=== PATIENT | female | born 1935 | race Caucasian/White ===

== ENCOUNTER → 2016-06-16 | Outpatient (CLI) | payer BC ==
[~2016-06-16] MED LIST: ACET-1256 PO; ANAS1TAB19 PO; ASPI81TA28 PO; DLTCD/240 PO; FURO-85 PO; METH-589 PO; POTA-335 PO; TELM80TA PO; Vitamin D3 PO
[2016-06-16 12:04] LABS: BASO % 0.5 %; BASO ABS # 0.03 K/uL (0-0.2); COMPLETE YES; EOS % 2.5 %; HEMATOCRIT 43.5 % (37-47); IG% 0.2 %; LYMPH % 21.7 %; LYMPH ABS # 1.33 K/uL (1.2-3.4); MEAN CELL VOLUME 88.8 fL (80-100); MEAN CORPUSCULAR HEMOGLOBIN 30.2 pg (25-34); MEAN PLATELET VOLUME 10.2 fL (7.4-10.4); MONO % 6.4 %; NEUT % 68.7 %; PLATELET COUNT 226 K/uL (130-400); WHITE BLOOD COUNT 6.12 K/uL (4.8-10.8)
[2016-06-16 12:32] LABS: BLOOD UREA NITROGEN 12 mg/dl (7-18); BUN/CREATININE RATIO 12.8 (10-20); CALCIUM 9.3 mg/dl (8.5-10.1); CARBON DIOXIDE 30 mmol/L (21-32); CHLORIDE 107 mmol/L (98-107); GLUCOSE 86 mg/dl (70-99); SODIUM 143 mmol/L (136-145)
== END | disposition home or self-care (01) ==
LOC: C.LAB 11:27
PROVIDERS: ATTEND Internal Medicine Geriatric Medicine
DX: I10 Essential (primary) hypertension (principal); E05.90 Thyrotoxicosis, unspecified without thyrotoxic crisis or storm

== ENCOUNTER → 2016-07-13 | Outpatient (CLI) | payer BC ==
[2016-07-13 15:50] LABS: BASO % 0.6 %; BASO ABS # 0.04 K/uL (0-0.2); COMPLETE YES; EOS % 2.6 %; HEMATOCRIT 42.6 % (37-47); IG% 0.3 %; LYMPH % 17.2 %; LYMPH ABS # 1.19 K/uL (1.2-3.4); MEAN CELL VOLUME 89.7 fL (80-100); MEAN CORPUSCULAR HEMOGLOBIN 29.7 pg (25-34); MEAN CORPUSCULAR HGB CONC 33.1 g/dl (32-36); MEAN PLATELET VOLUME 10.2 fL (7.4-10.4); MONO % 7.2 %; NEUT % 72.1 %; PLATELET COUNT 282 K/uL (130-400); RED BLOOD COUNT 4.75 M/uL (4.2-5.4); WHITE BLOOD COUNT 6.93 K/uL (4.8-10.8)
[2016-07-13 16:15] LABS: FERRITIN 85.9 ng/ml (8.0-388.0)
== END | disposition home or self-care (01) ==
LOC: C.LAB 14:59
PROVIDERS: ATTEND Nurse Practitioner
DX: C50.111 Malignant neoplasm of central portion of right female breast (principal); D50.9 Iron deficiency anemia, unspecified

== ENCOUNTER → 2016-07-27 | Outpatient (CLI) | payer BC ==
--- NOTE | 2016-07-28 15:18 | MAMMOGRAPHY REPORT ---
BILATERAL DIGITAL SCREENING MAMMOGRAM TOMOSYNTHESIS WITH CAD: 07/27/2016 CLINICAL HISTORY: Asymptomatic. Personal history of right breast cancer status post treatment. TECHNIQUE: Breast tomosynthesis in addition to standard 2D mammography was performed. Current study was also evaluated with a Computer Aided Detection (CAD) system. COMPARISON: Comparison is made to exams dated: 07/23/2015 mammogram, 02/01/2015 mammogram, 08/01/2014 ultrasound, 08/01/2014 mammogram, 06/13/2013 mammogram, and 11/21/2012 mammogram - [facility]. BREAST COMPOSITION: There are scattered areas of fibroglandular density in both breasts. FINDINGS: There is expected architectural distortion in the upper outer posterior right breast, at the site of prior lumpectomy. A linear scar marker overlies the skin of the upper outer posterior r ight breast. There are several surgical clips remaining in place. A few loosely grouped punctate m onomorphic microcalcifications near the lateral aspect of the surgical site. Benign-appearing rodli ke calcifications and calcifications elsewhere in the right breast. No new suspicious mass, architec tural distortion or cluster of microcalcifications is seen bilaterally. IMPRESSION: ACR BI-RADS CATEGORY 1: NEGATIVE There is no mammographic evidence of malignancy. A 1 year screening mammogram is recommended. The p atient will receive written notification of the results. Approximately 10% of breast cancers are not detected with mammography. A negative mammographic repor t should not delay biopsy if a clinically suggestive mass is present. Karina Villafana M.D. ay/:07/27/2016 17:13:15 Bench Assembler Operator: Faiza LAUGHLIN)(Gomez), [facility] letter sent: Normal 1/2 BI-RADS Code: ACR BI-RADS Category 1: Negative
== END | disposition home or self-care (01) ==
LOC: C.MAMM 10:41
PROVIDERS: ATTEND Nurse Practitioner
DX: Z12.31 Encounter for screening mammogram for malignant neoplasm of breast (principal)

== ENCOUNTER → 2016-08-03 | Outpatient (CLI) | payer BC ==
--- NOTE | 2016-08-07 08:58 | CODING QUERY NO DIAGNOSIS ---
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 Please assist us with providing a diagnosis/symptom for the test(s) below: A diagnosis/symptom was not documented on your Order. A valid diagnosis/symptom is required to bill all insurances. Please remember that we are unable to code a diagnosis of rule out, probable, possible, questionable, or suspected. Tests that require a diagnosis: * DXA BONE DENSITY, AXIAL DIAGNOSIS: DATE OF SERVICE: 08/03/16 Provider Signature: Date: Thank you Telly Samaniego [facility] Information Management Once completed, please kindly fax back to [phone] For questions please call [phone]
--- NOTE | 2016-09-07 13:34 | CODING QUERY MEDICAL NECESSITY ---
SUPPORTING DIAGNOSIS NEEDED Terence VICENTE, A supporting diagnosis is required for the test/procedure performed on this patient in order for us to be reimbursed by the patient's insurance. Please provide a supporting diagnosis for the following test/procedure listed below next to the test name along with your signature. *If there is no additional diagnosis for this patient that would support the following test/procedure please document that below next to the test/procedure. Test(s)/Procedure(s) that require a supporting diagnosis: * ([id number]) DXA BONE DENSITY, AXIAL DIAGNOSIS: DATE OF SERVICE: 08/03/16 Provider Signature: Date: Thank you Telly Samaniego [facility] Information Management Once completed, please kindly fax back to [phone] For questions please call [phone]
== END | disposition home or self-care (01) ==
LOC: C.MAMM 11:22
PROVIDERS: ATTEND Nurse Practitioner Family
DX: C50.111 Malignant neoplasm of central portion of right female breast (principal); Z51.81 Encounter for therapeutic drug level monitoring; Z79.811 Long term (current) use of aromatase inhibitors

== ENCOUNTER → 2016-12-02 | Outpatient (CLI) | payer BC ==
[2016-12-02 12:25] LABS: BASO % 0.8 %; BASO ABS # 0.05 K/uL (0-0.2); COMPLETE YES; EOS % 2.5 %; HEMATOCRIT 43.1 % (37-47); IG% 0.3 %; LYMPH % 18.1 %; LYMPH ABS # 1.15 K/uL (1.2-3.4); MEAN CELL VOLUME 87.2 fL (80-100); MEAN CORPUSCULAR HEMOGLOBIN 29.8 pg (25-34); MEAN CORPUSCULAR HGB CONC 34.1 g/dl (32-36); MEAN PLATELET VOLUME 10.3 fL (7.4-10.4); MONO % 6.4 %; NEUT % 71.9 %; PLATELET COUNT 245 K/uL (130-400); RED BLOOD COUNT 4.94 M/uL (4.2-5.4); WHITE BLOOD COUNT 6.37 K/uL (4.8-10.8)
[2016-12-02 12:36] LABS: ALT/SGPT 21 U/L (12-78); AST/SGOT 11 U/L (15-37); BLOOD UREA NITROGEN 14 mg/dl (7-18); CALCIUM 9.1 mg/dl (8.5-10.1); CARBON DIOXIDE 25 mmol/L (21-32); CHLORIDE 109 mmol/L (98-107); CREATININE 0.88 mg/dl (0.60-1.20); GLUCOSE 154 mg/dl (70-99); SODIUM 140 mmol/L (136-145)
[2016-12-02 12:42] LABS: ALB/GLOB RATIO 1.2 (0.9-2); ALKALINE PHOSPHATASE 112 U/L (45-117); FERRITIN 60.6 ng/ml (8.0-388.0); TOTAL IRON BINDING CAPACITY 286 mcg/dl (250-450)
== END | disposition home or self-care (01) ==
LOC: C.LAB 10:43
PROVIDERS: ATTEND Nurse Practitioner Family
DX: C50.111 Malignant neoplasm of central portion of right female breast (principal)

== ENCOUNTER → 2017-01-12 | Outpatient (CLI) | payer BC ==
[2017-01-12 11:59] LABS: BASO % 0.5 %; BASO ABS # 0.03 K/uL (0-0.2); COMPLETE YES; EOS % 2.1 %; HEMATOCRIT 40.7 % (37-47); IG% 0.2 %; LYMPH ABS # 1.11 K/uL (1.2-3.4); MEAN CELL VOLUME 89.6 fL (80-100); MEAN CORPUSCULAR HGB CONC 33.4 g/dl (32-36); MEAN PLATELET VOLUME 10.3 fL (7.4-10.4); MONO % 9.1 %; NEUT % 70.1 %; PLATELET COUNT 257 K/uL (130-400); RED BLOOD COUNT 4.54 M/uL (4.2-5.4); WHITE BLOOD COUNT 6.17 K/uL (4.8-10.8)
[2017-01-12 18:25] LABS: BLOOD UREA NITROGEN 12 mg/dl (7-18); BUN/CREATININE RATIO 15.3 (10-20); CALCIUM 9.3 mg/dl (8.5-10.1); CARBON DIOXIDE 26 mmol/L (21-32); CHLORIDE 109 mmol/L (98-107); GLUCOSE 98 mg/dl (70-99); SODIUM 143 mmol/L (136-145)
== END | disposition home or self-care (01) ==
LOC: C.LABPBG 10:37
PROVIDERS: ATTEND Internal Medicine Geriatric Medicine
DX: I10 Essential (primary) hypertension (principal); E05.90 Thyrotoxicosis, unspecified without thyrotoxic crisis or storm; D64.9 Anemia, unspecified; I48.2 Chronic atrial fibrillation

== ENCOUNTER → 2017-07-20 | Outpatient (CLI) | payer BC ==
[2017-07-20 17:02] LABS: BASO % 0.7 %; BASO ABS # 0.05 K/uL (0-0.2); EOS % 2.6 %; EOS ABS # 0.19 K/uL (0-0.5); HEMATOCRIT 41.8 % (37-47); HEMOGLOBIN 13.6 g/dL (12.0-16.0); IG# 0.01 K/uL (0.00-0.02); LYMPH % 20.7 %; LYMPH ABS # 1.52 K/uL (1.2-3.4); MEAN CELL VOLUME 90.1 fL (80-100); MEAN CORPUSCULAR HEMOGLOBIN 29.3 pg (25-34); MEAN CORPUSCULAR HGB CONC 32.5 g/dl (32-36); MEAN PLATELET VOLUME 10.3 fL (7.4-10.4); MONO % 7.2 %; MONO ABS # 0.53 K/uL (0.11-0.59); NEUT % 68.7 %; NEUT ABS # 5.03 K/uL (1.4-6.5); PLATELET COUNT 299 K/uL (130-400); RED CELL DISTRIBUTION WIDTH CV 14.3 % (11.5-14.5); RED CELL DISTRIBUTION WIDTH SD 46.6 fL (36.4-46.3); WHITE BLOOD COUNT 7.33 K/uL (4.8-10.8)
[2017-07-20 17:13] LABS: ALBUMIN 3.6 gm/dl (3.4-5.0); ALT/SGPT 21 U/L (12-78); AST/SGOT 13 U/L (15-37); BLOOD UREA NITROGEN 16 mg/dl (7-18); CALCIUM 8.8 mg/dl (8.5-10.1); CARBON DIOXIDE 26 mmol/L (21-32); CREATININE 0.97 mg/dl (0.60-1.20); GLUCOSE 128 mg/dl (70-99); POTASSIUM 4.1 mmol/L (3.5-5.1); SODIUM 140 mmol/L (136-145)
[2017-07-20 17:23] LABS: ALKALINE PHOSPHATASE 104 U/L (45-117); TOTAL PROTEIN 6.8 gm/dl (6.4-8.2)
[2017-07-21 06:48] LABS: HEMOGLOBIN A1C 6.2 % (4.5-5.6)
== END | disposition home or self-care (01) ==
LOC: C.LABPBG 13:16
PROVIDERS: ATTEND Internal Medicine Geriatric Medicine
DX: I10 Essential (primary) hypertension (principal); E05.90 Thyrotoxicosis, unspecified without thyrotoxic crisis or storm; M19.90 Unspecified osteoarthritis, unspecified site; E55.9 Vitamin D deficiency, unspecified; D64.9 Anemia, unspecified; I48.2 Chronic atrial fibrillation

== ENCOUNTER → 2017-11-30 | Outpatient (CLI) | payer BC ==
[~2017-11-30] MED LIST changes: -ANAS1TAB19 PO; +ANAS1TAB59 PO
[2017-11-30 16:53] LABS: BASO % 0.5 %; BASO ABS # 0.03 K/uL (0-0.2); EOS % 2.6 %; EOS ABS # 0.17 K/uL (0-0.5); HEMATOCRIT 41.3 % (37-47); HEMOGLOBIN 13.1 g/dL (12.0-16.0); LYMPH % 20.4 %; LYMPH ABS # 1.35 K/uL (1.2-3.4); MEAN CELL VOLUME 89.4 fL (80-100); MEAN CORPUSCULAR HEMOGLOBIN 28.4 pg (25-34); MEAN CORPUSCULAR HGB CONC 31.7 g/dl (32-36); MEAN PLATELET VOLUME 11.2 fL (7.4-10.4); MONO % 5.6 %; MONO ABS # 0.37 K/uL (0.11-0.59); NEUT % 70.9 %; NEUT ABS # 4.71 K/uL (1.4-6.5); PLATELET COUNT 285 K/uL (130-400); RED CELL DISTRIBUTION WIDTH CV 14.3 % (11.5-14.5); RED CELL DISTRIBUTION WIDTH SD 46.5 fL (36.4-46.3); WHITE BLOOD COUNT 6.63 K/uL (4.8-10.8)
[2017-11-30 17:07] LABS: ALBUMIN 3.5 gm/dl (3.4-5.0); ALKALINE PHOSPHATASE 99 U/L (45-117); ALT/SGPT 19 U/L (12-78); AST/SGOT 11 U/L (15-37); BLOOD UREA NITROGEN 19 mg/dl (7-18); CALCIUM 8.9 mg/dl (8.5-10.1); CARBON DIOXIDE 26 mmol/L (21-32); CREATININE 1.04 mg/dl (0.60-1.20); GLUCOSE 148 mg/dl (70-99); POTASSIUM 4.1 mmol/L (3.5-5.1); SODIUM 137 mmol/L (136-145); TOTAL PROTEIN 6.8 gm/dl (6.4-8.2)
== END | disposition home or self-care (01) ==
LOC: C.LABPBG 13:16
PROVIDERS: ATTEND Nurse Practitioner Family
DX: C50.111 Malignant neoplasm of central portion of right female breast (principal)

== ENCOUNTER 2021-04-09 10:53 | Observation (INO) ==
[2021-04-09 12:11] LABS: Basophils # (auto) 0.03 K/uL (0-0.2); Basophils % (auto) 0.4 %; Eosinophils # (auto) 0.13 K/uL (0-0.5); Eosinophils % (auto) 1.7 %; Hematocrit (blood only) 45.3 % (37-47); Hemoglobin 14.8 g/dL (12.0-16.0); Immature Granulocytes # (auto) 0.01 K/uL (0.00-0.02); Immature Granulocytes % (auto) 0.1 %; Lymphocytes # (auto) 0.99 K/uL (1.2-3.4); Lymphocytes % (auto) 12.8 %; Mean Corpuscular Hemoglobin 29.7 pg (25-34); Mean Corpuscular Hgb Conc 32.7 g/dL (32-36); Mean Corpuscular Volume 90.8 fL (80-100); Mean Platelet Volume 10.3 fL (7.4-10.4); Monocytes # (auto) 0.51 K/uL (0.11-0.59); Monocytes % (auto) 6.6 %; Neutrophils # (auto) 6.06 K/uL (1.4-6.5); Neutrophils % (auto) 78.4 %; Platelet Count 267 K/uL (130-400); RDW Coefficient of Variation 14.6 % (11.5-14.5); RDW Standard Deviation 48.5 fL (36.4-46.3); Red Blood Count 4.99 M/uL (4.2-5.4); White Blood Count 7.73 K/uL (4.8-10.8)
[2021-04-09 12:31] LABS: Alanine Aminotransferase 16 (12-78); Albumin Level 3.8 gm/dl (3.4-5.0); Aspartate Aminotransferase 8 U/L (15-37); BUN Creatinine Ratio 23.8 (10-20); Blood Urea Nitrogen 20 mg/dl (7-18); Calcium 9.6 mg/dl (8.5-10.1); Carbon Dioxide 26 mmol/L (21-32); Chloride 107 mmol/L (98-107); Est GFR (African American) 74.5 ml/min; Est GFR (Non-African American) 64.3 ml/min; Glucose 110 mg/dl (70-99); Potassium 3.8 mmol/L (3.5-5.1); Sodium 139 mmol/L (136-145)
[2021-04-09 12:33] LABS: Albumin Globulin Ratio 1.1 (0.9-2); Alkaline Phosphatase 96 U/L (45-117); Bilirubin,Total 0.6 mg/dl (0.2-1); Globulin 3.4 gm/dl (2.5-4.0); Total Protein 7.2 gm/dl (6.4-8.2)
[2021-04-09] MEDS ORDERED: SODIUM CHLORIDE 0.9% 1000ML 500 ML IV ONE (15:45)
--- NOTE | 2021-04-09 16:11 | Emergency Department Note ---
History of Present Illness General Chief complaint: Fall Stated complaint: FALL Time Seen by Provider: 04/09/21 15:32 History of Present Illness This 85-year-old female patient with significant past medical history of atrial fibrillation, interstitial cystitis, hypertension presents to the emergency department today for evaluation of fall. The patient states yesterday at about 3 AM, she awoke from sleep needing to go to the bathroom. She sat on the side of the bed when she felt lightheaded and dizzy. She stood up to go to the bathroom and reports she passed out, striking the right side of her head on a dresser and somehow getting a contusion on the left forearm. The patient notes she continues to feel lightheaded and dizzy, the symptoms have not resolved. She did get herself up and out of bed today and made herself breakfast, but when she continued to feel unsteady on her feet, lightheaded, and dizzy, she decided to come to the emergency department for evaluation. The patient states she has not felt normal for the past 2 days. Patient denies any recent fever or illness. She denies any numbness or tingling. She denies any headache or visual disturbances. No ringing in the ears. No chest pain or trouble breathing before or after the fall. No abdominal pain, nausea, vomiting. She does have diarrhea which she states is chronic. She rates her current pain in the back of her head a 3/10 and describes it as throbbing. She has not taken any medications for her symptoms. Patient takes only a baby aspirin daily. She does not take any other blood thinners. Home Medications Medication Instructions Recorded Confirmed Type anastrozole 1 mg tablet 1 mg PO QAM 01/18/19 04/09/21 History diltiazem HCl 240 mg 240 mg PO BID cap 01/18/19 04/09/21 History capsule,extended release 24 hr metoprolol succinate 25 mg 25 mg PO HS tab 01/18/19 04/09/21 History tablet,extended release 24 hr potassium chloride 20 mEq 20 meq PO QAM #180 tab 01/18/19 04/09/21 History tablet,extended release cholecalciferol (vitamin D3) 50 50 mcg PO BID 09/03/20 04/09/21 History mcg (2,000 unit) tablet furosemide 20 mg tablet 20 mg PO QAM 09/03/20 04/09/21 History pantoprazole 40 mg tablet,delayed 40 mg PO QAM #90 tab 11/12/20 04/09/21 Rx release telmisartan 40 mg tablet (Micardis) 80 mg PO DAILY #60 tab 02/17/21 04/09/21 Rx methimazole 5 mg tablet 5 mg PO QAM #90 tab 03/03/21 04/09/21 Rx acetaminophen 500 mg tablet 1,000 mg PO HS 04/09/21 04/09/21 History aspirin 81 mg tablet,delayed 81 mg PO QPM 04/09/21 04/09/21 History release Allergies Allergy/AdvReac Type Severity Reaction Status Date / Time lisinopril AdvReac Intermediate cough Unverified 04/09/21 18:15 morphine AdvReac Unknown N/V Verified 04/09/21 18:15 Past Med/Surg History Medical History Anemia Bilateral renal cysts Breast cancer S/p right lumpectomy and SN biopsy - 2007 No chemo/radiation just oral treatment No current issues Chronic diastolic (congestive) heart failure Cystitis Dyslipidemia Gastroesophageal reflux disease Well controlled and stable History of malignant neoplasm of breast Hypertension Hyperthyroidism On Methimazole No symptoms currently Interstitial cystitis Kidney stones Asymptomatic Osteoarthritis Permanent atrial fibrillation On ASA only Pulmonary hypertension Mild - per 2013 cath per cardio records Retinal detachment Left- Apr or May 2020- treated with drops and injection - no current issues T2DM (type 2 diabetes mellitus) Well controlled with diet Surgical History History of cardiac cath History of cataract surgery History of colonoscopy History of esophagogastroduodenoscopy (EGD) S/P cholecystectomy S/P hysterectomy S/P lumpectomy, right breast S/P tonsillectomy Status post hip surgery Family History Mother , age 92 Hypertension Heart failure Father , age 37 accident in coal mine No problems noted. Denies family history of Ovarian cancer Prostate cancer Myocardial infarction Breast cancer Colorectal cancer Social History Smoking Status: Never smoker Second Hand Exposure: No; Do You Dip or Chew Tobacco: No; Hx Alcohol Use: No Hx Substance Use: No Preferred Language: Serbian Communication Ability: Effective Visual Impairment: No Limitations Hearing Ability: Use of Hearing Aid Mail Carrier Required: No Beliefs That Will Affect Care: None marital status: Current Living Situation: Spouse current occupational status: retired current occupation: former cook at [employer] Other Information That Helps Us Care for You: No Feels Safe at Home: Yes Safety Concerns: Feels Safe At This Time Childhood Exposure to Second-Hand Smoke: No Diet Comment: regular caffeine: Yes during the past year weight has: remained stable Dental Care, Regularly: Yes Physical Activity Frequency: Does not Exercise Seatbelt Use: always Sunscreen Use: No Assistive Devices: Cane, Glasses and Hearing Aid - Bilateral Review of Systems A total of 10 systems reviewed and were otherwise negative Physical Exam Vital Signs Vital Signs - 24 hr 04/09/21 11:22 04/09/21 15:00 04/09/21 17:24 Temperature 36.1 C L Temperature Source Temporal Artery Scan Pulse Rate - Lying 90 Pulse Rate - Sitting 85 Pulse Rate - Standing 90 Pulse Rate 106 H Pulse Rate [Apical] 76 Respiratory Rate 20 16 Respiratory Effort / Characteristics Non-Labored Respiratory Depth Normal Respiratory Pattern Blood Pressure - Lying 200/107 H Blood Pressure - Sitting 155/95 H Blood Pressure- Standing 170/116 H Blood Pressure 143/64 H Blood Pressure [Right Arm] 145/85 H Blood Pressure Mean 90 Blood Pressure Mean [Right Arm] 105 Blood Pressure Position [Right Arm] Pulse Oximetry 95 95 Oxygen Delivery Method Room Air Room Air Sepsis Recent Fever Within 48 Hours No Sepsis New/Unexplained Change in Mental Status N/A Sepsis Action Taken by Nursing No Action Required 04/09/21 17:37 04/09/21 20:27 Temperature 36.7 C Temperature Source Oral Pulse Rate - Lying Pulse Rate - Sitting Pulse Rate - Standing Pulse Rate Pulse Rate [Apical] 78 91 H Respiratory Rate 20 24 Respiratory Effort / Characteristics Non-Labored Non-Labored Spontaneous Respiratory Depth Normal Respiratory Pattern Regular Blood Pressure - Lying Blood Pressure - Sitting Blood Pressure- Standing Blood Pressure Blood Pressure [Right Arm] 206/116 H 184/117 H Blood Pressure Mean Blood Pressure Mean [Right Arm] 146 139 Blood Pressure Position [Right Arm] Lying Pulse Oximetry 98 96 Oxygen Delivery Method Room Air Sepsis Recent Fever Within 48 Hours Sepsis New/Unexplained Change in Mental Status Sepsis Action Taken by Nursing VITALS: Vitals are noted on the nurse's note and reviewed by myself. Vital signs stable. GENERAL: This is a an 85-year-old white female, in no acute distress, nondiaph oretic, well-developed well-nourished. SKIN: Contusion noted on the proximal left lateral forearm. There is mild tenderness palpation in this area. The skin was otherwise without rashes, erythema, edema, or bruising. There is no tenting of the skin. Capillary refill less than 2 seconds. HEAD: Normocephalic atraumatic. EARS: External auditory canals clear, tympanic membranes pearly benavides without erythema or effusion bilaterally. No hemotympanum. Negative munoz sign. EYES: Pupils equal round and reactive to light and accommodation. Conjunctivae without injection, sclerae without icterus. Extraocular movements intact. No swelling or discoloration of the tissue surrounding the eyes. NOSE: Patent, turbinates without inflammation or discharge. No sinus tenderness. MOUTH: Mucous membranes moist. Tonsils are not enlarged. Pharynx without erythema or exudate. Uvula midline. Airway patent. Tongue does not deviate. NECK: Supple without nuchal rigidity. No lymphadenopathy. Cervical spine is nontender. No JVD. HEART: Regular rate and rhythm without murmurs gallops or rubs. LUNGS: Clear to auscultation bilaterally without wheezes, rales or rhonchi. No retractions or accessory muscle use. ABDOMEN: Positive bowel sounds x 4. Soft, nontender, without masses or organomegaly. Langston sign negative. No guarding or rebound tenderness. MUSCULOSKELETAL: No muscle atrophy, erythema, or edema noted. Full range of motion without joint tenderness in all extremities. No tenderness to palpation. Normal gait. Strength 5/5 throughout. NEURO: Patient was alert and oriented to person place and time. Normal sensation to light and sharp touch. No focal neurological deficits. Cranial nerves II through XII grossly intact. Course Course The patient was seen and evaluated as above. An order was placed for continuous cardiac monitoring. The monitor shows a normal sinus rhythm at a rate of 76 bpm. IV access obtained, labs drawn. Patient gently hydrated with IV fluids. Imaging performed and reviewed by myself and radiologist as noted. Labs reviewed by myself. I discussed the findings with the patient at bedside. Discussed benefits versus risks associated with admission versus discharge to home with outpatient follow- up. The patient would feel more comfortable with admission. I discussed the case with my attending physician. He did see and evaluate the patient I discussed the case with Dr. Worthington, [facility] hospitalist physician. Please see hospitalist dictation regarding ongoing management and care of this patient. Administered Medications Acetaminophen (Acetaminophen 500 Mg Tab) 500 mg PO HS CAMMY Stop: 05/09/21 21:59 Last Admin: 04/09/21 22:23 Dose: 500 mg Documented by: [id number] Aspirin (Aspirin 81 Mg Ectab) 81 mg PO QPM CAMMY Stop: 05/09/21 21:59 Last Admin: 04/09/21 22:23 Dose: 81 mg Documented by: [id number] Metoprolol Succinate (Metoprolol Succ 25mg Ext Rel Tab) 25 mg PO HS CAMMY Stop: 05/09/21 21:59 Last Admin: 04/09/21 22:23 Dose: 25 mg Documented by: [id number] Vitamin D (Cholecalciferol 1,000 Units 25 Mcg Tab) 2,000 units PO BID CAMMY Stop: 05/09/21 21:59 Last Admin: 04/09/21 22:22 Dose: 2,000 units Documented by: [id number] Discontinued Medications Diltiazem HCl (Diltiazem Er 120 Mg Capcr) 240 mg PO NOW STA Stop: 04/09/21 17:58 Last Admin: 04/09/21 18:23 Dose: 240 mg Documented by: [id number] Sodium Chloride (Nss 1000ml) 500 mls @ 999 mls/hr IV .Q31M ONE Stop: 04/09/21 16:15 Last Infusion: 04/09/21 16:24 Dose: 0 mls/hr Documented by: [id number] Admin: 04/09/21 15:53 Dose: 999 mls/hr Documented by: [id number] Metoprolol Succinate (Metoprolol Succ 25mg Ext Rel Tab) 25 mg PO NOW STA Stop: 04/09/21 17:58 Last Admin: 04/09/21 18:23 Dose: 25 mg Documented by: [id number] Ondansetron HCl (Ondansetron Inj 2 Mg/Ml 2 Ml Vial) 4 mg IV NOW STA Stop: 04/09/21 21:32 Last Admin: 04/09/21 21:39 Dose: 4 mg Documented by: [id number] Telmisartan (Telmisartan 40 Mg Tab) 40 mg PO NOW STA Stop: 04/09/21 17:58 Last Admin: 04/09/21 18:23 Dose: 40 mg Documented by: [id number] Medical Decision Making Differential Diagnosis Vasovagal event, dehydration, infection, hypoglycemia, electrolyte abnormalities, cardiac sources, intracerebral event, pulmonary embolism, seizure, toxicologic, neurologic, musculoskeletal, as well as other pathologies. Medical Records Attestation: I reviewed the patient's medical records. Home Medications Current Medication List: was personally reviewed by me Laboratory Data Attestation: I reviewed the patient's lab results. No leukocytosis, anemia, thrombocytopenia. Renal, hepatic function, and electrolytes without significant abnormality. Troponin negative. Result diagrams: 04/09/21 11:57 04/09/21 11:57 Lab Results 04/09/21 04/09/21 04/09/21 Range/Units 11:57 11:57 11:57 WBC 7.73 (4.8-10.8) K/uL RBC 4.99 (4.2-5.4) M/uL Hgb 14.8 (12.0-16.0) g/dL Hct 45.3 (37-47) % MCV 90.8 (80-100) fL MCH 29.7 (25-34) pg MCHC 32.7 (32-36) g/dL RDW Std Deviation 48.5 H (36.4-46.3) fL RDW Coeff of Jeanna 14.6 H (11.5-14.5) % Plt Count 267 (130-400) K/uL MPV 10.3 (7.4-10.4) fL Immature Gran % (Auto) 0.1 % Neut % (Auto) 78.4 % Lymph % (Auto) 12.8 % Dukes % (Auto) 6.6 % Eos % (Auto) 1.7 % Baso % (Auto) 0.4 % Neut # (Auto) 6.06 (1.4-6.5) K/uL Lymph # (Auto) 0.99 L (1.2-3.4) K/uL Dukes # (Auto) 0.51 (0.11-0.59) K/uL Eos # (Auto) 0.13 (0-0.5) K/uL Baso # (Auto) 0.03 (0-0.2) K/uL Immature Gran # (Auto) 0.01 (0.00-0.02) K/uL Sodium 139 (136-145) mmol/L Potassium 3.8 (3.5-5.1) mmol/L Chloride 107 (98-107) mmol/L Carbon Dioxide 26 (21-32) mmol/L Anion Gap 6.0 (3-11) BUN 20 H (7-18) mg/dl Creatinine 0.83 (0.6-1.2) mg/dl Est Cr Clr Drug Dosing Not Reportable Est GFR ( Amer) 74.5 ml/min Est GFR (Non-Af Amer) 64.3 ml/min BUN/Creatinine Ratio 23.8 H (10-20) Glucose 110 H (70-99) mg/dl Calcium 9.6 (8.5-10.1) mg/dl Total Bilirubin 0.6 (0.2-1) mg/dl AST 8 L (15-37) U/L ALT 16 (12-78) Alkaline Phosphatase 96 (45-117) U/L Total Creatine Kinase 57 (26-192) U/L Troponin I < 0.015 (0-0.045) ng/ml Total Protein 7.2 (6.4-8.2) gm/dl Albumin 3.8 (3.4-5.0) gm/dl Globulin 3.4 (2.5-4.0) gm/dl Albumin/Globulin Ratio 1.1 (0.9-2) TSH 3.010 (0.300-4.500) uIu/ml Urine Color Urine Appearance (Clear) Urine pH (4.5-7.5) Ur Specific [place] (1.000-1.030) Urine Protein (Negative) Urine Glucose (UA) (Negative) Urine Ketones (Negative) Urine Blood (Negative) Urine Nitrite (Negative) Urine Bilirubin (Negative) Urine Urobilinogen (Negative) Ur Leukocyte Esterase (Negative) Urine RBC (0-4) /hpf Urine WBC (0-5) /hpf Ur Epithelial Cells (0-5) /lpf Amorphous Sediment (None Prsent) Urine Bacteria (Negative) Urine Mucus (None Prsent) SARS-CoV-2, RNA, NAAT (NEGATIVE) 04/09/21 04/09/21 Range/Units 17:25 18:04 WBC (4.8-10.8) K/uL RBC (4.2-5.4) M/uL Hgb (12.0-16.0) g/dL Hct (37-47) % MCV (80-100) fL MCH (25-34) pg MCHC (32-36) g/dL RDW Std Deviation (36.4-46.3) fL RDW Coeff of Jeanna (11.5-14.5) % Plt Count (130-400) K/uL MPV (7.4-10.4) fL Immature Gran % (Auto) % Neut % (Auto) % Lymph % (Auto) % Dukes % (Auto) % Eos % (Auto) % Baso % (Auto) % Neut # (Auto) (1.4-6.5) K/uL Lymph # (Auto) (1.2-3.4) K/uL Dukes # (Auto) (0.11-0.59) K/uL Eos # (Auto) (0-0.5) K/uL Baso # (Auto) (0-0.2) K/uL Immature Gran # (Auto) (0.00-0.02) K/uL Sodium (136-145) mmol/L Potassium (3.5-5.1) mmol/L Chloride (98-107) mmol/L Carbon Dioxide (21-32) mmol/L Anion Gap (3-11) BUN (7-18) mg/dl Creatinine (0.6-1.2) mg/dl Est Cr Clr Drug Dosing Est GFR ( Amer) ml/min Est GFR (Non-Af Amer) ml/min BUN/Creatinine Ratio (10-20) Glucose (70-99) mg/dl Calcium (8.5-10.1) mg/dl Total Bilirubin (0.2-1) mg/dl AST (15-37) U/L ALT (12-78) Alkaline Phosphatase (45-117) U/L Total Creatine Kinase (26-192) U/L Troponin I (0-0.045) ng/ml Total Protein (6.4-8.2) gm/dl Albumin (3.4-5.0) gm/dl Globulin (2.5-4.0) gm/dl Albumin/Globulin Ratio (0.9-2) TSH (0.300-4.500) uIu/ml Urine Color Yellow Urine Appearance Slightly Cloudy (Clear) Urine pH 7.0 (4.5-7.5) Ur Specific [place] 1.020 (1.000-1.030) Urine Protein 2+ H (Negative) Urine Glucose (UA) Negative (Negative) Urine Ketones Negative (Negative) Urine Blood 2+ H (Negative) Urine Nitrite Negative (Negative) Urine Bilirubin Negative (Negative) Urine Urobilinogen Negative (Negative) Ur Leukocyte Esterase 2+ H (Negative) Urine RBC 5-10 H (0-4) /hpf Urine WBC >30 H (0-5) /hpf Ur Epithelial Cells 20-30 H (0-5) /lpf Amorphous Sediment Present A (None Prsent) Urine Bacteria 1+ H (Negative) Urine Mucus Present A (None Prsent) SARS-CoV-2, RNA, NAAT NEGATIVE (NEGATIVE) Imaging Data Radiologist's Impression: Cervical Spine CT 04/09/21 15:45 CT cervical spine wo con CT DOSE: 459.96 mGycm CLINICAL HISTORY: 85 years-old Female with fall, head injury, neck pain. Acute head and neck injury status post fall COMPARISON: Head CT of same day TECHNIQUE: Multiple axial CT images of the cervical spine were obtained without contrast. A dose lowering technique was utilized adhering to the principles of ALARA. FINDINGS: Mild grade 1 anterolisthesis C3 on C4 and C7 on T1 is likely on a degenerative basis. There is severe multilevel facet arthrosis. Multilevel intervertebral disc space narrowing, moderate to severe with vacuum disc phenomenon C4-C5, C5-C6 and C6 or C7 with associated posterior disc osteophyte complex formations. Severe C1-C2 degeneration. No acute fracture or subluxation identified. Coronary arterial calcifications. Trace right mastoid effusion. Left mastoid air cells are clear. Multilevel neural foraminal narrowing. No pneumothorax. Multinodular thyroid goiter extends into the mediastinum. IMPRESSION: 1. No acute cervical spine fracture or subluxation. 2. Thyroid goiter. ACT 112: Negative or not required by law. The above report was generated using voice recognition software. It may contain grammatical, syntax or spelling errors. Electronically signed by: Hector Ken M.D. 04/09/2021 4:39 PM Chest X-Ray 04/09/21 15:45 XR chest 1V portable CLINICAL HISTORY: syncope COMPARISON STUDY: Chest radiograph September 05, 2020. FINDINGS: Cardiomegaly is unchanged. There is no evidence for pulmonary edema. There is no consolidation to suggest pneumonia. There is no pneumothorax or pleural effusion. IMPRESSION: No acute cardiopulmonary findings. Cardiomegaly. ACT 112: Negative or not required by law. Electronically signed by: Edy Almazan M.D. 04/09/2021 4:15 PM Forearm X-Ray 04/09/21 15:45 XR forearm LT 2V CLINICAL HISTORY: pain, bruise, fall COMPARISON: None FINDINGS: IV is incidentally noted. No evidence for a left elbow joint effusion. No acute fracture of the left radius or ulna is identified. Soft tissue swelling of the dorsal aspect of the left forearm is present. IMPRESSION: No acute fracture of the left radius or ulna. ACT 112: Negative or not required by law. Electronically signed by: Edy Almazan M.D. 04/09/2021 4:[address] 04/09/21 15:45 CT head/brain wo con CLINICAL HISTORY: 85 years-old Female with fall, head injury, dizziness. Acute head injury status post fall with acute dizziness TECHNIQUE: Multiple axial CT images of the head were obtained without contrast. A dose lowering technique was utilized adhering to the principles of ALARA. CT DOSE: 1165.29 mGycm COMPARISON: CT cervical spine of same day FINDINGS: No acute intracranial hemorrhage, midline shift, intracranial mass, hydrocephalus, territorial ischemia or abnormal extra-axial collection. Age- related involutional changes. Mild white matter hypodensities suggest chronic microvascular ischemic disease. Subcentimeter chronic appearing infarcts of the basal ganglia. Cerebral vascular calcifications. The calvarium is intact. Trace right mastoid effusion. Left mastoid air cells and paranasal sinuses are clear. Prior bilateral lens repair. IMPRESSION: No acute intracranial abnormality or calvarial fracture. ACT 112: Negative or not required by law. The above report was generated using voice recognition software. It may contain grammatical, syntax or spelling errors. Electronically signed by: Hector Ken M.D. 04/09/2021 4:26 PM Hip/Pelvis X-Ray 04/09/21 19:51 XR hip RT 2V w pelvis HISTORY: 85 years-old Female right groin pain r/o periprosthetic fracture acute pain of the right groin COMPARISON: CT abdomen and pelvis 10/23/2013 TECHNIQUE: AP view of the pelvis with 2 views of the right hip FINDINGS: Right hip total joint arthroplasty. No acute fracture, dislocation or evidence of hardware complication. Moderate left hip osteoarthritis. Demineralized appearance the bones. Severe degeneration of the imaged lumbar spine. IMPRESSION: 1. No acute fracture or dislocation. 2. Right hip total joint arthroplasty without evidence of hardware complication. ACT 112: Negative or not required by law. The above report was generated using voice recognition software. It may contain grammatical, syntax or spelling errors. Electronically signed by: Hector Ken M.D. 04/09/2021 8:34 PM ECG Data Attestation: I personally reviewed and interpreted this ECG as follows: Indication: + syncope Rate (beats per minute): 78 Rhythm: + atrial fibrillation ECG [place]: + Normal ECG ST segments: no ST depression, no ST elevation or no T-wave inversions Comparison ECG Date: from (09/05/2020) Change: no significant change Blood Pressure Blood Pressure Findings: Normal blood pressure Head Trauma GCS Score: 15 MDM Narrative This 85-year-old female patient presents to the emergency department today for evaluation of ongoing dizziness and unsteadiness in the setting of syncopal episode and fall. CT imaging of the head and cervical spine negative for acute hemorrhage or fracture. Forearm x-ray without evidence of fracture of the radius or ulna. Chest x-ray negative for acute abnormality. Labs generally unrevealing. The patient did have a concerning drop in her blood pressure with orthostatic vitals, despite the ongoing hypertension which I believe to be associated with the patient being due for her blood pressure medicines. She continued to have significant dizziness and presyncopal symptoms. I recommended admission for further evaluation management of her symptoms. The patient and family member were agreeable. Please see hospitalist dictation regarding ongoing management care of this patient. The chart was completed utilizing [employer] voice recognition software. Grammatical errors, random word insertions, pronoun errors, and incomplete sentences are an occasional consequence of this system due to software limitations, ambient noise, and hardware issues. Any formal questions or concerns about the content, text, or information contained within the body of this dictation should be directly addressed to the provider for clarification. Impression & Plan Fall, Hypertension, Syncope, Dizziness, Contusion of forearm, left, Head injury Discharge Plan Visit Data Chief Complaint: Fall Stated Complaint: FALL ED Provider: Yasmany Lawrence ED Midlevel Provider: Prema Seth Discharge Problem: Fall, Hypertension, Syncope, Dizziness, Contusion of forearm, left, Head injury Patient Disposition: Admitted As Inpatient
[2021-04-09 16:15] LABS: Troponin I < 0.015 ng/ml (0-0.045)
--- NOTE | 2021-04-09 16:16 | XRay Report ---
XR chest 1V portable CLINICAL HISTORY: syncope COMPARISON STUDY: Chest radiograph September 05, 2020. FINDINGS: Cardiomegaly is unchanged. There is no evidence for pulmonary edema. There is no consolidat ion to suggest pneumonia. There is no pneumothorax or pleural effusion. IMPRESSION: No acute cardiopulmonary findings. Cardiomegaly. ACT 112: Negative or not required by law. Electronically signed by: Edy Almazan M.D. 04/09/2021 4:15 PM
--- NOTE | 2021-04-09 16:17 | XRay Report ---
XR forearm LT 2V CLINICAL HISTORY: pain, bruise, fall COMPARISON: None FINDINGS: IV is incidentally noted. No evidence for a left elbow joint effusion. No acute fracture o f the left radius or ulna is identified. Soft tissue swelling of the dorsal aspect of the left forear m is present. IMPRESSION: No acute fracture of the left radius or ulna. ACT 112: Negative or not required by law. Electronically signed by: Edy Almazan M.D. 04/09/2021 4:16 PM
--- NOTE | 2021-04-09 16:27 | CT Scan Report ---
CT head/brain wo con CLINICAL HISTORY: 85 years-old Female with fall, head injury, dizziness. Acute head injury status po st fall with acute dizziness TECHNIQUE: Multiple axial CT images of the head were obtained without contrast. A dose lowering tech nique was utilized adhering to the principles of ALARA. CT DOSE: 1165.29 mGycm COMPARISON: CT cervical spine of same day FINDINGS: No acute intracranial hemorrhage, midline shift, intracranial mass, hydrocephalus, territorial ischem ia or abnormal extra-axial collection. Age-related involutional changes. Mild white matter hypodensit ies suggest chronic microvascular ischemic disease. Subcentimeter chronic appearing infarcts of the b denis ganglia. Cerebral vascular calcifications. The calvarium is intact. Trace right mastoid effusion. Left mastoid air cells and paranasal sinuses are clear. Prior bilateral lens repair. IMPRESSION: No acute intracranial abnormality or calvarial fracture. ACT 112: Negative or not required by law. The above report was generated using voice recognition software. It may contain grammatical, syntax o r spelling errors. Electronically signed by: Hector Ken M.D. 04/09/2021 4:26 PM
--- NOTE | 2021-04-09 16:41 | CT Scan Report ---
CT cervical spine wo con CT DOSE: 459.96 mGycm CLINICAL HISTORY: 85 years-old Female with fall, head injury, neck pain. Acute head and neck injury status post fall COMPARISON: Head CT of same day TECHNIQUE: Multiple axial CT images of the cervical spine were obtained without contrast. A dose low ering technique was utilized adhering to the principles of ALARA. FINDINGS: Mild grade 1 anterolisthesis C3 on C4 and C7 on T1 is likely on a degenerative basis. There is severe multilevel facet arthrosis. Multilevel intervertebral disc space narrowing, moderate to se dioni with vacuum disc phenomenon C4-C5, C5-C6 and C6 or C7 with associated posterior disc osteophyte complex formations. Severe C1-C2 degeneration. No acute fracture or subluxation identified. Coronary arterial calcifications. Trace right mastoid effusion. Left mastoid air cells are clear. Multilevel n eural foraminal narrowing. No pneumothorax. Multinodular thyroid goiter extends into the mediastinum. IMPRESSION: 1. No acute cervical spine fracture or subluxation. 2. Thyroid goiter. ACT 112: Negative or not required by law. The above report was generated using voice recognition software. It may contain grammatical, syntax o r spelling errors. Electronically signed by: Hector Ken M.D. 04/09/2021 4:39 PM
[2021-04-09 17:29] LABS: Appearance Urine Slightly Cloudy (Clear); Bilirubin Urine Negative (Negative); Blood Urine 2+ (Negative); Color Urine Yellow; Glucose Urine UA Negative (Negative); Ketones Urine Negative (Negative); Leukocyte Esterase Urine 2+ (Negative); Nitrite Urine Negative (Negative); Protein Urine 2+ (Negative); Urobilinogen Urine Negative (Negative)
[2021-04-09 17:57] LABS: Epithelial Cell Urine 20-30 /lpf (0-5); Mucus Urine Present (None Prsent)
[2021-04-09] MEDS ORDERED: TELMISARTAN 40 MG TAB PO STA (17:57)
[2021-04-09] MEDS ORDERED: METOPROLOL SUCC 25MG EXT REL TAB PO STA (17:57)
[2021-04-09] MEDS ORDERED: dilTIAZem ER 120 MG CAPCR PO STA (17:57)
[2021-04-09 17:58] LABS: Amorphous Sediment Urine Present (None Prsent); Bacteria Urine 1+ (Negative); WBC Urine >30 /hpf (0-5)
--- NOTE | 2021-04-09 19:03 | History & Physical Report ---
Date of Service April 09, 2021 Assessment & Plan (1) Fall: Plan: Unclear cause. Sudden onset without prodromal symptoms concerning for arrhythmia. Will monitor on telemetry overnight. She is permanently in atrial fibrillation without anticoagulation due to GI bleed, therefore given her tendency to fall to the right will get MRI to assess for subacute stroke. Suspect most likely orthostasis and will get orthostatic VS qshift TTE given lack of information regarding the fall is warranted (2) Right groin pain: Plan: Hip XR to assess for fracture, if negative will get CT hip (3) Ambulatory dysfunction: Plan: MRI brain w/o contrast to rule out subacute stroke PT/OT evals Suspect secondary to right groin pain above (4) Chronic diastolic (congestive) heart failure: Plan: Continue usual lasix dosing, appears euvolemic at the current time. (5) Hyperthyroidism: Plan: Repeat TSH Continue methimazole 5mg QAM daily (6) Hypertension: Plan: Continue her regular medications with diltiazem, metoprolol and telmisartan. Given current high BP will add hydralazine 5mg q4h PRN for sBP > 180, cautious use of this given suspected orthostasis as above. (7) Permanent atrial fibrillation: Plan: Continue rate control with diltiazem and metoprolol Not on anticoagulation due to recurrent need for iron transfusions and GI bleed. Continues on aspirin 81mg PO daily. Plan: VTE Prophylaxis - deferred pending further workup for fall and groin pain above Diet - Regular Disposition - observation status to med/tele Admission and Anticipated Discharge Date Admission Date: April 09, 2021 History of Present Illness Chief Complaint: Fall, dizziness Primary Care Provider: DO Aliyah Huber Rox is an 85 year old female who presents to the ER for fall and dizzness. She reportedly fell 2 nights ago around 3am in the morning while walking to the bathroom. She thinks she had a full syncopal episode and woke up realizing she hit her head. She has been dizzy since. She describes the dizzyness when she first stands up then takes a bit of time to go away, no worse on exertion, lightheadedness like she is going to pass out. She came in today on advice of her PCP due to ongoing dizziness. Her daughter has also noted some ambulatory dysfunction with her leaning off to the right side although the patient feels this was also present prior to the fall. She denies any fever, chills, urinary symptoms, nasal congestion, cough, chest pain, sinus pain, abdominal pain, diarrhea. She reports compliance with her medications. She has known permanent atrial fibrillation but has not been on anticoagulation for years due to recurrent need for iron transfusions - she follows with Dr Proctor. Fully vaccinated for COVID Allergies Allergy/AdvReac Type Severity Reaction Status Date / Time lisinopril AdvReac Intermediate cough Unverified 04/09/21 18:15 morphine AdvReac Unknown N/V Verified 04/09/21 18:15 Home Medications Medication Instructions Recorded Confirmed Type anastrozole 1 mg tablet 1 mg PO QAM 01/18/19 04/09/21 History diltiazem HCl 240 mg 240 mg PO BID cap 01/18/19 04/09/21 History capsule,extended release 24 hr metoprolol succinate 25 mg 25 mg PO HS tab 01/18/19 04/09/21 History tablet,extended release 24 hr potassium chloride 20 mEq 20 meq PO QAM #180 tab 01/18/19 04/09/21 History tablet,extended release cholecalciferol (vitamin D3) 50 50 mcg PO BID 09/03/20 04/09/21 History mcg (2,000 unit) tablet furosemide 20 mg tablet 20 mg PO QAM 09/03/20 04/09/21 History pantoprazole 40 mg tablet,delayed 40 mg PO QAM #90 tab 11/12/20 04/09/21 Rx release telmisartan 40 mg tablet (Micardis) 80 mg PO DAILY #60 tab 02/17/21 04/09/21 Rx methimazole 5 mg tablet 5 mg PO QAM #90 tab 03/03/21 04/09/21 Rx acetaminophen 500 mg tablet 1,000 mg PO HS 04/09/21 04/09/21 History aspirin 81 mg tablet,delayed 81 mg PO QPM 04/09/21 04/09/21 History release Past Med/Surg History Medical History (Updated 04/10/21 @ 06:49 by Stoney Worthington MD) Anemia Bilateral renal cysts Breast cancer S/p right lumpectomy and SN biopsy - 2007 No chemo/radiation just oral treatment No current issues Chronic diastolic (congestive) heart failure Cystitis Dyslipidemia Gastroesophageal reflux disease Well controlled and stable History of malignant neoplasm of breast Hypertension Hyperthyroidism On Methimazole No symptoms currently Interstitial cystitis Kidney stones Asymptomatic Osteoarthritis Permanent atrial fibrillation On ASA only Pulmonary hypertension Mild - per 2013 cath per cardio records Retinal detachment Left- Apr or May 2020- treated with drops and injection - no current issues T2DM (type 2 diabetes mellitus) Well controlled with diet Surgical History History of cardiac cath Negative for CAD in 2013 History of cataract surgery bilateral History of colonoscopy History of esophagogastroduodenoscopy (EGD) S/P cholecystectomy S/P hysterectomy with oopherectomy S/P lumpectomy, right breast S/P tonsillectomy Status post hip surgery RTHA Family History Mother , age 92 Hypertension Heart failure Father , age 37 accident in coal mine No problems noted. Denies family history of Ovarian cancer Prostate cancer Myocardial infarction Breast cancer Colorectal cancer Social History Smoking Status: Never smoker Second Hand Exposure: No; Do You Dip or Chew Tobacco: No; Hx Alcohol Use: No Hx Substance Use: No Preferred Language: Nicaraguan Communication Ability: Effective Visual Impairment: No Limitations Hearing Ability: Use of Hearing Aid Dough Mixer Operator Required: No Beliefs That Will Affect Care: None marital status: Current Living Situation: Spouse current occupational status: retired current occupation: former cook at [employer] Other Information That Helps Us Care for You: No Feels Safe at Home: Yes Safety Concerns: Feels Safe At This Time Childhood Exposure to Second-Hand Smoke: No Diet Comment: regular caffeine: Yes during the past year weight has: remained stable Dental Care, Regularly: Yes Physical Activity Frequency: Does not Exercise Seatbelt Use: always Sunscreen Use: No Assistive Devices: Cane, Glasses and Hearing Aid - Bilateral Review of Systems Review of Systems: All systems reviewed & are unremarkable except as noted in HPI & below Physical Exam Constitutional: WD/WN, vitals as above ENMT: external ear and nose normal, oropharynx normal Neck: trachea midline, no thyromegaly Respiratory: normal respiratory effort, lungs clear to auscultation Cardiovascular: Rate/Rhythm: regular rate and + irregularly irregular Heart Sounds: no murmur Vessels: no JVD Extremities: normal capillary refill; no calf tenderness and no pedal edema Gastrointestinal (Abdomen): normal bowel sounds, soft, nontender, no hepatosplenomegaly Musculoskeletal: no cyanosis or clubbing, extremities motor strength 5/5 Right groin pain on internal/external rotation of her hip Skin: no rashes, warm and dry Neurologic: moves all extremities and awake; no focal motor deficits (no lateralizing weakness) and not confused Motor/Sensory: no tremor and no pronator drift Psychiatric: A+Ox3, euthymic affect Results & Data Results & Data ([facility]) Vital Signs (Past 12 Hours) Vital Signs Temp Pulse Pulse Resp BP BP Pulse Ox 04/09/21 17:37 78 20 206/116 H 98 04/09/21 15:00 76 16 145/85 H 95 04/09/21 11:22 36.1 C L 106 H 20 143/64 H 95 Laboratory Results Abnormal lab results 04/09/21 04/09/21 04/09/21 Range/Units 11:57 11:57 17:25 RDW Std Deviation 48.5 H (36.4-46.3) fL RDW Coeff of Jeanna 14.6 H (11.5-14.5) % Lymph # (Auto) 0.99 L (1.2-3.4) K/uL BUN 20 H (7-18) mg/dl BUN/Creatinine Ratio 23.8 H (10-20) Glucose 110 H (70-99) mg/dl AST 8 L (15-37) U/L Urine Protein 2+ H (Negative) Urine Blood 2+ H (Negative) Ur Leukocyte Esterase 2+ H (Negative) Urine RBC 5-10 H (0-4) /hpf Urine WBC >30 H (0-5) /hpf Ur Epithelial Cells 20-30 H (0-5) /lpf Amorphous Sediment Present A (None Prsent) Urine Bacteria 1+ H (Negative) Urine Mucus Present A (None Prsent) Diagnostic Findings CT head/brain wo con CLINICAL HISTORY: 85 years-old Female with fall, head injury, dizziness. Acute head injury status post fall with acute dizziness TECHNIQUE: Multiple axial CT images of the head were obtained without contrast. A dose lowering technique was utilized adhering to the principles of ALARA. CT DOSE: 1165.29 mGycm COMPARISON: CT cervical spine of same day FINDINGS: No acute intracranial hemorrhage, midline shift, intracranial mass, hydrocephalus, territorial ischemia or abnormal extra-axial collection. Age- related involutional changes. Mild white matter hypodensities suggest chronic microvascular ischemic disease. Subcentimeter chronic appearing infarcts of the basal ganglia. Cerebral vascular calcifications. The calvarium is intact. Trace right mastoid effusion. Left mastoid air cells and paranasal sinuses are clear. Prior bilateral lens repair. IMPRESSION: No acute intracranial abnormality or calvarial fracture. CT cervical spine wo con CT DOSE: 459.96 mGycm CLINICAL HISTORY: 85 years-old Female with fall, head injury, neck pain. Acute head and neck injury status post fall COMPARISON: Head CT of same day TECHNIQUE: Multiple axial CT images of the cervical spine were obtained without contrast. A dose lowering technique was utilized adhering to the principles of ALARA. FINDINGS: Mild grade 1 anterolisthesis C3 on C4 and C7 on T1 is likely on a degenerative basis. There is severe multilevel facet arthrosis. Multilevel intervertebral disc space narrowing, moderate to severe with vacuum disc phenomenon C4-C5, C5-C6 and C6 or C7 with associated posterior disc osteophyte complex formations. Severe C1-C2 degeneration. No acute fracture or subluxation identified. Coronary arterial calcifications. Trace right mastoid effusion. Left mastoid air cells are clear. Multilevel neural foraminal narrowing. No pneumothorax. Multinodular thyroid goiter extends into the mediastinum. IMPRESSION: 1. No acute cervical spine fracture or subluxation. 2. Thyroid goiter. XR forearm LT 2V CLINICAL HISTORY: pain, bruise, fall COMPARISON: None FINDINGS: IV is incidentally noted. No evidence for a left elbow joint effusion. No acute fracture of the left radius or ulna is identified. Soft tissue swelling of the dorsal aspect of the left forearm is present. IMPRESSION: No acute fracture of the left radius or ulna. XR chest 1V portable CLINICAL HISTORY: syncope COMPARISON STUDY: Chest radiograph September 05, 2020. FINDINGS: Cardiomegaly is unchanged. There is no evidence for pulmonary edema. There is no consolidation to suggest pneumonia. There is no pneumothorax or pleural effusion. IMPRESSION: No acute cardiopulmonary findings. Cardiomegaly. Medications Administered ER Mediations Given: NSS 500ml bolus Diltiazem 240mg PO Metoprolol Succinate 25mg PO Telmisartan 40mg PO ECG Rate (beats per minute): 78 Rhythm: atrial fibrillation Findings: + nonspecific-ST abn Comparison ECG Date: from (September 05, 2020) Change: the following changes noted (T wave flattening in lateral leads is new) Code Status & VTE Plan Code Status Full VTE Prophylaxis Plan VTE Prophylaxis will be ordered: No PG Care Time/CCT Total # of Minutes Spent Total Time Spent with Patient: Total time spent is greater than 50% in coordination of care (as documented) at patient's floor/unit and/or counseling patient: Coding Level of Care Code INT OBSERVATION CARE 70M LVL 3 Diagnoses Fall W19.XXXA Right groin pain R10.31 Ambulatory dysfunction R26.2 Chronic diastolic (congestive) heart failure I50.32 Hyperthyroidism E05.90 Hypertension I10 Permanent atrial fibrillation I48.21
--- NOTE | 2021-04-09 19:12 | Emergency Department Note ---
ED Visit Note Physician Evaluation Note: Patient was seen in conjunction with the physician transition assistant. Please see the physician transition assistant note for full details of the visit. I have personally evaluated and examined this patient. I performed a substantive portion of the patient visit including medical decision making and interpretation of diagnostic studies/lab work results. On my examination the patient is resting in bed, she tells me that she continues to have a sensation of generalized illness, her blood pressure has been high here in the ED greater than 200 systolic, she has not taken her medications today. She denies any chest pain or shortness of breath, states that she she does not feel well for discharge home given these presyncopal episodes that she has been having. The patient and her daughter at the bedside state that they prefer admission for further work-up of these presyncopal episodes and hypertension. Given this, patient will be admitted to a telemetry bed for further management of her symptoms. I agree with assessment and plan of Prema Seth PA-C. Yasmany Lawrence DO .
[2021-04-09 20:14] LABS: Creatine Kinase 57 U/L (26-192)
--- NOTE | 2021-04-09 20:36 | XRay Report ---
XR hip RT 2V w pelvis HISTORY: 85 years-old Female right groin pain r/o periprosthetic fracture acute pain of the right gr oin COMPARISON: CT abdomen and pelvis 10/23/2013 TECHNIQUE: AP view of the pelvis with 2 views of the right hip FINDINGS: Right hip total joint arthroplasty. No acute fracture, dislocation or evidence of hardware complicati on. Moderate left hip osteoarthritis. Demineralized appearance the bones. Severe degeneration of the imaged lumbar spine. IMPRESSION: 1. No acute fracture or dislocation. 2. Right hip total joint arthroplasty without evidence of hardware complication. ACT 112: Negative or not required by law. The above report was generated using voice recognition software. It may contain grammatical, syntax o r spelling errors. Electronically signed by: Hector Ken M.D. 04/09/2021 8:34 PM
[2021-04-09] MEDS ORDERED: ONDANSETRON INJ 2 MG/ML 2 ML VIAL IV STA (21:31)
[2021-04-09] MEDS ORDERED: POLYETHYLENE (MIRALAX) 17 GM PACK PO PRN (21:39)
[2021-04-09] MEDS ORDERED: ACETAMINOPHEN 325 MG TAB PO PRN (21:39)
[2021-04-09] MEDS ORDERED: PATIENT'S HEIGHT AND/OR WEIGHT NEEDED SCH (21:45)
[2021-04-09] MEDS ORDERED: METOPROLOL SUCC 25MG EXT REL TAB PO SCH (22:00)
[2021-04-09] MEDS ORDERED: ASPIRIN 81 MG ECTAB PO SCH (22:00)
[2021-04-09] MEDS ORDERED: ACETAMINOPHEN 500 MG TAB PO SCH (22:00)
[2021-04-09] MEDS: CHOLECALCIFEROL 1,000 UNITS 25 MCG TAB PO SCH (22:22)
[2021-04-09] MEDS ORDERED: hydrALAZINE HCL 20 MG/ML VIAL IV PRN (22:51)
--- NOTE | 2021-04-10 07:19 | CT Scan Report ---
CT hip RT wo con CLINICAL HISTORY: right groin pain s/p fall. Evaluate for occult fracture COMPARISON STUDY: Standard hip radiographs from 04/09/2021 CT DOSE: 1057.55 mGy.cm TECHNIQUE: Standard CT of the right hip is performed without IV contrast. Multiplanar reconstruction is performed. A dose lowering technique was utilized adhering to the principles of ALARA. FINDINGS: Bones: There is no evidence for an acute fracture or dislocation. There are no lytic or blastic lesio ns. Joints: The patient is status post total hip replacement with noncemented components. The prosthetic components are in anatomic alignment. The bones are in anatomic alignment. Soft tissues: There is no focal soft tissue swelling. There are no focal fluid collections. IMPRESSION: No acute osseous pathology. Intact total hip replacement. ACT 112: Negative or not required by law. Electronically signed by: Da Cooper M.D. 04/10/2021 7:17 AM
[2021-04-10] MEDS: CHOLECALCIFEROL 1,000 UNITS 25 MCG TAB PO SCH (07:34)
--- NOTE | 2021-04-10 07:52 | Magnetic Resonance Report ---
MRI OF THE BRAIN WITHOUT CONTRAST CLINICAL HISTORY: falling to right side, off balance COMPARISON STUDY: Head CT April 09, 2021. TECHNIQUE: Utilizing a 1.5 Monica magnet and dedicated coil, multiplanar, multiecho imaging of the bra in was performed without IV contrast. FINDINGS: There are no foci of restricted diffusion to suggest acute infarct. No acute intracranial h emorrhage, midline shift or mass effect is present. Ventricular system is unremarkable. Basal cistern s are patent. There are no extra axial collections. Flow-voids for the major intracranial vessels are present. No intracranial masses identified on this unenhanced examination. There is mild atrophy. Mi ld white matter T2 hyperintense foci suggest mild small vessel disease. Calvarial signal is within no rmal limits. There is no evidence for sinusitis. There is no mastoid fluid. Orbits are unremarkable o n this unenhanced exam. IMPRESSION: No acute intracranial findings. ACT 112: Negative or not required by law. Electronically signed by: Edy Almazan M.D. 04/10/2021 7:50 AM
[2021-04-10 08:15] LABS: Basophils # (auto) 0.03 K/uL (0-0.2); Basophils % (auto) 0.4 %; Eosinophils % (auto) 1.3 %; Hematocrit (blood only) 43.6 % (37-47); Hemoglobin 14.2 g/dL (12.0-16.0); Immature Granulocytes # (auto) 0.01 K/uL (0.00-0.02); Immature Granulocytes % (auto) 0.1 %; Lymphocytes # (auto) 1.28 K/uL (1.2-3.4); Lymphocytes % (auto) 16.7 %; Mean Corpuscular Hgb Conc 32.6 g/dL (32-36); Mean Corpuscular Volume 92.2 fL (80-100); Monocytes # (auto) 0.38 K/uL (0.11-0.59); Neutrophils # (auto) 5.86 K/uL (1.4-6.5); Neutrophils % (auto) 76.5 %; Platelet Count 283 K/uL (130-400); RDW Coefficient of Variation 14.4 % (11.5-14.5); RDW Standard Deviation 48.9 fL (36.4-46.3); Red Blood Count 4.73 M/uL (4.2-5.4); White Blood Count 7.66 K/uL (4.8-10.8)
[2021-04-10 08:43] LABS: BUN Creatinine Ratio 21.9 (10-20); Calcium 9.7 mg/dl (8.5-10.1); Creatinine Clr Calc Pharmacy 62.5 ml/min; Est GFR (African American) 81.6 ml/min; Est GFR (Non-African American) 70.4 ml/min
[2021-04-10] MEDS ORDERED: TELMISARTAN 40 MG TAB PO SCH (09:00)
[2021-04-10] MEDS ORDERED: POTASSIUM CHLORIDE CRTAB 20 MEQ TABCR PO SCH (09:00)
[2021-04-10] MEDS ORDERED: methIMAzole 5 MG TABLET PO SCH (09:00)
[2021-04-10] MEDS ORDERED: dilTIAZem HCL 240 MG CAPCR PO SCH (09:00)
[2021-04-10] MEDS ORDERED: ANASTROZOLE 1 MG TAB PO SCH (09:00)
[2021-04-10] MEDS ORDERED: PANTOprazole 40 MG TAB PO SCH (09:00)
[2021-04-10] MEDS ORDERED: FUROSEMIDE 20 MG TAB PO SCH (09:00)
--- NOTE | 2021-04-10 09:56 | XCELERA ---
[id number]
[2021-04-10] MEDS ORDERED: cefTRIAXone SODIUM 1,000 MG in DEXTROSE 5% 50 ML IV STA (10:37)
[2021-04-10] MEDS ORDERED: cefTRIAXone SODIUM 2,000 MG in DEXTROSE 5% 50 ML IV ONE (10:45)
--- NOTE | 2021-04-10 17:27 | Discharge Summary ---
Date of Service April 10, 2021 Admission HPI Per Admitting Provider Aliyah Gramajo is an 85 year old female who presents to the ER for fall and dizzness. She reportedly fell 2 nights ago around 3am in the morning while walking to the bathroom. She thinks she had a full syncopal episode and woke up realizing she hit her head. She has been dizzy since. She describes the dizzyness when she first stands up then takes a bit of time to go away, no worse on exertion, lightheadedness like she is going to pass out. She came in today on advice of her PCP due to ongoing dizziness. Her daughter has also noted some ambulatory dysfunction with her leaning off to the right side although the patient feels this was also present prior to the fall. She denies any fever, chills, urinary symptoms, nasal congestion, cough, chest pain, sinus pain, abdominal pain, diarrhea. She reports compliance with her medications. She has known permanent atrial fibrillation but has not been on anticoagulation for years due to recurrent need for iron transfusions - she follows with Dr Proctor. Fully vaccinated for COVID Principal Diagnosis Dizziness; Orthostatic Hypotension Discharge Exam PHYSICAL EXAM General Appearance: WDWN in NAD who is A&O x 3 HEENT: Head is normocephalic/atraumatic; Hearing grossly intact; Mucous membranes moist Neck: Supple; Trachea midline; Neg JVD Heart: RRR with no M/G/R Lungs: CTA in all lung ellington bilaterally; Respirations unlabored; Neg accessory muscle use Abdomen: Soft, non-tender, non-distended; Positive BS x 4 quadrants Extremities: Neg cyanosis or edema Neurological: Speech clear; Gross motor/sensory function intact; Neg focal neurologic deficits Psychiatric: Appropriate mood/affect Skin: Normal Color; Warm/Dry Discharge Data Allergies Allergy/AdvReac Type Severity Reaction Status Date / Time lisinopril AdvReac Intermediate cough Unverified 04/09/21 18:15 morphine AdvReac Unknown N/V Verified 04/09/21 18:15 Consultations 04/09/21 18:00 ED Decision to Admit Stat Ordered Studies Cervical Spine CT 04/09/21 15:45 CT cervical spine wo con CT DOSE: 459.96 mGycm CLINICAL HISTORY: 85 years-old Female with fall, head injury, neck pain. Acute head and neck injury status post fall COMPARISON: Head CT of same day TECHNIQUE: Multiple axial CT images of the cervical spine were obtained without contrast. A dose lowering technique was utilized adhering to the principles of ALARA. FINDINGS: Mild grade 1 anterolisthesis C3 on C4 and C7 on T1 is likely on a degenerative basis. There is severe multilevel facet arthrosis. Multilevel intervertebral disc space narrowing, moderate to severe with vacuum disc phenomenon C4-C5, C5-C6 and C6 or C7 with associated posterior disc osteophyte complex formations. Severe C1-C2 degeneration. No acute fracture or subluxation identified. Coronary arterial calcifications. Trace right mastoid effusion. Left mastoid air cells are clear. Multilevel neural foraminal narrowing. No pneumothorax. Multinodular thyroid goiter extends into the mediastinum. IMPRESSION: 1. No acute cervical spine fracture or subluxation. 2. Thyroid goiter. ACT 112: Negative or not required by law. The above report was generated using voice recognition software. It may contain grammatical, syntax or spelling errors. Electronically signed by: Hector Ken M.D. 04/09/2021 4:39 PM Chest X-Ray 04/09/21 15:45 XR chest 1V portable CLINICAL HISTORY: syncope COMPARISON STUDY: Chest radiograph September 05, 2020. FINDINGS: Cardiomegaly is unchanged. There is no evidence for pulmonary edema. There is no consolidation to suggest pneumonia. There is no pneumothorax or pleural effusion. IMPRESSION: No acute cardiopulmonary findings. Cardiomegaly. ACT 112: Negative or not required by law. Electronically signed by: Edy Almazan M.D. 04/09/2021 4:15 PM Forearm X-Ray 04/09/21 15:45 XR forearm LT 2V CLINICAL HISTORY: pain, bruise, fall COMPARISON: None FINDINGS: IV is incidentally noted. No evidence for a left elbow joint effusion. No acute fracture of the left radius or ulna is identified. Soft tissue swelling of the dorsal aspect of the left forearm is present. IMPRESSION: No acute fracture of the left radius or ulna. ACT 112: Negative or not required by law. Electronically signed by: Edy Almazan M.D. 04/09/2021 4:[address] 04/09/21 15:45 CT head/brain wo con CLINICAL HISTORY: 85 years-old Female with fall, head injury, dizziness. Acute head injury status post fall with acute dizziness TECHNIQUE: Multiple axial CT images of the head were obtained without contrast. A dose lowering technique was utilized adhering to the principles of ALARA. CT DOSE: 1165.29 mGycm COMPARISON: CT cervical spine of same day FINDINGS: No acute intracranial hemorrhage, midline shift, intracranial mass, hydrocep halus, territorial ischemia or abnormal extra-axial collection. Age-related involutional changes. Mild white matter hypodensities suggest chronic microvascular ischemic disease. Subcentimeter chronic appearing infarcts of the basal ganglia. Cerebral vascular calcifications. The calvarium is intact. Trace right mastoid effusion. Left mastoid air cells and paranasal sinuses are clear. Prior bilateral lens repair. IMPRESSION: No acute intracranial abnormality or calvarial fracture. ACT 112: Negative or not required by law. The above report was generated using voice recognition software. It may contain grammatical, syntax or spelling errors. Electronically signed by: Hector Ken M.D. 04/09/2021 4:26 PM Hip/Pelvis X-Ray 04/09/21 19:51 XR hip RT 2V w pelvis HISTORY: 85 years-old Female right groin pain r/o periprosthetic fracture acute pain of the right groin COMPARISON: CT abdomen and pelvis 10/23/2013 TECHNIQUE: AP view of the pelvis with 2 views of the right hip FINDINGS: Right hip total joint arthroplasty. No acute fracture, dislocation or evidence of hardware complication. Moderate left hip osteoarthritis. Demineralized appearance the bones. Severe degeneration of the imaged lumbar spine. IMPRESSION: 1. No acute fracture or dislocation. 2. Right hip total joint arthroplasty without evidence of hardware complication. ACT 112: Negative or not required by law. The above report was generated using voice recognition software. It may contain grammatical, syntax or spelling errors. Electronically signed by: Hector Ken M.D. 04/09/2021 8:34 PM Brain MRI 04/09/21 20:11 MRI OF THE BRAIN WITHOUT CONTRAST CLINICAL HISTORY: falling to right side, off balance COMPARISON STUDY: Head CT April 09, 2021. TECHNIQUE: Utilizing a 1.5 Monica magnet and dedicated coil, multiplanar, multiecho imaging of the brain was performed without IV contrast. FINDINGS: There are no foci of restricted diffusion to suggest acute infarct. No acute intracranial hemorrhage, midline shift or mass effect is present. Ventricular system is unremarkable. Basal cisterns are patent. There are no extra axial collections. Flow-voids for the major intracranial vessels are present. No intracranial masses identified on this unenhanced examination. There is mild atrophy. Mild white matter T2 hyperintense foci suggest mild small vessel disease. Calvarial signal is within normal limits. There is no evidence for sinusitis. There is no mastoid fluid. Orbits are unremarkable on this u nenhanced exam. IMPRESSION: No acute intracranial findings. ACT 112: Negative or not required by law. Electronically signed by: Edy Almazan M.D. 04/10/2021 7:[address] 04/09/21 20:44 CT hip RT wo con CLINICAL HISTORY: right groin pain s/p fall. Evaluate for occult fracture COMPARISON STUDY: Standard hip radiographs from 04/09/2021 CT DOSE: 1057.55 mGy.cm TECHNIQUE: Standard CT of the right hip is performed without IV contrast. Multiplanar reconstruction is performed. A dose lowering technique was utilized adhering to the principles of ALARA. FINDINGS: Bones: There is no evidence for an acute fracture or dislocation. There are no lytic or blastic lesions. Joints: The patient is status post total hip replacement with noncemented components. The prosthetic components are in anatomic alignment. The bones are in anatomic alignment. Soft tissues: There is no focal soft tissue swelling. There are no focal fluid collections. IMPRESSION: No acute osseous pathology. Intact total hip replacement. ACT 112: Negative or not required by law. Electronically signed by: Da Cooper M.D. 04/10/2021 7:17 AM Hospital Course (1) Fall: - Suspect in the setting of orthostatic hypotension - orthostatics positive here however was not symptomatic here -- She noticed the dizziness when getting up from laying in bed - Remained in A Fib on monitor without any pauses or findings -- could consider holter monitor to further evaluate - Echo - EF 60-65%; no regional wall motion abnormalities; mild LVH; severe L atrial dilation/moderate R atrial dilation; moderate mitral regurg; mild pulm HTN; small pericardial effusion without evidence of tamponade - compared to previous echo no signficant change minus RVSP mildly more elevated Unclear cause. Sudden onset without prodromal symptoms concerning for arrhythmia. Will monitor on telemetry overnight. She is permanently in atrial fibrillation without anticoagulation due to GI bleed, therefore given her tendency to fall to the right will get MRI to assess for subacute stroke. Suspect most likely orthostasis and will get orthostatic VS qshift TTE given lack of information regarding the fall is warranted (2) Right groin pain: - Imaging without acute findings (3) Ambulatory dysfunction: MRI brain - no acute CVA/findngs Suspect secondary to right groin pain above (4) Chronic diastolic (congestive) heart failure: Continue usual lasix dosing, appears euvolemic at the current time. (5) Hyperthyroidism: TSH WNL Continue methimazole 5mg QAM daily (6) Hypertension: Continue her regular medications with diltiazem, metoprolol and telmisartan. Did have some elevated pressures here but does drop with standing - maybe situational here and should be monitored in outpatient setting with consideration for dosage reduction if ongoing orthostasis (7) Permanent atrial fibrillation: Continue rate control with diltiazem and metoprolol Not on anticoagulation due to recurrent need for iron transfusions and GI bleed. Continues on aspirin 81mg PO daily. UTI - UA suggested some bacteria but continues with alpha strep not enterococcus which is normal for her - No urinary symptoms and may be colonization;skin cell contaminate - but given her weakness will treat for a couple days Goiter: - Noted on imaging. Has known hyperthyroidism on medications - May be worth monitoring or biopsy Total Time Total Time Spent Total Time Spent (In Minutes): Spent greater than 30 minutes preparing patient for discharge. This includes discussion with patient/family, assessment, intervention, medication reconciliation, and coordination of care. Discharge Plan Discharge Items Patient Disposition: Home - Self-Care Reason For Visit: DIZZYNESS, SYNCOPE, FALL Discharge Diagnosis: Dizziness; Fall Activity: Resume your previous activity Non-emergency contact: Primary Care Provider Call non-emergency contact if: you have any medication questions, your symptoms worsen and you have a fever Follow-up/Referrals: Jackelyn Enriquez DO [Primary Care Provider] - 04/30/21 8:20 am Diet: Regular Addtl Attending Provider Instructions: Dizziness: - You were admitted for dizziness and a fall. - You had multiple tests to look to see what could have caused this. - You had a MRI of the brain to look for a stroke and thankfully no stroke was found. - You also had a CAT scan of the hip with no signs of fracture or dislocation - You had a echocardiogram - This shows your heart pumping action is normal at 60-65%. There are no motion abnormalities of the heart tran to show weakened heart muscle. The top chambers of the heart (atria) are dilated but that is common with having atrial fibrillation. There is a small amount of fluid around the heart however this was present on an echocardiogram in October and is unchanged - On the heart monitor. You have had atrial fibrillation but no other irregular findings. It may be worth sending a heart rate monitor to your house to wear for a couple days and have this sent back to see if anything irregular is on this. Sometimes having a monitor on a little longer can help get a better picture if other irregular rhythms are occurring. - We also checked your thyroid function as this can cause dizziness. However this was normal as well. - Your urinalysis did suggest possible bacteria in your urine. However, the urine culture did not grow anything. However given the weakness it is possible this may have been contributing and we will treat with a couple more days of antibiotics. You can start this tomorrow as you had a once a day IV dose today. We will treat for 2 more days. - We did see that you have orthostatic hypotension. This is when you change positions the blood pressure drops which can cause lightheadedness/dizziness. -- Some ways to prevent this is to change positions slowly. When getting out of bed, sit on the edge of the bed for 2-3 minutes and if no dizziness then stand. Stand for a couple minutes before walking. -- Sometime compression stockings on the legs can help push blood out of the legs and help prevent dizziness -- Sometimes if this keeps going you may need to talk with Dr. Proctor and having some of the blood pressure medications reduced as that could be contributing Pending Studies at Discharge: No Stand-Alone Forms: My [facility] [employer]ender, Smoking Cessation Medications and DC Order Prescriptions: Continued pantoprazole 40 mg tablet,delayed release (DR/EC) 40 mg PO QAM Qty: 90 RF: 1 telmisartan [Micardis] 40 mg tablet 80 mg PO DAILY Qty: 60 RF: 5 methimazole 5 mg tablet 5 mg PO QAM Qty: 90 RF: 1 anastrozole 1 mg tablet 1 mg PO QAM RF: 0 potassium chloride 20 mEq tablet extended release 20 meq PO QAM Qty: 180 RF: 0 metoprolol succinate 25 mg tablet extended release 24 hr 25 mg PO HS RF: 0 diltiazem HCl 240 mg capsule,extended release 24hr 240 mg PO BID RF: 0 cholecalciferol (vitamin D3) 50 mcg (2,000 unit) Tablet 50 mcg PO BID RF: 0 furosemide 20 mg tablet 20 mg PO QAM RF: 0 aspirin 81 mg Tablet,Delayed Release (Dr/Ec) 81 mg PO QPM RF: 0 acetaminophen 500 mg Tablet 1,000 mg PO HS RF: 0 Discharge Orders: Discharge Order (Routine); Ordered 04/10/21 Ordered By: Elin Bates/Other Patient Handouts: Fall Prevention Assessing Risk, Preventing Falls How to ... Admission Data Admit Date/Time: 04/09/21 20:44 Attending Provider: Eduar Arnett Admit Provider: Stoney Worthington Primary Care Provider: Jackelyn Enriquez Other Interventions: Discharge Summary Assessment (RN) Last Done: 04/10/21 15:53 Coding Level of Care Code D/C DAY MANAGEMENT >30 MINS Diagnoses Fall W19.XXXA Right groin pain R10.31 Ambulatory dysfunction R26.2 Chronic diastolic (congestive) heart failure I50.32 Hyperthyroidism E05.90 Hypertension I10 Permanent atrial fibrillation I48.21
--- NOTE | 2021-04-10 23:11 | Electrocardiogram Report ---
Test Reason : Blood Pressure : / mmHG Vent. Rate : 078 BPM Atrial Rate : 214 BPM P-R Int : 000 ms QRS Dur : 090 ms QT Int : 366 ms P-R-T Axes : 000 -12 -16 degrees QTc Int : 417 ms Atrial fibrillation Nonspecific ST and T wave abnormality Abnormal ECG When compared with ECG of 05-SEP-2020 14:31, Nonspecific T wave abnormality now evident in Anterolateral leads Confirmed by Tha Caldwell ([id number]) on 04/10/2021 11:11:03 PM Referred By: Confirmed By:Tha Caldwell
== END 2021-04-10 16:16 | disposition home or self-care (01) ==
LOC: ED 10:53 → EDINP 10:53 → SUATTDRO 20:44 → 2N 04-10 04:08
DX: I48.21 Permanent atrial fibrillation; I11.0 Hypertensive heart disease with heart failure; S50.12XA Contusion of left forearm, initial encounter; S09.90XA Unspecified injury of head, initial encounter; Z20.822 Contact with and (suspected) exposure to COVID-19; I50.32 Chronic diastolic (congestive) heart failure; E03.9 Hypothyroidism, unspecified; Z79.899 Other long term (current) drug therapy; I27.20 Pulmonary hypertension, unspecified; Z79.82 Long term (current) use of aspirin; W01.190A Fall on same level from slipping, tripping and stumbling with subsequent striking against furniture, initial encounter; Z88.8 Allergy status to other drugs, medicaments and biological substances; R10.31 Right lower quadrant pain; R26.2 Difficulty in walking, not elsewhere classified; Z96.641 Presence of right artificial hip joint; R42 Dizziness and giddiness; Z88.5 Allergy status to narcotic agent; E78.5 Hyperlipidemia, unspecified; M19.90 Unspecified osteoarthritis, unspecified site; E11.9 Type 2 diabetes mellitus without complications

== ENCOUNTER 2022-07-31 06:41 | Inpatient (IN) ==
[2022-07-31] MEDS ORDERED: SODIUM CHLORIDE 0.9% 500 ML IV STA (07:01)
[2022-07-31] MEDS ORDERED: ONDANSETRON INJ 2 MG/ML 2 ML VIAL IV STA (07:01)
[2022-07-31] MEDS ORDERED: MoRPHine SULFATE 4 MG/ML 1 ML CARP\\VIAL IV STA (07:01)
--- NOTE | 2022-07-31 07:06 | Emergency Department Note ---
Impression & Plan Kidney stone ADMIT ED Provider Note HPI: The patient is an 87-year-old female who presents emergency department with a chief complaint of right flank pain, lower back pain, and intermittent episodes of chest pain that been occurring since 3:00 in the morning. Patient states that she was not getting any relief despite taking Tylenol and multiple positional changes at home and therefore she contacted EMS for transport to the ED. On arrival here to the ED the patient is alert, she is in moderate distress secondary to her discomfort, patient is mildly tachycardic on arrival, saturating well on room air. Patient states she does feel nauseous, she has not yet had any vomiting. ROS: - Per HPI *Outpatient medications and allergy history reviewed. *Pertinent external medical records reviewed. PE: General: Alert, uncomfortable appearing HEENT: Normocephalic, trachea midline Eyes: Extraocular eye movement is intact, no scleral erythema Pulmonary: Clear to auscultation bilaterally, no wheezing Cardio: tachycardic rate with irregular rhythm GI: Abdomen is soft to palpation : No suprapubic tenderness, there is right flank and right lower back tende rness to palpation MSK: No evidence of trauma or malformation of the extremities, no edema Skin: No evidence of rash Neuro: Alert, no focal deficits Psychiatric: Cooperative radiation monitor: (As interpreted by myself): - An order was placed for continuous cardiac monitoring - Patient was noted to be in atrial fibrillation with a rate of 114 EKG: (As interpreted by myself): Rate: 103 Rhythm: Atrial fibrillation Intervals: Within normal limits ST changes: No ST elevation Time: 0705 Interventions provided in ED: -IV fluid bolus, IV morphine, IV Zofran Differential Diagnosis: Kidney stone, acute coronary syndrome, pulmonary embolism, aortic dissection, pyelonephritis, sepsis, small bowel obstruction, amongst other potential pathologies. Medical Decision Making: Shortly after the patient arrived IV was established, lab work obtained, patient was placed on media monitor. Lab work shows evidence of slight leukopenia, hemoglobin is stable, platelet count is within normal limits, slight elevation in creatinine level to 1.23, troponin also slightly elevated at 22, EKG does not show any acute ischemic changes. CT angiography of the chest shows mild to moderate-sized pericardial effusion, patient denies any shortness of breath and is saturating well on room air, no tamponade clinically. CT imaging of the chest is also suggestive of some stranding of the right kidney which is in the area of where the patient is having some pain. CT imaging of the abdomen pelvis without contrast was obtained that shows evidence of bilateral hydronephrosis with a 5 mm stone on the left side near the UPJ and multiple punctate stones near the right UPJ that are possibly the source of hydronephrosis. Urinalysis is contaminated but nitrite and leukocyte esterase positive. Given this, blood cultures were drawn in the ED, patient was treated with IV Rocephin. Patient was not given a full 30 cc/kg of IV fluids secondary to hemodynamic stability, she was given a 500 cc bolus and then further secondary to hemodynamic stability, as well as finding of pulmonary hypertension on CT imaging. Patient does not appear to be in septic shock. On my reassessment patient states she is feeling much improved, I discussed all the above findings with the urology [employer], Karina Reece, and urology service will be consulted. Case was then discussed with the on-call hospitalist, Dr. Meyer. Patient was placed for admission in stable condition for further care. Consultants: -Urology service, Dr. Villafana/ termination clerk [employer] -Hospitalist service, Dr. Meyer Disposition discussion held by myself with: Patient Diagnosis: 1. Right flank pain, acute 2. Left-sided obstructing kidney stone with hydronephrosis 3. Urinary tract infection, acute 4. Leukopenia, acute 5. Elevated troponin, mild 6. Right-sided hydronephrosis 7. Elevated creatinine, mild 8. Pericardial effusion on CT imaging, nonspecific Disposition: Admission Yasmany Lawrence DO Emergency Medicine Past Med/Surg History Medical History Anemia Bilateral renal cysts Breast cancer Chronic diastolic (congestive) heart failure Cystitis Dyslipidemia Gastroesophageal reflux disease History of malignant neoplasm of breast Hypertension Hyperthyroidism Interstitial cystitis Kidney stones Osteoarthritis Peripheral neuropathy Permanent atrial fibrillation Pulmonary hypertension Retinal detachment T2DM (type 2 diabetes mellitus) Surgical History History of cardiac cath History of cataract surgery History of colonoscopy History of esophagogastroduodenoscopy (EGD) S/P cholecystectomy S/P hysterectomy S/P lumpectomy, right breast S/P tonsillectomy Status post hip surgery Family History Mother , age 92 Hypertension Heart failure Father , age 37 accident in coal mine No problems noted. Denies family history of Ovarian cancer Prostate cancer Myocardial infarction Breast cancer Colorectal cancer Social History Smoking Status: Never smoker Second Hand Exposure: No; Hx Alcohol Use: No Hx Substance Use: No Preferred Language: Malian Communication Ability: Effective Visual Impairment: No Limitations Hearing Ability: Use of Hearing Aid Fish Net Stringer Required: No Beliefs That Will Affect Care: None marital status: Current Living Situation: Spouse current occupational status: retired current occupation: former cook at [employer] Feels Safe at Home: Yes Childhood Exposure to Second-Hand Smoke: No Diet Comment: regular caffeine: Yes (soda and tea) during the past year weight has: remained stable Dental Care, Regularly: Yes Physical Activity Frequency: Does not Exercise Seatbelt Use: always Sunscreen Use: No Assistive Devices: Cane and Walker Allergies Allergies Allergy/AdvReac Type Severity Reaction Status Date / Time lisinopril AdvReac Intermediate cough Unverified 02/05/22 15:08 morphine AdvReac Unknown N/V Verified 02/05/22 15:08 Home Meds Home Medications Medication Instructions Recorded Confirmed diltiazem HCl 240 mg 240 mg PO BID 01/18/19 02/05/22 capsule,extended release 24 hr metoprolol succinate 25 mg 25 mg PO HS 01/18/19 02/05/22 tablet,extended release 24 hr potassium chloride 20 mEq 20 meq PO QAM #180 tabs 01/18/19 02/05/22 tablet,extended release acetaminophen 500 mg tablet 1,000 mg PO HS 04/09/21 02/05/22 aspirin 81 mg tablet,delayed 81 mg PO QPM 04/09/21 02/05/22 release cholecalciferol (vitamin D3) 50 50 mcg PO DAILY 05/02/21 02/05/22 mcg (2,000 unit) tablet Previous Rx's Medication Instructions Recorded furosemide 20 mg tablet 20 mg PO QAM #90 tabs 01/27/22 nitrofurantoin macrocrystal 50 mg 50 mg PO HS #90 caps 02/09/22 capsule (Macrodantin) pantoprazole 40 mg tablet,delayed 40 mg PO QAM #90 tabs 02/10/22 release telmisartan 40 mg tablet (Micardis) 80 mg PO DAILY #60 tabs 02/23/22 methimazole 5 mg tablet 5 mg PO QAM #90 tabs 03/02/22 Results & Data (ED) Vital Signs Vital Signs - 24 hr 07/31/22 06:58 07/31/22 06:58 07/31/22 07:23 Temperature 36.4 C L 36.4 C L Temperature Source Oral Oral Pulse Rate 108 H 107 H Pulse Rate [Left Finger] 108 H Pulse Rhythm Respiratory Rate 24 24 Blood Pressure 104/84 Blood Pressure [Left Arm] 104/84 Blood Pressure Mean 90 Blood Pressure Mean [Left Arm] 90 Blood Pressure Position [Left Arm] Sitting Pulse Oximetry 94 94 Oxygen Delivery Method Room Air Room Air Sepsis Recent Fever Within 48 Hours No Sepsis New/Unexplained Change in Mental Status No Sepsis Action Taken by Nursing Physician Notified 07/31/22 07:23 07/31/22 10:00 Temperature Temperature Source Pulse Rate 106 H Pulse Rate [Left Finger] 90 Pulse Rhythm Irregular Respiratory Rate 20 16 Blood Pressure Blood Pressure [Left Arm] 145/79 H Blood Pressure Mean Blood Pressure Mean [Left Arm] 101 Blood Pressure Position [Left Arm] Pulse Oximetry 92 91 Oxygen Delivery Method Room Air Sepsis Recent Fever Within 48 Hours Sepsis New/Unexplained Change in Mental Status Sepsis Action Taken by Nursing Laboratory Data 07/31/22 06:55 07/31/22 06:55 Lab Results 07/31/22 07/31/22 07/31/22 Range/Units 06:55 06:55 07:09 WBC 3.73 L (4.8-10.8) K/ul RBC 4.90 (4.20-5.40) M/uL Hgb 14.0 (12.0-16.0) g/dl Hct 43.2 (37.0-47.0) % MCV 88.2 (80.0-100.0) fL MCH 28.6 (25.0-34.0) pg MCHC 32.4 (32.0-36.0) g/dL RDW Std Deviation 46.2 (36.4-46.3) fL RDW Coeff of Jeanna 14.4 (11.5-14.5) % Plt Count 231 (130-400) K/uL MPV 9.8 (9.4-12.4) fL Immature Gran % (Auto) 0.5 % Neut % (Auto) 93.6 % Lymph % (Auto) 4.8 % Ferry % (Auto) 0.3 % Eos % (Auto) 0.5 % Baso % (Auto) 0.3 % Neut # (Auto) 3.49 (1.40-6.50) K/uL Lymph # (Auto) 0.18 L (1.2-3.4) K/uL Ferry # (Auto) 0.01 L (0.11-0.59) K/uL Eos # (Auto) 0.02 (0-0.50) K/uL Baso # (Auto) 0.01 (0-0.2) K/uL Immature Gran # (Auto) 0.02 (0.01-0.20) K/uL Sodium 138 (136-145) mmol/L Potassium 4.0 (3.5-5.1) mmol/L Chloride 105 (98-107) mmol/L Carbon Dioxide 26 (21-32) mmol/L Anion Gap 7 (3-11) BUN 29 H (6-23) mg/dl Creatinine 1.23 H (0.6-1.2) mg/dl Est Cr Clr Drug Dosing 38.8 ml/min Est GFR ( Amer) 45.7 ml/min Est GFR (Non-Af Amer) 39.4 ml/min BUN/Creatinine Ratio 23.6 H (10-20) Glucose 161 H (70-99(Fasting)) mg/dl Calcium 9.6 (8.6-10.3) mg/dl Total Bilirubin 0.8 (0.2-1.0) mg/dl AST 12 L (13-39) U/L ALT 9 (7-52) U/L Alkaline Phosphatase 109 H (34-104) U/L Troponin I High Sens 22.2 H (0-14) pg/ml Total Protein 6.7 (6.0-8.3) gm/dl Albumin 4.2 (3.4-5.0) gm/dl Globulin 2.5 (2.5-4.0) gm/dl Albumin/Globulin Ratio 1.7 (0.9-2) Lipase 28 (11-82) U/L Urine Color Urine Appearance (Clear) Urine pH (4.5-7.5) Ur Specific [place] (1.000-1.030) Urine Protein (Negative) Urine Glucose (UA) (Negative) Urine Ketones (Negative) Urine Blood (Negative) Urine Nitrite (Negative) Urine Bilirubin (Negative) Urine Urobilinogen (Negative) Ur Leukocyte Esterase (Negative) Urine WBC (Auto) (0-5) /hpf Urine RBC (Auto) (0-4) /hpf U Hyaline Cast (Auto) (0-5) /lpf U Epithel Cells (Auto) (0-5) /lpf Urine Bacteria (Auto) (Negative) Urine Yeast SARS-CoV-2, RNA, NAAT NEGATIVE (NEGATIVE) 07/31/22 Range/Units 09:32 WBC (4.8-10.8) K/ul RBC (4.20-5.40) M/uL Hgb (12.0-16.0) g/dl Hct (37.0-47.0) % MCV (80.0-100.0) fL MCH (25.0-34.0) pg MCHC (32.0-36.0) g/dL RDW Std Deviation (36.4-46.3) fL RDW Coeff of Jeanna (11.5-14.5) % Plt Count (130-400) K/uL MPV (9.4-12.4) fL Immature Gran % (Auto) % Neut % (Auto) % Lymph % (Auto) % Ferry % (Auto) % Eos % (Auto) % Baso % (Auto) % Neut # (Auto) (1.40-6.50) K/uL Lymph # (Auto) (1.2-3.4) K/uL [place] # (Auto) (0.11-0.59) K/uL Eos # (Auto) (0-0.50) K/uL Baso # (Auto) (0-0.2) K/uL Immature Gran # (Auto) (0.01-0.20) K/uL Sodium (136-145) mmol/L Potassium (3.5-5.1) mmol/L Chloride (98-107) mmol/L Carbon Dioxide (21-32) mmol/L Anion Gap (3-11) BUN (6-23) mg/dl Creatinine (0.6-1.2) mg/dl Est Cr Clr Drug Dosing ml/min Est GFR ( Amer) ml/min Est GFR (Non-Af Amer) ml/min BUN/Creatinine Ratio (10-20) Glucose (70-99(Fasting)) mg/dl Calcium (8.6-10.3) mg/dl Total Bilirubin (0.2-1.0) mg/dl AST (13-39) U/L ALT (7-52) U/L Alkaline Phosphatase (34-104) U/L Troponin I High Sens (0-14) pg/ml Total Protein (6.0-8.3) gm/dl Albumin (3.4-5.0) gm/dl Globulin (2.5-4.0) gm/dl Albumin/Globulin Ratio (0.9-2) Lipase (11-82) U/L Urine Color [place] Urine Appearance Turbid A (Clear) Urine pH 5.5 (4.5-7.5) Ur Specific [place] > 1.045 H (1.000-1.030) Urine Protein 2+ H (Negative) Urine Glucose (UA) Negative (Negative) Urine Ketones Negative (Negative) Urine Blood 3+ H (Negative) Urine Nitrite Positive A (Negative) Urine Bilirubin Negative (Negative) Urine Urobilinogen Negative (Negative) Ur Leukocyte Esterase 3+ H (Negative) Urine WBC (Auto) >30 H (0-5) /hpf Urine RBC (Auto) >30 H (0-4) /hpf U Hyaline Cast (Auto) 1-5 (0-5) /lpf U Epithel Cells (Auto) >30 H (0-5) /lpf Urine Bacteria (Auto) 4+ H (Negative) Urine Yeast Not Reportable SARS-CoV-2, RNA, NAAT (NEGATIVE) Administered Medications Discontinued Medications Sodium Chloride (Nss) 500 mls @ 999 mls/hr IV .Q31M STA Stop: 07/31/22 07:31 Last Infusion: 07/31/22 08:05 Dose: 0 mls/hr Documented By: Admin: 07/31/22 07:09 Dose: 999 mls/hr Documented By: KT Ceftriaxone Sodium (Rocephin) 2,000 mg in 70 mls @ 140 mls/hr IV NOW STA Stop: 07/31/22 09:02 Last Infusion: 07/31/22 10:15 Dose: 0 mls/hr Documented By: Admin: 07/31/22 09:07 Dose: 140 mls/hr Documented By: SARAH Ioversol (Optiray 320 500ml) 120 ml IV ONCE ONE Stop: 07/31/22 08:01 Last Admin: 07/31/22 08:01 Dose: 120 ml Documented By: ASHANTI Morphine Sulfate (Morphine Sulfate 4 Mg/Ml 1 Ml Carp\Vial) 4 mg IV NOW STA Stop: 07/31/22 07:02 Last Admin: 07/31/22 07:09 Dose: 4 mg Documented By: SHADY Ondansetron HCl (Ondansetron Inj 2 Mg/Ml 2 Ml Vial) 4 mg IV NOW STA Stop: 07/31/22 07:02 Last Admin: 07/31/22 07:08 Dose: 4 mg Documented By: SHADY Imaging Data Radiologist's Impression: Chest CTA 07/31/22 07:01 CT ANGIOGRAM OF THE CHEST CLINICAL HISTORY: Atypical chest pain. Nausea and vomiting. COMPARISON STUDY: Chest x-ray dated 07/31/2022. CT of the cervical spine dated 04/09/2021. TECHNIQUE: Following the IV administration of 120 cc of Optiray 320, CT angiogram of the chest was performed from the upper abdomen to the thoracic inlet utilizing the pulmonary embolus protocol. Images are reviewed in the axial, sagittal, and coronal planes. 3-D MIPS images are created and assessed. IV contrast was administered without complication. A dose lowering technique was utilized adhering to the principles of ALARA. CT DOSE: 1072.70 mGy.cm FINDINGS: Thyroid: Enlarged/heterogeneous thyroid goiter is similar to previous. Thoracic aorta: There is atherosclerotic calcification of the thoracic aorta, which is normal in caliber and demonstrates standard 3-vessel arch anatomy. No dissection is seen. Pulmonary vasculature: The pulmonary trunk is dilated, measuring 3.7 cm in diameter. This indicates pulmonary hypertension. There are no filling defects identified in main, lobar, or segmental pulmonary branches to suggest pulmonary embolus. Evaluation of the peripheral branches is compromised by motion artifact. Heart: The heart is markedly enlarged noting a small to moderate pericardial effusion. Lungs and pleural spaces: Evaluation of the lung parenchyma is compromised by motion artifact. There are trace pleural effusions. Intralobular septal thickening could represent acute versus chronic congestive change. There is mild dependent consolidation, left greater than right. Mediastinum: There is mediastinal lymphadenopathy. Pretracheal nodes measure up to 1.7 cm in short axis a nodule in the anterior mediastinum measures 2.0 cm in short axis. Anupama: Clear. Axillae: There is no axillary lymphadenopathy. Upper abdomen: There is a large hiatal hernia. Right-sided perinephric stranding is partially imaged. Skeletal structures: The skeletal structures are osteopenic. No lytic or blastic bony lesions are seen. Arthritic change is noted in the shoulders and thoracic spine. Soft tissues: The postsurgical changes seen in the right breast. IMPRESSION: 1. There is no evidence of pulmonary embolus in the main, lobar, or segmental pulmonary arteries. 2. Marked cardiomegaly with a small to moderate pericardial effusion and evidence of pulmonary artery hypertension. 3. Intralobular septal thickening could represent acute versus chronic congestive change. Clinical correlation will be required. 4. Trace pleural effusions. 5. Mild dependent consolidation is seen at both lung bases, left greater than right. This could represent scarring/atelectasis versus a mild pneumonitis. Clinical correlation will be required. 6. There is nonspecific mediastinal lymphadenopathy. 7. Large hiatal hernia. 8. Thyroid goiter. 9. Right perinephric stranding is partially visualized. See report of abdominal CT performed concurrently for detailed intra-abdominal findings. 10. Additional findings as above. ACT 112: Negative or not required by law. Electronically signed by: Viktor Gipson M.D. 07/31/2022 8:27 AM Chest X-Ray 07/31/22 07:01 SINGLE VIEW CHEST CLINICAL HISTORY: Atypical chest pain FINDINGS: An AP, portable, upright chest radiograph is compared to study dated 04/09/2021. A hiatal hernia is suspected. The heart is enlarged noting atherosclerotic calcification of the thoracic aorta. The pulmonary vasculature is noncongested. Chronic interstitial thickening is similar to previous. The lungs and pleural spaces are clear noting bibasilar scarring/atelectasis. No pneumothorax is seen. The skeletal structures are osteopenic. The bony thorax is grossly intact. Arthritic change is noted in the shoulders. IMPRESSION: Cardiomegaly with no acute cardiopulmonary abnormality identified. ACT 112: Negative or not required by law. Electronically signed by: Viktor Gipson M.D. 07/31/2022 7:52 AM Abdomen/Pelvis CT 07/31/22 07:02 CT OF THE ABDOMEN AND PELVIS WITHOUT CONTRAST CLINICAL HISTORY: Right flank pain. Nausea and vomiting. COMPARISON STUDY: KUB September 05, [address] of the abdomen and pelvis October 23, 2013. TECHNIQUE: Axial images of the abdomen and pelvis were obtained without IV contrast. Images were reviewed in the axial, sagittal, and coronal planes. Automated exposure control was utilized for the study. A dose lowering technique was utilized adhering to the principles of ALARA. FINDINGS: Please note that the chest CT will be reported separately. No pneumatosis, free air or portal venous gas is present. Multiple bilateral renal calculi are noted. These include a 1 cm left renal calculus and a 1.3 cm calcu barb within the right renal pelvis. A 5 mm left ureteropelvic junction calculus results in moderate left hydronephrosis. There is also moderate right hydronephrosis with punctate faint calcifications within the right ureteropelvic junction that measure up to 3 mm. Its unclear if these result in the h ydronephrosis. Bladder wall thickening with adjacent stranding is noted. Small amount gas within the bladder is noted. There is also nonspecific thickening of the distal ureters. Evaluation of the remainder of the abdomen and pelvis is suboptimal on this unenhanced exam. Dilatation of the common bile duct is slightly increased since prior exam. This is likely related to cholecystectomy. Hypodense hepatic lesions favor cysts. Spleen, adrenal glands and pancreas are unremarkable. There is no evidence for a bowel obstruction. Right hip arthroplasty is noted. There is no lymphadenopathy. No acute fractures are identified within the visualized skeletal structures. Water attenuation bilateral renal lesions are suboptimally assessed on this unenhanced exam but favor cysts. IMPRESSION: 1. Moderate left hydronephrosis likely due to a 5 mm left ureteropelvic junction calculus. 2. Moderate right hydronephrosis. This may be related to a few punctate right ureteropelvic junction calculi. 3. Bilateral nephrolithiasis, as described above. 4. Bladder wall thickening with adjacent stranding suggestive of cystitis. Nonspecific urothelial thickening of the bilateral distal ureters. ACT 112: Negative or not required by law. Electronically signed by: Edy Almazan M.D. 07/31/2022 8:25 AM Discharge Plan Visit Data Chief Complaint: Abdominal Pain Stated Complaint: back pain with radiation into RUQ abdomen ED Provider: Yasmany Lawrence Discharge Problem: Kidney stone Forms Stand Alone Forms: My [facility] Prescriptions Prescriptions: No Action furosemide 20 mg tablet 20 mg PO QAM Qty: 90 1RF nitrofurantoin macrocrystal [Macrodantin] 50 mg capsule 50 mg PO HS Qty: 90 1RF Rx Instructions: must administer with a meal/food. Take one capsule at bedtime. pantoprazole 40 mg tablet,delayed release (DR/EC) 40 mg PO QAM Qty: 90 1RF telmisartan [Micardis] 40 mg tablet 80 mg PO DAILY Qty: 60 5RF methimazole 5 mg tablet 5 mg PO QAM Qty: 90 1RF potassium chloride 20 mEq tablet extended release 20 meq PO QAM Qty: 180 metoprolol succinate 25 mg tablet extended release 24 hr 25 mg PO HS diltiazem HCl 240 mg capsule,extended release 24hr 240 mg PO BID cholecalciferol (vitamin D3) 50 mcg (2,000 unit) tablet 50 mcg PO DAILY aspirin 81 mg Tablet,Delayed Release (Dr/Ec) 81 mg PO QPM acetaminophen 500 mg Tablet 1,000 mg PO HS Referrals Referrals: Jackelyn Enriquez DO [Primary Care Provider] -
[2022-07-31 07:28] LABS: Albumin Globulin Ratio 1.7 (0.9-2); Albumin Level 4.2 gm/dl (3.4-5.0); BUN Creatinine Ratio 23.6 (10-20); Bilirubin,Total 0.8 mg/dl (0.2-1.0); Calcium 9.6 mg/dl (8.6-10.3); Creatinine Clr Calc Pharmacy 38.8 ml/min; Est GFR (African American) 45.7 ml/min; Est GFR (Non-African American) 39.4 ml/min; Globulin 2.5 gm/dl (2.5-4.0); Hematocrit (blood only) 43.2 % (37.0-47.0); Mean Corpuscular Hemoglobin 28.6 pg (25.0-34.0); Mean Corpuscular Hgb Conc 32.4 g/dL (32.0-36.0); Mean Corpuscular Volume 88.2 fL (80.0-100.0); Mean Platelet Volume 9.8 fL (9.4-12.4); Platelet Count 231 K/uL (130-400); RDW Coefficient of Variation 14.4 % (11.5-14.5); RDW Standard Deviation 46.2 fL (36.4-46.3); Total Protein 6.7 gm/dl (6.0-8.3); White Blood Count 3.73 K/ul (4.8-10.8)
[2022-07-31 07:34] LABS: Troponin I High Sensitivity 22.2 pg/ml (0-14)
[2022-07-31 07:54] LABS: Basophils # (auto) 0.01 K/uL (0-0.2); Basophils % (auto) 0.3 %; Eosinophils # (auto) 0.02 K/uL (0-0.50); Eosinophils % (auto) 0.5 %; Immature Granulocytes # (auto) 0.02 K/uL (0.01-0.20); Immature Granulocytes % (auto) 0.5 %; Lymphocytes # (auto) 0.18 K/uL (1.2-3.4); Lymphocytes % (auto) 4.8 %; Monocytes # (auto) 0.01 K/uL (0.11-0.59); Monocytes % (auto) 0.3 %; Neutrophils # (auto) 3.49 K/uL (1.40-6.50); Neutrophils % (auto) 93.6 %
--- NOTE | 2022-07-31 07:54 | XRay Report ---
SINGLE VIEW CHEST CLINICAL HISTORY: Atypical chest pain FINDINGS: An AP, portable, upright chest radiograph is compared to study dated 04/09/2021. A hiatal h ernia is suspected. The heart is enlarged noting atherosclerotic calcification of the thoracic aorta. The pulmonary vasculature is noncongested. Chronic interstitial thickening is similar to previous. T he lungs and pleural spaces are clear noting bibasilar scarring/atelectasis. No pneumothorax is seen. The skeletal structures are osteopenic. The bony thorax is grossly intact. Arthritic change is noted in the shoulders. IMPRESSION: Cardiomegaly with no acute cardiopulmonary abnormality identified. ACT 112: Negative or not required by law. Electronically signed by: Viktor Gipson M.D. 07/31/2022 7:52 AM
[2022-07-31] MEDS ORDERED: OPTIRAY 320 500ml IV ONE (08:00)
--- NOTE | 2022-07-31 08:27 | CT Scan Report ---
CT OF THE ABDOMEN AND PELVIS WITHOUT CONTRAST CLINICAL HISTORY: Right flank pain. Nausea and vomiting. COMPARISON STUDY: KUB September 05, [address] of the abdomen and pelvis October 23, 2013. TECHNIQUE: Axial images of the abdomen and pelvis were obtained without IV contrast. Images were revi ewed in the axial, sagittal, and coronal planes. Automated exposure control was utilized for the jamar dy. A dose lowering technique was utilized adhering to the principles of ALARA. FINDINGS: Please note that the chest CT will be reported separately. No pneumatosis, free air or port al venous gas is present. Multiple bilateral renal calculi are noted. These include a 1 cm left renal calculus and a 1.3 cm calculus within the right renal pelvis. A 5 mm left ureteropelvic junction geraldine culus results in moderate left hydronephrosis. There is also moderate right hydronephrosis with punct ate faint calcifications within the right ureteropelvic junction that measure up to 3 mm. Its unclear if these result in the hydronephrosis. Bladder wall thickening with adjacent stranding is noted. Sma ll amount gas within the bladder is noted. There is also nonspecific thickening of the distal ureters . Evaluation of the remainder of the abdomen and pelvis is suboptimal on this unenhanced exam. Dilata tion of the common bile duct is slightly increased since prior exam. This is likely related to cholec ystectomy. Hypodense hepatic lesions favor cysts. Spleen, adrenal glands and pancreas are unremarkabl e. There is no evidence for a bowel obstruction. Right hip arthroplasty is noted. There is no lymphad enopathy. No acute fractures are identified within the visualized skeletal structures. Water attenuat ion bilateral renal lesions are suboptimally assessed on this unenhanced exam but favor cysts. IMPRESSION: 1. Moderate left hydronephrosis likely due to a 5 mm left ureteropelvic junction calculus. 2. Moderate right hydronephrosis. This may be related to a few punctate right ureteropelvic junction calculi. 3. Bilateral nephrolithiasis, as described above. 4. Bladder wall thickening with adjacent stranding suggestive of cystitis. Nonspecific urothelial thi ckening of the bilateral distal ureters. ACT 112: Negative or not required by law. Electronically signed by: Edy Almazan M.D. 07/31/2022 8:25 AM
--- NOTE | 2022-07-31 08:28 | CT Scan Report ---
CT ANGIOGRAM OF THE CHEST CLINICAL HISTORY: Atypical chest pain. Nausea and vomiting. COMPARISON STUDY: Chest x-ray dated 07/31/2022. CT of the cervical spine dated 04/09/2021. TECHNIQUE: Following the IV administration of 120 cc of Optiray 320, CT angiogram of the chest was pe rformed from the upper abdomen to the thoracic inlet utilizing the pulmonary embolus protocol. Images are reviewed in the axial, sagittal, and coronal planes. 3-D MIPS images are created and assessed. I V contrast was administered without complication. A dose lowering technique was utilized adhering to the principles of ALARA. CT DOSE: 1072.70 mGy.cm FINDINGS: Thyroid: Enlarged/heterogeneous thyroid goiter is similar to previous. Thoracic aorta: There is atherosclerotic calcification of the thoracic aorta, which is normal in richard pat and demonstrates standard 3-vessel arch anatomy. No dissection is seen. Pulmonary vasculature: The pulmonary trunk is dilated, measuring 3.7 cm in diameter. This indicates p ulmonary hypertension. There are no filling defects identified in main, lobar, or segmental pulmonary branches to suggest pulmonary embolus. Evaluation of the peripheral branches is compromised by motio n artifact. Heart: The heart is markedly enlarged noting a small to moderate pericardial effusion. Lungs and pleural spaces: Evaluation of the lung parenchyma is compromised by motion artifact. There are trace pleural effusions. Intralobular septal thickening could represent acute versus chronic tino estive change. There is mild dependent consolidation, left greater than right. Mediastinum: There is mediastinal lymphadenopathy. Pretracheal nodes measure up to 1.7 cm in short ax is a nodule in the anterior mediastinum measures 2.0 cm in short axis. Anupama: Clear. Axillae: There is no axillary lymphadenopathy. Upper abdomen: There is a large hiatal hernia. Right-sided perinephric stranding is partially imaged. Skeletal structures: The skeletal structures are osteopenic. No lytic or blastic bony lesions are see n. Arthritic change is noted in the shoulders and thoracic spine. Soft tissues: The postsurgical changes seen in the right breast. IMPRESSION: 1. There is no evidence of pulmonary embolus in the main, lobar, or segmental pulmonary arteries. 2. Marked cardiomegaly with a small to moderate pericardial effusion and evidence of pulmonary artery hypertension. 3. Intralobular septal thickening could represent acute versus chronic congestive change. Clinical co rrelation will be required. 4. Trace pleural effusions. 5. Mild dependent consolidation is seen at both lung bases, left greater than right. This could repre sent scarring/atelectasis versus a mild pneumonitis. Clinical correlation will be required. 6. There is nonspecific mediastinal lymphadenopathy. 7. Large hiatal hernia. 8. Thyroid goiter. 9. Right perinephric stranding is partially visualized. See report of abdominal CT performed concurre ntly for detailed intra-abdominal findings. 10. Additional findings as above. ACT 112: Negative or not required by law. Electronically signed by: Viktor Gipson M.D. 07/31/2022 8:27 AM
[2022-07-31] MEDS ORDERED: cefTRIAXone SODIUM 2,000 MG/70 ML BAG IV STA (08:33)
[2022-07-31 09:53] LABS: Appearance Urine Turbid (Clear); Bacteria Urine Automated 4+ (Negative); Bilirubin Urine Negative (Negative); Blood Urine 3+ (Negative); Color Urine Orange; Epithelial Cell Urine Auto >30 /lpf (0-5); Glucose Urine UA Negative (Negative); Ketones Urine Negative (Negative); Leukocyte Esterase Urine 3+ (Negative); Nitrite Urine Positive (Negative); Protein Urine 2+ (Negative); Specific Gravity Urine > 1.045 (1.000-1.030); Urobilinogen Urine Negative (Negative); WBC Urine Automated >30 /hpf (0-5); pH Urine 5.5 (4.5-7.5)
[2022-07-31 10:20] LABS: RBC Urine Automated >30 /hpf (0-4)
--- NOTE | 2022-07-31 10:51 | History & Physical Report ---
Date of Service July 31, 2022 Assessment & Plan (1) Obstructed, uropathy: Plan: Obstuctive Uropathy, Bilateral UPJ Nephrolithiasis -Creatinine baseline less than 1, acutely elevated to 1.23 on admission -UA infected appearing, UC pending - Continue roecphin - COVID-negative - CTA/P: Moderate left hydronephrosis with 5 mm left UPJ calculus, moderate right hydro with punctate right UPJ calculi, bilateral nephrolithiasis. Bladder wall thickening with stranding suggestive of cystitis. - CXR: No acute findings - CTA: No evidence of PE. Cardiomegaly with small to moderate pericardial effusion, no evidence of pulmonary hypertension. Interlobar septal thickening. Trace pleural effusions. Dependent consolidation bilaterally, scarring/atelectasis versus mild pneumonitis. Nonspecific mediastinal lymphadenopathy. Hiatal hernia. Right perinephric stranding. -Urology consulted, anticipate stent placement as long as cardiac enzymes are without significant rise and no recurrent episodes of chest pain. See below Chest Pain - 1x episode without SoB or diaphoresis in the setting of rigors - No chest pain at time of exam, denies chest pain prior to this morning and any exercise limitation of pain. - Trop 22.2 on admit. Repeat troponin ordered at time of hospitalist assessment - ECHO pending for trop and moderate pericardial effusion noted on CT. per review of [facility] records at last echo 06/2022 a small pericardial effusion without tamponade was noted at that time. Admitting EKG: A-fib, rate 103, QTc 427. No territorial ST segment changes. - Suspect demand, no signs of ACS Chronic diastolic heart failure Follows with Dr. Proctor as outpatient, stable Echo pending, last echo with normal LV SF EF 55%, grade 3 diastolic dysfunction, severe mitral regurg, moderate to severe tricuspid regurg. Appears clinically euvolemic, ?chronic to mild acute effusions on CT and is not on oxygen at bedside, cautious use of fluids while inpatient. Will place on low IV FM while n.p.o. x1 500cc for MIRI, poor intake, and UTI and defer additional to bolus as needed Atrial fibrillation - Continue MTP, Diltiazem, - Not on anticoagulation 2/2 hx of severe GIB No RVR on admission Hypertension Spironolactone, telmisartan, Lasix held in the setting of MIRI Goiter, hyperthyroidism Methimazole continued TSH/T4 repeat pending Anemia, history of iron deficiency and GI bleed while on A-fib anticoagulation Hemoglobin normal on admission, no indication for transfusion Patient denies any recent bleeding other than some hematuria in her urine this morning for the first time DM2, not on antiglycemic's Last A1c 6.3% BMP daily, diet controlled as outpatient without any history of antiglycemic - NPO pending Stend placement Moderate pericardial effusion No evidence of hemodynamic compromise at admission, noted on prior echo mild in size TSH pending Echo pending as noted History of right-sided lobular breast carcinoma Diagnosed 2011, no recurrence noted at 2019 follow-up S/p lumpectomy with adjuvant endocrine therapy with arm attacks 2011, continued on anastrozole DVT prophylaxis: SCDs, pharmacal prophylaxis contraindicated due to history of severe GI bleed Diet: N.p.o. CODE STATUS: Full code Disposition: Medical telemetry (2) T2DM (type 2 diabetes mellitus): (3) Pulmonary hypertension: (4) Permanent atrial fibrillation: (5) Vitamin D deficiency: (6) Chronic diastolic (congestive) heart failure: (7) Dyslipidemia: (8) Gastroesophageal reflux disease: (9) Hyperthyroidism: (10) Hypertension: History of Present Illness Primary Care Provider: DO Aliyah Huberman is a 87-year-old female with a past medical history of A-fib, diastolic dysfunction, hypertension, pulmonary hypertension, GI bleed while on Coumadin, multifactorial dyspnea who was seen in the emergency department for right flank pain/low back pain/intermittent chest pain which did not improve with Tylenol. Arrival to ER she is tachypneic but not hypoxic, nauseous without vomiting. 87yo F present with R flank/back pain. No shortness of breath. +Fevers and chills this morning. NO sweats. No shortness of breath. +hematuria for the first time this morning. Denies prior history of kidney stones or kidney stone problems. Endorses hx of gallbladder stone but no kidney stones. Has some back pain on the R side Chest pain just today, came on as a sharp pain without shortness of breath and lasted 15 minutes while sitting and happened at the same time as an episode of shaking chills No ches tpain before today or since then Hda a heart ultrasound just a few weeks ago, but pt doesn't know the results. No orthopnea Seen w/ Urology at bedside. Anticipate stent placement. Medical History: Reviewed Medications: Reviewed Surgical History: Reviewed Family history: Reviewed Allergies: Reviewed. Cough from lisinopril. Social History: No tobacco or etoh use Code Status: Full Code. Primary contacts are son Leon and clark. Patient a poor historian, medications reconciled from last [facility] note to which patient affirms most medications at bedside and son & daughter called for collateral. They do not know her medications, but note her Cardiology note last month was accurate. Pt only took methimazole this AM otherwise did nto take medicines. Anastrazole 1 mg daily Aspirin 81 mg daily Diltiazem CD 240 mg bid Lasix 20 mg p.o. daily Methimazole 5 mg daily Metoprolol succinate 25 mg daily Macrobid nightly 50 mg Protonix 40 mg daily Potassium chloride 10 mg daily Spironolactone 12.5 mg daily Vitamin D 2000 units daily Tylenol 3 25 mg every 4 hours as needed (telmisartan) 80 mg daily Allergies Allergy/AdvReac Type Severity Reaction Status Date / Time lisinopril AdvReac Intermediate cough Unverified 02/05/22 15:08 morphine AdvReac Unknown N/V Verified 02/05/22 15:08 Home Medications Medication Instructions Recorded Confirmed Type diltiazem HCl 240 mg 240 mg PO BID 01/18/19 02/05/22 History capsule,extended release 24 hr metoprolol succinate 25 mg 25 mg PO HS 01/18/19 02/05/22 History tablet,extended release 24 hr potassium chloride 20 mEq 20 meq PO QAM #180 tabs 01/18/19 02/05/22 History tablet,extended release acetaminophen 500 mg tablet 1,000 mg PO HS 04/09/21 02/05/22 History aspirin 81 mg tablet,delayed 81 mg PO QPM 04/09/21 02/05/22 History release cholecalciferol (vitamin D3) 50 50 mcg PO DAILY 05/02/21 02/05/22 History mcg (2,000 unit) tablet furosemide 20 mg tablet 20 mg PO QAM #90 tabs 01/27/22 02/05/22 Rx nitrofurantoin macrocrystal 50 mg 50 mg PO HS #90 caps 02/09/22 Rx capsule (Macrodantin) pantoprazole 40 mg tablet,delayed 40 mg PO QAM #90 tabs 02/10/22 Rx release telmisartan 40 mg tablet (Micardis) 80 mg PO DAILY #60 tabs 02/23/22 Rx methimazole 5 mg tablet 5 mg PO QAM #90 tabs 03/02/22 Rx Past Med/Surg History Medical History Anemia Bilateral renal cysts Breast cancer Chronic diastolic (congestive) heart failure Cystitis Dyslipidemia Gastroesophageal reflux disease History of malignant neoplasm of breast Hypertension Hyperthyroidism Interstitial cystitis Kidney stones Osteoarthritis Peripheral neuropathy Permanent atrial fibrillation Pulmonary hypertension Retinal detachment T2DM (type 2 diabetes mellitus) Surgical History History of cardiac cath History of cataract surgery History of colonoscopy History of esophagogastroduodenoscopy (EGD) S/P cholecystectomy S/P hysterectomy S/P lumpectomy, right breast S/P tonsillectomy Status post hip surgery Family History Mother , age 92 Hypertension Heart failure Father , age 37 accident in coal mine No problems noted. Denies family history of Ovarian cancer Prostate cancer Myocardial infarction Breast cancer Colorectal cancer Social History Smoking Status: Never smoker Second Hand Exposure: No; Hx Alcohol Use: No Hx Substance Use: No Preferred Language: Bahamian Communication Ability: Effective Visual Impairment: No Limitations Hearing Ability: Use of Hearing Aid Ram Car Operator Required: No Beliefs That Will Affect Care: None marital status: Current Living Situation: Spouse current occupational status: retired current occupation: former cook at [employer] Feels Safe at Home: Yes Childhood Exposure to Second-Hand Smoke: No Diet Comment: regular caffeine: Yes (soda and tea) during the past year weight has: remained stable Dental Care, Regularly: Yes Physical Activity Frequency: Does not Exercise Seatbelt Use: always Sunscreen Use: No Assistive Devices: Cane and Walker Review of Systems Review of Systems: All systems reviewed & are unremarkable except as noted in HPI & below Physical Exam Physical Exam: General: Oriented to name, year but not month, and place. Somewhat forgetful, but answers questions appropriately HEENT: Atraumatic, normocephalic. Vision/hearing intact Pulm: CTAB A&P. -wheezes, -rales, -rhonchi. Symmetrical chest rise. No increased work of breathing. No respiratory distress. Cardiac: irir, -mrg. Radial pulses intact and symmetrical. Abdominal: Nontender, nondistended, soft. BS present. No CVA tenderness on percussion, but endorses a mild right flank ache Extremities: Warm, dry no edema Results & Data Results & Data Vital Signs (Past 12 Hours) Vital Signs Temp Pulse Pulse Resp BP BP Pulse Ox 07/31/22 10:00 90 16 145/79 H 91 07/31/22 07: 106 H 20 92 07/31/22 07: 107 H 07/31/22 06:58 36.4 C L 108 H 24 104/84 94 07/31/22 06:58 36.4 C L 108 H 24 104/84 94 O2 Del Method 07/31/22 10:00 07/31/22 07:23 Room Air 07/31/22 07:23 07/31/22 06:58 Room Air 07/31/22 06:58 Room Air PG Care Time/CCT Total # of Minutes Spent Total Time Spent with Patient: Total time spent is greater than 50% in coordination of care (as documented) at patient's floor/unit and/or counseling patient: Coding Level of Care Code 98185 INT INP/OBS CARE 375MIN Diagnoses Obstructed, uropathy N13.9 T2DM (type 2 diabetes mellitus) E11.9 Pulmonary hypertension I27.20 Permanent atrial fibrillation I48.21 Vitamin D deficiency E55.9 Chronic diastolic (congestive) heart failure I50.32 Dyslipidemia E78.5 Gastroesophageal reflux disease K21.9 Hyperthyroidism E05.90 Hypertension I10
[2022-07-31] MEDS ORDERED: dilTIAZem HCL 240 MG CAPCR PO ONE (11:36)
--- NOTE | 2022-07-31 11:39 | Urology Consultation ---
Date of Consultation July 31, 2022 Assessment & Plan (1) Obstructed, uropathy: (2) Kidney stone: 87 yo F who presented to the emergency department on 07/31/2022 with right flank pain and intermittent chest pain beginning early this am. CT a/p notable for bilateral proximal ureteral calculi with resulting hydronephrosis. Patient is afebrile and hemodynamically stable. Labs reviewedcreatinine 1.23, no leukocytosis. Urinalysis suspicious for infection with positive nitrates and 4+ bacteria. Urine and blood cultures are pending. She was treated with 2 g of ceftriaxone in ER. Recommend continue broad-spectrum antibiotics and narrow per sensitivity data when available. Given her obstructing bilateral proximal ureteral calculi and suspected urinary tract infection, recommend cystoscopy and bilateral ureteral stent placement today. Expected clinical course reviewed. Discussed need for stone treatment in the future after acute infection has been treated. Ureteral stents were discussed in detail. Patient is agreeable to proceed with surgery today. Proceed with OR for cystoscopy, bilateral retrograde pyelogram and bilateral stent placement. Risks and benefits to be reviewed with patient by Dr. Villafana. OR notified. Patient was covered with IV Ceftriaxone in the emergency department. Case discussed with hospital medicine service. Supervising Physician Co-Signing Physician Notes Fragile patient with bilateral obstructing UPJ calculi and question of sepsis. Troponin levels somewhat concerning, but, unfortunately,the presence of bilateral ureteral calculi and infection necessitates intervention now. Plan for cysto, bilateral stent placement. History of Present Illness Requesting Physician: Dr. Meyer Attending Physician: Dr. Meyer History of Present Illness This is an 87-year-old female with past medical history of breast cancer, hypertension, hyperthyroidism atrial fibrillation, and type 2 diabetes who presented to the emergency department on 07/31/2022 with right flank pain and intermittent chest pain beginning early this am. She was afebrile, tachycardic, but otherwise hemodynamically stable on arrival. Lab work independently reviewed and showed WBC 3.73, hemoglobin 14.0, creatinine 1.23. Troponin 22.2, repeat 14.7. COVID-negative. Urinalysis notable for 2+ protein, 3+ blood, 3+ LE, >30 WBC, >30 RBC, 4+ bacteria and positive for nitrates. CT abdomen pelvis notable for a 5 mm left UPJ stone resulting in moderate left hydronephrosis, moderate right hydronephrosis secondary to punctate stones at the right UPJ. Additional bilateral nephrolithiasis noted. She was treated with IV fluids, ceftriaxone, morphine and ondansetron in the ED. She has been admitted to hospital medicine service. Urology consulted for bilateral ureteral calculi. Patient is known to our service for history of stones and cystitis. Patient seen in the emergency department. She is awake and in no apparent distress. She reports right flank pain starting earlier this morning. Flank discomfort has improved since arrival. She reports episode of hematuria since arriving. No dysuria. No nausea or vomiting. No fever or chills. No chest pain or shortness of breath at present. She had a sip of water earlier, has not eaten today. Allergies Allergy/AdvReac Type Severity Reaction Status Date / Time lisinopril AdvReac Intermediate cough Unverified 07/31/22 12:34 morphine AdvReac Unknown N/V Verified 07/31/22 12:34 Home Medications Medication Instructions Recorded Confirmed Type diltiazem HCl 240 mg 240 mg PO BID 01/18/19 07/31/22 History capsule,extended release 24 hr metoprolol succinate 25 mg 25 mg PO HS 01/18/19 02/05/22 History tablet,extended release 24 hr potassium chloride 20 mEq 20 meq PO QAM #180 tabs 01/18/19 02/05/22 History tablet,extended release acetaminophen 500 mg tablet 1,000 mg PO HS 04/09/21 07/31/22 History aspirin 81 mg tablet,delayed 81 mg PO QPM 04/09/21 07/31/22 History release cholecalciferol (vitamin D3) 50 50 mcg PO DAILY 05/02/21 07/31/22 History mcg (2,000 unit) tablet furosemide 20 mg tablet 20 mg PO QAM #90 tabs 01/27/22 07/31/22 Rx nitrofurantoin macrocrystal 50 mg 50 mg PO HS #90 caps 02/09/22 Rx capsule (Macrodantin) pantoprazole 40 mg tablet,delayed 40 mg PO QAM #90 tabs 02/10/22 Rx release telmisartan 40 mg tablet (Micardis) 80 mg PO DAILY #60 tabs 02/23/22 Rx methimazole 5 mg tablet 5 mg PO QAM #90 tabs 03/02/22 07/31/22 Rx Patient History Medical History Ambulatory dysfunction Anemia Bilateral renal cysts Breast cancer S/p right lumpectomy and SN biopsy - 2007 No chemo/radiation just oral treatment No current issues Chronic diastolic (congestive) heart failure Cystitis Dyslipidemia Fall Gastroesophageal reflux disease Well controlled and stable History of malignant neoplasm of breast Hypertension Hyperthyroidism On Methimazole No symptoms currently Interstitial cystitis Kidney stones Asymptomatic Osteoarthritis Peripheral neuropathy Permanent atrial fibrillation On ASA only Pulmonary hypertension Mild - per 2013 cath per cardio records Retinal detachment Left- Apr or May 2020- treated with drops and injection - no current issues T2DM (type 2 diabetes mellitus) Well controlled with diet Surgical History History of cardiac cath Negative for CAD in 2013 History of cataract surgery bilateral History of colonoscopy History of esophagogastroduodenoscopy (EGD) S/P cholecystectomy S/P hysterectomy with oopherectomy S/P lumpectomy, right breast S/P tonsillectomy Status post hip surgery RTHA Family History Mother , age 92 Hypertension Heart failure Father , age 37 accident in coal mine No problems noted. Denies family history of Ovarian cancer Prostate cancer Myocardial infarction Breast cancer Colorectal cancer Social History Smoking Status: Never smoker Second Hand Exposure: No; Hx Alcohol Use: No Hx Substance Use: No Preferred Language: Comoran Communication Ability: Effective Visual Impairment: No Limitations Hearing Ability: Use of Hearing Aid Chief Psychologist Required: No Beliefs That Will Affect Care: None marital status: Current Living Situation: Spouse current occupational status: retired current occupation: former cook at [employer] Feels Safe at Home: Yes Childhood Exposure to Second-Hand Smoke: No Diet Comment: regular caffeine: Yes (soda and tea) during the past year weight has: remained stable Dental Care, Regularly: Yes Physical Activity Frequency: Does not Exercise Seatbelt Use: always Sunscreen Use: No Assistive Devices: Cane and Walker Review of Systems Review of Systems: All systems reviewed & are unremarkable except as noted in HPI & below Physical Exam Constitutional: well developed and well nourished; no acute distress and not ill appearing Eyes: no scleral abnormality Neck: normal visual inspection Respiratory: normal respiratory effort and able to speak in complete sentences; no respiratory distress and no labored breathing Cardiovascular: Extremities: no pedal edema Gastrointestinal (Abdomen): Inspection/Auscultation: abdomen normal to inspection; abdomen not distended Percussion/Palpation: abdomen soft; abdomen nontender and no guarding Musculoskeletal: Head/Neck/Chest: normocephalic and head atraumatic Neurologic: moves all extremities and awake Psychiatric: Orientation: alert, oriented x 3 and cooperative Genitourinary: no CVA tenderness Results & Data Vital Signs (Past 12 Hours) Vital Signs Temp Pulse Pulse Resp BP BP Pulse Ox 07/31/22 10:00 90 16 145/79 H 91 07/31/22 07:23 106 H 20 92 07/31/22 07:23 107 H 07/31/22 06:58 36.4 C L 108 H 24 104/84 94 07/31/22 06:58 36.4 C L 108 H 24 104/84 94 O2 Del Method 07/31/22 10:00 07/31/22 07:23 Room Air 07/31/22 07:23 07/31/22 06:58 Room Air 07/31/22 06:58 Room Air PG Care Time/CCT Total # of Minutes Spent Total Time Spent with Patient: Total time spent is greater than 50% in coordination of care (as documented) at patient's floor/unit and/or counseling patient: Coding Level of Care Code 21878 INT INP/OBS CARE 2/55MIN Diagnoses Obstructed, uropathy N13.9 Kidney stone N20.0 Time Spent (min) 60
[2022-07-31] MEDS ORDERED: PROPOFOL IV EMULSION 10 MG/ML 20 ML VIAL IV ONE ×2 (12:17)
[2022-07-31] MEDS ORDERED: fentaNYL citrate PF 100 MCG/2 ML VIAL ONE (12:18)
--- NOTE | 2022-07-31 13:21 | Anesthesiology Consultation ---
Date of Service July 31, 2022 History Surgery Operation Date: 07/31/22 12:10 Proposed Procedures p Cystoscopy, Bilateral Retrograde Pyelogram, Ureteral Stent Placement - Bilateral - Santy Villafana MD Height/Weight Height: 5 ft 8 in Weight: 94.6 kg Allergies Allergy/AdvReac Type Severity Reaction Status Date / Time lisinopril AdvReac Intermediate cough Unverified 07/31/22 12:34 morphine AdvReac Unknown N/V Verified 07/31/22 12:34 Medications Home Medications Medication Instructions Recorded Confirmed Last Taken diltiazem HCl 240 mg 240 mg PO BID 01/18/19 07/31/22 07/30/22 18:00 capsule,extended release 24 hr metoprolol succinate 25 mg 25 mg PO HS 01/18/19 07/31/22 07/30/22 08:00 tablet,extended release 24 hr potassium chloride 20 mEq 20 meq PO QAM #180 tabs 01/18/19 07/31/22 07/30/22 08:00 tablet,extended release acetaminophen 500 mg tablet 1,000 mg PO HS 04/09/21 07/31/22 07/30/22 18:00 aspirin 81 mg tablet,delayed 81 mg PO QPM 04/09/21 07/31/22 07/31/22 08:00 release cholecalciferol (vitamin D3) 50 50 mcg PO DAILY 05/02/21 07/31/22 07/30/22 18:00 mcg (2,000 unit) tablet furosemide 20 mg tablet 20 mg PO QAM #90 tabs 01/27/22 07/31/22 07/30/22 08:00 nitrofurantoin macrocrystal 50 mg 50 mg PO HS #90 caps 02/09/22 07/31/22 07/30/22 08:00 capsule (Macrodantin) pantoprazole 40 mg tablet,delayed 40 mg PO QAM #90 tabs 02/10/22 07/31/22 07/30/22 08:00 release telmisartan 40 mg tablet (Micardis) 80 mg PO DAILY #60 tabs 02/23/22 07/31/22 07/30/22 08:00 methimazole 5 mg tablet 5 mg PO QAM #90 tabs 03/02/22 07/31/22 07/30/22 08:00 NPO Date Last Intake of Fluids: 07/30/22 Time Last Intake of Fluids: 17:00 Date Last Intake of Solids: 07/30/22 Time Last Intake of Solids: 17:00 Past Medical History Medical History Ambulatory dysfunction Anemia Bilateral renal cysts Breast cancer S/p right lumpectomy and SN biopsy - 2007 No chemo/radiation just oral treatment No current issues Chronic diastolic (congestive) heart failure Cystitis Dyslipidemia Fall Gastroesophageal reflux disease Well controlled and stable History of malignant neoplasm of breast Hypertension Hyperthyroidism On Methimazole No symptoms currently Interstitial cystitis Kidney stones Asymptomatic Osteoarthritis Peripheral neuropathy Permanent atrial fibrillation On ASA only Pulmonary hypertension Mild - per 2013 cath per cardio records Retinal detachment Left- Apr or May 2020- treated with drops and injection - no current issues T2DM (type 2 diabetes mellitus) Well controlled with diet Past Family History Family History Mother , age 92 Hypertension Heart failure Father , age 37 accident in coal [place] No problems noted. Denies family history of Ovarian cancer Prostate cancer Myocardial infarction Breast cancer Colorectal cancer Past Surgical History Surgical History History of cardiac cath Negative for CAD in 2013 History of cataract surgery bilateral History of colonoscopy History of esophagogastroduodenoscopy (EGD) S/P cholecystectomy S/P hysterectomy with oopherectomy S/P lumpectomy, right breast S/P tonsillectomy Status post hip surgery RTHA Social History Smoking Status: Never smoker Hx Alcohol Use: No Hx Substance Use: No substance use type: does not use Physical Exam Vital Signs Last Vital Signs Temp 36.6 C 07/31/22 12:38 Pulse 98 H 07/31/22 12:38 Resp 20 07/31/22 12:38 BP 145/89 H 07/31/22 12:38 Pulse Ox 95 07/31/22 12:38 O2 Del Method Room Air 07/31/22 12:38 Testing Laboratory Results 07/31/22 06:55 07/31/22 06:55 Urine Color [place] 07/31/22 09:32 Urine Appearance Turbid (Clear) A 07/31/22 09:32 Urine pH 5.5 (4.5-7.5) 07/31/22 09:32 Ur Specific [place] > 1.045 (1.000-1.030) H 07/31/22 09:32 Urine Protein 2+ (Negative) H 07/31/22 09:32 Urine Glucose (UA) Negative (Negative) 07/31/22 09:32 Urine Ketones Negative (Negative) 07/31/22 09:32 Urine Nitrite Positive (Negative) A 07/31/22 09:32 Ur Leukocyte Esterase 3+ (Negative) H 07/31/22 09:32 Urine WBC (Auto) >30 /hpf (0-5) H 07/31/22 09:32 Urine RBC (Auto) >30 /hpf (0-4) H 07/31/22 09:32 U Hyaline Cast (Auto) 1-5 /lpf (0-5) 07/31/22 09:32 U Epithel Cells (Auto) >30 /lpf (0-5) H 07/31/22 09:32 Urine Bacteria (Auto) 4+ (Negative) H 07/31/22 09:32
--- NOTE | 2022-07-31 13:58 | Operative Report ---
PG Post Operative Report Pre & Post Diagnosis Operation Date: 07/31/22 12:10 Pre-Op Diagnosis: Bilateral kidney stones Post-Op Diagnosis: Bilateral kidney stones I identified the patient and participated in the time-out.: Yes Procedure Operation Date: 07/31/22 12:10 Actual Procedures p Cystoscopy, Ureteral Stent Placement - Bilateral(Bilateral) - Santy Villafana MD Surgeon Santy Villafana MD Motel Operator none Estimated Blood Loss 0 Findings Consistent with Post-Op Diagnosis Specimens none Description of Procedure The patient was identified in the preoperative holding area, appropriate informed consents were reviewed and completed and the patient was transferred to the operative suite. Upon arrival, appropriate antibiotics and anesthesia were administered and the patient was placed in dorsal lithotomy position and prepped and draped in sterile fashion. To begin the case I passed a 22 Hungarian cystoscope per urethra. Inspection revealed healthy urethra. Her bladder has some squamous metaplasia but no tumors or other gross abnormalities that I could appreciate. Ureteral orifices were relatively pinpoint and initially somewhat challenging to identify but then ultimately visualized in orthotopic position. I was able to cannulate first the left UO and advanced a wire to the kidney. Of note she has retained contrast from her prior imaging so no retrograde pyelogram was performed. I placed a 6 Hungarian by 24 cm double-J stent with a good curl in the kidney as well as the bladder. I then turned my attention to the right UO and performed the same procedure. Once again there was contrast retained within the kidney so no retrograde pyelogram was performed. After confirming appropriate position of the right stent, the bladder was decompressed and the case was concluded. There were no complications. I attest to the content of the Intraoperative Record and any orders documented therein. Any exceptions are noted below.
--- NOTE | 2022-07-31 14:26 | Anesthesiology Progress Note ---
Date of Service July 31, 2022 Anesthesia Post Procedure Vital Signs Vital Signs: Temp Pulse Pulse Pulse Resp BP BP 07/31/22 14:15 36.1 C L 95 H 14 122/85 07/31/22 14:10 36.1 C L 81 11 L 110/84 07/31/22 14:05 36.1 C L 90 12 109/51 L 07/31/22 14:03 36.1 C L 87 16 91/48 L 07/31/22 12:38 36.6 C 98 H 20 145/89 H 07/31/22 11:41 07/31/22 10:00 90 16 145/79 H 07/31/22 07:23 106 H 20 07/31/22 07:23 107 H 07/31/22 06:58 36.4 C L 108 H 24 104/84 07/31/22 06:58 36.4 C L 108 H 24 104/84 Pulse Ox O2 Del Method O2 Flow Rate 07/31/22 14:15 100 Oxymask 8 07/31/22 14:10 99 Oxymask 8 07/31/22 14:05 99 Oxymask 8 07/31/22 14:03 96 Oxymask 8 07/31/22 12:38 95 Room Air 07/31/22 11:41 Room Air 07/31/22 10:00 91 07/31/22 07:23 92 Room Air 07/31/22 07:23 07/31/22 06:58 94 Room Air 07/31/22 06:58 94 Room Air Pain Intensity Right Lower Flank: Pain Intensity: 10 Transfer of Care Handoff Completed per policy Notes Mental Status: alert / awake / arousable and participated in evaluation Nausea / Vomiting: adequately controlled Pain: adequately controlled Airway Patency, RR, SpO2: stable & adequate BP & HR: stable & adequate Hydration State: stable & adequate Anesthetic Complications: no major complications apparent and Pt Satisfied with anesthetic care
[2022-07-31] MEDS ORDERED: HYDROmorphone INJ 1 MG/ML SYRINGE IV PRN (14:50)
[2022-07-31] MEDS ORDERED: ATROPINE SULFATE 0.1 MG/ML 10ML SYR IV PRN (14:50)
[2022-07-31] MEDS ORDERED: ONDANSETRON INJ 2 MG/ML 2 ML VIAL IV PRN (14:50)
[2022-07-31] MEDS ORDERED: ePHEDrine sulfate 50 MG/ML AMP IV PRN (14:50)
--- NOTE | 2022-07-31 14:55 | Fluoroscopy Report ---
[facility] CLINICAL HISTORY: Bilateral ureteral stent placement. COMPARISON STUDY: Abdomen and pelvis CT 07/31/2022. FLUOROSCOPY TIME: 11 seconds FLUOROSCOPY IMAGES: 4 Ka,r: 3.6 mGy FINDINGS: Residual contrast within the urinary system from the recent CT examination. Bilateral urete ral stents were placed. Only the proximal portion of the stents are identified but appear in good pos ition. IMPRESSION: Fluoroscopic assistance as above. ACT 112: Negative or not required by law. Electronically signed by: Jefry Bee M.D. 07/31/2022 2:53 PM
[2022-07-31] MEDS ORDERED: MoRPHine SULFATE 2 MG/ML CARP IV PRN (16:12)
[2022-07-31] MEDS: ONDANSETRON INJ 2 MG/ML 2 ML VIAL IV PRN (17:22)
[2022-07-31 20:57] LABS: A calco-baum cmplx NotReported Not Detected (NotDetected); Bact fragilis Not Reported Not Detected (NotDetected); C auris Not Reported Not Detected (NotDetected); CTX-M Resistant Gene Not Detected (NotDetected); Calbicans Not Reported Not Detected (NotDetected); Candida glabrata Not Reported Not Detected (NotDetected); Candida krusei Not Reported Not Detected (NotDetected); Cneoformans/gatti Not Reported Not Detected (NotDetected); Cparapsilosis Not Reported Not Detected (NotDetected); Ctropicalis Not Reported Not Detected (NotDetected); E cloacae compx Not Reported Not Detected (NotDetected); Efaecalis Not Reported Not Detected (NotDetected); Efaecium Not Reported Not Detected (NotDetected); Enterobacterales DETECTED (NotDetected); Enterobacterales Not Reported DETECTED (NotDetected); Escherichia coli Not Reported DETECTED (NotDetected); H influenzae Not Reported Not Detected (NotDetected); IMP Resistant Gene Not Detected (NotDetected); K aerogenes Not Reported Not Detected (NotDetected); KPC Resistant Gene Not Detected (NotDetected); Koxytoca Not Reported Not Detected (NotDetected); Kpneumoniae grp Not Reported Not Detected (NotDetected); Lmonocyt Not Reported Not Detected (NotDetected); N meningitidis Not Reported Not Detected (NotDetected); NDM Resistant Gene Not Detected (NotDetected); OXA 48 Like Resistant Gene Not Detected (NotDetected); P aeruginosa Not Reported Not Detected (NotDetected); Proteus spp Not Reported Not Detected (NotDetected); Salmonella spp Not Reported Not Detected (NotDetected); Smarcescens Not Reported Not Detected (NotDetected); Staph lugdunensis Not Reported Not Detected (NotDetected); Staph spp. Not Reported Not Detected (NotDetected); Staphaureus Not Reported Not Detected (NotDetected); Staphepi Not Reported Not Detected (NotDetected); Stenmaltophilia Not Reported Not Detected (NotDetected); Strep agal(GrpB) Not Reported Not Detected (NotDetected); Strep pneum Not Reported Not Detected (NotDetected); Strep pyog (GrpA) Not Reported Not Detected (NotDetected); Strep spp Not Reported Not Detected (NotDetected); VIM Resistant Gene Not Detected (NotDetected); mcr-1 Colistin Resistant Gene Not Detected (NotDetected)
[2022-07-31] MEDS: METOPROLOL SUCC 25MG EXT REL TAB PO SCH (23:54)
[2022-07-31] MEDS: dilTIAZem HCL 240 MG CAPCR PO SCH (23:55)
[2022-07-31] MEDS: NSS + 20MEQ KCL 20 MEQ/1,000 ML BAG IV SCH (23:55)
[2022-07-31] MEDS: ASPIRIN 81 MG ECTAB PO SCH (23:55)
[2022-08-01] MEDS: ONDANSETRON INJ 2 MG/ML 2 ML VIAL IV PRN (03:21)
--- NOTE | 2022-08-01 05:50 | Electrocardiogram Report ---
Test Reason : Blood Pressure : / mmHG Vent. Rate : 103 BPM Atrial Rate : 110 BPM P-R Int : 000 ms QRS Dur : 102 ms QT Int : 326 ms P-R-T Axes : 000 -23 014 degrees QTc Int : 427 ms Atrial fibrillation with rapid ventricular response with premature ventricular or aberrantly conducte d complexes Possible Anterior infarct , age undetermined Nonspecific ST abnormality Possible Inferior infarct Abnormal ECG When compared with ECG of 09-APR-2021 11:50, Nonspecific T wave abnormality, improved in Lateral leads Confirmed by Tha Caldwell ([id number]) on 08/01/2022 5:50:39 AM Referred By: REFERRED SELF Confirmed By:Tha Caldwell
--- NOTE | 2022-08-01 07:44 | Hospitalist Progress Note ---
Date of Service August 01, 2022 Assessment & Plan (1) Obstructed, uropathy: Plan: Obstuctive Uropathy, Bilateral UPJ Nephrolithiasis - CTA/P: Moderate left hydronephrosis with 5 mm left UPJ calculus, moderate right hydro with punctate right UPJ calculi, bilateral nephrolithiasis. Bladder wall thickening with stranding suggestive of cystitis. - CXR: No acute findings - CTA: No evidence of PE. Cardiomegaly with small to moderate pericardial effusion, no evidence of pulmonary hypertension. Interlobar septal thickening. Trace pleural effusions. Dependent consolidation bilaterally, scarring/atelectasis versus mild pneumonitis. Nonspecific mediastinal lymphad enopathy. Hiatal hernia. Right perinephric stranding. Urology consulted S/P Cystoscopy, bilateral ureteral stent placement 07/31/22 - Urine Culture gram negative bacilli - Blood Culture gram negative bacilli - Continue IV Rocephin (2) Chest pain: Plan: - 1x episode without SOB, dyspnea or diaphoresis in the setting of rigors - No chest pain currently or since admission - Trop 22.2 on admit. Troponin currently 20.8 - ECHO - similar when compared with 04/10/21 EF 55-60% (previous 60-65%) RSVP 40-50% (previous 44%) small posterior pericardial effusion unchanged from prior Admitting EKG: A-fib, rate 103, QTc 427. No territorial ST segment changes. - Suspect demand, no signs of ACS (3) T2DM (type 2 diabetes mellitus): Plan: DM2, not on antiglycemic's Last A1c 6.3% (07/17/22) BMP daily, diet controlled as outpatient without any history of antiglycemic - tolerating carb consistent/heart healthy diet (4) Permanent atrial fibrillation: Plan: - Continue Diltiazem 240mg, metoprolol succinate 25mg - Not on anticoagulation 2/2 hx of severe GIB - No RVR on admission (5) Vitamin D deficiency: Plan: chronic/ stable continue vitamin D 2000 daily (6) Chronic diastolic (congestive) heart failure: Plan: Chronic/stable Follows with Dr. Proctor as outpatient Echo improved but similar to previous, echo with normal LV SF EF 55-60%, moderate mitral regurg, mild to moderate tricuspid regurg. RVSP 40-50% (7) Gastroesophageal reflux disease: Plan: Chronic/ Stable Continue Protonix 40mg (8) Hyperthyroidism: Plan: Chronic/stable Methimazole continued TSH 3.596, T4 0.88 (9) Hypertension: Plan: Chronic/stable Continue metoprolol, Diltiazem, telmisartan - Continue to hold lasix - repeat BMP in the AM Plan Await final urine and blood cultures No further chest pain Continue IV Rocephin Admission and Anticipated Discharge Date Admission Date: July 31, 2022 Subjective Patient was seen this afternoon, she was sitting up in bed eating luch and sone was at bedside. She states she is feeling much better today compared to yesterday. Review of Systems Review of Systems: Patient denies any chest pain, SOB, Dyspnea, abdominal pain, nausea, vomting, back pain, fevers or chills. She admits to some fatigue and decreased appetite. All other ROS negative unless stated above. Physical Exam Constitutional: WD/WN, vitals as above Neck: trachea midline, no thyromegaly Respiratory: normal respiratory effort, lungs clear to auscultation Cardiovascular: Rate/Rhythm: + irregularly irregular Heart Sounds: normal S1 and normal S2; no murmur Extremities: normal capillary refill; no calf tenderness and no edema Gastrointestinal (Abdomen): normal bowel sounds, soft, nontender, no he patosplenomegaly Psychiatric: A+Ox3, euthymic affect Results & Data Results & Data Vital Signs (Past 12 Hours) Vital Signs Temp Pulse Pulse Resp BP BP Pulse Ox 08/01/22 02:39 37.1 C 72 20 107/63 100 08/01/22 01:45 86 07/31/22 23:08 36.9 C 92 H 18 123/71 96 O2 Del Method O2 Flow Rate 08/01/22 02:39 Nasal Cannula 2 08/01/22 01:45 07/31/22 23:08 Nasal Cannula 2 Laboratory Results Abnormal lab results 07/31/22 08/01/22 08/01/22 Range/Units 08:46 01:51 07:37 BUN (6-23) mg/dl Creatinine (0.6-1.2) mg/dl BUN/Creatinine Ratio (10-20) Glucose (70-99(Fasting)) mg/dl Troponin I High Sens 16.3 H 20.8 H (0-14) pg/ml Enterobacterales (PCR) DETECTED A (NotDetected) E. coli (PCR) DETECTED A (NotDetected) 08/01/22 Range/Units 07:49 BUN 40 H (6-23) mg/dl Creatinine 1.25 H (0.6-1.2) mg/dl BUN/Creatinine Ratio 32.0 H (10-20) Glucose 133 H (70-99(Fasting)) mg/dl Troponin I High Sens (0-14) pg/ml Enterobacterales (PCR) (NotDetected) E. coli (PCR) (NotDetected) PG Care Time/CCT Total # of Minutes Spent Total Time Spent with Patient: Total time spent is greater than 50% in coordination of care (as documented) at patient's floor/unit and/or counseling patient: Coding Level of Care Code 07867 SUB INP/OBS CARE 2/35MIN Diagnoses Obstructed, uropathy N13.9 Chest pain R07.9 T2DM (type 2 diabetes mellitus) E11.9 Permanent atrial fibrillation I48.21 Vitamin D deficiency E55.9 Chronic diastolic (congestive) heart failure I50.32 Gastroesophageal reflux disease K21.9 Hyperthyroidism E05.90 Hypertension I10
[2022-08-01 08:35] LABS: Calcium 8.7 mg/dl (8.6-10.3); Creatinine Clr Calc Pharmacy 37.1 ml/min; Est GFR (African American) 44.8 ml/min; Est GFR (Non-African American) 38.6 ml/min; Potassium 4.7 mmol/L (3.5-5.1)
[2022-08-01] MEDS: cefTRIAXone SODIUM 2,000 MG in DEXTROSE 5% 50 ML IV SCH (09:16)
--- NOTE | 2022-08-01 09:54 | XCELERA ---
[id number]
[2022-08-01] MEDS: dilTIAZem HCL 240 MG CAPCR PO SCH ×2 (10:34→20:55)
[2022-08-01] MEDS: methIMAzole 5 MG TABLET PO SCH (10:34)
[2022-08-01] MEDS: POTASSIUM CHLORIDE CRTAB 20 MEQ TABCR PO SCH (10:34)
[2022-08-01] MEDS: CHOLECALCIFEROL 1,000 UNITS 25 MCG TAB PO SCH (10:35)
[2022-08-01] MEDS: PANTOprazole 40 MG TAB PO SCH (10:35)
[2022-08-01] MEDS: ANASTROZOLE 1 MG TAB PO SCH (10:36)
[2022-08-01] MEDS: NSS + 20MEQ KCL 20 MEQ/1,000 ML BAG IV SCH (15:18)
[2022-08-01] MEDS: METOPROLOL SUCC 25MG EXT REL TAB PO SCH (20:55)
[2022-08-01] MEDS: ASPIRIN 81 MG ECTAB PO SCH (20:56)
[2022-08-02] MEDS: NSS + 20MEQ KCL 20 MEQ/1,000 ML BAG IV SCH ×2 (05:25→19:41)
[2022-08-02 07:27] LABS: Hematocrit (blood only) 35.5 % (37.0-47.0); Hemoglobin 11.4 g/dl (12.0-16.0); Mean Corpuscular Hemoglobin 28.2 pg (25.0-34.0); Mean Corpuscular Hgb Conc 32.1 g/dL (32.0-36.0); Mean Corpuscular Volume 87.9 fL (80.0-100.0); Mean Platelet Volume 10.8 fL (9.4-12.4); Platelet Count 179 K/uL (130-400); RDW Coefficient of Variation 14.6 % (11.5-14.5); RDW Standard Deviation 47.5 fL (36.4-46.3); Red Blood Count 4.04 M/uL (4.20-5.40); White Blood Count 14.02 K/ul (4.8-10.8)
[2022-08-02 07:46] LABS: BUN Creatinine Ratio 35.5 (10-20); Calcium 8.7 mg/dl (8.6-10.3); Creatinine Clr Calc Pharmacy 44.2 ml/min; Est GFR (African American) 54.1 ml/min; Est GFR (Non-African American) 46.6 ml/min; Magnesium 1.8 mg/dl (1.7-2.4); Potassium 4.5 mmol/L (3.5-5.1)
--- NOTE | 2022-08-02 08:39 | Hospitalist Progress Note ---
Date of Service August 02, 2022 Assessment & Plan (1) Obstructed, uropathy: Plan: Obstuctive Uropathy, Bilateral UPJ Nephrolithiasis - CTA/P: Moderate left hydronephrosis with 5 mm left UPJ calculus, moderate right hydro with punctate right UPJ calculi, bilateral nephrolithiasis. Bladder wall thickening with stranding suggestive of cystitis. - CXR: No acute findings - CTA: No evidence of PE. Cardiomegaly with small to moderate pericardial effusion, no evidence of pulmonary hypertension. Interlobar septal thickening. Trace pleural effusions. Dependent consolidation bilaterally, scarring/atelectasis versus mild pneumonitis. Nonspecific mediastinal lymphad enopathy. Hiatal hernia. Right perinephric stranding. Urology consulted S/P Cystoscopy, bilateral ureteral stent placement 07/31/22 - Urine Culture - E Coli - Blood Culture x1 E Coli WBC elevated to 14, afebrile Repeat CBC with diff in AM - Continue IV Rocephin (2) Chest pain: Plan: - 1x episode without SOB, dyspnea or diaphoresis in the setting of rigors - No chest pain currently or since admission - Trop 22.2 on admit. Troponin yesterday 20.8 - ECHO - similar when compared with 04/10/21 EF 55-60% (previous 60-65%) RSVP 40-50% (previous 44%) small posterior pericardial effusion unchanged from prior Admitting EKG: A-fib, rate 103, QTc 427. No territorial ST segment changes. - Suspect demand, no signs of ACS (3) T2DM (type 2 diabetes mellitus): Plan: DM2, not on antiglycemic's Last A1c 6.3% (07/17/22) BMP daily, diet controlled as outpatient without any history of antiglycemic - tolerating carb consistent/heart healthy diet (4) Permanent atrial fibrillation: Plan: - Continue Diltiazem 240mg, metoprolol succinate 25mg - Not on anticoagulation 2/2 hx of severe GIB (on SCDs) - No RVR on admission (5) Vitamin D deficiency: Plan: chronic/ stable continue vitamin D 2000 daily (6) Chronic diastolic (congestive) heart failure: Plan: Chronic/stable Follows with Dr. Proctor as outpatient Echo improved but similar to previous, echo with normal LV SF EF 55-60%, moderate mitral regurg, mild to moderate tricuspid regurg. RVSP 40-50% (7) Gastroesophageal reflux disease: Plan: Chronic/ Stable Continue Protonix 40mg (8) Hyperthyroidism: Plan: Chronic/stable Methimazole continued TSH 3.596, T4 0.88 (9) Hypertension: Plan: Chronic/stable Continue metoprolol, Diltiazem, telmisartan - Continue to hold lasix ( was on 20mg daily with KCL and Spironolactone) - restart Spironolactone 12.5 mg daily - BMP BUN 38 (40), Cr 1.07 (1.25) Repeat labs in AM Plan Urine and Blood cultures preliminary are E Coli pansensitive No further chest pain Continue IV Rocephin Admission and Anticipated Discharge Date Admission Date: July 31, 2022 Subjective Patient was seen this afternoon, she was sitting up in bed eating luch and sone was at bedside. She states she is feeling much better today compared to yesterday. Review of Systems Review of Systems: Patient denies any chest pain, SOB, Dyspnea, abdominal pain, nausea, vomting, back pain, fevers or chills. She admits to some fatigue. She states her appetite has improved. All other ROS negative unless stated above. Physical Exam Constitutional: WD/WN, vitals as above Neck: trachea midline, no thyromegaly Respiratory: normal respiratory effort, lungs clear to auscultation Cardiovascular: Rate/Rhythm: + irregularly irregular Heart Sounds: normal S1 and normal S2; no murmur Extremities: normal capillary refill; no calf tenderness and no edema Gastrointestinal (Abdomen): normal bowel sounds, soft, nontender, no he patosplenomegaly No CVA tenderness Psychiatric: A+Ox3, euthymic affect Results & Data Results & Data Vital Signs (Past 12 Hours) Vital Signs Temp Pulse Pulse Resp BP Pulse Ox O2 Del Method 08/02/22 07:30 37.0 C 76 16 143/89 H 99 Nasal Cannula 08/02/22 03:36 36.9 C 84 18 111/70 96 Nasal Cannula 08/01/22 22:04 36.9 C 89 18 134/82 99 Nasal Cannula 08/01/22 22:27 Nasal Cannula 08/01/22 20:40 88 151/89 H O2 Flow Rate 08/02/22 07:30 3 08/02/22 03:36 3 08/01/22 22:04 3 08/01/22 22:27 2 08/01/22 20:40 Laboratory Results Abnormal lab results 08/01/22 08/02/22 08/02/22 Range/Units 07:49 06:36 06:36 WBC 14.02 H (4.8-10.8) K/ul RBC 4.04 L (4.20-5.40) M/uL Hgb 11.4 L (12.0-16.0) g/dl Hct 35.5 L (37.0-47.0) % RDW Std Deviation 47.5 H (36.4-46.3) fL RDW Coeff of Jeanna 14.6 H (11.5-14.5) % Chloride 108 H (98-107) mmol/L BUN 40 H 38 H (6-23) mg/dl Creatinine 1.25 H (0.6-1.2) mg/dl BUN/Creatinine Ratio 32.0 H 35.5 H (10-20) Glucose 133 H 106 H (70-99(Fasting)) mg/dl PG Care Time/CCT Total # of Minutes Spent Total Time Spent with Patient: Total time spent is greater than 50% in coordination of care (as documented) at patient's floor/unit and/or counseling patient: Coding Level of Care Code 13031 SUB INP/OBS CARE 235MIN Diagnoses Obstructed, uropathy N13.9 Chest pain R07.9 T2DM (type 2 diabetes mellitus) E11.9 Permanent atrial fibrillation I48.21 Vitamin D deficiency E55.9 Chronic diastolic (congestive) heart failure I50.32 Gastroesophageal reflux disease K21.9 Hyperthyroidism E05.90 Hypertension I10
[2022-08-02] MEDS: CHOLECALCIFEROL 1,000 UNITS 25 MCG TAB PO SCH (08:57)
[2022-08-02] MEDS: dilTIAZem HCL 240 MG CAPCR PO SCH ×2 (08:58→19:43)
[2022-08-02] MEDS: PANTOprazole 40 MG TAB PO SCH (08:58)
[2022-08-02] MEDS: ANASTROZOLE 1 MG TAB PO SCH (08:58)
[2022-08-02] MEDS: methIMAzole 5 MG TABLET PO SCH (08:58)
[2022-08-02] MEDS: cefTRIAXone SODIUM 2,000 MG in DEXTROSE 5% 50 ML IV SCH (09:03)
[2022-08-02] MEDS: POTASSIUM CHLORIDE CRTAB 20 MEQ TABCR PO SCH (09:03)
[2022-08-02] MEDS: ASPIRIN 81 MG ECTAB PO SCH (19:42)
[2022-08-02] MEDS: METOPROLOL SUCC 25MG EXT REL TAB PO SCH (19:44)
[2022-08-02] MEDS ORDERED: ACETAMINOPHEN 500 MG TAB PO STA (21:38)
[2022-08-03 06:58] LABS: Basophils # (auto) 0.05 K/uL (0-0.2); Basophils % (auto) 0.6 %; Eosinophils # (auto) 0.13 K/uL (0-0.50); Eosinophils % (auto) 1.5 %; Hematocrit (blood only) 34.8 % (37.0-47.0); Hemoglobin 11.5 g/dl (12.0-16.0); Immature Granulocytes # (auto) 0.06 K/uL (0.01-0.20); Immature Granulocytes % (auto) 0.7 %; Lymphocytes # (auto) 0.68 K/uL (1.2-3.4); Lymphocytes % (auto) 7.7 %; Mean Corpuscular Hemoglobin 28.9 pg (25.0-34.0); Mean Corpuscular Volume 87.4 fL (80.0-100.0); Mean Platelet Volume 10.8 fL (9.4-12.4); Monocytes # (auto) 0.56 K/uL (0.11-0.59); Monocytes % (auto) 6.3 %; Neutrophils # (auto) 7.37 K/uL (1.40-6.50); Neutrophils % (auto) 83.2 %; Platelet Count 169 K/uL (130-400); RDW Coefficient of Variation 14.6 % (11.5-14.5); RDW Standard Deviation 46.9 fL (36.4-46.3); Red Blood Count 3.98 M/uL (4.20-5.40); White Blood Count 8.85 K/ul (4.8-10.8)
[2022-08-03] MEDS: dilTIAZem HCL 240 MG CAPCR PO SCH (08:07)
[2022-08-03] MEDS: CHOLECALCIFEROL 1,000 UNITS 25 MCG TAB PO SCH (08:07)
[2022-08-03] MEDS: PANTOprazole 40 MG TAB PO SCH (08:07)
[2022-08-03] MEDS: methIMAzole 5 MG TABLET PO SCH (08:07)
[2022-08-03] MEDS: ANASTROZOLE 1 MG TAB PO SCH (08:08)
[2022-08-03] MEDS: POTASSIUM CHLORIDE CRTAB 20 MEQ TABCR PO SCH (08:20)
[2022-08-03] MEDS: cefTRIAXone SODIUM 2,000 MG in DEXTROSE 5% 50 ML IV SCH (08:46)
[2022-08-03] MEDS ORDERED: SPIRONOLACTONE 12.5 MG TAB PO SCH (09:00)
[2022-08-03 09:59] LABS: Calcium 8.7 mg/dl (8.6-10.3); Potassium 4.7 mmol/L (3.5-5.1)
[2022-08-03] MEDS: NSS + 20MEQ KCL 20 MEQ/1,000 ML BAG IV SCH (10:00)
[2022-08-03 10:05] LABS: Creatinine Clr Calc Pharmacy 47.6 ml/min; Est GFR (African American) 58.7 ml/min; Est GFR (Non-African American) 50.6 ml/min
[2022-08-03] MEDS ORDERED: ACETAMINOPHEN 325 MG TAB PO PRN (13:47)
--- NOTE | 2022-08-03 14:52 | Discharge Summary ---
Date of Service August 03, 2022 Admission HPI Per Admitting Provider Aliyah Gramajo is a 87-year-old female with a past medical history of A-fib, diastolic dysfunction, hypertension, pulmonary hypertension, GI bleed while on Coumadin, multifactorial dyspnea who was seen in the emergency department for right flank pain/low back pain/intermittent chest pain which did not improve with Tylenol. Arrival to ER she is tachypneic but not hypoxic, nauseous without vomiting. 87yo F present with R flank/back pain. No shortness of breath. +Fevers and chills this morning. NO sweats. No shortness of breath. +hematuria for the first time this morning. Denies prior history of kidney stones or kidney stone problems. Endorses hx of gallbladder stone but no kidney stones. Has some back pain on the R side Chest pain just today, came on as a sharp pain without shortness of breath and lasted 15 minutes while sitting and happened at the same time as an episode of shaking chills No ches tpain before today or since then Hda a heart ultrasound just a few weeks ago, but pt doesn't know the results. No orthopnea Seen w/ Urology at bedside. Anticipate stent placement. Principal Diagnosis Obstructive uropathy d/t UPJ nephrolithiasis E. coli bacteremia and UTI Discharge Exam GENERAL: 87 yo well-developed, well-nourished elderly WF. NAD. LUNGS: Clear to auscultation bilaterally. No W/R/R. CARDIOVASCULAR: Irregular rhythm, rate controlled ABDOMEN: Soft, non-tender and non-distended. BS normoactive x 4 quad. : no flank pain or cva tenderness Discharge Data Allergies Allergy/AdvReac Type Severity Reaction Status Date / Time lisinopril AdvReac Intermediate cough Unverified 07/31/22 12:34 morphine AdvReac Unknown N/V Verified 07/31/22 12:34 Consultations 07/31/22 10:48 ED Decision to Admit Stat Procedures Performed Operation Date: 07/31/22 12:10 Actual Procedures p Cystoscopy, Ureteral Stent Placement - Bilateral(Bilateral) - Santy Villafana MD Ordered Studies Chest CTA 07/31/22 07:01 CT ANGIOGRAM OF THE CHEST CLINICAL HISTORY: Atypical chest pain. Nausea and vomiting. COMPARISON STUDY: Chest x-ray dated 07/31/2022. CT of the cervical spine dated 04/09/2021. TECHNIQUE: Following the IV administration of 120 cc of Optiray 320, CT angiogram of the chest was performed from the upper abdomen to the thoracic inlet utilizing the pulmonary embolus protocol. Images are reviewed in the axial, sagittal, and coronal planes. 3-D MIPS images are created and assessed. IV contrast was administered without complication. A dose lowering technique was utilized adhering to the principles of ALARA. CT DOSE: 1072.70 mGy.cm FINDINGS: Thyroid: Enlarged/heterogeneous thyroid goiter is similar to previous. Thoracic aorta: There is atherosclerotic calcification of the thoracic aorta, which is normal in caliber and demonstrates standard 3-vessel arch anatomy. No dissection is seen. Pulmonary vasculature: The pulmonary trunk is dilated, measuring 3.7 cm in diameter. This indicates pulmonary hypertension. There are no filling defects identified in main, lobar, or segmental pulmonary branches to suggest pulmonary embolus. Evaluation of the peripheral branches is compromised by motion artifact. Heart: The heart is markedly enlarged noting a small to moderate pericardial effusion. Lungs and pleural spaces: Evaluation of the lung parenchyma is compromised by motion artifact. There are trace pleural effusions. Intralobular septal thickening could represent acute versus chronic congestive change. There is mild dependent consolidation, left greater than right. Mediastinum: There is mediastinal lymphadenopathy. Pretracheal nodes measure up to 1.7 cm in short axis a nodule in the anterior mediastinum measures 2.0 cm in short axis. Anupama: Clear. Axillae: There is no axillary lymphadenopathy. Upper abdomen: There is a large hiatal hernia. Right-sided perinephric stranding is partially imaged. Skeletal structures: The skeletal structures are osteopenic. No lytic or blastic bony lesions are seen. Arthritic change is noted in the shoulders and thoracic spine. Soft tissues: The postsurgical changes seen in the right breast. IMPRESSION: 1. There is no evidence of pulmonary embolus in the main, lobar, or segmental pulmonary arteries. 2. Marked cardiomegaly with a small to moderate pericardial effusion and evidence of pulmonary artery hypertension. 3. Intralobular septal thickening could represent acute versus chronic congestive change. Clinical correlation will be required. 4. Trace pleural effusions. 5. Mild dependent consolidation is seen at both lung bases, left greater than right. This could represent scarring/atelectasis versus a mild pneumonitis. Clinical correlation will be required. 6. There is nonspecific mediastinal lymphadenopathy. 7. Large hiatal hernia. 8. Thyroid goiter. 9. Right perinephric stranding is partially visualized. See report of abdominal CT performed concurrently for detailed intra-abdominal findings. 10. Additional findings as above. ACT 112: Negative or not required by law. Electronically signed by: Viktor Gipson M.D. 07/31/2022 8:27 AM Chest X-Ray 07/31/22 07:01 SINGLE VIEW CHEST CLINICAL HISTORY: Atypical chest pain FINDINGS: An AP, portable, upright chest radiograph is compared to study dated 04/09/2021. A hiatal hernia is suspected. The heart is enlarged noting atherosclerotic calcification of the thoracic aorta. The pulmonary vasculature is noncongested. Chronic interstitial thickening is similar to previous. The lungs and pleural spaces are clear noting bibasilar scarring/atelectasis. No pneumothorax is seen. The skeletal structures are osteopenic. The bony thorax is grossly intact. Arthritic change is noted in the shoulders. IMPRESSION: Cardiomegaly with no acute cardiopulmonary abnormality identified. ACT 112: Negative or not required by law. Electronically signed by: Viktor Gipson M.D. 07/31/2022 7:52 AM Abdomen/Pelvis CT 07/31/22 07:02 CT OF THE ABDOMEN AND PELVIS WITHOUT CONTRAST CLINICAL HISTORY: Right flank pain. Nausea and vomiting. COMPARISON STUDY: [facility] September 05, [address] of the abdomen and pelvis October 23, 2013. TECHNIQUE: Axial images of the abdomen and pelvis were obtained without IV contrast. Images were reviewed in the axial, sagittal, and coronal planes. Automated exposure control was utilized for the study. A dose lowering technique was utilized adhering to the principles of ALARA. FINDINGS: Please note that the chest CT will be reported separately. No pneumatosis, free air or portal venous gas is present. Multiple bilateral renal calculi are noted. These include a 1 cm left renal calculus and a 1.3 cm calculus within the right renal pelvis. A 5 mm left ureteropelvic junction calculus results in moderate left hydronephrosis. There is also moderate right hydronephrosis with punctate faint calcifications within the right ureteropelvic junction that measure up to 3 mm. Its unclear if these result in the hydronephrosis. Bladder wall thickening with adjacent stranding is noted. Small amount gas within the bladder is noted. There is also nonspecific thickening of the distal ureters. Evaluation of the remainder of the abdomen and pelvis is suboptimal on this unenhanced exam. Dilatation of the common bile duct is slightly increased since prior exam. This is likely related to cholecystectomy. Hypodense hepatic lesions favor cysts. Spleen, adrenal glands and pancreas are unremarkable. There is no evidence for a bowel obstruction. Right hip arthroplasty is noted. There is no lymphadenopathy. No acute fractures are identified within the visualized skeletal structures. Water attenuation bilateral renal lesions are suboptimally assessed on this unenhanced exam but favor cysts. IMPRESSION: 1. Moderate left hydronephrosis likely due to a 5 mm left ureteropelvic junction calculus. 2. Moderate right hydronephrosis. This may be related to a few punctate right ur eteropelvic junction calculi. 3. Bilateral nephrolithiasis, as described above. 4. Bladder wall thickening with adjacent stranding suggestive of cystitis. Nonspecific urothelial thickening of the bilateral distal ureters. ACT 112: Negative or not required by law. Electronically signed by: Edy Almazan M.D. 07/31/2022 8:25 AM Abdomen Fluoroscopy 07/31/22 12:45 [facility] CLINICAL HISTORY: Bilateral ureteral stent placement. COMPARISON STUDY: Abdomen and pelvis CT 07/31/2022. FLUOROSCOPY TIME: 11 seconds FLUOROSCOPY IMAGES: 4 Ka,r: 3.6 mGy FINDINGS: Residual contrast within the urinary system from the recent CT examination. Bilateral ureteral stents were placed. Only the proximal portion of the stents are identified but appear in good position. IMPRESSION: Fluoroscopic assistance as above. ACT 112: Negative or not required by law. Electronically signed by: Jefry Bee M.D. 07/31/2022 2:53 PM Hospital Course (1) Obstructed, uropathy: Acute/stable - Obstructive Uropathy, Bilateral UPJ Nephrolithiasis - CTA/P: Moderate left hydronephrosis with 5 mm left UPJ calculus, moderate right hydro with punctate right UPJ calculi, bilateral nephrolithiasis. Bladder wall thickening with stranding suggestive of cystitis. - CXR: No acute findings - CTA: No evidence of PE. Cardiomegaly with small to moderate pericardial effusion, no evidence of pulmonary hypertension. Interlobar septal thickening. Trace pleural effusions. Dependent consolidation bilaterally, scarring/atelectasis versus mild pneumonitis. Nonspecific mediastinal lymphadenopathy. Hiatal hernia. Right perinephric stranding. - Urology consulted, underwent bilateral ureteral stent placement 07/31/22 - Urine Culture - E Coli, resistant to macrobid - Blood Culture x2 = pansensitive E Coli - WBC elevated to 14 on admit, afebrile, wbc count has normalized - Started empirically on Rocephin, cultures sensitive and continued, 3 doses total received - Will change to Cefdinir 300mg BID x 7 days for total of 10 days - Follow up with urology as scheduled (2) Bacteremia: Secondary to E. coli UTI, pansensitive - Treatment as outlined above - Treated with Rocephin, transition to oral Cefdinir x 7 more days for total of 10 days - Literature does NOT support repeat cultures for GN bacteremia and actually can shorten course up to 7 days based on clinical response (3) Chest pain: - 1x episode without SOB, dyspnea or diaphoresis in the setting of rigors - No chest pain currently or since admission - Trop 22.2 on admit. Troponin yesterday 20.8 - ECHO - similar when compared with 04/10/21 EF 55-60% (previous 60-65%) RSVP 40-50% (previous 44%) small posterior pericardial effusion unchanged from prior Admitting EKG: A-fib, rate 103, QTc 427. No territorial ST segment changes. - Suspect demand, no signs of ACS (4) T2DM (type 2 diabetes mellitus): DM2, not on antiglycemic meds Last A1c 6.3% (07/17/22) BMP daily, diet controlled as outpatient without any history of antiglycemic - tolerating carb consistent/heart healthy diet (5) Permanent atrial fibrillation: - Continue Diltiazem 240mg, metoprolol succinate 25mg - Not on anticoagulation 2/2 hx of severe GIB (on SCDs) - No RVR on admission (6) Vitamin D deficiency: chronic/ stable continue vitamin D 2000 daily (7) Chronic diastolic (congestive) heart failure: Chronic/stable Follows with Dr. Proctor as outpatient Echo improved but similar to previous, echo with normal LV SF EF 55-60%, moderate mitral regurg, mild to moderate tricuspid regurg. RVSP 40-50% (8) Gastroesophageal reflux disease: Chronic/ Stable - Continue Protonix 40mg (9) Hyperthyroidism: Chronic/stable Methimazole continued TSH 3.596, T4 0.88 (10) Hypertension: Chronic/stable Continue metoprolol, Diltiazem, telmisartan - Continue to hold lasix ( was on 20mg daily with KCL and Spironolactone) - restart Spironolactone 12.5 mg daily - BMP BUN 38 (40), Cr 1.07 (1.25) Plan Patient is medically and hemodynamically stable for discharge home today. Com plete course of antibiotics. PT/OT eval completed, safe for return home with and use of rolled walker. Follow up with pcp and urology. Above plan of care has been d/w Dr. Machado. Total Time Total Time Spent Total Time Spent (In Minutes): >30 minutes Discharge Plan Discharge Items Patient Disposition: Home - Self-Care Reason For Visit: OBSTRUCTIVE MIRI, BILAT UPJ STONES UTI Discharge Diagnosis: kidney stones urinary tract infection blood stream infection Activity: Resume your previous activity Non-emergency contact: Primary Care Provider and Urologist Call non-emergency contact if: you have any medication questions and your symptoms worsen Follow-up/Referrals: Jackelyn Enriquez DO [Primary Care Provider] - Diet: Carb Consistent or DM2 Addtl Attending Provider Instructions: You were hospitalized due to kidney stones blocking the flow of urine in addition to causing a urinary tract infection. You were seen by urology and stents have been placed. You have also been started on antibiotics for your urinary tract infection which had also spread to your bloodstream. The same bacteria in your urine was also causing the infection in your blood stream. You have been treated with antibiotics and will be transitioned to oral antibiotics that you can complete at home called Cefdinir 300mg, to take twice a day (once in the morning and once at night). You will start this medication on 08/04/22, a prescription has been called into your pharmacy on file. Please take the full course as directed. While you are taking this antibiotic, DO NOT take the Macrobid. You can resume the Macrobid upon completion of the Cefdinir. You will follow up with urology as scheduled. The office will contact you with the date/time of your appointment. Please follow up with your family doctor within 1 week of discharge from the hospital. You can take Tylenol as needed for any groin pain/stent discomfort. If you have any questions after you leave the hospital, you may contact the nonemergency number listed on your paperwork. In the event of a medical emergency, call 911. Pending Studies at Discharge: No Stand-Alone Forms: My [facility], Smoking Cessation Medications and DC Order Prescriptions: New cefdinir 300 mg capsule 300 mg PO BID Qty: 14 0RF Continued furosemide 20 mg tablet 20 mg PO QAM Qty: 90 1RF nitrofurantoin macrocrystal [Macrodantin] 50 mg capsule 50 mg PO HS Qty: 90 1RF Rx Instructions: must administer with a meal/food. Take one capsule at bedtime. pantoprazole 40 mg tablet,delayed release (DR/EC) 40 mg PO QAM Qty: 90 1RF telmisartan [Micardis] 40 mg tablet 80 mg PO DAILY Qty: 60 5RF methimazole 5 mg tablet 5 mg PO QAM Qty: 90 1RF potassium chloride 20 mEq tablet extended release 20 meq PO QAM Qty: 180 metoprolol succinate 25 mg tablet extended release 24 hr 25 mg PO HS diltiazem HCl 240 mg capsule,extended release 24hr 240 mg PO BID cholecalciferol (vitamin D3) 50 mcg (2,000 unit) tablet 50 mcg PO DAILY aspirin 81 mg Tablet,Delayed Release (Dr/Ec) 81 mg PO QPM acetaminophen 500 mg Tablet 1,000 mg PO HS Discharge Orders: Discharge Order (Routine); Ordered 08/03/22 Ordered By: Lexus Leblanc Admission Data Admit Date/Time: 07/31/22 12:30 Attending Provider: Melquiades Machado Admit Provider: Konrad Meyer Primary Care Provider: Jackelyn Enriquez Other Providers: Konrad Meyer Coding Level of Care Code 68191 INP/OBS DISCH >30 MIN Diagnoses Obstructed, uropathy N13.9 Bacteremia R78.81 Chest pain R07.9 T2DM (type 2 diabetes mellitus) E11.9 Permanent atrial fibrillation I48.21 Vitamin D deficiency E55.9 Chronic diastolic (congestive) heart failure I50.32 Gastroesophageal reflux disease K21.9 Hyperthyroidism E05.90 Hypertension I10
== END 2022-08-03 16:10 | disposition home or self-care (01) | DRG 660 ==
LOC: ED 06:41 → ASU 12:29 → 2N 12:29 → SUATTDRO 12:30 → EDINP 12:30 → 2N 16:40

== ENCOUNTER 2022-09-27 14:36 | Observation (INO) ==
[2022-09-27] MEDS ORDERED: OPTIRAY 320 500ml IV ONE ×2 (14:40→16:39)
--- NOTE | 2022-09-27 15:07 | CT Scan Report ---
CT angio neck with con, CT head/brain wo con CLINICAL HISTORY: neuro deficit, acute stroke suspected TECHNIQUE: Contiguous axial CT images of the head were acquired from the base of the skull to the edison bipin without intravenous contrast administration. CT angiography of the head and neck was performed f ollowing intravenous administration of iodinated contrast. Coronal and sagittal MIPS were obtained fr om the axial data set and were submitted for review. Automated dose lowering techniques and/or adjus tment according to patient size were utilized for this examination. All measurements were calculated based on NASCET criteria. CT DOSE: 1170.80 mGy.cm Comparison: None available at the time of this dictation. FINDINGS: CT head: There is no acute intracranial hemorrhage or evidence of acute territorial infarction. No sh ift of the midline structures, mass effect, or extra-axial abnormalities are shown. Large heterogeneous thyroid gland is noted. Subcentimeter mediastinal lymph nodes are seen. CTA Neck: A 3 vessel aortic arch is shown. There is no significant atherosclerotic plaque in the aor tic arch or the origins of the innominate, left common carotid, and left subclavian arteries. The co mmon carotid, external carotid, cervical segments of the internal carotid arteries, and the cervical segments of the vertebral arteries are patent without hemodynamically significant stenosis. The verte bral arteries are codominant. CTA Head: The anterior and posterior cerebral circulations are patent. origin of the bilateral posterior cerebral arteries noted. IMPRESSION: 1. No acute intracranial hemorrhage, evidence of acute territorial infarction, or other acute intrac ranial disease process. 2. No occlusion, hemodynamically significant stenosis, or dissection in the major cervical arteries. 3. No occlusion, hemodynamically significant stenosis, aneurysm, dissection, or arteriovenous malfor mation in the major intracranial arteries. Assessment of stenosis of the internal carotid arteries is based on NASCET criteria. ACT 112: Negative or not required by law. Electronically signed by: Eduar Chen M.D. 09/27/2022 3:05 PM
[2022-09-27 15:22] LABS: Basophils # (auto) 0.04 K/uL (0-0.2); Basophils % (auto) 0.3 %; Eosinophils # (auto) 0.09 K/uL (0-0.50); Eosinophils % (auto) 0.7 %; Hematocrit (blood only) 32.6 % (37.0-47.0); Hemoglobin 10.6 g/dl (12.0-16.0); Immature Granulocytes # (auto) 0.08 K/uL (0.01-0.20); Immature Granulocytes % (auto) 0.7 %; Lymphocytes # (auto) 0.47 K/uL (1.2-3.4); Lymphocytes % (auto) 3.9 %; Mean Corpuscular Hemoglobin 28.6 pg (25.0-34.0); Mean Corpuscular Hgb Conc 32.5 g/dL (32.0-36.0); Mean Corpuscular Volume 87.9 fL (80.0-100.0); Mean Platelet Volume 10.5 fL (9.4-12.4); Monocytes # (auto) 0.83 K/uL (0.11-0.59); Monocytes % (auto) 6.9 %; Neutrophils # (auto) 10.56 K/uL (1.40-6.50); Neutrophils % (auto) 87.5 %; Platelet Count 191 K/uL (130-400); RDW Coefficient of Variation 15.6 % (11.5-14.5); RDW Standard Deviation 49.5 fL (36.4-46.3); Red Blood Count 3.71 M/uL (4.20-5.40); White Blood Count 12.07 K/ul (4.8-10.8)
[2022-09-27 15:34] LABS: Albumin Globulin Ratio 1.4 (0.9-2); Albumin Level 3.3 gm/dl (3.4-5.0); BUN Creatinine Ratio 26.3 (10-20); Bilirubin,Total 0.4 mg/dl (0.2-1.0); Calcium 8.9 mg/dl (8.6-10.3); Est GFR (African American) 33.2 ml/min; Est GFR (Non-African American) 28.7 ml/min; Globulin 2.4 gm/dl (2.5-4.0); Magnesium 1.5 mg/dl (1.7-2.4); Potassium 4.3 mmol/L (3.5-5.1); Total Protein 5.7 gm/dl (6.0-8.3)
[2022-09-27 15:40] LABS: Troponin I High Sensitivity 9.2 pg/ml (0-14)
[2022-09-27 15:43] LABS: INR 1.1 (0.9-1.1); Partial Thromboplastin Ratio 0.9; Partial Thromboplastin Time 25.1 Seconds (21.0-31.0); Prothrombin Time 11.9 Seconds (9.0-12.0)
--- NOTE | 2022-09-27 15:47 | Emergency Department Note ---
Impression & Plan TIA (transient ischemic attack), Anemia, Hyponatremia, Chest pain, Hypomagnesemia Admit to the [facility] ED Provider Note NAME: SAUL WATTS AGE: 87 SEX: F ARRIVES VIA: Ambulance INFORMANT: Patient EMS ED PROVIDER(S): Ro Talavera DO CHIEF COMPLAINT: Weakness PLAN: Disposition: Admit to the [facility] Condition: Fair MEDICAL DECISION MAKING: This is an 87-year-old female patient brought to the emergency department by EMS for strokelike symptoms. The patient had been feeling unwell throughout the day [facility] she began to feel really weak. She got out of the car and tried to walk in the house when she slumped on the ground. Her family was unable to get up off the floor and called EMS. EMS arrived on scene and found her with a right-sided facial droop, slurred speech and headache. They also noticed an expressive aphasia. In route to the hospital, the patient's neurological symptoms seem to worsen somewhat and she was complaining of some substernal chest discomfort. Just prior to arriving in the emergency department, the neurological symptoms quickly resolved and she was left with just a slight right-sided droop to her mouth. She continued to complain of mild headache and nausea. She went to radiology directly with EMS as a stroke alert. By history, the patient had a urological procedure done 2 days ago where she had a right-sided ureteral stent removed and the left ureteral stent replaced. Urinalysis today shows 2+ blood, 1+ leukocyte esterase or white cells and red cells but urinalysis was negative for bacteria and negative nitrites. Other laboratory studies show very mild leukocytosis but significant anemia with hemoglobin of 10.6 which had dropped from 12.5. Patient was found to be in atrial fibrillation which is not unusual for her. Troponin was normal but D-dimer was elevated at 1210. The patient went for CT scan of the chest to rule out PE. This was negative. Patient was significantly hyponatremic and hypomagnesemic. Her neurological symptoms completely resolved here in the emergency department. Her presentation seems consistent with a TIA. I discussed the case with the [facility] and they will evaluate her here in the ER. Triage Nursing notes reviewed and agree with them. Additional history obtained from EMS and then the patient's daughters arrived at the bedside. External medical records reviewed from previous admissions Vital Signs: reviewed and unremarkable Differential diagnosis: UTI, TIA, CVA, intracranial hemorrhage, cardiac ischemia, hyperglycemia, hypoglycemia Diagnostics interpreted by me: ECG: A-fib at a rate of [address] segment elevation or signs of ischemia. There is no ectopy. Repeat ECG: A-fib at a rate of [address] elevation or signs of ischemia. There is no ectopy. Cardiac Monitoring: A-fib at a rate of 92 Laboratory studies: See below Imaging studies: As per my independent interpretation Portable chest x-ray: No pulmonary infiltrates or opacities HPI: 87/F arrives for evaluation of facial droop and slurred speech. Patient has returned home from lunch and was walking through the door when her legs gave out and she slumped onto the ground and her family was unable to get her up from the floor. She denies that she injured herself during the fall but EMS noted that she had a right-sided facial droop, slurred speech and seemed to have an expressive aphasia. She denies ever having a stroke in the past. During transport to the hospital, the patient had some substernal chest discomfort. PAST MEDICAL HISTORY:See Below PAST SURGICAL HISTORY:See Below FAMILY HISTORY:See Below SOCIAL HISTORY:See Below HOME MEDICATIONS:See list ALLERGIES:See list VITALS:See Below PHYSICAL EXAMINATION: General: The patient is moderately hard of hearing but did better with her hearing aids in HEENT: Head - normocephalic and atraumatic. Pupils are equal, round, and reactive to light. Extraocular eye muscles are intact and sclera are anicteric. Ears - bilaterally patent canals with noninjected tympanic membranes and no evidence of hemotympanum. Nose - moist nasal mucosa without discharge. Mouth - moist buccal mucosa. Oropharynx is nonerythematous and there is no tonsillar exudate or edema noted. Neck: Supple; no cervical lymphadenopathy Heart: Irregularly irregular rhythm. There is a normal S1 and S2 with no murmurs, clicks, or gallops appreciated. Lungs: Clear to auscultation bilaterally with no wheezes, rales, or rhonchi. Abdomen: Soft, completely nontender, nondistended, with good bowel sounds. There are no palpable pulsatile masses or hepatosplenomegaly. There is no guarding, rigidity, or rebound noted. Extremities: No evidence of cyanosis, clubbing, or edema. There are easily palpable peripheral pulses. Neuro:The patient is awake and alert, oriented to day, time, and place. Muscle strength is 5/5 in all 4 extremities. The patient has equal electrician marine strength and equal pedal push and pull. There are no cerebellar signs. ED COURSE: Times/Reassessments: Patient was evaluated in room B1 after she had already gone for a CT of the brain and CTA of the brain and neck. Laboratory studies were drawn as above. A twelve-lead EKG was obtained as described above. An order was placed for continuous cardiac monitoring. The patient was in atrial fibrillation at a rate of 88. Portable chest x-ray was performed. Patient had an elevated D-dimer so she went for CT scan of the chest. I reviewed the results of the labs, x-rays and CT scans with the patient and her family. I discussed the case with the [facility] Hospitalist and they will evaluate for further management. Ro Talavera DO Past Med/Surg History Medical History (Updated 09/28/22 @ 13:57 by Ro Talavera DO) Ambulatory dysfunction using walker or cane Anemia H&H WNL with 08/2022 labs Bilateral renal cysts Chronic diastolic (congestive) heart failure Dyslipidemia Gastroesophageal reflux disease Well controlled and stable Hearing deficit reads lips History of COVID-04 Sep 2020 > not hospitalized Hx of breast cancer S/p right lumpectomy and SN biopsy - 2007 No chemo/radiation just oral treatment No current issues Hypertension Hyperthyroidism On Methimazole No symptoms currently Interstitial cystitis Kidney stones Peripheral neuropathy Permanent atrial fibrillation On ASA only > no pacer > follows with Dr. Proctor Pulmonary hypertension Mild - per 2013 cath per cardio records Per 07/2022 ECHO -RVSP is elevated at 40-50mmHg Retinal detachment Left- Apr or May 2020- treated with drops and injection - no current issues T2DM (type 2 diabetes mellitus) Well controlled with diet Surgical History History of cardiac cath Negative for CAD in 2013 History of cataract surgery rt/left History of colonoscopy History of cystoscopy with stent (last procedure August 2022>Cystoscopy, Ureteronephroscopy, Retrograde Pyelogram, Laser Lithotripsy, Insertion of Stent Catheter - Right) History of esophagogastroduodenoscopy (EGD) Nausea and vomiting after administration of anesthetic agent S/P cholecystectomy S/P hysterectomy with oopherectomy S/P lumpectomy, right breast S/P tonsillectomy Slow to wake up after anesthesia Status post hip surgery RTHA Family History Mother , age 92 Hypertension Heart failure Father , age 37 accident in coal mine No problems noted. Denies family history of Ovarian cancer Prostate cancer Myocardial infarction Breast cancer Colorectal cancer Social History Smoking Status: Never smoker Second Hand Exposure: No; Do You Dip or Chew Tobacco: No; Hx Alcohol Use: No Hx Substance Use: No Preferred Language: [place]an Communication Ability: Effective Communication Ability Comment: [place]>reads lips per daughter Visual Impairment: No Limitations Hearing Ability: Use of Hearing Aid Hospital Chaplain Required: No Beliefs That Will Affect Care: None marital status: Current Living Situation: Spouse Current Living Situation Comment: with marti current occupational status: retired current occupation: former cook at [employer] Feels Safe at Home: Yes Childhood Exposure to Second-Hand Smoke: No Diet: regular Diet Comment: regular caffeine: Yes (soda and tea) during the past year weight has: remained stable Dental Care, Regularly: Yes Physical Activity Frequency: Does not Exercise Seatbelt Use: always Sunscreen Use: No Assistive Devices: Cane Allergies Allergies Allergy/AdvReac Type Severity Reaction Status Date / Time lisinopril AdvReac Intermediate cough Verified 09/27/22 17:21 morphine AdvReac Mild N/V Verified 09/27/22 17:21 Home Meds Home Medications Medication Instructions Recorded Confirmed diltiazem HCl 240 mg 240 mg PO BID 01/18/19 09/27/22 capsule,extended release 24 hr metoprolol succinate 25 mg 25 mg PO HS 01/18/19 09/27/22 tablet,extended release 24 hr acetaminophen 500 mg tablet 1,000 mg PO BID PRN Pain 04/09/21 09/27/22 aspirin 81 mg tablet,delayed 81 mg PO QAM 04/09/21 09/27/22 release cholecalciferol (vitamin D3) 50 50 mcg PO QAM 05/02/21 09/27/22 mcg (2,000 unit) tablet potassium chloride 10 mEq 10 meq PO QAM 08/05/22 09/27/22 tablet,extended release telmisartan 40 mg tablet (Micardis) 80 mg PO QAM 08/24/22 09/27/22 nitrofurantoin macrocrystal 50 mg 50 mg PO .HOLD 09/18/22 09/27/22 capsule Previous Rx's Medication Instructions Recorded pantoprazole 40 mg tablet,delayed 40 mg PO QAM #90 tabs 08/11/22 release methimazole 5 mg tablet 5 mg PO QAM #90 tabs 08/24/22 tramadol 50 mg tablet 50 mg PO Q6H PRN pain #20 tabs 08/28/22 doxycycline hyclate 100 mg tablet 100 mg PO BID 7 days #14 tabs 09/21/22 Results & Data (ED) Vital Signs Vital Signs - 24 hr 09/27/22 14:58 09/27/22 14:58 09/27/22 14:50 Temperature 36.7 C Temperature Source Oral Pulse Rate 94 H 85 Pulse Rate [Left Brachial] Pulse Rate from SpO2 Sensor Pulse Rhythm Irregular Pulse Rhythm [Left Brachial] Pulse Strength [Left Brachial] Respiratory Rate 14 Respiratory Effort / Characteristics Respiratory Depth Respiratory Pattern Blood Pressure 135/94 Blood Pressure [Left Arm] Blood Pressure Mean 107 Blood Pressure Mean [Left Arm] Blood Pressure Position [Left Arm] Pulse Oximetry 95 97 Oxygen Delivery Method Room Air Room Air Room Air Sepsis New/Unexplained Change in Mental Status No Sepsis Action Taken by Nursing No Action Required 09/27/22 15:00 09/27/22 15:02 09/27/22 15:02 Temperature Temperature Source Pulse Rate 72 69 Pulse Rate [Left Brachial] Pulse Rate from SpO2 Sensor 85 88 Pulse Rhythm Pulse Rhythm [Left Brachial] Pulse Strength [Left Brachial] Respiratory Rate 22 20 Respiratory Effort / Characteristics Respiratory Depth Respiratory Pattern Blood Pressure 138/74 Blood Pressure [Left Arm] Blood Pressure Mean 95 Blood Pressure Mean [Left Arm] Blood Pressure Position [Left Arm] Pulse Oximetry 100 97 Oxygen Delivery Method Room Air Sepsis New/Unexplained Change in Mental Status Sepsis Action Taken by Nursing 09/27/22 15:15 09/27/22 15:15 09/27/22 15:30 Temperature Temperature Source Pulse Rate 91 H Pulse Rate [Left Brachial] Pulse Rate from SpO2 Sensor 88 Pulse Rhythm Pulse Rhythm [Left Brachial] Pulse Strength [Left Brachial] Respiratory Rate 20 Respiratory Effort / Characteristics Respiratory Depth Respiratory Pattern Blood Pressure 147/64 H 144/76 H Blood Pressure [Left Arm] Blood Pressure Mean 91 98 Blood Pressure Mean [Left Arm] Blood Pressure Position [Left Arm] Pulse Oximetry 97 Oxygen Delivery Method Room Air Sepsis New/Unexplained Change in Mental Status Sepsis Action Taken by Nursing 09/27/22 15:30 09/27/22 15:45 09/27/22 15:45 Temperature Temperature Source Pulse Rate 87 90 Pulse Rate [Left Brachial] Pulse Rate from SpO2 Sensor 88 91 H Pulse Rhythm Pulse Rhythm [Left Brachial] Pulse Strength [Left Brachial] Respiratory Rate 17 19 Respiratory Effort / Characteristics Respiratory Depth Respiratory Pattern Blood Pressure 133/81 Blood Pressure [Left Arm] Blood Pressure Mean 98 Blood Pressure Mean [Left Arm] Blood Pressure Position [Left Arm] Pulse Oximetry 96 95 Oxygen Delivery Method Room Air Room Air Sepsis New/Unexplained Change in Mental Status Sepsis Action Taken by Nursing 09/27/22 16:00 09/27/22 16:01 09/27/22 16:01 Temperature Temperature Source Pulse Rate 84 84 Pulse Rate [Left Brachial] Pulse Rate from SpO2 Sensor 92 H 89 Pulse Rhythm Pulse Rhythm [Left Brachial] Pulse Strength [Left Brachial] Respiratory Rate 22 26 H Respiratory Effort / Characteristics Respiratory Depth Respiratory Pattern Blood Pressure 132/67 Blood Pressure [Left Arm] Blood Pressure Mean 88 Blood Pressure Mean [Left Arm] Blood Pressure Position [Left Arm] Pulse Oximetry 99 Oxygen Delivery Method Room Air Sepsis New/Unexplained Change in Mental Status Sepsis Action Taken by Nursing 09/27/22 16:09 09/27/22 16:15 09/27/22 16:15 Temperature Temperature Source Pulse Rate 79 80 Pulse Rate [Left Brachial] Pulse Rate from SpO2 Sensor 87 Pulse Rhythm Pulse Rhythm [Left Brachial] Pulse Strength [Left Brachial] Respiratory Rate 20 Respiratory Effort / Characteristics Respiratory Depth Respiratory Pattern Blood Pressure 124/75 Blood Pressure [Left Arm] Blood Pressure Mean 91 Blood Pressure Mean [Left Arm] Blood Pressure Position [Left Arm] Pulse Oximetry 94 Oxygen Delivery Method Room Air Sepsis New/Unexplained Change in Mental Status Sepsis Action Taken by Nursing 09/27/22 16:30 09/27/22 16:30 09/27/22 16:47 Temperature Temperature Source Pulse Rate 81 Pulse Rate [Left Brachial] Pulse Rate from SpO2 Sensor 77 85 Pulse Rhythm Pulse Rhythm [Left Brachial] Pulse Strength [Left Brachial] Respiratory Rate 20 Respiratory Effort / Characteristics Respiratory Depth Respiratory Pattern Blood Pressure 139/79 Blood Pressure [Left Arm] Blood Pressure Mean 99 Blood Pressure Mean [Left Arm] Blood Pressure Position [Left Arm] Pulse Oximetry 97 97 Oxygen Delivery Method Room Air Room Air Sepsis New/Unexplained Change in Mental Status Sepsis Action Taken by Nursing 09/27/22 16:48 09/27/22 16:48 09/27/22 16:55 Temperature Temperature Source Pulse Rate 81 Pulse Rate [Left Brachial] 88 Pulse Rate from SpO2 Sensor 86 Pulse Rhythm Pulse Rhythm [Left Brachial] Regular Pulse Strength [Left Brachial] Normal Respiratory Rate 19 18 Respiratory Effort / Characteristics Non-Labored Spontaneous Respiratory Depth Normal Respiratory Pattern Regular Blood Pressure 145/81 H Blood Pressure [Left Arm] 145/81 H Blood Pressure Mean 110 Blood Pressure Mean [Left Arm] 102 Blood Pressure Position [Left Arm] Lying Pulse Oximetry 97 97 Oxygen Delivery Method Room Air Room Air Sepsis New/Unexplained Change in Mental Status Sepsis Action Taken by Nursing Laboratory Data 09/27/22 14:59 09/27/22 14:59 Lab Results 09/27/22 09/27/22 09/27/22 Range/Units 14:57 14:59 14:59 WBC 12.07 H (4.8-10.8) K/ul RBC 3.71 L (4.20-5.40) M/uL Hgb 10.6 L (12.0-16.0) g/dl Hct 32.6 L (37.0-47.0) % MCV 87.9 (80.0-100.0) fL MCH 28.6 (25.0-34.0) pg MCHC 32.5 (32.0-36.0) g/dL RDW Std Deviation 49.5 H (36.4-46.3) fL RDW Coeff of Jeanna 15.6 H (11.5-14.5) % Plt Count 191 (130-400) K/uL MPV 10.5 (9.4-12.4) fL Immature Gran % (Auto) 0.7 % Neut % (Auto) 87.5 % Lymph % (Auto) 3.9 % [place] % (Auto) 6.9 % Eos % (Auto) 0.7 % Baso % (Auto) 0.3 % Neut # (Auto) 10.56 H (1.40-6.50) K/uL Lymph # (Auto) 0.47 L (1.2-3.4) K/uL [place] # (Auto) 0.83 H (0.11-0.59) K/uL Eos # (Auto) 0.09 (0-0.50) K/uL Baso # (Auto) 0.04 (0-0.2) K/uL Immature Gran # (Auto) 0.08 (0.01-0.20) K/uL PT (9.0-12.0) Seconds INR (0.9-1.1) APTT (21.0-31.0) Seconds PTT Ratio D-Dimer (0-500) ug/L FEU Sodium (136-145) mmol/L Potassium (3.5-5.1) mmol/L Chloride (98-107) mmol/L Carbon Dioxide (21-32) mmol/L Anion Gap (3-11) BUN (6-23) mg/dl Creatinine (0.6-1.2) mg/dl Est Cr Clr Drug Dosing ml/min Est GFR ( Amer) ml/min Est GFR (Non-Af Amer) ml/min BUN/Creatinine Ratio (10-20) Glucose (70-99(Fasting)) mg/dl POC Glucose 150 H (70-99) mg/dl Calcium (8.6-10.3) mg/dl Magnesium (1.7-2.4) mg/dl Total Bilirubin (0.2-1.0) mg/dl AST (13-39) U/L ALT (7-52) U/L Alkaline Phosphatase (34-104) U/L Troponin I High Sens (0-14) pg/ml Total Protein (6.0-8.3) gm/dl Albumin (3.4-5.0) gm/dl Globulin (2.5-4.0) gm/dl Albumin/Globulin Ratio (0.9-2) SARS-CoV-2, RNA, NAAT (NEGATIVE) Blood Type A Positive Antibody Screen NEGATIVE 09/27/22 09/27/22 09/27/22 Range/Units 14:59 14:59 14:59 WBC (4.8-10.8) K/ul RBC (4.20-5.40) M/uL Hgb (12.0-16.0) g/dl Hct (37.0-47.0) % MCV (80.0-100.0) fL MCH (25.0-34.0) pg MCHC (32.0-36.0) g/dL RDW Std Deviation (36.4-46.3) fL RDW Coeff of Jeanna (11.5-14.5) % Plt Count (130-400) K/uL MPV (9.4-12.4) fL Immature Gran % (Auto) % Neut % (Auto) % Lymph % (Auto) % [place] % (Auto) % Eos % (Auto) % Baso % (Auto) % Neut # (Auto) (1.40-6.50) K/uL Lymph # (Auto) (1.2-3.4) K/uL [place] # (Auto) (0.11-0.59) K/uL Eos # (Auto) (0-0.50) K/uL Baso # (Auto) (0-0.2) K/uL Immature Gran # (Auto) (0.01-0.20) K/uL PT 11.9 (9.0-12.0) Seconds INR 1.1 (0.9-1.1) APTT 25.1 (21.0-31.0) Seconds PTT Ratio 0.9 D-Dimer 1210 H* (0-500) ug/L FEU Sodium 128 L (136-145) mmol/L Potassium 4.3 (3.5-5.1) mmol/L Chloride 100 (98-107) mmol/L Carbon Dioxide 22 (21-32) mmol/L Anion Gap 6 (3-11) BUN 42 H (6-23) mg/dl Creatinine 1.60 H (0.6-1.2) mg/dl Est Cr Clr Drug Dosing 30.0 ml/min Est GFR ( Amer) 33.2 ml/min Est GFR (Non-Af Amer) 28.7 ml/min BUN/Creatinine Ratio 26.3 H (10-20) Glucose 152 H (70-99(Fasting)) mg/dl POC Glucose (70-99) mg/dl Calcium 8.9 (8.6-10.3) mg/dl Magnesium 1.5 L (1.7-2.4) mg/dl Total Bilirubin 0.4 (0.2-1.0) mg/dl AST 9 L (13-39) U/L ALT 10 (7-52) U/L Alkaline Phosphatase 70 (34-104) U/L Troponin I High Sens 9.2 (0-14) pg/ml Total Protein 5.7 L (6.0-8.3) gm/dl Albumin 3.3 L (3.4-5.0) gm/dl Globulin 2.4 L (2.5-4.0) gm/dl Albumin/Globulin Ratio 1.4 (0.9-2) SARS-CoV-2, RNA, NAAT (NEGATIVE) Blood Type Antibody Screen 09/27/22 Range/Units 15:55 WBC (4.8-10.8) K/ul RBC (4.20-5.40) M/uL Hgb (12.0-16.0) g/dl Hct (37.0-47.0) % MCV (80.0-100.0) fL MCH (25.0-34.0) pg MCHC (32.0-36.0) g/dL RDW Std Deviation (36.4-46.3) fL RDW Coeff of Jeanna (11.5-14.5) % Plt Count (130-400) K/uL MPV (9.4-12.4) fL Immature Gran % (Auto) % Neut % (Auto) % Lymph % (Auto) % [place] % (Auto) % Eos % (Auto) % Baso % (Auto) % Neut # (Auto) (1.40-6.50) K/uL Lymph # (Auto) (1.2-3.4) K/uL [place] # (Auto) (0.11-0.59) K/uL Eos # (Auto) (0-0.50) K/uL Baso # (Auto) (0-0.2) K/uL Immature Gran # (Auto) (0.01-0.20) K/uL PT (9.0-12.0) Seconds INR (0.9-1.1) APTT (21.0-31.0) Seconds PTT Ratio D-Dimer (0-500) ug/L FEU Sodium (136-145) mmol/L Potassium (3.5-5.1) mmol/L Chloride (98-107) mmol/L Carbon Dioxide (21-32) mmol/L Anion Gap (3-11) BUN (6-23) mg/dl Creatinine (0.6-1.2) mg/dl Est Cr Clr Drug Dosing ml/min Est GFR ( Amer) ml/min Est GFR (Non-Af Amer) ml/min BUN/Creatinine Ratio (10-20) Glucose (70-99(Fasting)) mg/dl POC Glucose (70-99) mg/dl Calcium (8.6-10.3) mg/dl Magnesium (1.7-2.4) mg/dl Total Bilirubin (0.2-1.0) mg/dl AST (13-39) U/L ALT (7-52) U/L Alkaline Phosphatase (34-104) U/L Troponin I High Sens (0-14) pg/ml Total Protein (6.0-8.3) gm/dl Albumin (3.4-5.0) gm/dl Globulin (2.5-4.0) gm/dl Albumin/Globulin Ratio (0.9-2) SARS-CoV-2, RNA, NAAT NEGATIVE (NEGATIVE) Blood Type Antibody Screen Administered Medications Acetaminophen (Acetaminophen 500 Mg Tab) 1,000 mg PO TID PRN PRN Reason: Pain Stop: 10/27/22 20:11 Last Admin: 09/27/22 21:16 Dose: 1,000 mg Documented By: PIPO Atorvastatin Calcium (Atorvastatin 40 Mg Tab) [address] [facility] Stop: 10/28/22 08:59 Last Admin: 09/28/22 08:40 Dose: 40 mg Documented By: ERAN Clopidogrel Bisulfate (Clopidogrel Bisulfate 75 Mg Tab) [facility] [place] Stop: 10/28/22 08:59 Last Admin: 09/28/22 08:40 Dose: 75 mg Documented By: ERAN Diltiazem HCl (Diltiazem Hcl 240 Mg Capcr) 240 mg PO BID [facility] Stop: 10/27/22 20:59 Last Admin: 09/28/22 08:40 Dose: 240 mg Documented By: Admin: 09/27/22 21:13 Dose: 240 mg Documented By: RLP Insulin Aspart (Insulin Aspart Per Unit Charge) 0 units SC [facility] Stop: 10/27/22 20:59 Last Admin: 09/28/22 12:20 Dose: 4 units Documented By: ERAN Co-signed By: NEO Admin: 09/28/22 08:39 Dose: Not Given Documented By: Admin: 09/27/22 21:13 Dose: Not Given Documented By: PIPO Methimazole (Methimazole 5 Mg Tablet) 5 [facility] [place] Stop: 10/28/22 08:59 Last Admin: 09/28/22 08:40 Dose: 5 mg Documented By: ERAN Metoprolol Succinate (Metoprolol Succ 25mg Ext Rel Tab) 25 mg PO [facility] Stop: 10/27/22 20:59 Last Admin: 09/27/22 21:13 Dose: 25 mg Documented By: PIPO Pantoprazole Sodium (Pantoprazole 40 Mg Tab) [address] [facility] Stop: 10/28/22 08:59 Last Admin: 09/28/22 08:40 Dose: 40 mg Documented By: ERAN Potassium Chloride (Potassium Chloride 10 Meq Tabcr) [address] [facility] Stop: 10/28/22 08:59 Last Admin: 09/28/22 08:40 Dose: 10 meq Documented By: ERAN Discontinued Medications Sodium Chloride (Nss) 500 mls @ 999 mls/hr IV .Q31M ONE Stop: 09/27/22 16:51 Last Infusion: 09/27/22 17:25 Dose: 0 mls/hr Documented By: Admin: 09/27/22 16:49 Dose: 999 mls/hr Documented By: GOMEZ Sodium Chloride (Nss) 500 mls @ 125 mls/hr IV .Q4H CAMMY Stop: 10/27/22 16:29 Last Infusion: 09/27/22 20:29 Dose: 0 mls/hr Documented By: Admin: 09/27/22 17:26 Dose: 125 mls/hr Documented By: GOMEZ Magnesium Sulfate/Dextrose (Magnesium Sulfate / D5w) 1 gm in 100 mls @ 50 mls/hr IV Q2H CAMMY Stop: 09/27/22 22:44 Last Infusion: 09/27/22 23:13 Dose: 0 mls/hr Documented By: Admin: 09/27/22 21:13 Dose: 50 mls/hr Documented By: Infusion: 09/27/22 21:10 Dose: 0 mls/hr Documented By: Admin: 09/27/22 19:10 Dose: 50 mls/hr Documented By: GOMEZ Ioversol (Optiray 320 500ml) 112 ml IV ONCE ONE Stop: 09/27/22 14:41 Last Admin: 09/27/22 14:40 Dose: 112 ml Documented By: LLOYD Ioversol (Optiray 320 500ml) 110 ml IV ONCE ONE Stop: 09/27/22 16:40 Last Admin: 09/27/22 16:40 Dose: 110 ml Documented By: PATRICAK Imaging Data Radiologist's Impression: Head CT 09/27/22 14:37 CT angio neck with con, CT head/brain wo con CLINICAL HISTORY: neuro deficit, acute stroke suspected TECHNIQUE: Contiguous axial CT images of the head were acquired from the base of the skull to the vertex without intravenous contrast administration. CT angiography of the head and neck was performed following intravenous administration of iodinated contrast. Coronal and sagittal MIPS were obtained from the axial data set and were submitted for review. Automated dose lowering techniques and/or adjustment according to patient size were utilized for this examination. All measurements were calculated based on NASCET criteria. CT DOSE: 1170.80 mGy.cm Comparison: None available at the time of this dictation. FINDINGS: CT head: There is no acute intracranial hemorrhage or evidence of acute territorial infarction. No shift of the midline structures, mass effect, or extra-axial abnormalities are shown. Large heterogeneous thyroid gland is noted. Subcentimeter mediastinal lymph nodes are seen. CTA Neck: A 3 vessel aortic arch is shown. There is no significant atherosclerotic plaque in the aortic arch or the origins of the innominate, left common carotid, and left subclavian arteries. The common carotid, external carotid, cervical segments of the internal carotid arteries, and the cervical segments of the vertebral arteries are patent without hemodynamically significant stenosis. The vertebral arteries are codominant. CTA Head: The anterior and posterior cerebral circulations are patent. origin of the bilateral posterior cerebral arteries noted. IMPRESSION: 1. No acute intracranial hemorrhage, evidence of acute territorial infarction, or other acute intracranial disease process. 2. No occlusion, hemodynamically significant stenosis, or dissection in the major cervical arteries. 3. No occlusion, hemodynamically significant stenosis, aneurysm, dissection, or arteriovenous malformation in the major intracranial arteries. Assessment of stenosis of the internal carotid arteries is based on NASCET criteria. ACT 112: Negative or not required by law. Electronically signed by: Eduar Chen M.D. 09/27/2022 3:05 PM Head CTA 09/27/22 14:37 CT angio neck with con, CT head/brain wo con CLINICAL HISTORY: neuro deficit, acute stroke suspected TECHNIQUE: Contiguous axial CT images of the head were acquired from the base of the skull to the vertex without intravenous contrast administration. CT ang iography of the head and neck was performed following intravenous administration of iodinated contrast. Coronal and sagittal MIPS were obtained from the axial data set and were submitted for review. Automated dose lowering techniques and/or adjustment according to patient size were utilized for this examination. All measurements were calculated based on NASCET criteria. CT DOSE: 1170.80 mGy.cm Comparison: None available at the time of this dictation. FINDINGS: CT head: There is no acute intracranial hemorrhage or evidence of acute territorial infarction. No shift of the midline structures, mass effect, or extra-axial abnormalities are shown. Large heterogeneous thyroid gland is noted. Subcentimeter mediastinal lymph nodes are seen. CTA Neck: A 3 vessel aortic arch is shown. There is no significant atherosclerotic plaque in the aortic arch or the origins of the innominate, left common carotid, and left subclavian arteries. The common carotid, external carotid, cervical segments of the internal carotid arteries, and the cervical segments of the vertebral arteries are patent without hemodynamically significant stenosis. The vertebral arteries are codominant. CTA Head: The anterior and posterior cerebral circulations are patent. origin of the bilateral posterior cerebral arteries noted. IMPRESSION: 1. No acute intracranial hemorrhage, evidence of acute territorial infarction, or other acute intracranial disease process. 2. No occlusion, hemodynamically significant stenosis, or dissection in the major cervical arteries. 3. No occlusion, hemodynamically significant stenosis, aneurysm, dissection, or arteriovenous malformation in the major intracranial arteries. Assessment of stenosis of the internal carotid arteries is based on NASCET criteria. ACT 112: Negative or not required by law. Electronically signed by: Eduar Chen M.D. 09/27/2022 3:08 PM Neck CTA 09/27/22 14:37 CT angio neck with con, CT head/brain wo con CLINICAL HISTORY: neuro deficit, acute stroke suspected TECHNIQUE: Contiguous axial CT images of the head were acquired from the base of the skull to the vertex without intravenous contrast administration. CT angiography of the head and neck was performed following intravenous administration of iodinated contrast. Coronal and sagittal MIPS were obtained fr om the axial data set and were submitted for review. Automated dose lowering techniques and/or adjustment according to patient size were utilized for this examination. All measurements were calculated based on NASCET criteria. CT DOSE: 1170.80 mGy.cm Comparison: None available at the time of this dictation. FINDINGS: CT head: There is no acute intracranial hemorrhage or evidence of acute t erritorial infarction. No shift of the midline structures, mass effect, or extra-axial abnormalities are shown. Large heterogeneous thyroid gland is noted. Subcentimeter mediastinal lymph nodes are seen. CTA Neck: A 3 vessel aortic arch is shown. There is no significant atherosclerotic plaque in the aortic arch or the origins of the innominate, left common carotid, and left subclavian arteries. The common carotid, external carotid, cervical segments of the internal carotid arteries, and the cervical segments of the vertebral arteries are patent without hemodynamically significant stenosis. The vertebral arteries are codominant. CTA Head: The anterior and posterior cerebral circulations are patent. origin of the bilateral posterior cerebral arteries noted. IMPRESSION: 1. No acute intracranial hemorrhage, evidence of acute territorial infarction, or other acute intracranial disease process. 2. No occlusion, hemodynamically significant stenosis, or dissection in the major cervical arteries. 3. No occlusion, hemodynamically significant stenosis, aneurysm, dissection, or arteriovenous malformation in the major intracranial arteries. Assessment of stenosis of the internal carotid arteries is based on NASCET criteria. ACT 112: Negative or not required by law. Electronically signed by: Eduar Chen M.D. 09/27/2022 3:05 PM Chest X-Ray 09/27/22 15:40 XR chest 1V portable CLINICAL HISTORY: ? stroke, chest pressure TECHNIQUE: Single frontal radiograph of the chest was obtained. Comparison: Comparison is made to chest radiographs 07/31/2022 FINDINGS: No lines and tubes are seen. Cardiomegaly is noted. The lungs are clear. No evidence of pleural effusion or pneumothorax. IMPRESSION: No acute chest disease. Cardiomegaly is noted. ACT 112: Negative or not required by law. Electronically signed by: Eduar Chen M.D. 09/27/2022 3:57 PM Chest CTA 09/27/22 16:20 CT angio chest PE protocol CLINICAL HISTORY: PE TECHNIQUE: Multidetector row helical CT of the chest was performed with ang iographic protocol. Coronal and sagittal reformations were obtained. Coronal and sagittal MIPS were obtained from the axial data set and were submitted for review. Automated dose lowering techniques and/or adjustment according to patient size were utilized for this exam. CT DOSE: 884.61 mGy.cm Comparison: Comparison is made to CTA chest 07/31/2022 FINDINGS: Lungs and pleura: Trace bilateral pleural effusions are seen. There is a lateral atelectasis. There is a 4 mm fissural nodule on the left (series 4 image 114). Heart and pericardium: Cardiomegaly is seen with biatrial enlargement. Vessels: No evidence of pulmonary embolism. The pulmonary trunk measures 36 mm in diameter. Mediastinum and tamiko: Subcentimeter lymph nodes are seen. Anterior mediastinal soft tissue nodule measures 25 x 16 mm. Chest wall and lower neck: Bilateral thyromegaly is seen. Abdomen: Moderate hiatal hernia. Bones: Degenerative changes in the thoracic spine. IMPRESSION: 1. No pulmonary embolus is seen. 2. Pulmonary hypertension and cardiomegaly. 3. Anterior mediastinal soft tissue nodule is nonspecific but stable from prior exam, 4. Prominent thyromegaly. 5. Small bilateral pleural effusions and underlying atelectasis. ACT 112: Negative or not required by law. Electronically signed by: Eduar Chen M.D. 09/27/2022 5:37 PM Discharge Plan Visit Data Chief Complaint: Stroke Alert Stated Complaint: STROKE ALERT ED Provider: Ro Talavera Discharge Problem: TIA (transient ischemic attack), Anemia, Hyponatremia, Chest pain, Hypom agnesemia Patient Disposition: Admitted As Inpatient Discharge Instructions Interventions: ED Discharge Assessment Last Done: 09/27/22 19:52
--- NOTE | 2022-09-27 15:58 | XRay Report ---
XR chest 1V portable CLINICAL HISTORY: ? stroke, chest pressure TECHNIQUE: Single frontal radiograph of the chest was obtained. Comparison: Comparison is made to chest radiographs 07/31/2022 FINDINGS: No lines and tubes are seen. Cardiomegaly is noted. The lungs are clear. No evidence of pleural effus ion or pneumothorax. IMPRESSION: No acute chest disease. Cardiomegaly is noted. ACT 112: Negative or not required by law. Electronically signed by: Eduar Chen M.D. 09/27/2022 3:57 PM
[2022-09-27 16:15] LABS: D Dimer 1210 ug/L FEU (0-500)
[2022-09-27] MEDS ORDERED: SODIUM CHLORIDE 0.9% 500 ML IV ONE (16:21)
[2022-09-27] MEDS ORDERED: SODIUM CHLORIDE 0.9% 500 ML IV SCH (16:30)
--- NOTE | 2022-09-27 17:39 | CT Scan Report ---
CT angio chest PE protocol CLINICAL HISTORY: PE TECHNIQUE: Multidetector row helical CT of the chest was performed with angiographic protocol. Pretty l and sagittal reformations were obtained. Coronal and sagittal MIPS were obtained from the axial jessa a set and were submitted for review. Automated dose lowering techniques and/or adjustment according to patient size were utilized for this exam. CT DOSE: 884.61 mGy.cm Comparison: Comparison is made to CTA chest 07/31/2022 FINDINGS: Lungs and pleura: Trace bilateral pleural effusions are seen. There is a lateral atelectasis. There i s a 4 mm fissural nodule on the left (series 4 image 114). Heart and pericardium: Cardiomegaly is seen with biatrial enlargement. Vessels: No evidence of pulmonary embolism. The pulmonary trunk measures 36 mm in diameter. Mediastinum and tamiko: Subcentimeter lymph nodes are seen. Anterior mediastinal soft tissue nodule teddy sures 25 x 16 mm. Chest wall and lower neck: Bilateral thyromegaly is seen. Abdomen: Moderate hiatal hernia. Bones: Degenerative changes in the thoracic spine. IMPRESSION: 1. No pulmonary embolus is seen. 2. Pulmonary hypertension and cardiomegaly. 3. Anterior mediastinal soft tissue nodule is nonspecific but stable from prior exam, 4. Prominent thyromegaly. 5. Small bilateral pleural effusions and underlying atelectasis. ACT 112: Negative or not required by law. Electronically signed by: Eduar Chen M.D. 09/27/2022 5:37 PM
--- NOTE | 2022-09-27 18:06 | History & Physical Report ---
Date of Service September 27, 2022 Assessment & Plan (1) TIA (transient ischemic attack): Plan: Stroke like symptoms, right facial droop/right arm weakness/right leg weakness, acute Right arm and leg weakness with right facial droop onset around 1 PM which improved by time of hospitalist assessment. TNKase not indicated -CThead, CTA-H/N: 1. No acute intracranial hemorrhage, evidence of acute territorial infarction, or other acute intracranial disease process.2. No occlusion, hemodynamically significant stenosis, or dissection in the major cervical arteries. 3. No occlusion, hemodynamically significant stenosis, aneurysm, dissection, or arteriovenous malformation in the major intracranial arteries. Patient has A-fib not anticoagulated due to history of bleeding, she reports that this has been discussed with her and risk of stroke in the past and prefers to avoid anticoagulation and understands that there is a risk of cardioembolic stroke from this MRIbrain pending Aspirin switched to Plavix -CTAchest: No PE. Pulmonary hypertension/cardiomegaly. Stable anterior mediastinal soft tissue nodule. Small bilateral pleural effusions, underlying atelectasis -CXR: No acute finding -EKG: Atrial fibrillation. Incomplete right bundle branch block. QTc 414. Rate 77 -Leukocytosis of 12.07 -Hemoglobin 10.6, last 12.5. MCV 87 -D-dimer 1210, CTA normal. Troponin normal -Sodium 128, last 136 -Creatinine 1.60, last 1.28. Baseline creatinine appears approximately 11.25 -Creatinine/BUN ratio elevated at 26 -BUN 42, last 29 -No transaminitis -COVID-negative Admit for stroke protocol, permissive hypertension MIRI, acute Baseline creatinine of around 11 0.25 increased on admission to 1.60 Telmisartan, spironolactone held Trend daily Chronic diastolic heart failure, no acute exacerbation Follows Dr. Proctor as outpatient Last echo EF 55%, grade 3 diastolic dysfunction. Moderate to severe valvular disease. Echo performed with contrast, did not note any shunting Patient does not appear volume overloaded on exam. Cautious IV fluids while inpatient Atrial fibrillation, chronic rate controlled not on anticoagulation On aspirin only Is not on anticoagulation due to history of anemia and severe GI bleed while on warfarin Rate controlled, continue diltiazem/metoprolol Hypothyroidism, chronic Continue methimazole Hyperlipidemia, chronic Not on pharmacologic therapy as outpatient, adequate control as outpatient Type II DM, chronic Diet controlled Last A1c 6.3% Admitting BSG 150 Slight sliding scale placed, consistent carb diet, glucose checks AC/at bedtime, goal BSG 1 101 4 History of right breast cancer S/p lumpectomy and endocrine therapy 2011 On Arimidex Follows with oncology History of EGD, GI bleed, chronic without recurrent bleed History of mild Schatzki's ring, hiatal hernia Past colonoscopies with diverticulosis and small nonbleeding hemorrhoids Capsule endoscopy 2014 showed small mid jejunal erosion unlikely to be her bleeding site Anticoagulation deferred as noted History of renal stones, bilateral ureteral obstruction S/p cystoscopy/removal right ureteral stent/left ureteral stent exchange 09/25/2022 Patient reports his initial hematuria and some intermittent pelvic pain, but is currently doing well at time of bedside assessment. Denies dysuria, frequency Hypertension Continue diltiazem/metoprolol as noted Telmisartan held for MIRI Spironolactone held for MIRI (2) Afib: (3) Bilateral ureteral obstruction: (4) Chronic diastolic (congestive) heart failure: (5) Gastroesophageal reflux disease: (6) Hypertension: (7) Hyperthyroidism: (8) Permanent atrial fibrillation: (9) T2DM (type 2 diabetes mellitus): History of Present Illness Primary Care Provider: DO Aliyah Huber Rox is a 87-year-old female with a past medical history of A-fib not on anticoagulation, hypertension, hypothyroidism, type II DM, pulmonary hypertension presented to the ER as a stroke alert. Walking in from lunch and Aliyah started to feel weak. Did not pass out, but got very weak and slumped to the floor around 1pm. Family tried getting her up, could not stand and Ariana reprots she had no strength in her legs and arms so called EMS. On EMS arrival R facial droop, R arm weakness, R leg weakness. By time of ER arrival symptoms had improved. Chest pain during the episode, this improved by time of ER arrival. Thinks it only only lasted a few minutes. Feels her weakness has improved back to normal, but she feels overall fatigued. She notes her chest is tender to palpation as she was laying on her chest when she got weak and is slightly sore to palpation. Has has some groin/pelvic pain since having her stent exchange. No burning with urination. Not going more often than normal. No blood in the urine sinc ethe first night of stent exchange. Denies shortness of breath when laying flat. This is not bothering her at time of bedside assessment Medical History: Reviewed Medications: Reviewed Surgical History: Reviewed Family history: Reviewed Allergies: Reviewed Social History: Reviewed Code Status: Full code, discussed with patient and family. Allergies Allergy/AdvReac Type Severity Reaction Status Date / Time lisinopril AdvReac Intermediate cough Verified 09/27/22 17:21 morphine AdvReac Mild N/V Verified 09/27/22 17:21 Home Medications Medication Instructions Recorded Confirmed Type diltiazem HCl 240 mg 240 mg PO BID 01/18/19 09/27/22 History capsule,extended release 24 hr metoprolol succinate 25 mg 25 mg PO HS 01/18/19 09/27/22 History tablet,extended release 24 hr acetaminophen 500 mg tablet 1,000 mg PO BID PRN Pain 04/09/21 09/27/22 History aspirin 81 mg tablet,delayed 81 mg PO QAM 04/09/21 09/27/22 History release cholecalciferol (vitamin D3) 50 50 mcg PO QAM 05/02/21 09/27/22 History mcg (2,000 unit) tablet furosemide 20 mg tablet 20 mg PO QAM #90 tabs 08/04/22 09/27/22 Rx potassium chloride 10 mEq 10 meq PO QAM 08/05/22 09/27/22 History tablet,extended release spironolactone 25 mg tablet 12.5 mg PO QAM 08/05/22 09/27/22 History pantoprazole 40 mg tablet,delayed 40 mg PO QAM #90 tabs 08/11/22 09/27/22 Rx release methimazole 5 mg tablet 5 mg PO QAM #90 tabs 08/24/22 09/27/22 Rx telmisartan 40 mg tablet (Micardis) 80 mg PO QAM 08/24/22 09/27/22 History tramadol 50 mg tablet 50 mg PO Q6H PRN pain #20 tabs 08/28/22 09/27/22 Rx nitrofurantoin macrocrystal 50 mg 50 mg PO .HOLD 09/18/22 09/27/22 History capsule doxycycline hyclate 100 mg tablet 100 mg PO BID 7 days #14 tabs 09/21/22 09/27/22 Rx Past Med/Surg History Medical History (Updated 09/27/22 @ 18:32 by Konrad Meyer MD) Ambulatory dysfunction using walker or cane Anemia H&H WNL with 08/2022 labs Bilateral renal cysts Chronic diastolic (congestive) heart failure Dyslipidemia Gastroesophageal reflux disease Well controlled and stable Hearing deficit reads lips History of COVID-04 Sep 2020 > not hospitalized Hx of breast cancer S/p right lumpectomy and SN biopsy - 2007 No chemo/radiation just oral treatment No current issues Hypertension Hyperthyroidism On Methimazole No symptoms currently Interstitial cystitis Kidney stones Peripheral neuropathy Permanent atrial fibrillation On ASA only > no pacer > follows with Dr. Proctor Pulmonary hypertension Mild - per 2013 cath per cardio records Per 07/2022 ECHO -RVSP is elevated at 40-50mmHg Retinal detachment Left- Apr or May 2020- treated with drops and injection - no current issues T2DM (type 2 diabetes mellitus) Well controlled with diet Surgical History History of cardiac cath Negative for CAD in 2013 History of cataract surgery rt/left History of colonoscopy History of cystoscopy with stent (last procedure August 2022>Cystoscopy, Ureteronephroscopy, Retrograde Pyelogram, Laser Lithotripsy, Insertion of Stent Catheter - Right) History of esophagogastroduodenoscopy (EGD) Nausea and vomiting after administration of anesthetic agent S/P cholecystectomy S/P hysterectomy with oopherectomy S/P lumpectomy, right breast S/P tonsillectomy Slow to wake up after anesthesia Status post hip surgery RTHA Family History Mother , age 92 Hypertension Heart failure Father , age 37 accident in coal mine No problems noted. Denies family history of Ovarian cancer Prostate cancer Myocardial infarction Breast cancer Colorectal cancer Social History Smoking Status: Never smoker Second Hand Exposure: No; Do You Dip or Chew Tobacco: No; Hx Alcohol Use: No Preferred Language: Belgian Communication Ability: Impaired Communication Ability Comment: [place]>reads lips per daughter Visual Impairment: No Limitations Hearing Ability: Use of Hearing Aid Start Up Specialist Required: No Beliefs That Will Affect Care: None marital status: Current Living Situation: Spouse Current Living Situation Comment: with marti current occupational status: retired current occupation: former cook at [employer] Feels Safe at Home: Yes Childhood Exposure to Second-Hand Smoke: No Diet: regular Diet Comment: regular caffeine: Yes (soda and tea) during the past year weight has: remained stable Dental Care, Regularly: Yes Physical Activity Frequency: Does not Exercise Seatbelt Use: always Sunscreen Use: No Assistive Devices: Cane, Glasses, Hearing Aid - Bilateral and Walker Review of Systems Review of Systems: All systems reviewed & are unremarkable except as noted in HPI & below Physical Exam Physical Exam: General: A&Ox3. NAD. Cooperative. HEENT: Atraumatic, normocephalic. Pupils equal and reactive to light. Vision and hearing grossly intact, patient is hard of hearing. EOM intact without field cuts. No diplopia during exam. Facial droop is not appreciated at admitting exam Pulm: CTAB A&P. -wheezes, -rales, -rhonchi. Symmetrical chest rise. No increased work of breathing. No respiratory distress. Cardiac: irir, +sm. Radial pulses intact and symmetrical. Abdominal: Nontender, nondistended, soft. BS present. Ext: No pitting edema. Moves upper and lower extremities equally. Oil Inspector strength, elbow flexion, ankle dorsiflexion/plantarflexion 5/5 bilaterally. Hip flexion right-sided somewhat limited by pelvic pain, but intact. Left hip flexion 5/5. Sensation soft touch intact in hands and feet bilaterally Results & Data Results & Data Vital Signs (Past 12 Hours) Vital Signs Temp Pulse Pulse Resp BP BP Pulse Ox 09/27/22 16:55 88 18 145/81 H 97 09/27/22 16:48 81 19 97 09/27/22 16:48 145/81 H 09/27/22 16:47 97 09/27/22 16:30 81 20 97 09/27/22 16:30 139/79 09/27/22 16:15 80 20 94 09/27/22 16:15 124/75 09/27/22 16:09 79 09/27/22 16:01 84 26 H 99 09/27/22 16:01 132/67 09/27/22 16:00 84 22 09/27/22 15:45 90 19 95 06/11/23 15:45 133/81 09/27/22 15:30 87 17 96 09/27/22 15:30 144/76 H 09/27/22 15:15 91 H 20 97 09/27/22 15:15 147/64 H 09/27/22 15:02 69 20 97 09/27/22 15:02 138/74 09/27/22 15:00 72 22 100 09/27/22 14:50 36.7 C 85 14 135/94 97 09/27/22 14:58 94 H 95 09/27/22 14:58 O2 Del Method 09/27/22 16:55 Room Air 09/27/22 16:48 Room Air 09/27/22 16:48 09/27/22 16:47 Room Air 09/27/22 16:30 Room Air 09/27/22 16:30 09/27/22 16:15 Room Air 09/27/22 16:15 09/27/22 16:09 09/27/22 16:01 Room Air 09/27/22 16:01 09/27/22 16:00 09/27/22 15:45 Room Air 09/27/22 15:45 09/27/22 15:30 Room Air 09/27/22 15:30 09/27/22 15:15 Room Air 09/27/22 15:15 09/27/22 15:02 Room Air 09/27/22 15:02 09/27/22 15:00 09/27/22 14:50 Room Air 09/27/22 14:58 Room Air 09/27/22 14:58 Room Air PG Care Time/CCT Total # of Minutes Spent Total Time Spent with Patient: Total time spent is greater than 50% in coordination of care (as documented) at patient's floor/unit and/or counseling patient: Coding Level of Care Code 56727 INT INP/OBS CARE 3/75MIN Diagnoses TIA (transient ischemic attack) G45.9 Afib I48.91 Bilateral ureteral obstruction N13.5 Chronic diastolic (congestive) heart failure I50.32 Gastroesophageal reflux disease K21.9 Hypertension I10 Hyperthyroidism E05.90 Permanent atrial fibrillation I48.21 T2DM (type 2 diabetes mellitus) E11.9
[2022-09-27] MEDS ORDERED: GLUCOSE 10 TAB/TUBE PO PRN (18:41)
[2022-09-27] MEDS ORDERED: CARBOHYDRATES FOR HYPOGLYCEMIA PO PRN (18:41)
[2022-09-27] MEDS ORDERED: GLUCAGON FOR INJ 1 MG VIAL SQ PRN (18:41)
[2022-09-27] MEDS ORDERED: GLUCOSE 40% GEL 15 GM TUBE PO PRN (18:41)
[2022-09-27] MEDS ORDERED: DEXTROSE 50% 50 ML SYRINGE IV PRN (18:41)
[2022-09-27] MEDS ORDERED: LABETALOL HCL IV 5 MG/ML 20ML IV PRN (18:48)
[2022-09-27] MEDS: MAGNESIUM SULFATE / D5W 1 GM/100 ML BAG IV SCH ×2 (19:10→21:13)
[2022-09-27 19:17] LABS: Appearance Urine Cloudy (Clear); Bacteria Urine Automated Negative (Negative); Bilirubin Urine Negative (Negative); Blood Urine 2+ (Negative); Color Urine Yellow; Epithelial Cell Urine Auto >30 /lpf (0-5); Glucose Urine UA Negative (Negative); Ketones Urine Negative (Negative); Leukocyte Esterase Urine 1+ (Negative); Nitrite Urine Negative (Negative); Protein Urine Negative (Negative); Specific Gravity Urine 1.024 (1.000-1.030); Urobilinogen Urine Negative (Negative)
[2022-09-27] MEDS ORDERED: ACETAMINOPHEN 500 MG TAB PO PRN (20:12)
[2022-09-27] MEDS ORDERED: traMADol HCL 50 MG TABLET PO PRN (20:12)
[2022-09-27] MEDS ORDERED: PHARMACIST DISCHARGE MED REC CONSULT PRN (20:12)
[2022-09-27] MEDS ORDERED: METOPROLOL SUCC 25MG EXT REL TAB PO SCH (21:00)
[2022-09-27] MEDS: dilTIAZem HCL 240 MG CAPCR PO SCH (21:13)
[2022-09-27] MEDS: INSULIN ASPART PER UNIT CHARGE SC SCH (21:13)
--- NOTE | 2022-09-28 01:06 | Magnetic Resonance Report ---
Exam(s): MRI HEAD Without Contrast EXAM: MR Head Without Intravenous Contrast CLINICAL HISTORY: TIA/CVA eval. TECHNIQUE: Magnetic resonance images of the head/brain without intravenous contrast in multiple planes. COMPARISON: 04/09/2021 FINDINGS: Brain: The expected midline structures are stable in appearance and unremarkable. Underlying parenchymal involutional changes are similar to the previous exam. Similar periventricular hyperintense T2 FLAIR signal, stable. No new mass effect. No intracranial hemorrhage. No diffusion abnormality to suggest an evolving ischemic process. Ventricles: Unremarkable. No ventriculomegaly. Bones/joints: Unremarkable. Sinuses: Unremarkable as visualized. No acute sinusitis. Mastoid air cells: Unremarkable as visualized. No mastoid effusion. Orbits: Unremarkable as visualized. Other vasculature: Vasculature: The expected flow voids are unremarkable. IMPRESSION: No acute intracranial process or significant alteration from the previous examination. Electronically signed by: Deondre Tierney MD 09/28/22 01:05 AM
[2022-09-28 06:38] LABS: Basophils # (auto) 0.05 K/uL (0-0.2); Basophils % (auto) 0.5 %; Eosinophils # (auto) 0.21 K/uL (0-0.50); Hematocrit (blood only) 31.6 % (37.0-47.0); Hemoglobin 10.7 g/dl (12.0-16.0); Immature Granulocytes # (auto) 0.08 K/uL (0.01-0.20); Immature Granulocytes % (auto) 0.8 %; Lymphocytes # (auto) 0.73 K/uL (1.2-3.4); Lymphocytes % (auto) 7.1 %; Mean Corpuscular Hemoglobin 28.7 pg (25.0-34.0); Mean Corpuscular Hgb Conc 33.9 g/dL (32.0-36.0); Mean Corpuscular Volume 84.7 fL (80.0-100.0); Mean Platelet Volume 10.5 fL (9.4-12.4); Monocytes # (auto) 0.96 K/uL (0.11-0.59); Monocytes % (auto) 9.3 %; Neutrophils # (auto) 8.29 K/uL (1.40-6.50); Neutrophils % (auto) 80.3 %; Platelet Count 191 K/uL (130-400); RDW Coefficient of Variation 15.5 % (11.5-14.5); RDW Standard Deviation 47.6 fL (36.4-46.3); Red Blood Count 3.73 M/uL (4.20-5.40); White Blood Count 10.32 K/ul (4.8-10.8)
[2022-09-28 06:56] LABS: BUN Creatinine Ratio 25.5 (10-20); Calcium 8.9 mg/dl (8.6-10.3); Chol HDL Ratio 2.9 (0-5); Creatinine Clr Calc Pharmacy 42.1 ml/min; Est GFR (African American) 52.3 ml/min; Est GFR (Non-African American) 45.1 ml/min; Potassium 4.2 mmol/L (3.5-5.1)
[2022-09-28 08:36] LABS: Estimated Average Glucose 146 mg/dl; Hemoglobin A1C 6.7 % (4.5-5.6)
[2022-09-28] MEDS: INSULIN ASPART PER UNIT CHARGE SC SCH ×2 (08:39→12:20)
[2022-09-28] MEDS: dilTIAZem HCL 240 MG CAPCR PO SCH (08:40)
[2022-09-28] MEDS ORDERED: ATORVASTATIN 40 MG TAB PO SCH (09:00)
[2022-09-28] MEDS ORDERED: methIMAzole 5 MG TABLET PO SCH (09:00)
[2022-09-28] MEDS ORDERED: CLOPIDOGREL BISULFATE 75 MG TAB PO SCH (09:00)
[2022-09-28] MEDS ORDERED: PANTOprazole 40 MG TAB PO SCH (09:00)
[2022-09-28] MEDS ORDERED: POTASSIUM CHLORIDE 10 MEQ TABCR PO SCH (09:00)
[2022-09-28 09:29] LABS: Magnesium 2.1 mg/dl (1.7-2.4)
--- NOTE | 2022-09-28 11:13 | Discharge Summary ---
Date of Service September 28, 2022 Admission HPI Per Admitting Provider Aliyah Gramajo is a 87-year-old female with a past medical history of A-fib not on anticoagulation, hypertension, hypothyroidism, type II DM, pulmonary hypertension presented to the ER as a stroke alert. Walking in from lunch and Aliyah started to feel weak. Did not pass out, but got very weak and slumped to the floor around 1pm. Family tried getting her up, could not stand and Ariana reprots she had no strength in her legs and arms so called EMS. On EMS arrival R facial droop, R arm weakness, R leg weakness. By time of ER arrival symptoms had improved. Chest pain during the episode, this improved by time of ER arrival. Thinks it only only lasted a few minutes. Feels her weakness has improved back to normal, but she feels overall fatigued. She notes her chest is tender to palpation as she was laying on her chest when she got weak and is slightly sore to palpation. Has has some groin/pelvic pain since having her stent exchange. No burning with urination. Not going more often than normal. No blood in the urine sinc ethe first night of stent exchange. Denies shortness of breath when laying flat. This is not bothering her at time of bedside assessment Medical History: Reviewed Medications: Reviewed Surgical History: Reviewed Family history: Reviewed Allergies: Reviewed Social History: Reviewed Code Status: Full code, discussed with patient and family. Principal Diagnosis Near syncope due to orthostatic hypotension Discharge Exam General-alert and oriented x3, no fevers, no chills HEENT-head atraumatic and normocephalic, pupils equal and reactive to light, extraocular muscles intact Neck-no lymphadenopathy or thyromegaly, trachea midline Chest-clear to auscultation percussion. No rales wheezing or rhonchi Cardiac-regular rate and rhythm, normal S1 and S2 Abdomen-normal bowel sounds, nontender, no hepatosplenomegaly Extremities-no cyanosis, clubbing, or edema Neuro-cranial nerves II through XII intact, motor and sensory function within normal limits, strength symmetrical , no focal deficits Psych-normal affect, normal mood Discharge Data Allergies Allergy/AdvReac Type Severity Reaction Status Date / Time lisinopril AdvReac Intermediate cough Verified 09/27/22 17:21 morphine AdvReac Mild N/V Verified 09/27/22 17:21 Consultations 09/27/22 18:15 ED Decision to Admit Stat Ordered Studies 09/27/22 14:37 CT angio head w con Stat CT angio neck with con Stat CT head/brain wo con Stat 09/27/22 16:20 CT angio chest PE protocol Stat 09/27/22 20:12 MR brain wo con Routine Hospital Course (1) TIA (transient ischemic attack): I suspect her symptoms are due to orthostatic hypotension due to volume depletion. Brain MRI scan negative for CVA. I doubt this was a TIA She has been instructed to stay well-hydrated and continue her current medication except for spironolactone (2) Afib: Stable. Continue diltiazem and metoprolol. Continue aspirin. She is not on systemic anticoagulation (3) Bilateral ureteral obstruction: History of nephrolithiasis. No intervention necessary at this time (4) Chronic diastolic (congestive) heart failure: Stable. No exacerbation. Spironolactone will be discontinued permanently (5) Gastroesophageal reflux disease: Stable. Continue current medical management (6) Hypertension: Stable. Continue diltiazem and metoprolol. (7) Hyperthyroidism: Stable. Continue methimazole (8) T2DM (type 2 diabetes mellitus): ADA diet. Continue current medical management Plan Stable for discharge home today, September 28. She is instructed to maintain adequate hydration. Spironolactone has been discontinued indefinitely Total Time Total Time Spent Total Time Spent (In Minutes): 35 minutes Discharge Plan Discharge Items Patient Disposition: Home - Self-Care Reason For Visit: TIA R/O Discharge Diagnosis: Near syncope due to orthostatic hypotension Activity: Resume your previous activity Non-emergency contact: Primary Care Provider Call non-emergency contact if: you have any medication questions and your symptoms worsen Follow-up/Referrals: Jackelyn Enriquez DO [Primary Care Provider] - Diet: Regular and Heart Healthy Addtl Attending Provider Instructions: Discontinue spironolactone indefinitely. Discontinue Lasix (furosemide) indefinitely. Stay well-hydrated Pending Studies at Discharge: No Stand-Alone Forms: [employer] Smoking Cessation Medications and DC Order Prescriptions: Continued pantoprazole 40 mg tablet,delayed release (DR/EC) 40 mg PO QAM Qty: 90 1RF methimazole 5 mg tablet 5 mg PO QAM Qty: 90 1RF doxycycline hyclate 100 mg tablet 100 mg PO BID 7 Days Qty: 14 0RF potassium chloride 10 mEq tablet extended release 10 meq PO QAM metoprolol succinate 25 mg tablet extended release 24 hr 25 mg PO HS diltiazem HCl 240 mg capsule,extended release 24hr 240 mg PO BID cholecalciferol (vitamin D3) 50 mcg (2,000 unit) tablet 50 mcg PO QAM telmisartan [Micardis] 40 mg tablet 80 mg PO QAM tramadol 50 mg tablet 50 mg PO Q6H PRN (Reason: pain) Qty: 20 0RF Patient Comments: has not used/still has rx aspirin 81 mg Tablet,Delayed Release (Dr/Ec) 81 mg PO QAM acetaminophen 500 mg Tablet 1,000 mg PO BID PRN (Reason: Pain) nitrofurantoin macrocrystal 50 mg Capsule 50 mg PO .HOLD Rx Instructions: Hold while on doxycycline. must administer with a meal/food Discontinued furosemide 20 mg tablet 20 mg PO QAM Qty: 90 1RF spironolactone 25 mg tablet 12.5 mg PO QAM Discharge Orders: Discharge Order (Routine); Ordered 09/28/22 Ordered By: Enrico Bates/Other Patient Handouts: Managing Type 2 Diabetes Admission Data Admit Date/Time: 09/27/22 18:47 Attending Provider: Enrico Barros Admit Provider: Konrad Meyer Primary Care Provider: Jackelyn Enriquez Other Providers: Konrad Meyer Coding Level of Care Code 53844 INP/OBS DISCH >30 MIN Diagnoses TIA (transient ischemic attack) G45.9 Afib I48.91 Bilateral ureteral obstruction N13.5 Chronic diastolic (congestive) heart failure I50.32 Gastroesophageal reflux disease K21.9 Hypertension I10 Hyperthyroidism E05.90 T2DM (type 2 diabetes mellitus) E11.9
[2022-09-28] MEDS ORDERED: STROKE PATIENT DISCHARGE STA (11:14)
--- NOTE | 2022-09-28 15:57 | Electrocardiogram Report ---
Test Reason : Blood Pressure : / mmHG Vent. Rate : 077 BPM Atrial Rate : 000 BPM P-R Int : 000 ms QRS Dur : 102 ms QT Int : 366 ms P-R-T Axes : 000 -15 -15 degrees QTc Int : 414 ms Atrial fibrillation Incomplete right bundle branch block Nonspecific ST abnormality Abnormal ECG When compared with ECG of 31-JUL-2022 07:05, Incomplete right bundle branch block is now Present Confirmed by Santy Alejandra ([id number]) on 09/28/2022 3:57:45 PM Referred By: REFERRED SELF Confirmed By:Atul Alejandra
--- NOTE | 2022-09-28 15:59 | Electrocardiogram Report ---
Test Reason : Blood Pressure : / mmHG Vent. Rate : 088 BPM Atrial Rate : 000 BPM P-R Int : 000 ms QRS Dur : 098 ms QT Int : 350 ms P-R-T Axes : 000 -16 -07 degrees QTc Int : 423 ms Atrial fibrillation Incomplete right bundle branch block Nonspecific ST abnormality Abnormal ECG When compared with ECG of 27-SEP-2022 15:02, (unconfirmed) No significant change was found Confirmed by Santy Alejandra ([id number]) on 09/28/2022 3:58:44 PM Referred By: REFERRED SELF Confirmed By:Atul Alejandra
== END 2022-09-28 13:33 | disposition home or self-care (01) ==
LOC: 2S 14:36 → ED 14:36 → SUATTDRO 18:47 → 2S 19:52

== ENCOUNTER 2024-10-21 13:04 | Inpatient (IN) ==
[2024-10-21 14:06] LABS: Hematocrit (blood only) 37.3 % (37.0-47.0); Hemoglobin 11.8 g/dl (12.0-16.0); Immature Granulocytes # (auto) 0.02 K/uL (0.01-0.20); Immature Granulocytes % (auto) 0.2 %; Mean Corpuscular Hemoglobin 29.4 pg (25.0-34.0); Mean Corpuscular Volume 92.8 fL (80.0-100.0); Platelet Count 237 K/uL (130-400); RDW Standard Deviation 47.7 fL (36.4-46.3); Red Blood Count 4.02 M/uL (4.20-5.40); White Blood Count 8.52 K/ul (4.8-10.8)
[2024-10-21 14:30] LABS: Alanine Aminotransferase 11.0 U/L (7-52); Albumin Globulin Ratio 1.9 (0.9-2); Alkaline Phosphatase 67.0 U/L (34-104); Anion Gap 9.0 (3-11); Bilirubin,Total 0.8 mg/dl (0.2-1.0); Blood Urea Nitrogen 20.0 mg/dl (6-23); Calcium 9.1 mg/dl (8.6-10.3); Carbon Dioxide 27.0 mmol/L (21-32); Chloride 103.0 mmol/L (98-107); Creatinine Clr Calc Pharmacy 45.0 ml/min; Globulin 2.2 gm/dl (2.5-4.0); Glucose 148.0 mg/dl (70-99(Fasting)); Lipase 12.0 U/L (11-82); Magnesium 1.8 mg/dl (1.7-2.4); Potassium 3.9 mmol/L (3.5-5.1); Sodium 139.0 mmol/L (136-145); Total Protein 6.3 gm/dl (6.0-8.3)
[2024-10-21] MEDS: ACETAMINOPHEN 1,000 MG/100 ML VIAL IV STA (14:32)
[2024-10-21 14:39] LABS: INR 1.1 (0.9-1.1); Prothrombin Time 12.3 Seconds (9.0-12.0)
[2024-10-21 14:43] LABS: Thyroid Stimulating Hormone 4.452 uIu/ml (0.300-4.500)
--- NOTE | 2024-10-21 14:55 | XRay Report ---
Clinical History: Trauma 3 views of the left ankle are submitted for review. Findings: There is an acute fracture of the medial malleolus with displacement. There is an acute comminuted fracture of the distal fibular shaft with displacement and angulation. There is dislocation of the tibiotalar joint. 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 There is osteopenia. There is a plantar calcaneal spur. No other osseous abnormality is identified. There are no radiopaque foreign bodies. Impression: 1. Comminuted fracture of the distal left fibular shaft 2. Displaced fracture of the medial malleolus 3. Ankle joint dislocation ACT 112: Positive. There are findings on this exam that require communication between the performing entity and the patient following Patient Test Result Information Act ([place] ACT 112) guidelines. Electronically signed by Manny Hartley 10-21-2024 2:55 PM
--- NOTE | 2024-10-21 14:57 | XRay Report ---
Clinical History: Trauma Technique: A frontal view of the chest was obtained Findings: There is diffuse interstitial prominence, concerning for pulmonary edema. The heart is enlarged. No definite right pleural effusion or pneumothorax is seen. There is a small left pleural effusion No fracture is noted. No foreign body is seen Impression: 1. Cardiomegaly and mild pulmonary edema 2. Small left pleural effusion ACT 112: Positive. There are findings on this exam that require communication between the performing entity and the patient following Patient Test Result Information Act ([place] ACT 112) guidelines. Electronically signed by Manny Hartley 10-21-2024 2:56 PM
--- NOTE | 2024-10-21 15:00 | XRay Report ---
Clinical History: Trauma One view of the pelvis is submitted for review. Comparison is made to the prior examination dated 09/20/2024 Findings: There is an unchanged right hip arthroplasty in expected position. There is no definite sign of infection or loosening. No clear fracture is seen. No other osseous abnormality is identified. There are no radiopaque foreign bodies. Impression: 1. No definite fracture 2. Unchanged right hip replacement Electronically signed by Manny Hartley 10-21-2024 3:00 PM
--- NOTE | 2024-10-21 15:19 | Emergency Department Note ---
Impression & Plan Near syncope, Dizziness, Closed left fibular fracture, Closed dislocation of left ankle, Fall, FOFANA (dyspnea on exertion), Elevated brain natriuretic peptide (BNP) level ED Provider Note ED Provider Note NAME: SAUL WATTS AGE:89 SEX: Female : 1935 ARRIVES VIA: EMS INFORMANT: Patient ED PROVIDER(s): Sudha Rosario DO CHIEF COMPLAINT: dizziness, left ankle injury, fall HPI: This is an 89-year-old female who presents emergency room via EMS after a fall at home. Patient has been having difficulty with increased shortness of breath as well as dizziness. Family states they are concerned that these may be side effects of several medication changes being made recently while she was at [facility] for rehab following her recent admission. Patient does have a history of atrial fibrillation. Family states they were changing several of your heart medications additionally. They also increased her diuretic but family states she has had increased swelling and dyspnea despite this. Patient states whenever she gets up and moves around she feels dizzy and has increased difficulty breathing. Today when this happened she felt as though she was in a pass out and fell. Patient had immediate pain and noticed obvious deformity at the left ankle and was unable to walk. Patient denies striking her head or actually losing consciousness. She denies any other concern for injury related to this fall. Patient takes low-dose aspirin daily, no other antiplatelet or anticoagulation medications due to prior history of GI bleed despite her history of A-fib. PAST MEDICAL HISTORY:See Below PAST SURGICAL HISTORY:See Below FAMILY HISTORY:See Below SOCIAL HISTORY:See Below HOME MEDICATIONS:See Below ALLERGIES:See Below VITALS:See Below PHYSICAL EXAMINATION: GENERAL: alert, well appearing, well nourished, no distress, non-toxic EYE EXAM: normal conjunctiva, PERRL and EOM's grossly intact OROPHARYNX: no exudate, no erythema, lips, buccal mucosa, and tongue normal and mucous membranes are moist NECK: supple, no nuchal rigidity, no adenopathy, non-tender LUNGS: Clear to auscultation. Normal chest wall mechanics, coarse bs b/l, bibasilar rales HEART: no murmurs, S1 normal and S2 normal ABDOMEN: abdomen soft, non-tender, normo-active bowel sounds, no masses, no rebound or guarding. SKIN: no rashes, petechiae, orbruising UPPER EXTREMITIES: upper extremities are grossly normal. FROM, nml pulses b/l. LOWER EXTREMITIES: No pitting edema. FROM RLE, nml pulses b/l. Obvious deformity at left ankle, sensation intact b/l despite hx of neuropathy, nml cap refull, bony tenderness with palpation at the left ankle, no pain with palpation proximally at the left fibular head, left knee, or left hip. NEURO EXAM: Normal sensorium, cranial nerves II-XII grossly intact, normal speech, no facial droop,nogross weakness of arms, no gross weakness of legs. Gross sensation intact. No ataxia. Vital Signs: reviewed and remarkable Differential Diagnosis: benign positional vertigo, dehydration, hypovolemia, anemia, tumor, hypoglycemia, electrolyte abnormalities, ICH, CVA, dysrhythmia, CHF, medication adr, as well as others were entertained. MEDICAL DECISION MAKING: This is an 89-year-old female who presents emergency department following episode of dizziness and near syncope which subsequently resulted in a fall and obvious traumatic injury to the left foot/ankle. Patient was afebrile and hemodynamically stable here. She was noted to be in A-fib with variable rate. Labs drawn and sent, IV established, EKG and chest x-ray ordered bedside interpreted me and patient monitored on telemetry. X-rays performed at bedside which did confirm any obvious fracture or dislocation of the left ankle. Patient was neurovascularly intact. Patient denied any other concern for injury or obvious area of pain, and no other evidence of trauma on exam. Case discussed with on-call orthopedics who did come and evaluate the patient at bedside and did perform a closed reduction. Given concern for near syncope, recent increased dyspnea on exertion and elevated BNP noted on labs, variable heart rates including bradycardia as low as 38, as well as need for further operative intervention to manage the orthopedic injury, case was discussed with the hospitalist team for additional evaluation and management. Consultation(s): 4275: Orthopedics at bedside for evaluation after discussion with Dr. Miramontes. 1630: Discussed with [place] hospitalist team, for additional evaluation and mgmt. ER Treatment Provided: See below Diagnostics Interpreted By Me: -ECG: A-fib at a rate of 50, nml intervals, nml axis, no specific ST/T wave changes -Cardiac Monitoring: An order was placed for continuous cardiac monitoring. The monitor shows a rate of 74 with a.fib rhythm. -Laboratory studies: As stated above and show below. -Imaging studies: X-ray Chest: A single view study of the chest was reviewed and was negative for cardiomegaly, focal infiltrate, effusion, pulmonary edema, or wide mediastinum. Triage Nursing Note Reviewed Prior/Outside Records Reviewed - prior echo reviewed Past Med/Surg History Problem List (Updated 10/22/24 @ 16:18 by Sudha Rosario, ) Elevated brain natriuretic peptide (BNP) level (Acute) FOFANA (dyspnea on exertion) (Acute) Fall (Acute) Closed dislocation of left ankle (Acute) Closed left fibular fracture (Acute) Osteoporosis Fracture dislocation of left ankle Dizziness (Acute) Near syncope (Acute) Multiple thyroid nodules Fall T2DM (type 2 diabetes mellitus) Well controlled with diet Permanent atrial fibrillation On ASA only > no pacer > follows with Dr. Proctor Hyperthyroidism On Methimazole No symptoms currently B12 deficiency Anemia (Acute) Hypomagnesemia (Acute) Vitamin D deficiency History of malignant neoplasm of breast Frequent urinary tract infections Arthritis Erythematous bladder mucosa Cystitis Goiter Kidney stone (Acute) Peripheral neuropathy Interstitial cystitis Bilateral renal cysts Dyslipidemia Osteoarthritis Pulmonary hypertension Mild - per 2013 cath per cardio records Per 07/2022 ECHO -RVSP is elevated at 40-50mmHg Medical History TIA (transient ischemic attack) Hearing deficit Hx of breast cancer History of COVID-19 Bilateral ureteral obstruction Afib Ambulatory dysfunction Kidney stones Retinal detachment Chronic diastolic (congestive) heart failure Gastroesophageal reflux disease Hypertension Surgical History History of cystoscopy Nausea and vomiting after administration of anesthetic agent Slow to wake up after anesthesia History of cardiac cath History of esophagogastroduodenoscopy (EGD) History of colonoscopy History of cataract surgery S/P lumpectomy, right breast S/P tonsillectomy S/P hysterectomy Status post hip surgery S/P cholecystectomy Family History Mother , age 92 Hypertension Heart failure Father , age 37 accident in coal mine No problems noted. Denies family history of Ovarian cancer Prostate cancer Myocardial infarction Breast cancer Colorectal cancer Social History Smoking Status: Never smoker Second Hand Exposure: No; Do You Dip or Chew Tobacco: No; Hx Alcohol Use: No Hx Substance Use: No Preferred Language: [place] Communication Ability: Impaired Communication Ability Comment: chinik>reads lips per daughter Visual Impairment: No Limitations Hearing Ability: Use of Hearing Aid Ring Cutter Lathe Operator Required: No Beliefs That Will Affect Care: None marital status: Current Living Situation: Spouse Current Living Situation Comment: with marti current occupational status: retired current occupation: former cook at [employer] Feels Safe at Home: Yes Safety Concerns: Feels Safe At This Time Childhood Exposure to Second-Hand Smoke: No Diet: regular Diet Comment: regular caffeine: Yes (soda and tea) during the past year weight has: remained stable Dental Care, Regularly: Yes Physical Activity Frequency: Does not Exercise Seatbelt Use: always Sunscreen Use: No Assistive Devices: Cane and Walker Allergies Allergies Allergy/AdvReac Type Severity Reaction Status Date / Time lisinopril AdvReac Intermediate cough Verified 09/19/24 14:37 morphine AdvReac Mild N/V Verified 09/19/24 14:37 Home Meds Home Medications Medication Instructions Recorded Confirmed acetaminophen 500 mg tablet 1,000 mg PO BID PRN Pain 04/09/21 10/21/24 cholecalciferol (vitamin D3) 50 50 mcg PO QAM 05/02/21 10/21/24 mcg (2,000 unit) tablet sacubitril 24 mg-valsartan 26 mg 1 tab PO BID 07/07/24 10/21/24 tablet (Entresto) diltiazem HCl 180 mg 180 mg PO BID 07/09/24 10/21/24 capsule,extended release 24 hr atorvastatin 40 mg tablet 40 mg PO DAILY 10/19/24 10/21/24 furosemide 40 mg tablet (Lasix) 40 mg PO DAILY 10/19/24 10/21/24 labetalol 100 mg tablet 100 mg PO BID 10/19/24 10/21/24 potassium chloride 20 mEq 20 meq PO DAILY 10/19/24 10/21/24 tablet,extended release Previous Rx's Medication Instructions Recorded cyanocobalamin (vitamin B-12) 1,000 mcg PO DAILY #30 caps 12/01/22 1,000 mcg capsule methenamine hippurate 1 gram tablet 1 g PO HS #90 tabs 05/02/24 Wheeled Walker #1 ea 07/07/24 methimazole 5 mg tablet 5 mg PO QAM #90 tabs 07/31/24 pantoprazole 40 mg tablet,delayed 40 mg PO QAM #90 tabs 08/02/24 release aspirin 81 mg tablet,delayed 81 mg PO QPM 30 days #30 tabs 09/27/24 release Results & Data (ED) Vital Signs Vital Signs - 24 hr 10/21/24 17:04 10/21/24 17:23 Pulse Rate 95 H Pulse Rate [Apical] 89 Respiratory Rate 18 Blood Pressure [Left Arm] 158/106 H Blood Pressure Mean [Left Arm] 123 Pulse Oximetry 95 Laboratory Data 10/22/24 05:37 10/22/24 05:37 Lab Results 10/21/24 Range/Units 13:26 WBC 8.52 (4.8-10.8) K/ul RBC 4.02 L (4.20-5.40) M/uL Hgb 11.8 L (12.0-16.0) g/dl Hct 37.3 (37.0-47.0) % MCV 92.8 (80.0-100.0) fL MCH 29.4 (25.0-34.0) pg MCHC 31.6 L (32.0-36.0) g/dL RDW Std Deviation 47.7 H (36.4-46.3) fL RDW Coeff of Jeanna 14.0 (11.5-14.5) % Plt Count 237 (130-400) K/uL MPV 10.2 (9.4-12.4) fL Immature Gran % (Auto) 0.2 % Neut % (Auto) 83.1 % Lymph % (Auto) 8.8 % Treasure % (Auto) 5.4 % Eos % (Auto) 1.8 % Baso % (Auto) 0.7 % Neut # (Auto) 7.08 H (1.40-6.50) K/uL Lymph # (Auto) 0.75 L (1.20-3.40) K/uL Treasure # (Auto) 0.46 (0.11-0.59) K/uL Eos # (Auto) 0.15 (0.00-0.50) K/uL Baso # (Auto) 0.06 (0.00-0.20) K/uL Immature Gran # (Auto) 0.02 (0.01-0.20) K/uL PT 12.3 H (9.0-12.0) Seconds INR 1.1 (0.9-1.1) Sodium 139 (136-145) mmol/L Potassium 3.9 (3.5-5.1) mmol/L Chloride 103 (98-107) mmol/L Carbon Dioxide 27 (21-32) mmol/L Anion Gap 9 (3-11) BUN 20 (6-23) mg/dl Creatinine 1.04 (0.6-1.2) mg/dl Est Cr Clr Drug Dosing 45.0 ml/min eGFR 51.38 BUN/Creatinine Ratio 19.2 (10-20) Glucose 148 H (70-99(Fasting)) mg/dl Calcium 9.1 (8.6-10.3) mg/dl Magnesium 1.8 (1.7-2.4) mg/dl Total Bilirubin 0.8 (0.2-1.0) mg/dl AST 13 (13-39) U/L ALT 11 (7-52) U/L Alkaline Phosphatase 67 (34-104) U/L Troponin I High Sens 11.6 (0-14) pg/ml B-Natriuretic Peptide 406 H (0-100) pg/ml Total Protein 6.3 (6.0-8.3) gm/dl Albumin 4.1 (3.4-5.0) gm/dl Globulin 2.2 L (2.5-4.0) gm/dl Albumin/Globulin Ratio 1.9 (0.9-2) Lipase 12 (11-82) U/L TSH 4.452 (0.300-4.500) uIu/ml Administered Medications Acetaminophen (Acetaminophen 500 Mg Tab) 1,000 mg PO Q8H PRN PRN Reason: Pain or Fever Stop: 11/20/24 19:25 Last Admin: 10/22/24 13:27 Dose: 1,000 mg Documented By: RAJINDER Atorvastatin Calcium (Atorvastatin 40 Mg Tab) 40 mg PO DAILY CAMMY Stop: 11/21/24 08:59 Last Admin: 10/22/24 08:47 Dose: 40 mg Documented By: RAJINDER Diltiazem HCl (Diltiazem Hcl 180 Mg Capcr) 180 mg PO QAM CAMMY Stop: 11/21/24 08:59 Last Admin: 10/22/24 08:46 Dose: 180 mg Documented By: RAJINDER Hydromorphone HCl (Hydromorphone Inj 0.5 Mg/0.5 Ml Syr) 0.25 mg IV Q6H PRN PRN Reason: Pain Stop: 11/04/24 19:25 Last Admin: 10/22/24 03:54 Dose: 0.25 mg Documented By: Admin: 10/21/24 19:56 Dose: 0.25 mg Documented By: LEODAN Pantoprazole Sodium (Pantoprazole 40 Mg Tab) 40 mg PO QAM [facility] Stop: 11/21/24 08:59 Last Admin: 10/22/24 09:03 Dose: 40 mg Documented By: RAJINDER Potassium Chloride (Potassium Chloride Crtab 20 Meq Tabcr) 20 meq PO BID CAMMY Stop: 10/23/24 09:01 Last Admin: 10/22/24 08:45 Dose: 20 meq Documented By: RAJINDER Vitamin D (Cholecalciferol 25 Mcg (1000 Units) Tab) 50 mcg PO QAM CAMMY Stop: 11/21/24 08:59 Last Admin: 10/22/24 08:47 Dose: 50 mcg Documented By: RAJINDER Discontinued Medications Fentanyl Citrate (Fentanyl Citrate Pf 100 Mcg/2 Ml Vial) 50 mcg IV Q15M PRN PRN Reason: Pain Stop: 11/04/24 14:15 Last Admin: 10/21/24 18:10 Dose: 50 mcg Documented By: Admin: 10/21/24 14:32 Dose: 50 mcg Documented By: CATHLEEN Fentanyl Citrate (Fentanyl Citrate Pf 100 Mcg/2 Ml Vial) 25 mcg IV NOW STA Stop: 10/21/24 21:31 Last Admin: 10/21/24 22:37 Dose: 25 mcg Documented By: JERE Furosemide (Furosemide 40 Mg/4 Ml Vial) 40 mg IV ONE ONE Stop: 10/21/24 17:04 Last Admin: 10/21/24 18:18 Dose: 40 mg Documented By: ANGELA Acetaminophen (Ofirmev) 1,000 mg in 100 mls @ 400 mls/hr IV NOW STA Stop: 10/21/24 14:30 Last Infusion: 10/21/24 15:00 Dose: Infused Documented By: Admin: 10/21/24 14:32 Dose: 400 mls/hr Documented By: CATHLEEN Tranexamic Acid (Tranexamic Acid / 0.7% Nacl) 1,000 mg in 100 mls @ 600 mls/hr IV PREOP ONE Stop: 10/21/24 15:59 Last Admin: 10/21/24 18:22 Dose: Not Given Documented By: LEODAN Cefazolin Sodium (Ancef 2000mg) 2,000 mg in 15 mls @ 3.75 mls/min IV PREOP ONE; Protocol Stop: 10/21/24 15:53 Last Admin: 10/21/24 18:22 Dose: Not Given Documented By: LEODAN Magnesium Sulfate/Dextrose (Magnesium Sulfate / D5w) 1 gm in 100 mls @ 50 mls/hr IV ONE ONE Stop: 10/22/24 09:29 Last Infusion: 10/22/24 10:48 Dose: Infused Documented By: Admin: 10/22/24 08:45 Dose: 50 mls/hr Documented By: RAJINDER Cefepime HCl (Maxipime 2000mg) 2,000 mg in 20 mls @ 5 mls/min IV Q8H CAMMY; Protocol Stop: 10/27/24 11:59 Last Admin: 10/22/24 12:56 Dose: 5 mls/min Documented By: RAJINDER Potassium Chloride (K Mango / Wtr) 10 meq in 100 mls @ 100 mls/hr IV Q1H CAMMY Stop: 10/22/24 13:59 Last Admin: 10/22/24 13:57 Dose: 100 mls/hr Documented By: Infusion: 10/22/24 13:56 Dose: Infused Documented By: Admin: 10/22/24 12:56 Dose: 100 mls/hr Documented By: RAJINDER Methenamine Hippurate (Methenamine Hippurate 1 Gm Tab) 1 gm PO HS CAMMY Stop: 11/20/24 20:59 Last Admin: 10/21/24 21:05 Dose: 1 gm Documented By: JERE Methimazole (Methimazole 5 Mg Tablet) 5 mg PO QAM CAMMY Stop: 11/21/24 08:59 Last Admin: 10/22/24 08:46 Dose: 5 mg Documented By: RAJINDER Imaging Data Radiologist's Impression: Ankle X-Ray 10/21/24 13:52 Clinical History: Trauma 3 views of the left ankle are submitted for review. Findings: There is an acute fracture of the medial malleolus with displacement. There is an acute comminuted fracture of the distal fibular shaft with displacement and angulation. There is dislocation of the tibiotalar joint. 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 There is osteopenia. There is a plantar calcaneal spur. No other osseous abnormality is identified. There are no radiopaque foreign bodies. Impression: 1. Comminuted fracture of the distal left fibular shaft 2. Displaced fracture of the medial malleolus 3. Ankle joint dislocation ACT 112: Positive. There are findings on this exam that require communication between the performing entity and the patient following Patient Test Result Information Act ([place] ACT 112) guidelines. Electronically signed by Manny Hartley 10-21-2024 2:55 PM Chest X-Ray 10/21/24 13:53 Clinical History: Trauma Technique: A frontal view of the chest was obtained Findings: There is diffuse interstitial prominence, concerning for pulmonary edema. The heart is enlarged. No definite right pleural effusion or pneumothorax is seen. There is a small left pleural effusion No fracture is noted. No foreign body is seen Impression: 1. Cardiomegaly and mild pulmonary edema 2. Small left pleural effusion ACT 112: Positive. There are findings on this exam that require communication between the performing entity and the patient following Patient Test Result [place] Act ([place] ACT 112) guidelines. Electronically signed by Manny Hartley 10-21-2024 2:56 PM Pelvis X-Ray 10/21/24 13:53 Clinical History: Trauma One view of the pelvis is submitted for review. Comparison is made to the prior examination dated 09/20/2024 Findings: There is an unchanged right hip arthroplasty in expected position. There is no definite sign of infection or loosening. No clear fracture is seen. No other osseous abnormality is identified. There are no radiopaque foreign bodies. Impression: 1. No definite fracture 2. Unchanged right hip replacement Electronically signed by Manny Hartley 10-21-2024 3:00 PM Discharge Plan Visit Data Chief Complaint: Syncope (Near Syncope) Stated Complaint: SYNCOPE, FALL, L ANKLE PAIN ED Provider: Sudha Rosario Discharge Problem: Near syncope, Dizziness, Closed left fibular fracture, Closed dislocation of left ankle, Fall, FOFANA (dyspnea on exertion), Elevated brain natriuretic peptide (BNP) level Patient Disposition: Admitted As Inpatient Condition: Fair Discharge Instructions Interventions: ED Discharge Assessment Last Done: 10/21/24 19:26
--- NOTE | 2024-10-21 15:55 | Orthopedic Consultation ---
Date of Consultation October 21, 2024 Assessment & Plan (1) Fracture dislocation of left ankle: Procedure note: After verbal informed consent was obtained from the patient and the family member a closed reduction of the left ankle fracture dislocation was performed. Longitudinal traction was placed. The talus could be felt sliding back underneath the tibia. However this was quite unstable as the patient had difficulty relaxing and when firing her muscles the ankle would want to slide back out in a dislocated position laterally. A posterior new plaster slab splint was applied while holding the ankle reduced. Splint was appropriately molded. X-rays were brought in which confirmed we had reduced the ankle. There was still some mild medial clear space widening however the talus sat underneath the tibia in acceptable alignment on both the AP and lateral views. Patient tolerated the procedure well. She was much more comfortable after the procedure was finished. She reported the splint was not poking into her in any locations. Splint was placed on blankets to elevate her foot. Next, we will get a CT scan to better characterize the fracture. I spoke with the patient and her family members that this is an unstable pattern injury. Therefore surgery is indicated to allow her to regain the ability to walk. I will need to review her CT scan before I can provide my final recommendations about her surgical treatment. Options include open reduction internal fixation with plates and screws versus a hindfoot fusion nail. Informed consent was obtained from the patient's family since she had received narcotics and was unable to provide her own informed consent. She will be admitted to the hospitalist service. She will need medical clearance for surgery tomorrow, as well as likely cardiac clearance given her chest x-ray showing evidence of pulmonary edema and her labored breathing. May need diuresis. She will need to be nonweightbearing on the left lower extremity. Likely will need a Perez catheter placed. Please make her n.p.o. after midnight tonight for possible surgery tomorrow if she is medically cleared for the procedure. (2) Osteoporosis: (3) Permanent atrial fibrillation: History of Present Illness Reason for Consultation: Left ankle fracture dislocation History of Present Illness 89-year-old female, recently hospitalized in September with stroke-like symptoms. MRI of her brain came back negative. She was found to have a UTI and was treated with antibiotics. Workup revealed patient to have thyromegaly and she is scheduled to have a fine-needle aspiration to evaluate for thyroid cancer. She also has A-fib with a history of GI bleed. Currently, she takes aspirin but no other blood thinners. She got discharged back home from her rehab facility a couple weeks ago. Per her daughter she was having some issues with her blood pressure and swelling in her lower legs. Today, at home, she lost her balance and fell. Immediate onset of pain and deformity in her left ankle. She does have a history of neuropathy. She was brought to the emergency room by ambulance. X-rays were obtained demonstrating a left ankle fracture disloc ation. Orthopedics was consulted for evaluation and management. Patient was seen in the emergency room. She is accompanied by her daughter and her . She had received some fentanyl from the emergency room. She states this has helped with her pain. She denies any new numbness or tingling in her toes. Uses a walker at baseline. Allergies Allergy/AdvReac Type Severity Reaction Status Date / Time lisinopril AdvReac Intermediate cough Verified 09/19/24 14:37 morphine AdvReac Mild N/V Verified 09/19/24 14:37 Home Medications Medication Instructions Recorded Confirmed Type acetaminophen 500 mg tablet 1,000 mg PO BID PRN Pain 04/09/21 10/19/24 History cholecalciferol (vitamin D3) 50 50 mcg PO QAM 05/02/21 10/19/24 History mcg (2,000 unit) tablet cyanocobalamin (vitamin B-12) 1,000 mcg PO DAILY #30 caps 12/01/22 10/19/24 Rx 1,000 mcg capsule methenamine hippurate 1 gram tablet 1 g PO HS #90 tabs 05/02/24 10/19/24 Rx Wheeled Walker #1 ea 07/07/24 10/19/24 Rx sacubitril 24 mg-valsartan 26 mg 1 tab PO BID 07/07/24 10/19/24 History tablet (Entresto) diltiazem HCl 180 mg 180 mg PO DAILY 07/09/24 10/19/24 History capsule,extended release 24 hr methimazole 5 mg tablet 5 mg PO QAM #90 tabs 07/31/24 10/19/24 Rx pantoprazole 40 mg tablet,delayed 40 mg PO QAM #90 tabs 08/02/24 10/19/24 Rx release aspirin 81 mg tablet,delayed 81 mg PO QPM 30 days #30 tabs 09/27/24 10/19/24 Rx release atorvastatin 20 mg tablet (Lipitor) 20 mg PO HS 30 days #30 tabs 09/27/24 10/19/24 Rx atorvastatin 40 mg tablet 40 mg PO DAILY 10/19/24 10/19/24 History furosemide 40 mg tablet (Lasix) 40 mg PO DAILY 10/19/24 10/19/24 History labetalol 100 mg tablet 100 mg PO BID 10/19/24 10/19/24 History potassium chloride 20 mEq 20 meq PO DAILY 10/19/24 10/19/24 History tablet,extended release Patient History Medical History TIA (transient ischemic attack) Hearing deficit Hx of breast cancer History of COVID-19 Bilateral ureteral obstruction Afib Ambulatory dysfunction Kidney stones Retinal detachment Chronic diastolic (congestive) heart failure Gastroesophageal reflux disease Hypertension Surgical History History of cystoscopy Nausea and vomiting after administration of anesthetic agent Slow to wake up after anesthesia History of cardiac cath History of esophagogastroduodenoscopy (EGD) History of colonoscopy History of cataract surgery S/P lumpectomy, right breast S/P tonsillectomy S/P hysterectomy Status post hip surgery S/P cholecystectomy Family History Mother , age 92 Hypertension Heart failure Father , age 37 accident in coal mine No problems noted. Denies family history of Ovarian cancer Prostate cancer Myocardial infarction Breast cancer Colorectal cancer Social History Smoking Status: Never smoker Second Hand Exposure: No; Do You Dip or Chew Tobacco: No; Hx Alcohol Use: No Hx Substance Use: No Preferred Language: Iranian Communication Ability: Effective Communication Ability Comment: pokagon>reads lips per daughter Visual Impairment: No Limitations Hearing Ability: Use of Hearing Aid Mapper Required: No Beliefs That Will Affect Care: None marital status: Current Living Situation: Spouse Current Living Situation Comment: with marti current occupational status: retired current occupation: former cook at [employer] Feels Safe at Home: Yes Childhood Exposure to Second-Hand Smoke: No Diet: regular Diet Comment: regular caffeine: Yes (soda and tea) during the past year weight has: remained stable Dental Care, Regularly: Yes Physical Activity Frequency: Does not Exercise Seatbelt Use: always Sunscreen Use: No Assistive Devices: Cane and Walker Physical Exam Physical Exam: On exam she is hard of hearing but is able to read lips and communicate and answer questions appropriately. Appears comfortable with the fentanyl. Breathing is somewhat shallow, mildly labored. Left lower extremity exam reveals obvious deformity with the foot and ankle sitting lateral to the tibia and valgus malalignment. No breaks in the skin but there is a small area of pinkish discoloration 1 x 2 cm in the region of the medial malleolus. She has 1+ pitting edema bilaterally. Per her daughter this is better than it typically has been in the last couple of weeks. She reports intact sensation to moving light touch on the dorsal and plantar aspects of the foot. Some diminished sensation on the plantar aspect of the toes. She has a palpable dorsalis pedis pulse. Foot is warm and well-perfused. Results & Data Vital Signs (Past 12 Hours) Vital Signs Temp Pulse Pulse Resp BP BP Pulse Ox 10/21/24 15:17 84 16 153/100 H 96 10/21/24 14:44 52 L 20 149/72 H 95 10/21/24 14:30 59 L 24 97 10/21/24 14:03 52 L 23 95 10/21/24 13:45 48 L 18 130/66 96 10/21/24 13:30 42 L 19 130/66 95 10/21/24 13:22 36.6 C 45 L 22 110/59 L 95 10/21/24 13:15 42 L 21 110/59 L 97 10/21/24 13:15 48 L O2 Del Method 10/21/24 15:17 Room Air 10/21/24 14:44 Room Air 10/21/24 14:30 10/21/24 14:03 10/21/24 13:45 10/21/24 13:30 10/21/24 13:22 Room Air 10/21/24 13:15 10/21/24 13:15 Diagnostic Findings Ankle X-Ray 10/21/24 13:52 Clinical History: Trauma 3 views of the left ankle are submitted for review. Findings: There is an acute fracture of the medial malleolus with displacement. There is an acute comminuted fracture of the distal fibular shaft with displacement and angulation. There is dislocation of the tibiotalar joint. 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 There is osteopenia. There is a plantar calcaneal spur. No other osseous abnormality is identified. There are no radiopaque foreign bodies. Impression: 1. Comminuted fracture of the distal left fibular shaft 2. Displaced fracture of the medial malleolus 3. Ankle joint dislocation ACT 112: Positive. There are findings on this exam that require communication between the performing entity and the patient following Patient Test Result Information Act ([place] ACT 112) guidelines. Electronically signed by Manny Hartley 10-21-2024 2:55 PM Chest X-Ray 10/21/24 13:53 Clinical History: Trauma Technique: A frontal view of the chest was obtained Findings: There is diffuse interstitial prominence, concerning for pulmonary edema. The heart is enlarged. No definite right pleural effusion or pneumothorax is seen. There is a small left pleural effusion No fracture is noted. No foreign body is seen Impression: 1. Cardiomegaly and mild pulmonary edema 2. Small left pleural effusion ACT 112: Positive. There are findings on this exam that require communication between the performing entity and the patient following Patient Test Result Information Act ([place] ACT 112[place] guidelines. Electronically signed by Manny Hartley 10-21-2024 2:56 PM Pelvis X-Ray 10/21/24 13:53 Clinical History: Trauma One view of the pelvis is submitted for review. Comparison is made to the prior examination dated 09/20/2024 Findings: There is an unchanged right hip arthroplasty in expected position. There is no definite sign of infection or loosening. No clear fracture is seen. No other osseous abnormality is identified. There are no radiopaque foreign bodies. Impression: 1. No definite fracture 2. Unchanged right hip replacement Electronically signed by Manny Hartley 10-21-2024 3:00 PM I independently interpreted her left ankle films. There is a fracture dislocation with the talus sitting lateral to the tibia. She has a comminuted fibula fracture. Suspected posterior malleolus fracture. Unclear if she has a medial malleolus fracture on these films.
--- NOTE | 2024-10-21 16:38 | History & Physical Report ---
"Date of Service October 21, 2024 Assessment & Plan (1) Fracture dislocation of left ankle: (2) Chronic diastolic (congestive) heart failure: (3) Permanent atrial fibrillation: (4) Fall: (5) Dizziness: Plan Patient is an 89-year-old female with past medical history of A-fib no anticoag ulation given history of GI bleed and significant anemia when on anticoagulation, diastolic CHF, GERD, hypertension, type II DM, hypothyroidism, breast cancer. Presents today after a fall at home resulting in left ankle Fracture and dislocation. Admitted for surgical evaluation and intervention #Left ankle fracture/dislocation Closed reduction of the the dislocation was performed in the ER Orthopedics consultedwould like to take her to the OR 10/22 but will need medical clearance. At the time of admission she is NOT medically cleared for surgery CT scan pending for definitive surgical plan Perez placed Pain control: tylenol prn, prn oxycodone, prn diluadid IV when NPO #diastolic heart failure - Follows with [facility] Chest x-ray with cardiomegaly and mild pulmonary edema, small left pleural effusion. BNP is elevated, patient is also conversationally dyspneic. Lasix 40 mg IV x 1. Reassess in a.m. if needs further diuresis or would be stable to go to the OR, PO lasix also held (Home Lasix dose was just increased from 20 mg 3 times a day to 40 mg daily however increased salt intake while at rehab) Entresto held - per prior cardiology note (11/2022), entresto started bc it was on formularly and cheaper than arb. No hx of depressed EF Echo pending AM BMP #Fall/near syncope | HTN | Afib Recently had her diltiazem increased to 180 mg twice daily and labetalol 100 mg twice daily addedsuspect a component of orthostatic hypotension Will reduce diltiazem to once a day and hold labetalol Monitor on telemetry, ER provider noted rates in the 30s, Pacer pads in place Check orthostatic vital signs OP provider had considered midodrine 07/2024 - patient declined. #Frequent UTI UA pending Continue methenamine #Hyperthyroidism - continue methimazole, TSH WNL. #hx of possible TIA - although felt more likely from a UTI. Continue statin hold Eliquis. Dispo: admit to PCU, not cleared for surgery at this time DVT proh: SCDs, chemical held with intent for OR History of Present Illness Chief Complaint: fall, ankle fracture Primary Care Provider: Jackelyn nEriquez DO Patient is an 89-year-old female with past medical history of A-fib no anticoagulation given history of GI bleed and significant anemia when on anticoagulation, diastolic CHF, GERD, hypertension, type II DM, hypothyroidism, breast cancer. presents today after a fall at home resulting in left ankle pain. Was just discharged from [facility] rehab 2 days ago. States since discharge from this facility and at [facility] she has been increasingly dizzy, especially position changes. Has had multiple near syncopal episodes. When she fell today she was also near syncopal, she denies loss of consciousness. She did not hit her head. She is currently on her last day of Macrobid for a UTI. She reports normal appetite, denies fevers chills cough or cold and congestion symptoms. patient reports that her left leg was having issues with swelling even prior to her fall today. reports that the [facility]pc was feeding her a lot more salt than what she normally eats Does have a history of A-fib, she is not on anticoagulation, history of GI bleed. Recently has had her Lasix increased from 20 mg 3 times a week to 40 mg daily, also had her diltiazem doubled to 180 mg twice a day and her labetalol was added last admission 100 mg twice daily. Uses a walker at baseline. No oxygen requirement. Wishes to be a full code. Allergies Allergy/AdvReac Type Severity Reaction Status Date / Time lisinopril AdvReac Intermediate cough Verified 09/19/24 14:37 morphine AdvReac Mild N/V Verified 09/19/24 14:37 Home Medications Medication Instructions Recorded Confirmed Type acetaminophen 500 mg tablet 1,000 mg PO BID PRN Pain 04/09/21 10/21/24 History cholecalciferol (vitamin D3) 50 50 mcg PO QAM 05/02/21 10/21/24 History mcg (2,000 unit) tablet cyanocobalamin (vitamin B-12) 1,000 mcg PO DAILY #30 caps 12/01/22 10/21/24 Rx 1,000 mcg capsule methenamine hippurate 1 gram tablet 1 g PO HS #90 tabs 05/02/24 10/21/24 Rx Wheeled Walker #1 ea 07/07/24 10/19/24 Rx sacubitril 24 mg-valsartan 26 mg 1 tab PO BID 07/07/24 10/21/24 History tablet (Entresto) diltiazem HCl 180 mg 180 mg PO BID 07/09/24 10/21/24 History capsule,extended release 24 hr methimazole 5 mg tablet 5 mg PO QAM #90 tabs 07/31/24 10/21/24 Rx pantoprazole 40 mg tablet,delayed 40 mg PO QAM #90 tabs 08/02/24 10/21/24 Rx release aspirin 81 mg tablet,delayed 81 mg PO QPM 30 days #30 tabs 09/27/24 10/21/24 Rx release atorvastatin 40 mg tablet 40 mg PO DAILY 10/19/24 10/21/24 History furosemide 40 mg tablet (Lasix) 40 mg PO DAILY 10/19/24 10/21/24 History labetalol 100 mg tablet 100 mg PO BID 10/19/24 10/21/24 History potassium chloride 20 mEq 20 meq PO DAILY 10/19/24 10/21/24 History tablet,extended release Past Med/Surg History Problem List (Updated 10/21/24 @ 16:02 by Konrad Miramontes MD) Osteoporosis Fracture dislocation of left ankle Dizziness (Acute) Near syncope (Acute) Multiple thyroid nodules Fall T2DM (type 2 diabetes mellitus) Well controlled with diet Permanent atrial fibrillation On ASA only > no pacer > follows with Dr. Proctor Hyperthyroidism On Methimazole No symptoms currently B12 deficiency Anemia (Acute) Hypomagnesemia (Acute) Vitamin D deficiency History of malignant neoplasm of breast Frequent urinary tract infections Arthritis Erythematous bladder mucosa Cystitis Goiter Kidney stone (Acute) Peripheral neuropathy Interstitial cystitis Bilateral renal cysts Dyslipidemia Osteoarthritis Pulmonary hypertension Mild - per 2013 cath per cardio records Per 07/2022 ECHO -RVSP is elevated at 40-50mmHg Medical History TIA (transient ischemic attack) Hearing deficit Hx of breast cancer History of COVID-19 Bilateral ureteral obstruction Afib Ambulatory dysfunction Kidney stones Retinal detachment Chronic diastolic (congestive) heart failure Gastroesophageal reflux disease Hypertension Surgical History History of cystoscopy Nausea and vomiting after administration of anesthetic agent Slow to wake up after anesthesia History of cardiac cath History of esophagogastroduodenoscopy (EGD) History of colonoscopy History of cataract surgery S/P lumpectomy, right breast S/P tonsillectomy S/P hysterectomy Status post hip surgery S/P cholecystectomy Family History Mother , age 92 Hypertension Heart failure Father , age 37 accident in coal mine No problems noted. Denies family history of Ovarian cancer Prostate cancer Myocardial infarction Breast cancer Colorectal cancer Social History Smoking Status: Never smoker Second Hand Exposure: No; Do You Dip or Chew Tobacco: No; Hx Alcohol Use: No Hx Substance Use: No Preferred Language: Micronesian Communication Ability: Effective Communication Ability Comment: morongo>reads lips per daughter Visual Impairment: No Limitations Hearing Ability: Use of Hearing Aid Vault Keeper Required: No Beliefs That Will Affect Care: None marital status: Current Living Situation: Spouse Current Living Situation Comment: with marti current occupational status: retired current occupation: former cook at [employer] Feels Safe at Home: Yes Safety Concerns: Feels Safe At This Time Childhood Exposure to Second-Hand Smoke: No Diet: regular Diet Comment: regular caffeine: Yes (soda and tea) during the past year weight has: remained stable Dental Care, Regularly: Yes Physical Activity Frequency: Does not Exercise Seatbelt Use: always Sunscreen Use: No Assistive Devices: Glasses, Hearing Aid - Bilateral and Walker Review of Systems Review of Systems: All systems reviewed & are unremarkable except as noted in Subjective Physical Exam Physical Exam: General: NAD, VS as above, lying in bed Resp: lung sounds diminished, patient is conversationally dyspneic, however does remain saturations on room air CV: A-fib, rate controlled, no murmur, Abd: normal bowel sounds, non tender, no hepatosplenomegaly Extremities: left lower extremity in the splint, non pitting edema to the right leg Neuro: A&O x3, Results & Data Results & Data Vital Signs (Past 12 Hours) Vital Signs Temp Pulse Pulse Resp BP BP Pulse Ox 10/21/24 15:17 84 16 153/100 H 96 10/21/24 14:44 52 L 20 149/72 H 95 10/21/24 14:30 59 L 24 97 10/21/24 14:03 52 L 23 95 10/21/24 13:45 48 L 18 130/66 96 10/21/24 13:30 42 L 19 130/66 95 10/21/24 13:22 97.9 F 45 L 22 110/59 L 95 10/21/24 13:15 42 L 21 110/59 L 97 10/21/24 13:15 48 L O2 Del Method 10/21/24 15:17 Room Air 10/21/24 14:44 Room Air 10/21/24 14:30 10/21/24 14:03 10/21/24 13:45 10/21/24 13:30 10/21/24 13:22 Room Air 10/21/24 13:15 10/21/24 13:15 Laboratory Results CBC, chemistry, coagulation studies, BNP, lipase, TSH reviewed Diagnostic Findings ankle x-ray reviewed Chest x-ray reviewed Pelvics x-ray reviewed Supervising Physician Co-Signing Physician Notes Patient was seen and examined independently I discussed the case with Julisa Dempsey PA-C I reviewed pertinent past medical social family history and also the plan of care and agree with the plan of care. Patient discharged from our facility after urinary tract infection. Medications adjusted including addition of labetalol. Patient presented after a fall with a fracture dislocation of her ankle. During her intake she had episodes of bradycardia and episodes of hypo and hypertension patient did not have any chest pain during these episodes. Her ankle needed to be reduced in the emergency department by orthopedics due to concerns of her wide swings in the heart rate and blood pressure the patient needs to have further evaluation for cardiac stability and restratification prior to surgery. This is in the context of recent increased lower extremity edema and feelings of breathlessness but the patient. On physical examination the patient did not have any significant rales on lung exam her cardiac exam was regular with a shrill systolic murmur right upper sternal border and she did not have significant JVD. Her ankle had good capillary refill distally Assessments cannot be concern for heart failure preserved ejection fraction exacerbation plus minus valvular heart disease plus minus pericardial effusion given globular appearance of cardiac silhouette on chest x-ray. Patient will need to have medications adjusted likely discontinuation of labetalol pending an echocardiogram. I did communicate to Dr. Love regarding postponing surgery till at least 10/23/2024 Any exceptions will be noted below PG Care Time/CCT Total # of Minutes Spent Total Time Spent with Patient: Total time spent is greater than 50% in coordination of care (as documented) at patient's floor/unit and/or counseling patient: Coding Level of Care Code 81707 INT INP/OBS CARE 3/75MIN Diagnoses Fracture dislocation of left ankle S82.892A Chronic diastolic (congestive) heart failure I50.32 Permanent atrial fibrillation I48.21 Fall W19.XXXA Dizziness R42"
[2024-10-21] MEDS: FUROSEMIDE 40 MG/4 ML VIAL IV ONE (18:18)
--- NOTE | 2024-10-21 18:20 | XRay Report ---
2 views of the left ankle are submitted for review. Comparison is made to the prior examination obtained earlier today Findings: There is new cast material, which obscures fine bony detail There has been interval reduction of the previously seen displaced and angulated fracture of the distal fibular shaft and the fracture of the medial malleolus. There has been reduction of the ankle joint. No significant arthritic changes are noted. No other osseous abnormality is identified. There are no radiopaque foreign bodies. Impression: Interval reduction of the previously seen ankle dislocation and of the fractures of the distal left fibular shaft and medial malleolus ACT 112: Positive. There are findings on this exam that require communication between the performing entity and the patient following Patient Test Result Information Act ([place] ACT 112) guidelines. Electronically signed by Manny Hartley 10-21-2024 6:20 PM
[2024-10-21] MEDS: TRANEXAMIC ACID / 0.7% NACL 1,000 MG/100 ML BAG IV ONE (18:22)
--- NOTE | 2024-10-21 19:07 | CT Scan Report ---
CT LEFT ANKLE WITHOUT CONTRAST: HISTORY: Trauma TECHNIQUE: CT of the left ankle was obtained without intravenous contrast. Coronal and sagittal reformats were created. COMPARISON: Left ankle radiographs from earlier in the same day. FINDINGS: Acute traumatic comminuted fractures of the distal fibular shaft (Jackson type C) with anterior and medial angulation about the fracture. Moderately displaced acute traumatic fractures of the medial malleolus with inferolaterally and posteriorly displaced fragment impacting against the talus. Acute traumatic comminuted fractures of the posterior malleolus. The tibia is medially and anterirorly translated over the talus with widening of the medial clear space of the ankle mortise. Diffuse osteopenia limits evaluation for more subtle fractures. IMPRESSION: Acute traumatic fractures of the distal fibula (Jackson type C), the medial and the posterior malleoli. These fractures result in disruption of the syndesmosis with medial and anterior translation of the tibia with respect to the talus, widening of the distal tibiofibular interval and widening of the medial clear space of the ankle mortise. Electronically signed by Sam Edward 10-21-2024 7:07 PM
[2024-10-21] MEDS ORDERED: ONDANSETRON INJ 2 MG/ML 2 ML VIAL IV PRN (19:26)
[2024-10-21] MEDS: HYDROmorphone INJ 0.5 MG/0.5 ML SYR IV PRN (19:56)
[2024-10-21 20:41] LABS: Appearance Urine Turbid (Clear); Bacteria Urine Automated 4+ (None Seen); Glucose Urine UA Negative (Negative); WBC Urine Automated >50 /hpf (0-5)
[2024-10-21] MEDS: METHENAMINE HIPPURATE 1 GM TAB PO SCH (21:05)
[2024-10-22 06:13] LABS: Hematocrit (blood only) 33.0 % (37.0-47.0); Hemoglobin 10.6 g/dl (12.0-16.0); Mean Corpuscular Hemoglobin 29.7 pg (25.0-34.0); Mean Corpuscular Volume 92.4 fL (80.0-100.0); Platelet Count 191 K/uL (130-400); RDW Standard Deviation 47.5 fL (36.4-46.3); Red Blood Count 3.57 M/uL (4.20-5.40); White Blood Count 8.05 K/ul (4.8-10.8)
[2024-10-22 06:30] LABS: Anion Gap 8.0 (3-11); Blood Urea Nitrogen 19.0 mg/dl (6-23); Calcium 8.5 mg/dl (8.6-10.3); Carbon Dioxide 28.0 mmol/L (21-32); Chloride 102.0 mmol/L (98-107); Creatinine Clr Calc Pharmacy 55.7 ml/min; Glucose 133.0 mg/dl (70-99(Fasting)); Potassium 3.2 mmol/L (3.5-5.1); Sodium 138.0 mmol/L (136-145)
--- NOTE | 2024-10-22 07:14 | Hospitalist Progress Note ---
"Date of Service October 22, 2024 Assessment & Plan (1) Fracture dislocation of left ankle: (2) Chronic diastolic (congestive) heart failure: (3) Permanent atrial fibrillation: (4) Fall: (5) Dizziness: Plan Patient is an 89-year-old female with past medical history of A-fib no anticoag ulation given history of GI bleed and significant anemia when on anticoagulation, diastolic CHF, GERD, hypertension, type II DM, hypothyroidism, breast cancer. Presents today after a fall at home resulting in left ankle Fracture and dislocation. Reduced in the emergency department. Found to have Pseudomonas UTI present on admission. Patient's cardiopulmonary status has been risk optimized and it was communicated to orthopedics that she will likely be able to safely have surgery on 10/23/2024 #Left ankle fracture/dislocation Closed reduction of the the dislocation was performed in the ER Orthopedics consulted, plan for surgical correction of fracture dislocation left ankle, messaged orthopedics of patient able likely go to surgery 10/23/2024 Perez placed Pain control: tylenol prn, prn oxycodone, prn diluadid IV when NPO #diastolic heart failure - Follows with [facility] Cardiology Chest x-ray with cardiomegaly and mild pulmonary edema, BNP is elevated, . Lasix 40 mg IV x 1. replete hypokalemia and augment magnesium Entresto held - per prior cardiology note (11/2022), entresto started bc it was on formulary and cheaper than arb. No hx of depressed EF Echo pending #Fall/near syncope | HTN | Afib Recently had her diltiazem increased to 180 mg twice daily and labetalol 100 mg twice daily addedsuspect a component of orthostatic hypotension Will reduce diltiazem to once a day and hold labetalol Monitor on telemetry, ER provider noted rates in the 30s, Pacer pads in place Check orthostatic vital signs OP provider had considered midodrine 07/2024 - patient declined. #Frequent UTI Patient found of Pseudomonas UTI initiating cefepime therapy holding methenamine #Hyperthyroidism - continue methimazole, TSH WNL. #hx of possible TIA - although felt more likely from a UTI. Continue statin hold Eliquis. DVT proh: SCDs, chemical held with intent for OR Admission and Anticipated Discharge Date Admission Date: October 21, 2024 Subjective Patient appears improved today she is no longer bradycardic or hypotensive but moderately tachycardic. Respiratory status has improved were still pending e chocardiogram. UA has grown 100,000 colonies of Pseudomonas aeruginosa Physical Exam Physical Exam: Slightly lethargic but awake and oriented to person place and time Cardiac exam is tachycardic but regular Lungs are with good air movement clear Abdomen is NABS and soft Her left lower leg is splinted but she has good capillary refill and can wiggle her toes Results & Data Results & Data Vital Signs (Past 12 Hours) Vital Signs Temp Pulse Pulse Resp BP Pulse Ox O2 Del Method 10/22/24 04:09 98.2 F 75 21 155/85 H 91 Room Air 10/22/24 02:24 89 10/22/24 02:03 Room Air 10/22/24 00:22 97.9 F 90 17 155/78 H 93 Room Air 10/21/24 20:16 97.9 F 73 20 189/147 H 93 Room Air 10/21/24 20:01 83 16 128/102 H 95 Room Air 10/21/24 19:26 83 16 95 Room Air 10/21/24 19:26 83 16 128/102 H 95 Room Air Laboratory Results Reviewed micro showing Pseudomonas UTI Reviewed CBC Reviewed chemistry hypokalemia replete PG Care Time/CCT Total # of Minutes Spent Total Time Spent with Patient: Total time spent is greater than 50% in coordination of care (as documented) at patient's floor/unit and/or counseling patient: Coding Level of Care Code 14070 SUB INP/OBS CARE 3/50MIN Diagnoses Fracture dislocation of left ankle S82.892A Chronic diastolic (congestive) heart failure I50.32 Permanent atrial fibrillation I48.21 Fall W19.XXXA Dizziness R42"
[2024-10-22] MEDS: POTASSIUM CHLORIDE CRTAB 20 MEQ TABCR PO SCH (08:45)
[2024-10-22] MEDS: MAGNESIUM SULFATE / D5W 1 GM/100 ML BAG IV ONE (08:45)
[2024-10-22] MEDS: ATORVASTATIN 40 MG TAB PO SCH (08:47)
[2024-10-22] MEDS: CHOLECALCIFEROL 25 MCG (1000 UNITS) TAB PO SCH (08:47)
[2024-10-22] MEDS ORDERED: POTASSIUM CHLORIDE CRTAB 20 MEQ TABCR PO SCH (09:00)
--- NOTE | 2024-10-22 12:36 | Electrocardiogram Report ---
Test Reason : Blood Pressure : */* mmHG Vent. Rate : 50 BPM Atrial Rate : * BPM P-R Int : * ms QRS Dur : 88 ms QT Int : 502 ms P-R-T Axes : * -10 -55 degrees QTcB Int : 457 ms Atrial fibrillation with slow ventricular response Nonspecific T wave abnormality Abnormal ECG When compared with ECG of 20-Sep-2024 21:26, Vent. rate has decreased by 47 bpm Criteria for Inferior infarct are no longer Present T wave inversion now evident in Lateral leads Confirmed by Obinna Escalante ([id number]) on 10/22/2024 12:36:27 PM Referred By: Confirmed By: Obinna Escalante
[2024-10-22] MEDS: POTASSIUM CHLORIDE / WTR 10 MEQ/100 ML PLCT IV SCH (12:56)
[2024-10-22] MEDS: CEFEPIME 2000MG 2,000 MG/20 ML SYR IV SCH (12:56)
[2024-10-22] MEDS: ACETAMINOPHEN 500 MG TAB PO PRN (13:27)
--- NOTE | 2024-10-22 15:38 | XCELERA ---
[id number]
--- NOTE | 2024-10-22 16:58 | Orthopedic Progress Note ---
Date of Service October 22, 2024 Assessment & Plan (1) Fracture dislocation of left ankle: Plan: Ankle dislocation and fracture was reduced in the emergency department yesterday. Patient is currently splinted and awaiting medical clearance to have surgery. Plan likely for surgery tomorrow pending medical clearance. Echocardiogram resulted. N.p.o. after midnight. Hold anticoagulation/NSAIDs Elevate left upper extremity as much as possible to help with edema. Ice over the plaster splint, keep dry. 20 minutes every 1-2 hours. Pain management per primary service. It sounds like patient may have had some mild confusion with Dilaudid. Continue nonweightbearing left lower extremity. (2) Osteoporosis: (3) Permanent atrial fibrillation: Admission and Anticipated Discharge Date Admission Date: October 21, 2024 Subjective Opal is seen resting in bed today. Her is at the bedside. She is experiencing some mild pain and just received some Tylenol. She otherwise is doing better than she was yesterday. She is able to wiggle her toes. Has neuropathy so cannot feel her toes at baseline but denies any new numbness or tingling in her foot or leg. Physical Exam Constitutional: Resting comfortably sitting upright in bed. Improved demeanor today compared to yesterday. Pleasant. Cardiovascular: Capillary refill about 2 seconds in left toes Musculoskeletal: Left lower extremity: Plaster cast is in place, appears to be fitting well. Patient is able to wiggle all toes. Extremity is propped up on 2 pillows. Neurologic: Decreased sensation to light touch in bilateral toes, baseline per patient Results & Data Vital Signs (Past 12 Hours) Vital Signs Temp Pulse Pulse Resp BP Pulse Ox O2 Del Method 10/22/24 15:37 98.6 F 89 18 156/86 H 93 Room Air 10/22/24 13:32 83 10/22/24 11:33 98.2 F 111 H 18 158/83 H 95 Room Air 10/22/24 08:00 Room Air 10/22/24 07:34 97.7 F 81 16 148/79 H 94 Room Air 10/22/24 07:13 73 Laboratory Results 10/21/24 18:24 Urine Culture - Preliminary Urine,Straight Cath Pseudomonas aeruginosa 10/22/24 10/21/24 05:37 18:24 WBC 8.05 RBC 3.57 L Hgb 10.6 L Hct 33.0 L MCV 92.4 MCH 29.7 MCHC 32.1 RDW Std Deviation 47.5 H RDW Coeff of Jeanna 13.9 Plt Count 191 MPV 10.6 Sodium 138 Potassium 3.2 L Chloride 102 Carbon Dioxide 28 Anion Gap 8 BUN 19 Creatinine 0.86 Est Cr Clr Drug Dosing 55.7 eGFR 64.53 BUN/Creatinine Ratio 22.1 H Glucose 133 H Calcium 8.5 L Urine Color Yellow Urine Appearance Turbid A Urine pH 5.5 Ur Specific [place] 1.014 Urine Protein Negative Urine Glucose (UA) Negative Urine Ketones Trace H Urine Blood 2+ H Urine Nitrite Positive A Urine Bilirubin Negative Urine Urobilinogen Negative Ur Leukocyte Esterase 3+ H Urine WBC (Auto) >50 H Urine RBC (Auto) 3-5 H U Hyaline Cast (Auto) 6-10 H U Epithel Cells (Auto) 3-5 H Urine Bacteria (Auto) 4+ H Calcium Oxalate Crystal Present A Urine Yeast Present A Urine Comment Diagnostic Findings Ankle X-Ray 10/21/24 13:52 Clinical History: Trauma 3 views of the left ankle are submitted for review. Findings: There is an acute fracture of the medial malleolus with displacement. There is an acute comminuted fracture of the distal fibular shaft with displacement and angulation. There is dislocation of the tibiotalar joint. 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 There is osteopenia. There is a plantar calcaneal spur. No other osseous abnormality is identified. There are no radiopaque foreign bodies. Impression: 1. Comminuted fracture of the distal left fibular shaft 2. Displaced fracture of the medial malleolus 3. Ankle joint dislocation ACT 112: Positive. There are findings on this exam that require communication between the performing entity and the patient following Patient Test Result Information Act ([place] ACT 112) guidelines. Electronically signed by Manny Hartley 10-21-2024 2:55 PM Chest X-Ray 10/21/24 13:53 Clinical History: Trauma Technique: A frontal view of the chest was obtained Findings: There is diffuse interstitial prominence, concerning for pulmonary edema. The heart is enlarged. No definite right pleural effusion or pneumothorax is seen. There is a small left pleural effusion No fracture is noted. No foreign body is seen Impression: 1. Cardiomegaly and mild pulmonary edema 2. Small left pleural effusion ACT 112: Positive. There are findings on this exam that require communication between the performing entity and the patient following Patient Test Result Information Act ([place] ACT 112) guidelines. Electronically signed by Manny Hartley 10-21-2024 2:56 PM Pelvis X-Ray 10/21/24 13:53 Clinical History: Trauma One view of the pelvis is submitted for review. Comparison is made to the prior examination dated 09/20/2024 Findings: There is an unchanged right hip arthroplasty in expected position. There is no definite sign of infection or loosening. No clear fracture is seen. No other osseous abnormality is identified. There are no radiopaque foreign bodies. Impression: 1. No definite fracture 2. Unchanged right hip replacement Electronically signed by Manny Hartley 10-21-2024 3:00 PM Ankle X-Ray 10/21/24 15:18 2 views of the left ankle are submitted for review. Comparison is made to the prior examination obtained earlier today Findings: There is new cast material, which obscures fine bony detail There has been interval reduction of the previously seen displaced and angulated fracture of the distal fibular shaft and the fracture of the medial malleolus. There has been reduction of the ankle joint. No significant arthritic changes are noted. No other osseous abnormality is identified. There are no radiopaque foreign bodies. Impression: Interval reduction of the previously seen ankle dislocation and of the fractures of the distal left fibular shaft and medial malleolus ACT 112: Positive. There are findings on this exam that require communication between the performing entity and the patient following Patient Test Result Information Act ([place] ACT 112) guidelines. Electronically signed by Manny Hartley 10-21-2024 6:[address] 10/21/24 15:50 CT LEFT ANKLE WITHOUT CONTRAST: HISTORY: Trauma TECHNIQUE: CT of the left ankle was obtained without intravenous contrast. Coronal and sagittal reformats were created. COMPARISON: Left ankle radiographs from earlier in the same day. FINDINGS: Acute traumatic comminuted fractures of the distal fibular shaft (Jackson type C) with anterior and medial angulation about the fracture. Moderately displaced acute traumatic fractures of the medial malleolus with inferolaterally and posteriorly displaced fragment impacting against the talus. Acute traumatic comminuted fractures of the posterior malleolus. The tibia is medially and anterirorly translated over the talus with widening of the medial clear space of the ankle mortise. Diffuse osteopenia limits evaluation for more subtle fractures. IMPRESSION: Acute traumatic fractures of the distal fibula (Jackson type C), the medial and the posterior malleoli. These fractures result in disruption of the syndesmosis with medial and anterior translation of the tibia with respect to the talus, widening of the distal tibiofibular interval and widening of the medial clear space of the ankle mortise. Electronically signed by Sam Edward 10-21-2024 7:07 PM
[2024-10-23] MEDS: CEFEPIME 2000MG 2,000 MG/20 ML SYR IV SCH (01:53)
--- NOTE | 2024-10-23 07:15 | Hospitalist Progress Note ---
"Date of Service October 23, 2024 Assessment & Plan (1) Fracture dislocation of left ankle: (2) Chronic diastolic (congestive) heart failure: (3) Permanent atrial fibrillation: (4) Fall: (5) Dizziness: Plan Patient is an 89-year-old female with past medical history of A-fib no anticoag ulation given history of GI bleed and significant anemia when on anticoagulation, diastolic CHF, GERD, hypertension, type II DM, hypothyroidism, breast cancer. Presents today after a fall at home resulting in left ankle Fracture and dislocation. Reduced in the emergency department. Found to have Pseudomonas UTI present on admission. Patient's cardiopulmonary status has been risk optimized and it was communicated to orthopedics that she will likely be able to safely have surgery on 10/24/24, family feels she has not improved after september admission for tia #Left ankle fracture/dislocation Closed reduction of the the dislocation was performed in the ER Orthopedics consulted, plan for surgical correction of fracture dislocation left ankle, messaged orthopedics of patient able likely go to surgery 10/24/2024 Perez placed Pain control: tylenol prn, prn oxycodone, prn diluadid IV when NPO #diastolic heart failure - Follows with [facility] Cardiology Chest x-ray with cardiomegaly and mild pulmonary edema, BNP is elevated, . Lasix 40 mg IV x 1. replete hypokalemia and augment magnesium Entresto held - per prior cardiology note (11/2022), entresto started bc it was on formulary and cheaper than arb. No hx of depressed EF Echo 10/22/24 shows normal EF no RWMA Severe pulmonary htn, small pericardial effusion without physiologic affect #Fall/near syncope | HTN | Afib Recently had her diltiazem increased to 180 mg twice daily and labetalol 100 mg twice daily addedsuspect a component of orthostatic hypotension improved with reduction of diltiazem to once a day and hold labetalol and entresto Family feels has not improved, will repeat Ct head #Frequent UTI Patient found of Pseudomonas UTI initiating cefepime therapy holding methenamine #Hyperthyroidism - continue methimazole, TSH WNL. #hx of possible TIA - although felt more likely from a UTI. repeat CT Continue statin hold Eliquis. DVT proh: SCDs, chemical held with intent for OR will likely need placement post procedure Admission and Anticipated Discharge Date Admission Date: October 21, 2024 Subjective Patient is seen today at bedside. Her daughter is with her and says that she has been waxing and waning with her confusion since her last admission at which time they thought she had a stroke but this was ruled out by imaging. That time she had a UTI also now has recurrence. Patient is scheduled for surgical correction of her ankle on 24 October Physical Exam Physical Exam: Slightly lethargic but awake and oriented to person place and time Cardiac exam is tachycardic but regular Lungs are with good air movement clear Abdomen is NABS and soft Her left lower leg is splinted but she has good capillary refill and can wiggle her toes Results & Data Results & Data Vital Signs (Past 12 Hours) Vital Signs Temp Pulse Pulse Resp BP Pulse Ox Pulse Ox 10/23/24 04:37 83 10/23/24 04:15 98.4 F 92 H 20 168/74 H 95 10/22/24 23:47 98.4 F 73 19 157/87 H 94 10/22/24 23:30 10/22/24 23:00 94 10/22/24 20:18 98.2 F 90 23 155/75 H 92 O2 Del Method O2 Del Method 10/23/24 04:37 10/23/24 04:15 Room Air 10/22/24 23:47 Room Air 10/22/24 23:30 Room Air 10/22/24 23:00 Room Air 10/22/24 20:18 Room Air PG Care Time/CCT Total # of Minutes Spent Total Time Spent with Patient: Total time spent is greater than 50% in coordination of care (as documented) at patient's floor/unit and/or counseling patient: Coding Level of Care Code 83037 SUB INP/OBS CARE 3/50MIN Diagnoses Fracture dislocation of left ankle S82.892A Chronic diastolic (congestive) heart failure I50.32 Permanent atrial fibrillation I48.21 Fall W19.XXXA Dizziness R42"
[2024-10-23] MEDS: TRANEXAMIC ACID / 0.7% NACL 1,000 MG/100 ML BAG IV ONE (10:09)
--- NOTE | 2024-10-23 10:33 | Orthopedic Progress Note ---
Date of Service October 23, 2024 Assessment & Plan (1) Fracture dislocation of left ankle: Plan: Ankle dislocation and fracture was reduced in the emergency department 10/21/2024 Plan for ORIF tomorrow with Dr Miramontes Can eat today. N.p.o. after midnight. Hold anticoagulation/NSAIDs Elevate left upper extremity as much as possible to help with edema. Ice over the plaster splint, keep dry. 20 minutes every 1-2 hours. Pain management per primary service. Patient's pain medications may need to be adjusted if she continues to have confusion and slurred speech, spoke with daughter about this and advised that she let her primary team know of these changes Continue nonweightbearing left lower extremity. Admission and Anticipated Discharge Date Admission Date: October 21, 2024 Subjective Patient is seen today at bedside. Her daughter is with her and says that she has been more confused and slurring her words more. She has not been co mplaining of any pain. Physical Exam Physical Exam: Splint is intact and fitting properly. Patient is able to wiggle all of her toes. She reports sensation distally to light touch. Results & Data Vital Signs (Past 12 Hours) Vital Signs Temp Pulse Pulse Resp BP Pulse Ox Pulse Ox 10/23/24 09:45 10/23/24 08:00 109 H 10/23/24 07:48 37.5 C 102 H 19 168/64 H 93 10/23/24 04:37 83 10/23/24 04:15 36.9 C 92 H 20 168/74 H 95 10/22/24 23:47 36.9 C 73 19 157/87 H 94 10/22/24 23:30 10/22/24 23:00 94 O2 Del Method O2 Del Method 10/23/24 09:45 Room Air 10/23/24 08:00 10/23/24 07:48 Room Air 10/23/24 04:37 10/23/24 04:15 Room Air 10/22/24 23:47 Room Air 10/22/24 23:30 Room Air 10/22/24 23:00 Room Air
[2024-10-23] MEDS: TRANEXAMIC ACID / 0.7% NACL 1,000 MG/100 ML BAG IV SCH (10:47)
--- NOTE | 2024-10-23 16:05 | CT Scan Report ---
CT head/brain wo con CLINICAL HISTORY: 89 years-old Female with eval for stroke or sdh/sah with fall. Acute head trauma TECHNIQUE: Multiple axial CT images of the head were obtained without contrast. A dose lowering tech nique was utilized adhering to the principles of ALARA. CT DOSE: 703.85 mGy.cm COMPARISON: Brain MRI 09/22/2023 FINDINGS: No acute intracranial hemorrhage, midline shift, intracranial mass, hydrocephalus, territorial ischem ia or abnormal extra-axial collection. Involutional changes with chronic microvascular ischemic disea se. The study is motion degraded. Cerebral vascular calcifications. The calvarium is intact. Prior bilateral lens repair. The paranasal sinuses, mastoid air cells, and m iddle ear cavities are clear. IMPRESSION: No acute intracranial abnormality or calvarial fracture. ACT 112: Negative or not required by law. The above report was generated using voice recognition software. It may contain grammatical, syntax o r spelling errors. Electronically signed by: Hector Ken M.D. 10/23/2024 4:04 PM
[2024-10-23] MEDS: THIAMINE HCL 200 MG in SODIUM CHLORIDE 0.9% 50 ML IV STA (18:17)
[2024-10-24 05:53] LABS: Hematocrit (blood only) 31.8 % (37.0-47.0); Hemoglobin 10.5 g/dl (12.0-16.0); Mean Corpuscular Hemoglobin 30.2 pg (25.0-34.0); Mean Corpuscular Volume 91.4 fL (80.0-100.0); Platelet Count 188 K/uL (130-400); RDW Standard Deviation 47.2 fL (36.4-46.3); Red Blood Count 3.48 M/uL (4.20-5.40); White Blood Count 10.90 K/ul (4.8-10.8)
[2024-10-24] MEDS ORDERED: TRANEXAMIC ACID / 0.7% NACL 1,000 MG/100 ML BAG IV SCH (06:00)
[2024-10-24 06:13] LABS: Anion Gap 7.0 (3-11); Blood Urea Nitrogen 29.0 mg/dl (6-23); Calcium 8.9 mg/dl (8.6-10.3); Carbon Dioxide 25.0 mmol/L (21-32); Chloride 103.0 mmol/L (98-107); Creatinine Clr Calc Pharmacy 57.7 ml/min; Glucose 127.0 mg/dl (70-99(Fasting)); Magnesium 2.1 mg/dl (1.7-2.4); Potassium 3.9 mmol/L (3.5-5.1); Sodium 135.0 mmol/L (136-145)
--- NOTE | 2024-10-24 07:02 | Hospitalist Progress Note ---
"Date of Service October 24, 2024 Assessment & Plan (1) Fracture dislocation of left ankle: (2) Chronic diastolic (congestive) heart failure: (3) Permanent atrial fibrillation: (4) Fall: (5) Dizziness: Plan Patient is an 89-year-old female with past medical history of A-fib no anticoag ulation given history of GI bleed and significant anemia when on anticoagulation, diastolic CHF, GERD, hypertension, type II DM, hypothyroidism, breast cancer. Presents after a fall at home resulting in left ankle Fracture and dislocation. Reduced in the emergency department. Found to have Pseudomonas UTI present on admission. Has metabolic encephalopathy and delerium at times. Patient's cardiopulmonary status has been risk optimized and it was communicated to orthopedics that she will likely be able to safely have surgery on 10/24/24, family feels she has not improved after september admission for tia #Left ankle fracture/dislocation/Age-related osteoporosis with current pathologic fracture, left ankle Closed reduction of the the dislocation was performed in the ER Orthopedics consulted, plan for surgical correction of fracture dislocation left ankle, corrective surgery 10/24/2024 Chris continues Pain control: tylenol prn, prn oxycodone, prn diluadid IV when NPO #acute on chronic HFpEF/diastolic heart failure - Follows with [facility] Cardiology, stable on reduced medicines at this time Chest x-ray with cardiomegaly and mild pulmonary edema, BNP was elevated, . Lasix 40 mg IV x 1. replete hypokalemia and augment magnesium Entresto held - per prior cardiology note (11/2022), entresto started bc it was on formulary and cheaper than arb. No hx of depressed EF Echo 10/22/24 shows normal EF no RWMA Severe pulmonary htn, small pericardial effusion without physiologic affect #Fall/near syncope | HTN | Afib Recently had her diltiazem increased to 180 mg twice daily and labetalol 100 mg twice daily added at last dischargesuspect a component of orthostatic hypotension improved with reduction of diltiazem to once a day and dc labetalol and entresto repeat Ct head 10/23 without stroke or sdh sah #Frequent UTI/metabolic encephalopathy Patient found of Pseudomonas UTI initiating cefepime therapy holding methenamine hopeful treatment will improve delirium, improved with thiamine #Hyperthyroidism - continue methimazole, TSH WNL. #hx of possible TIA - although felt more likely from a UTI. repeat CT Continue statin hold Eliquis. resume 10/25 if no bleeding DVT proh: SCDs, chemical held with intent for OR will likely need placement post procedure Admission and Anticipated Discharge Date Admission Date: October 21, 2024 Subjective reportedly the pt had a better morning after her iv thiamine, continues on po family at bedside and updated pt is post op, slight sedated with nerve block also, does converse no complaints of pain Physical Exam Physical Exam: awake and follows commands, cardiac regular, lungs are clear but diminished cast on leg, good cap refill to toes Results & Data Results & Data Vital Signs (Past 12 Hours) Vital Signs Temp Pulse Pulse Resp BP Pulse Ox Pulse Ox 10/24/24 03:09 97.9 F 76 20 145/110 H 92 10/24/24 02:10 86 10/24/24 00:07 10/23/24 23:31 98.1 F 83 20 140/93 93 10/23/24 23:00 93 10/23/24 19:21 98.2 F 89 19 148/96 H 94 O2 Del Method O2 Del Method 10/24/24 03:09 Room Air 10/24/24 02:10 10/24/24 00:07 Room Air 10/23/24 23:31 Room Air 10/23/24 23:00 Room Air 10/23/24 19:21 Room Air Laboratory Results review cbc review chemistry, sodium improved PG Care Time/CCT Total # of Minutes Spent Total Time Spent with Patient: Total time spent is greater than 50% in coordination of care (as documented) at patient's floor/unit and/or counseling patient: Coding Level of Care Code 58360 SUB INP/OBS CARE 3/50MIN Diagnoses Fracture dislocation of left ankle S82.892A Chronic diastolic (congestive) heart failure I50.32 Permanent atrial fibrillation I48.21 Fall W19.XXXA Dizziness R42"
[2024-10-24] MEDS ORDERED: ROPIVACAINE 0.5% 5 MG/ML 30 ML VIAL ONE ×2 (07:23→12:09)
[2024-10-24] MEDS ORDERED: SODIUM CHLORIDE 0.9% PF INJ 10 ML VIAL ONE (07:23)
[2024-10-24] MEDS ORDERED: LIDOCAINE 2% 2 ML VIAL/AMP(20MG/ML) INFIL ONE ×2 (07:51→07:52)
[2024-10-24] MEDS ORDERED: PROPOFOL IV EMULSION 10 MG/ML 20 ML VIAL IV ONE (07:56)
[2024-10-24] MEDS ORDERED: ROCURONIUM BROMIDE 10 MG/ML 5 ML VIAL IV ONE ×2 (07:57→14:00)
[2024-10-24] MEDS: THIAMINE HCL 100 MG TAB PO SCH (08:30)
--- NOTE | 2024-10-24 10:21 | Anesthesiology Consultation ---
Date of Service October 24, 2024 History Surgery Operation Date: 10/24/24 12:30 Proposed Procedures p Left Open Reduction Internal Fixation Ankle Fracture - Konrad Miramontes MD Height/Weight Height: 5 ft 9 in Weight: 99.5 kg Allergies Allergy/AdvReac Type Severity Reaction Status Date / Time lisinopril AdvReac Intermediate cough Verified 09/19/24 14:37 morphine AdvReac Mild N/V Verified 09/19/24 14:37 Medications Home Medications Medication Instructions Recorded Confirmed Last Taken acetaminophen 500 mg tablet 1,000 mg PO BID PRN Pain 04/09/21 10/21/24 09/24/22 22:00 cholecalciferol (vitamin D3) 50 50 mcg PO QAM 05/02/21 10/21/24 09/27/22 08:00 mcg (2,000 unit) tablet cyanocobalamin (vitamin B-12) 1,000 mcg PO DAILY #30 caps 12/01/22 10/21/24 Unknown 1,000 mcg capsule methenamine hippurate 1 gram tablet 1 g PO HS #90 tabs 05/02/24 10/21/24 Unknown Wheeled Walker #1 ea 07/07/24 10/19/24 Unknown sacubitril 24 mg-valsartan 26 mg 1 tab PO BID 07/07/24 10/21/24 Unknown tablet (Entresto) diltiazem HCl 180 mg 180 mg PO BID 07/09/24 10/21/24 Unknown capsule,extended release 24 hr methimazole 5 mg tablet 5 mg PO QAM #90 tabs 07/31/24 10/21/24 Unknown pantoprazole 40 mg tablet,delayed 40 mg PO QAM #90 tabs 08/02/24 10/21/24 Unknown release aspirin 81 mg tablet,delayed 81 mg PO QPM 30 days #30 tabs 09/27/24 10/21/24 Unknown release atorvastatin 40 mg tablet 40 mg PO DAILY 10/19/24 10/21/24 Unknown furosemide 40 mg tablet (Lasix) 40 mg PO DAILY 10/19/24 10/21/24 Unknown labetalol 100 mg tablet 100 mg PO BID 10/19/24 10/21/24 Unknown potassium chloride 20 mEq 20 meq PO DAILY 10/19/24 10/21/24 Unknown tablet,extended release Active Medications Generic Name Dose Route Start Last Admin Trade Name Freq PRN Reason Stop Dose Admin Acetaminophen 1,000 mg 10/21/24 19:26 10/22/24 13:27 Acetaminophen 500 Mg Tab PO 11/20/24 19:25 1,000 mg Q8H PRN Administration Pain or Fever Atorvastatin Calcium 40 mg 10/22/24 09:00 10/24/24 08:30 Atorvastatin 40 Mg Tab PO 11/21/24 08:59 40 mg DAILY CAMMY Administration Diltiazem HCl 240 mg 10/24/24 09:00 10/24/24 08:30 Diltiazem Hcl 240 Mg Capcr PO 11/23/24 08:59 240 mg QAM CAMMY Administration Hydromorphone HCl 0.25 mg 10/21/24 19:26 10/23/24 17:19 Hydromorphone Inj 0.5 Mg/0.5 Ml Syr IV 11/04/24 19:25 0.25 mg Q6H PRN Administration Pain Cefepime HCl 2,000 mg in 20 mls @ 5 mls/min 10/23/24 01:00 10/24/24 01:45 Maxipime 2000mg IV 10/28/24 00:59 5 mls/min Q12H CAMMY Administration Protocol Pantoprazole Sodium 40 mg 10/22/24 09:00 10/24/24 08:30 Pantoprazole 40 Mg Tab PO 11/21/24 08:59 40 mg QAM CAMMY Administration Thiamine HCl 100 mg 10/24/24 09:00 10/24/24 08:30 Thiamine Hcl 100 Mg Tab PO 11/23/24 08:59 100 mg QAM CAMMY Administration Vitamin D 50 mcg 10/22/24 09:00 10/24/24 08:30 Cholecalciferol 25 Mcg (1000 Units) Tab PO 11/21/24 08:59 50 mcg QAM CAMMY Administration Past Medical History Medical History TIA (transient ischemic attack) Hearing deficit Hx of breast cancer History of COVID-19 Bilateral ureteral obstruction Afib Ambulatory dysfunction Kidney stones Retinal detachment Chronic diastolic (congestive) heart failure Gastroesophageal reflux disease Hypertension Past Family History Family History Mother , age 92 Hypertension Heart failure Father , age 37 accident in coal mine No problems noted. Denies family history of Ovarian cancer Prostate cancer Myocardial infarction Breast cancer Colorectal cancer Past Surgical History Surgical History History of cystoscopy Nausea and vomiting after administration of anesthetic agent Slow to wake up after anesthesia History of cardiac cath History of esophagogastroduodenoscopy (EGD) History of colonoscopy History of cataract surgery S/P lumpectomy, right breast S/P tonsillectomy S/P hysterectomy Status post hip surgery S/P cholecystectomy Social History Smoking Status: Never smoker Do You Dip or Chew Tobacco: No Hx Alcohol Use: No Hx Substance Use: No substance use type: does not use Physical Exam Vital Signs Last Vital Signs Temp 37.3 C 10/24/24 07:53 Pulse 94 H 10/24/24 08:00 Resp 21 10/24/24 07:53 BP 154/88 H 10/24/24 07:53 Pulse Ox 92 10/24/24 07:53 O2 Del Method Room Air 10/24/24 07:53 Testing Laboratory Results 10/24/24 05:34 10/24/24 05:35 PT 12.3 Seconds (9.0-12.0) H 10/21/24 13:26 INR 1.1 (0.9-1.1) 10/21/24 13:26 Urine Color Yellow 10/21/24 18:24 Urine Appearance Turbid (Clear) A 10/21/24 18:24 Urine pH 5.5 (4.5-7.5) 10/21/24 18:24 Ur Specific [place] 1.014 (1.000-1.030) 10/21/24 18:24 Urine Protein Negative (Negative) 10/21/24 18:24 Urine Glucose (UA) Negative (Negative) 10/21/24 18:24 Urine Ketones Trace (Negative) H 10/21/24 18:24 Urine Nitrite Positive (Negative) A 10/21/24 18:24 Ur Leukocyte Esterase 3+ (Negative) H 10/21/24 18:24 Urine WBC (Auto) >50 /hpf (0-5) H 10/21/24 18:24 Urine RBC (Auto) 3-5 /hpf (0-2) H 10/21/24 18:24 U Hyaline Cast (Auto) 6-10 /lpf (0-2) H 10/21/24 18:24 U Epithel Cells (Auto) 3-5 /hpf (0-2) H 10/21/24 18:24 Urine Bacteria (Auto) 4+ (None Seen) H 10/21/24 18:24 Blood Type A Positive 10/23/24 13:51 Antibody Screen NEGATIVE 10/23/24 13:51 10/21/24 18:24 Urine Culture - Final Urine,Straight Cath Pseudomonas aeruginosa Electrocardiogram Findings: + AFIB @ Echocardiogram EF: 55% Severe pulmonary HTN >60
[2024-10-24] MEDS ORDERED: PROPOFOL IV EMULSION 10 MG/ML 100 ML VIAL IV ONE ×2 (11:44→14:55)
[2024-10-24] MEDS ORDERED: PHENYLEPHRINE HCL 10 MG/ML VIAL ONE (11:49)
[2024-10-24] MEDS ORDERED: ACETAMINOPHEN 1000 MG/100 ML IV IV ONE (12:01)
[2024-10-24] MEDS ORDERED: PROMETHAZINE HCL 6.25 MG in SODIUM CHLORIDE 0.9% 50 ML IV PRN (12:08)
[2024-10-24] MEDS ORDERED: ATROPINE SULFATE 0.1 MG/ML 10ML SYR IV PRN (12:08)
[2024-10-24] MEDS ORDERED: HYDROmorphone INJ 1 MG/ML SYRINGE IV PRN (12:08)
[2024-10-24] MEDS ORDERED: LIDOCAINE 2% MPF LOCAL 5 ML VIAL ONE (12:10)
[2024-10-24] MEDS ORDERED: Nursing to Pharmacy Communication SCH (12:15)
--- NOTE | 2024-10-24 12:21 | Orthopedic Progress Note ---
Date of Service October 24, 2024 Assessment & Plan (1) Fracture dislocation of left ankle: Plan: Proceed to the operating room today. Surgical site is already been marked. Informed consent is signed. Plan to readmit to the hospitalist team after surgery. Continue nonweightbearing left lower extremity. Admission and Anticipated Discharge Date Admission Date: October 21, 2024 Subjective Patient seen this morning in the preop holding area. She is accompanied by her daughter. She has been n.p.o. since midnight last night. Mental status is at baseline. Denies any problems with the splint. Physical Exam Physical Exam: On exam she is still hard of hearing having to read lips to communicate. Exposed toes are warm and well-perfused. Splint clean dry and intact. Results & Data Vital Signs (Past 12 Hours) Vital Signs Temp Pulse Pulse Pulse Resp BP Pulse Ox 10/24/24 11:45 37.3 C 92 H 18 92 10/24/24 08:00 94 H 10/24/24 07:53 37.3 C 100 H 21 154/88 H 92 10/24/24 03:09 36.6 C 76 20 145/110 H 92 10/24/24 02:10 86 O2 Del Method 10/24/24 11:45 Room Air 10/24/24 08:00 10/24/24 07:53 Room Air 10/24/24 03:09 Room Air 10/24/24 02:10
[2024-10-24] MEDS ORDERED: PHENYLEPHRINE 100MCG/ML 5ML SYR ONE (13:39)
[2024-10-24] MEDS ORDERED: ONDANSETRON INJ 2 MG/ML 2 ML VIAL ONE (13:52)
[2024-10-24] MEDS ORDERED: DEXAMETHASONE SOD INJ 4 MG/ML VIAL ONE (13:52)
[2024-10-24] MEDS ORDERED: ceFAZolin 330 MG/ML 1 GM VIAL ONE (15:20)
[2024-10-24] MEDS ORDERED: SUGAMMADEX SODIUM 200 MG/2 ML VIAL IV ONE (15:44)
--- NOTE | 2024-10-24 16:02 | Fluoroscopy Report ---
FL ankle LT min 3V RTN CLINICAL HISTORY: LEFT ORIF ANKLEacute fracture left ankle COMPARISON STUDY: CT 10/21/2024 FLUOROSCOPY TIME: 87.7 seconds FLUOROSCOPY IMAGES: 3 EXPOSURE DOSE: 2.49 mGy FINDINGS: Lateral plate and screw fusion of the distal fibula with cannulated screws of the medial ma lleolus. Evidence of syndesmotic repair. Alignment satisfactory. Expected postoperative soft tissue s welling with deep tissue air. No unexpected opaque foreign bodies. IMPRESSION: Fluoroscopic assistance as above. ACT 112: Negative or not required by law. Electronically signed by: Hector Ken M.D. 10/24/2024 4:01 PM
--- NOTE | 2024-10-24 16:11 | Operative Report ---
Post Operative Report Pre & Post Diagnosis Operation Date: 10/24/24 12:30 Pre-Op Diagnosis: trimalleolar Left ankle fracture dislocation with syndesmosis disruption, osteoporosis Post-Op Diagnosis: trimalleolar Left ankle fracture dislocation with syndesmosis disruption, osteoporosis I identified the patient and participated in the time-out.: Yes Procedure Operation Date: 10/24/24 12:30 Actual Procedures p Open Reduction Internal Fixation left ankle trimalleolar fracture, syndismosis stabilization. 22 modifier should be added to the ankle fracture CPT code secondary to the patient's poor bone quality from osteoporosis requiring additional hardware, time and difficulty for the case (Left) - Konrad Miramontes MD Surgeon Konrad Miramontes MD Talent Acquisition Relationship Manager Christian Tomlinson DO Estimated Blood Loss 25 Findings Consistent with Post-Op Diagnosis Specimens None Anesthesia Type General Regional Complications none Disposition Disposition: Recovery Room Indications 89-year-old female with medical history significant for pulmonary hypertension, atrial fibrillation, frequent urinary tract infections, diabetes, dizziness with syncopal events, and osteoporosis, got dizzy and fell on Wednesday, October 21, 2024. She had immediate onset of pain and deformity in her left ankle. She was brought to the emergency room where x-rays demonstrated a left ankle fracture dislocation. I was consulted and performed a closed reduction of the splint application in the emergency room. CT scan was obtained after the reduction which showed a comminuted Jackson C fibula fracture, syndesmosis widening, medial malleolus fracture, and a small posterior malleolus fracture. She is admitted to the internal medicine service where she elevated her leg. She is found to have a urinary tract infection with Pseudomonas and has been on cefepime. I had a long discussion with the patient and her family members about her diagnosis. I explained this is an unstable pattern injury, therefore surgery is the recommended treatment. They understood that she is at high risk for surgical complications secondary to her multiple medical comorbidities as well as her poor bone quality with osteoporosis. After reviewing the risks and benefits of surgery, alternatives to surgery, and expected outcomes she and her family elected to proceed with surgery. All questions were answered. Informed consent was signed. Description of Procedure Patient was identified in the preoperative holding area where surgical site was marked. She was given a block by anesthesia then brought back to the operating room where she moved onto the operating room table and general anesthesia was administered. She was moved into a sloppy lateral position with a beanbag. Left arm was carefully folded across her chest and padded. All bony prominences were padded. Perioperative antibiotics were administered. We did not administer tranexamic acid secondary to atrial fibrillation. She was prepped and draped in the usual sterile fashion. Prior to incision a multidisciplinary timeout was called. All in room were in agreement. I began by making a 12 cm long incision starting at the tip of the distal fibula and extending proximally. I dissected down to the subcutaneous tissues. Hematoma from the fracture was encountered and was evacuated. Branches of the superficial peroneal nerve were identified crossing over the top of the fibula. These were dissected out and protected throughout the case. The fracture was then exposed subperiosteally along its anterior lateral and posterior margins so we could visualize the fractured edges. Tried to leave as much of the fracture hematoma with the biologic healing elements already in place. Fluoroscopy was brought in and we were able to obtain a closed reduction by pulling on the fibula to bring it out to length and inverting the ankle. However it was quite unstable. An Arthrex 10 hole one third tubular plate was then brought up onto the surgical field. This was slid underneath the peroneal nerve branches and secured proximally and distally with BB tacks. To compress the plate to the bone I elected to use a large periarticular clamp. A small stab incision was made at the appropriate location along the medial aspect of the tibia and 1 wilda of the clamp was placed down on the tibia after the soft tissues were spread to avoid the saphenous vein and nerve. The other wilda of the clamp was placed over the plate and was used to compress the plate to the bone. Again we checked our reduction with fluoroscopy and it was still a little bit unstable if we were not holding the ankle into varus. Therefore elected to pin the medial malleolus fracture. This was closed reduced by holding the ankle in varus. I then inserted 2 K wires into the medial malleolus and up into the distal tibia. This held the reduction nicely. Next, we began by placing a 3.5 mm cortical screw to pull the plate to the bone. This was done through the fourth hole from the top of the plate. As we are trying to place a screw unfortunately the fibula broke through the screw hole because of her poor bone quality. Therefore the screw was removed. I then placed a lion-jaw clamp around the fibula and the plate to hold it in close approximation. The proximal 3 screw holes were then filled with 3.5 mm locking screws. This gave us good fixation proximally. Next, the plate was secured distally using 3.5 mm locking screws. These were drilled unit cortically to the far cortex, measured and placed so as to not violate the ankle joint. I then made small stab incisions next to the K wires going into her medial malleolus. I placed a 55 mm partially-threaded cancellous screw anteriorly and a 60 mm partially threaded cancellous screw posteriorly. This was done without drilling the bone so as to improve fixation. The clamp was then removed and there is syndesmosis widened indicating instability of the syndesmosis. Therefore fixation was indicated. Because of her poor bone quality elected to place 2 tight ropes instead of 1. The first 1 was placed distally. We had to aim this slightly posterior to the medial malleolus screws so as to avoid them. We partially tightened this 1 down. A second tight rope was placed anterior to the screws. I then carefully tensioned down the tight ropes without over tensioning them so as to not risk fracturing the medial tibia. The large clamp was then removed. I was happy with our syndesmosis reduction. The placement of the hardware and the screw lengths were all appropriate. The fibular fracture reduction was perhaps a couple millimeters short and with slight anterior angulation, however your this was felt to be acceptable given the patient's low demand and poor bone quality. Wounds were then irrigated out with copious amounts normal saline and began to close. The deep dermis was closed with 2-0 Vicryl sutures in buried fashion. The skin was closed with 3 oh nylons in horizontal mattress fashion for the lateral incision and simple sutures for the 3 stab incisions in the medial aspect of the ankle. Sterile dressings were applied. She was placed into a well-padded posterior and U plaster slab splint. She was then carefully rolled onto her back on the hospital bed, extubated, and transferred to the recovery room in stable condition. Postoperative course: Patient will be readmitted to the internal medicine service. She will elevate her leg. She will be nonweightbearing for the next 6 weeks. Given her medical comorbidities she is probably safe to only transfer from bed to chair. Should use a wheelchair to move around otherwise. DVT prophylaxis per the internal medicine service. Upon discharge from the hospital she can follow-up with orthopedics 2 weeks from the date of surgery as an outpatient. Plan will be to remove her splint 2 weeks from now, remove her sutures and transition her to a short leg nonweightbearing fiberglass cast for the subsequent 4 weeks. I attest to the content of the Intraoperative Record and any orders documented therein. Any exceptions are noted below.
--- NOTE | 2024-10-24 16:18 | Operative Report ---
Post Operative Report Pre & Post Diagnosis Operation Date: 10/24/24 12:30 Pre-Op Diagnosis: trimalleolar Left ankle fracture dislocation with syndesmosis disruption, osteoporosis Post-Op Diagnosis: trimalleolar Left ankle fracture dislocation with syndesmosis disruption, osteoporosis I identified the patient and participated in the time-out.: Yes Procedure Operation Date: 10/24/24 12:30 Actual Procedures Open Reduction Internal Fixation left ankle trimalleolar fracture, syndismosis stabilization. Surgeon Konrad Miramontes MD Network Project Manager Christian Tomlinson DO Estimated Blood Loss 25 Findings Consistent with Post-Op Diagnosis Specimens None Description of Procedure Patient was brought to the operative suite where she underwent anesthesia. Left lower extremity was prepped and draped in the usual sterile fashion. Surgical timeout was performed. Patient underwent a left ankle open reduction internal fixation as well as syndesmosis stabilization. Please see Dr. Miramontes's operative report for full details. I was present and assisted with patient positioning, limb positioning, soft tissue retraction, hemostasis, hardware implantation, wound closure, postoperative dressing and splint placement. Patient was taken to the recovery room in stable condition. I attest to the content of the Intraoperative Record and any orders documented therein. Any exceptions are noted below.
--- NOTE | 2024-10-24 16:44 | Anesthesiology Progress Note ---
Date of Service October 24, 2024 Anesthesia Post Procedure Vital Signs Vital Signs: Temp Pulse Pulse Pulse Resp BP Pulse Ox 10/24/24 16:35 36.6 C 70 20 134/71 92 10/24/24 16:25 72 16 139/74 98 10/24/24 16:15 92 H 20 138/89 99 10/24/24 16:05 36 C L 74 16 148/79 H 96 10/24/24 11:45 37.3 C 92 H 18 92 10/24/24 08:00 94 H 10/24/24 07:53 37.3 C 100 H 21 154/88 H 92 10/24/24 03:09 36.6 C 76 20 145/110 H 92 10/24/24 02:10 86 10/24/24 00:07 10/23/24 23:31 36.7 C 83 20 140/93 93 10/23/24 23:00 10/23/24 19:21 36.8 C 89 19 148/96 H 94 Pulse Ox O2 Del Method O2 Del Method O2 Flow Rate 10/24/24 16:35 Nasal Cannula 3 10/24/24 16:25 Oxymask 4 10/24/24 16:15 Oxymask 6 10/24/24 16:05 Oxymask 6 10/24/24 11:45 Room Air 10/24/24 08:00 10/24/24 07:53 Room Air 10/24/24 03:09 Room Air 10/24/24 02:10 10/24/24 00:07 Room Air 10/23/24 23:31 Room Air 10/23/24 23:00 93 Room Air 10/23/24 19:21 Room Air Pain Intensity Left Ankle: Pain Intensity: 6 Transfer of Care Handoff Completed per policy Notes Mental Status: alert / awake / arousable Patient Amnestic to Procedure: Yes Nausea / Vomiting: adequately controlled Pain: adequately controlled Airway Patency, RR, SpO2: stable & adequate BP & HR: stable & adequate Hydration State: stable & adequate Anesthetic Complications: no major complications apparent
--- NOTE | 2024-10-24 17:27 | XRay Report ---
3 views of the left ankle are submitted for review. Comparison is made to the prior examination dated 10/21/2024 Findings: Cast material is in place, and obscured fine bony detail. There is new internal fixation of the medial malleolus with fixation screws. There is new internal fixation of the distal fibular shaft with a fixation plate and screws. The fracture fragments are now in near anatomic alignment. No significant arthritic changes are noted. No other osseous abnormality is identified. There are no radiopaque foreign bodies. Impression: New internal fixation of the previously seen fractures of the distal left tibia and fibula Electronically signed by Manny Hartley 10-24-2024 5:27 PM
[2024-10-24] MEDS: ASPIRIN 81 MG ECTAB PO SCH (22:11)
[2024-10-25 08:04] LABS: Hematocrit (blood only) 32.7 % (37.0-47.0); Hemoglobin 10.8 g/dl (12.0-16.0); Mean Corpuscular Hemoglobin 30.3 pg (25.0-34.0); Mean Corpuscular Volume 91.9 fL (80.0-100.0); Platelet Count 223 K/uL (130-400); RDW Standard Deviation 46.5 fL (36.4-46.3); Red Blood Count 3.56 M/uL (4.20-5.40); White Blood Count 10.41 K/ul (4.8-10.8)
[2024-10-25 08:28] LABS: Anion Gap 6.0 (3-11); Blood Urea Nitrogen 32.0 mg/dl (6-23); Calcium 9.1 mg/dl (8.6-10.3); Carbon Dioxide 27.0 mmol/L (21-32); Chloride 104.0 mmol/L (98-107); Creatinine Clr Calc Pharmacy 66.0 ml/min; Glucose 140.0 mg/dl (70-99(Fasting)); Potassium 4.3 mmol/L (3.5-5.1); Sodium 137.0 mmol/L (136-145)
[2024-10-25] MEDS: POTASSIUM CHLORIDE CRTAB 20 MEQ TABCR PO SCH (09:31)
--- NOTE | 2024-10-25 09:37 | Orthopedic Progress Note ---
Date of Service October 25, 2024 Assessment & Plan (1) Fracture dislocation of left ankle: Plan: Postop day #1 status post ORIF left ankle trimalleolar fracture, syndesmosis stabilization with Dr. Miramontes. Patient seems to be doing well. She has no pain currently. She is able to wiggle her toes and can feel me touching her toes. Splint seems to be fitting well. She is conversational this morning. Explained surgery to her. On 1 L of oxygen. Vitals are stable. Labs stable. Continue elevating the leg and icing. Nonweightbearing on the left lower extremity for the next 6 weeks. Should only transfer from bed to chair and use a wheelchair for stability. DVT prophylaxis per primary medicine service. 2-week follow-up appointment in our office is scheduled. Admission and Anticipated Discharge Date Admission Date: October 21, 2024 Subjective Patient seen in bed this morning. She was initially sleeping but is awake now. She has no pain in the left lower extremity. No chest pain or shortness of breath. Physical Exam Constitutional: Resting comfortably in bed. In no distress. Answers questions and asks questions appropriately. Cardiovascular: Capillary refill less than 2 seconds in left toes. Toes are warm to touch. Musculoskeletal: Left lower extremity: Splint is in place, intact, appears to be well-fitting. Patient is able to wiggle all toes. Neurologic: Patient can feel me touching left toes Results & Data Vital Signs (Past 12 Hours) Vital Signs Temp Pulse Pulse Resp BP Pulse Ox O2 Del Method 10/25/24 08:20 97.9 F 96 H 14 145/90 H 98 Nasal Cannula 10/25/24 04:03 97.7 F 88 18 136/92 97 Room Air 10/25/24 00:07 98.1 F 83 16 146/103 H 98 Nasal Cannula 10/24/24 23:46 100 H 10/24/24 21:33 Room Air O2 Flow Rate 10/25/24 08:20 1 10/25/24 04:03 10/25/24 00:07 1 10/24/24 23:46 10/24/24 21:33 Diagnostic Findings Ankle X-Ray 10/24/24 00:00 FL ankle LT min 3V RTN CLINICAL HISTORY: LEFT ORIF ANKLEacute fracture left ankle COMPARISON STUDY: CT 10/21/2024 FLUOROSCOPY TIME: 87.7 seconds FLUOROSCOPY IMAGES: 3 EXPOSURE DOSE: 2.49 mGy FINDINGS: Lateral plate and screw fusion of the distal fibula with cannulated screws of the medial malleolus. Evidence of syndesmotic repair. Alignment satisfactory. Expected postoperative soft tissue swelling with deep tissue air. No unexpected opaque foreign bodies. IMPRESSION: Fluoroscopic assistance as above. ACT 112: Negative or not required by law. Electronically signed by: Hector Ken M.D. 10/24/2024 4:01 PM Ankle X-Ray 10/24/24 16:19 3 views of the left ankle are submitted for review. Comparison is made to the prior examination dated 10/21/2024 Findings: Cast material is in place, and obscured fine bony detail. There is new internal fixation of the medial malleolus with fixation screws. There is new internal fixation of the distal fibular shaft with a fixation plate and screws. The fracture fragments are now in near anatomic alignment. No significant arthritic changes are noted. No other osseous abnormality is identified. There are no radiopaque foreign bodies. Impression: New internal fixation of the previously seen fractures of the distal left tibia and fibula Electronically signed by Manny Hartley 10-24-2024 5:27 PM
--- NOTE | 2024-10-25 17:28 | Hospitalist Progress Note ---
"Date of Service October 25, 2024 Assessment & Plan (1) Fracture dislocation of left ankle: (2) Chronic diastolic (congestive) heart failure: (3) Permanent atrial fibrillation: (4) Fall: (5) Dizziness: Plan Patient is an 89-year-old female with past medical history of A-fib no anticoag ulation given history of GI bleed and significant anemia when on anticoagulation, diastolic CHF, GERD, hypertension, type II DM, hypothyroidism, breast cancer. Presents after a fall at home resulting in left ankle Fracture and dislocation. Reduced in the emergency department. Found to have Pseudomonas UTI present on admission. Has metabolic encephalopathy and delerium at times. Patient's cardiopulmonary status has been risk optimized and it was communicated to orthopedics that she will likely be able to safely have surgery on 10/24/24, family feels she has not improved after september admission for tia #Left ankle fracture/dislocation/Age-related osteoporosis with current pathologic fracture, left ankle Closed reduction of the the dislocation was performed in the ER Orthopedics consulted, surgical correction of fracture dislocation left ankle, corrective surgery 10/24/2024 Chris continues Pain control: tylenol prn, prn oxycodone, prn diluadid IV when NPO #acute on chronic HFpEF/diastolic heart failure - Follows with [facility] Cardiology, stable on reduced medicines at this time Chest x-ray with cardiomegaly and mild pulmonary edema, BNP was elevated, . Lasix 40 mg IV x 1. replete hypokalemia and augment magnesium Entresto held - per prior cardiology note (11/2022), entresto started bc it was on formulary and cheaper than arb. No hx of depressed EF Echo 10/22/24 shows normal EF no RWMA Severe pulmonary htn, small pericardial effusion without physiologic affect #Fall/near syncope | HTN | Afib Recently had her diltiazem increased to 180 mg twice daily and labetalol 100 mg twice daily added at last dischargesuspect a component of orthostatic hypotension improved with reduction of diltiazem to once a day and dc labetalol and entresto repeat Ct head 10/23 without stroke or sdh sah #Frequent UTI/metabolic encephalopathy Patient found of Pseudomonas UTI initiating cefepime therapy holding methenamine Greatly improved delirium with thiamine #Hyperthyroidism - continue methimazole, TSH WNL. #hx of possible TIA - although felt more likely from a UTI. repeat CT Continue statin hold Eliquis. resume 10/25 if no bleeding DVT proh: SCDs, surgery is chosen aspirin twice daily for DVT prevention Admission and Anticipated Discharge Date Admission Date: October 21, 2024 Subjective Patient was seen in the company of her son she is actually much more awake and alert and speaking in full sentences making sense. She has some pain in her left ankle but it is controlled with opiates both parenteral and orally discussion of possibility of transition to subacute rehab Physical Exam Physical Exam: Patient is awake and conversant today speech much more clearly. Cardiac regular, lungs are clear cast on leg, good cap refill to toes Results & Data Results & Data Vital Signs (Past 12 Hours) Vital Signs Temp Pulse Pulse Resp BP Pulse Ox O2 Del Method 10/25/24 15:37 97.7 F 72 18 129/74 93 Room Air 10/25/24 15:03 59 L 10/25/24 13:20 Nasal Cannula 10/25/24 12:03 97.7 F 108 H 19 130/84 92 Room Air 10/25/24 08:20 97.9 F 96 H 14 145/90 H 98 Nasal Cannula 10/25/24 08:00 85 10/25/24 08:00 Nasal Cannula O2 Flow Rate 10/25/24 15:37 10/25/24 15:03 10/25/24 13:20 1 10/25/24 12:03 10/25/24 08:20 1 10/25/24 08:00 10/25/24 08:00 1 Laboratory Results Reviewed CBC reviewed chemistry Transfer of care all orders and medications were reviewed and validated prior to transfer PG Care Time/CCT Total # of Minutes Spent Total Time Spent with Patient: Total time spent is greater than 50% in coordination of care (as documented) at patient's floor/unit and/or counseling patient: Coding Level of Care Code 36644 SUB INP/OBS CARE 3/50MIN Diagnoses Fracture dislocation of left ankle S82.892A Chronic diastolic (congestive) heart failure I50.32 Permanent atrial fibrillation I48.21 Fall W19.XXXA Dizziness R42"
--- NOTE | 2024-10-26 08:02 | Hospitalist Progress Note ---
"Date of Service October 26, 2024 Assessment & Plan (1) Fracture dislocation of left ankle: (2) Chronic diastolic (congestive) heart failure: (3) Permanent atrial fibrillation: (4) Fall: (5) Dizziness: Plan Patient is an 89-year-old female with past medical history of A-fib no anticoa gulation given history of GI bleed and significant anemia when on anticoagulation, diastolic CHF, GERD, hypertension, type II DM, hypothyroidism, breast cancer. Presents after a fall at home resulting in left ankle Fracture and dislocation. Reduced in the emergency department. Found to have Pseudomonas UTI present on admission. Has metabolic encephalopathy and delerium at times. Patient's cardiopulmonary status has been risk optimized and it was communicated to orthopedics that she will likely be able to safely have surgery on 10/24/24, family feels she has not improved after september admission for tia #Left ankle fracture/dislocation/Age-related osteoporosis with current pathologic fracture, left ankle Closed reduction of the the dislocation was performed in the ER Orthopedics consulted, surgical correction of fracture dislocation left ankle, corrective surgery 10/24/2024 Sutton continues, snf wishes for sutton removal prior to transition Pain control: tylenol prn, prn oxycodone, prn diluadid IV #acute on chronic HFpEF/diastolic heart failure - Follows with [facility] Cardiology, stable on reduced medicines at this time Chest x-ray with cardiomegaly and mild pulmonary edema, BNP was elevated, . Lasix 40 mg IV x 1. replete hypokalemia and augment magnesium Entresto held - per prior cardiology note (11/2022), entresto started bc it was on formulary and cheaper than arb. No hx of depressed EF Echo 10/22/24 shows normal EF no RWMA Severe pulmonary htn, small pericardial effusion without physiologic affect #Fall/near syncope | HTN | Afib Recently had her diltiazem increased to 180 mg twice daily and labetalol 100 mg twice daily added at last dischargesuspect a component of orthostatic hypotension improved with reduction of diltiazem to once a day and dc labetalol and entresto repeat Ct head 10/23 without stroke or sdh sah #Frequent UTI/metabolic encephalopathy Patient found of Pseudomonas UTI initiating cefepime therapy holding methenamine Greatly improved delirium with thiamine #Hyperthyroidism - continue methimazole, TSH WNL. #hx of possible TIA - although felt more likely from a UTI. repeat CT Continue statin hold Eliquis. resume 10/25 if no bleeding DVT proh: SCDs, surgery is chosen aspirin twice daily for DVT prevention if approved and appropriate maybe snf on 10/27/24 Admission and Anticipated Discharge Date Admission Date: October 21, 2024 Subjective pt continues to improve, has no focal issues outside of ankle pain from site Physical Exam Physical Exam: Patient is awake and conversant today speech much more clearly. Cardiac regular, lungs are clear cast on leg, good cap refill to toes Results & Data Results & Data Vital Signs (Past 12 Hours) Vital Signs Temp Pulse Pulse Resp BP Pulse Ox O2 Del Method 10/26/24 07:57 97.7 F 125 H 16 156/83 H 97 Room Air 10/26/24 03:50 97.9 F 107 H 18 165/86 H 96 Room Air 10/25/24 23:25 97.5 F L 105 H 18 164/85 H 94 Room Air 10/25/24 22:46 Room Air PG Care Time/CCT Total # of Minutes Spent Total Time Spent with Patient: Total time spent is greater than 50% in coordination of care (as documented) at patient's floor/unit and/or counseling patient: Coding Level of Care Code 20753 SUB INP/OBS CARE 2/35MIN Diagnoses Fracture dislocation of left ankle S82.892A Chronic diastolic (congestive) heart failure I50.32 Permanent atrial fibrillation I48.21 Fall W19.XXXA Dizziness R42"
[2024-10-26 08:21] LABS: Hematocrit (blood only) 33.1 % (37.0-47.0); Hemoglobin 10.4 g/dl (12.0-16.0); Mean Corpuscular Hemoglobin 28.9 pg (25.0-34.0); Mean Corpuscular Volume 91.9 fL (80.0-100.0); Platelet Count 258 K/uL (130-400); RDW Standard Deviation 46.9 fL (36.4-46.3); Red Blood Count 3.60 M/uL (4.20-5.40); White Blood Count 9.70 K/ul (4.8-10.8)
[2024-10-26 08:48] LABS: Anion Gap 5.0 (3-11); Calcium 8.9 mg/dl (8.6-10.3); Carbon Dioxide 26.0 mmol/L (21-32); Chloride 104.0 mmol/L (98-107); Potassium 4.3 mmol/L (3.5-5.1); Sodium 135.0 mmol/L (136-145)
--- NOTE | 2024-10-26 08:49 | Orthopedic Progress Note ---
Date of Service October 26, 2024 Assessment & Plan (1) Fracture dislocation of left ankle: Plan: Postop day #2 status post ORIF left ankle trimalleolar fracture, syndesmosis stabilization with Dr. Miramontes. Splint clean dry and intact. Perez in place, would recommended removing as soon as she is able. Continue elevating the leg and icing. Nonweightbearing on the left lower extremity for the next 6 weeks. Should only transfer from bed to chair and use a wheelchair for stability. PT/OT as ordered Case management as disposition. DVT prophylaxis per primary medicine service. Follow up as scheduled at approximately 2 weeks after surgery. Admission and Anticipated Discharge Date Admission Date: October 21, 2024 Subjective Doing well. Sitting up in bed. Just had some breakfast but states she "was not feeling it today". Denies pain in her left ankle. Physical Exam Musculoskeletal: Exam of her left lower extremity: Splint is clean, dry and intact. Skin is intact around the splint edges. No skin abrasions noted. She is able to actively wiggle her toes. Capillary refill is less than 2 seconds. She is able to independently lift her leg off the bed. Trace effusion to left knee. No warmth or erythema. The left knee is nontender. She tolerates gentle flexion of the knee 40 to 50 degrees. Exam of the right lower extremity: Right leg is not edematous. She does have a small abrasion on the medial side of her ankle over the medial malleolus. There is no active drainage. No surrounding erythema. Is nontender to palpation. Full ankle range of motion with normal strength in the right ankle. Results & Data Vital Signs (Past 12 Hours) Vital Signs Temp Pulse Pulse Resp BP Pulse Ox O2 Del Method 10/26/24 07:57 36.5 C 125 H 16 156/83 H 97 Room Air 10/26/24 03:50 36.6 C 107 H 18 165/86 H 96 Room Air 10/25/24 23:25 36.4 C L 105 H 18 164/85 H 94 Room Air 10/25/24 22:46 Room Air
[2024-10-26 08:53] LABS: Blood Urea Nitrogen 43.0 mg/dl (6-23); Creatinine Clr Calc Pharmacy 54.5 ml/min; Glucose 116.0 mg/dl (70-99(Fasting))
[2024-10-26] MEDS: POLYETHYLENE (MIRALAX) 17 GM PACK PO PRN (15:31)
[2024-10-26 21:21] LABS: Base Excess VBG 3.9 mEq/L; HCO3 VBG 29 mmol/L; Oxygen Saturation VBG < 60.0 %; PCO2 VBG 42 mmHg (38-50); PO2 VBG 31 mmHg; pH VBG 7.44 (7.36-7.41)
[2024-10-26] MEDS: FUROSEMIDE INJ 20 MG/2 ML VIAL IV ONE (21:21)
[2024-10-26 21:24] LABS: Hematocrit (blood only) 37.0 % (37.0-47.0); Hemoglobin 11.7 g/dl (12.0-16.0); Immature Granulocytes # (auto) 0.04 K/uL (0.01-0.20); Immature Granulocytes % (auto) 0.3 %; Mean Corpuscular Hemoglobin 29.0 pg (25.0-34.0); Mean Corpuscular Volume 91.6 fL (80.0-100.0); Platelet Count 287 K/uL (130-400); RDW Standard Deviation 46.9 fL (36.4-46.3); Red Blood Count 4.04 M/uL (4.20-5.40); White Blood Count 13.80 K/ul (4.8-10.8)
[2024-10-26] MEDS: ACETAMINOPHEN 1,000 MG/100 ML VIAL IV STA (21:25)
[2024-10-26 21:41] LABS: Anion Gap 7.0 (3-11); Blood Urea Nitrogen 35.0 mg/dl (6-23); Calcium 9.4 mg/dl (8.6-10.3); Carbon Dioxide 26.0 mmol/L (21-32); Chloride 103.0 mmol/L (98-107); Creatinine Clr Calc Pharmacy 52.0 ml/min; Glucose 152.0 mg/dl (70-99(Fasting)); Magnesium 2.0 mg/dl (1.7-2.4); Potassium 4.4 mmol/L (3.5-5.1); Sodium 136.0 mmol/L (136-145)
--- NOTE | 2024-10-26 21:41 | XRay Report ---
Exam(s): XR CXR 1 VIEW EXAM: XR Chest, 1 View CLINICAL HISTORY: Reason for exam: hypoxia. TECHNIQUE: Frontal view of the chest. COMPARISON: 10/21/2024 FINDINGS: Lungs: Mild right basilar opacities, similar to prior, favored atelectasis. Pleural space: No pneumothorax. Heart: Stable cardiomegaly. Bones/joints: No acute fracture. No dislocation. Upper abdomen: Silhouetting of the left hemidiaphragm as on prior exam. IMPRESSION: 1. Mild right basilar opacities, similar to prior, favored atelectasis. 2. Stable cardiomegaly. 3. Silhouetting of the left hemidiaphragm as on prior exam. Airspace disease or pleural effusion can not be excluded. Electronically signed by: Queta Toro M.D. 10/26/24 21:39 PM
[2024-10-27 07:28] VITALS: RESP 18; O2SAT 98
--- NOTE | 2024-10-27 08:42 | Electrocardiogram Report ---
Test Reason : Blood Pressure : */* mmHG Vent. Rate : 102 BPM Atrial Rate : 66 BPM P-R Int : * ms QRS Dur : 96 ms QT Int : 306 ms P-R-T Axes : * -14 -1 degrees QTcB Int : 398 ms Poor data quality, interpretation may be adversely affected Atrial fibrillation with rapid ventricular response Low voltage QRS Abnormal ECG When compared with ECG of 21-Oct-2024 13:12, Vent. rate has increased by 52 bpm Nonspecific T wave abnormality has replaced inverted T waves in Lateral leads QT has shortened Confirmed by Santy Alejandra ([id number]) on 10/27/2024 8:42:15 AM Referred By: REFERRED SELF Confirmed By: Santy Alejandra
--- NOTE | 2024-10-27 08:45 | Orthopedic Progress Note ---
Date of Service October 27, 2024 Assessment & Plan (1) Fracture dislocation of left ankle: Plan: Postop day #3 status post ORIF left ankle trimalleolar fracture, syndesmosis stabilization with Dr. Miramontes. Splint clean dry and intact. Perez in place, would recommended removing as soon as she is able. Continue elevating the leg and icing. Nonweightbearing on the left lower extremity for the next 6 weeks. Should only transfer from bed to chair and use a wheelchair for stability. PT/OT as ordered Case management as disposition. Patient lives at home with her but will most likely need to go to either rehab or care home facility. DVT prophylaxis per primary medicine service. Follow up as scheduled at approximately 2 weeks after surgery. Admission and Anticipated Discharge Date Admission Date: October 21, 2024 Subjective This 89-year-old female is day 3 status post left ankle fracture open reduction internal fixation. Patient states that her pain is well-controlled with the p.o. pain medication. She states that the splints feels okay but slightly heavy. Currently she denies chest pain, shortness of breath, nausea or vomiting. She still has her Perez catheter in place. She understands that she is to be nonweightbearing on the left lower extremity for the next 6 weeks. Review of Systems Review of Systems: All systems reviewed & are unremarkable except as noted in Subjective Physical Exam Physical Exam: Left lower extremity: Patient is able to perform active straight leg raise test. She is able to move her digits without issue. She is able to detect light sensation intact over the pads of all digits. There is no rubbing or skin breakdown from the splint edges distally or proximally. Patient also only tolerates passive knee flexion to about 50 degrees. She is neurovascularly intact. Results & Data Vital Signs (Past 12 Hours) Vital Signs Temp Pulse Pulse Resp BP Pulse Ox O2 Del Method 10/27/24 07:27 36.6 C 60 18 101/66 98 Nasal Cannula 10/27/24 03:34 36.5 C 61 20 143/95 H 93 Nasal Cannula 10/26/24 23:00 Nasal Cannula 10/26/24 22:58 36.3 C L 109 H 22 143/92 H 96 Nasal Cannula 10/26/24 22:56 116 H 10/26/24 21:30 Nasal Cannula O2 Flow Rate 10/27/24 07:27 1 10/27/24 03:34 2 10/26/24 23:00 2 10/26/24 22:58 2 10/26/24 22:56 10/26/24 21:30 2 Diagnostic Findings Laboratory Results WBC 13.80 K/ul (4.8-10.8) H 10/26/24 21:11 RBC 4.04 M/uL (4.20-5.40) L 10/26/24 21:11 Hgb 11.7 g/dl (12.0-16.0) L 10/26/24 21:11 Hct 37.0 % (37.0-47.0) 10/26/24 21:11 MCV 91.6 fL (80.0-100.0) 10/26/24 21: MCH 29.0 pg (25.0-34.0) 10/26/24 21: MCHC 31.6 g/dL (32.0-36.0) L 10/26/24 21:11 RDW Std Deviation 46.9 fL (36.4-46.3) H 10/26/24 21:11 RDW Coeff of Jeanna 13.9 % (11.5-14.5) 10/26/24 21: Plt Count 287 K/uL (130-400) 10/26/24 21:11 MPV 9.7 fL (9.4-12.4) 10/26/24 21:11 Immature Gran % (Auto) 0.3 % 10/26/24 21: Neut % (Auto) 86.5 % 10/26/24 21:11 Lymph % (Auto) 5.0 % 10/26/24 21:11 [place] % (Auto) 7.5 % 10/26/24 21:11 Eos % (Auto) 0.4 % 10/26/24 21:11 Baso % (Auto) 0.3 % 10/26/24 21:11 Neut # (Auto) 11.93 K/uL (1.40-6.50) H 10/26/24 21:11 Lymph # (Auto) 0.69 K/uL (1.20-3.40) L 10/26/24 21:11 [place] # (Auto) 1.04 K/uL (0.11-0.59) H 10/26/24 21:11 Eos # (Auto) 0.06 K/uL (0.00-0.50) 10/26/24 21:11 Baso # (Auto) 0.04 K/uL (0.00-0.20) 10/26/24 21:11 Immature Gran # (Auto) 0.04 K/uL (0.01-0.20) 10/26/24 21:11 PT 12.3 Seconds (9.0-12.0) H 10/21/24 13:26 INR 1.1 (0.9-1.1) 10/21/24 13:26 VBG pH 7.44 (7.36-7.41) H 10/26/24 21:11 VBG pCO2 42 mmHg (38-50) 10/26/24 21: VBG pO2 31 mmHg 10/26/24 21:11 VBG HCO3 29 mmol/L 10/26/24 21:11 VBG O2 Saturation < 60.0 % 10/26/24 21:11 VBG Base Excess 3.9 mEq/L 10/26/24 21:11 Sodium 136 mmol/L (136-145) 10/26/24 21:11 Potassium 4.4 mmol/L (3.5-5.1) 10/26/24 21: Chloride 103 mmol/L (98-107) 10/26/24 21:11 Carbon Dioxide 26 mmol/L (21-32) 10/26/24 21:11 Anion Gap 7 (3-11) 10/26/24 21:11 BUN 35 mg/dl (6-23) H 10/26/24 21: Creatinine 0.90 mg/dl (0.6-1.2) 10/26/24 21:11 Est Cr Clr Drug Dosing 52.0 ml/min 10/26/24 21:11 eGFR 61.11 10/26/24 21:11 BUN/Creatinine Ratio 38.9 (10-20) H 10/26/24 21:11 Glucose 152 mg/dl (70-99(Fasting)) H 10/26/24 21:11 POC Glucose 131 mg/dl (70-99) H 10/24/24 16:11 Calcium 9.4 mg/dl (8.6-10.3) 10/26/24 21: Magnesium 2.0 mg/dl (1.7-2.4) 10/26/24 21:11 Total Bilirubin 0.8 mg/dl (0.2-1.0) 10/21/24 13:26 AST 13 U/L (13-39) 10/21/24 13:26 ALT 11 U/L (7-52) 10/21/24 13:26 Alkaline Phosphatase 67 U/L (34-104) 10/21/24 13:26 Troponin I High Sens 12.9 pg/ml (0-14) 10/26/24 21:11 B-Natriuretic Peptide 163 pg/ml (0-100) H 10/26/24 21:11 Total Protein 6.3 gm/dl (6.0-8.3) 10/21/24 13:26 Albumin 4.1 gm/dl (3.4-5.0) 10/21/24 13:26 Globulin 2.2 gm/dl (2.5-4.0) L 10/21/24 13:26 Albumin/Globulin Ratio 1.9 (0.9-2) 10/21/24 13:26 Lipase 12 U/L (11-82) 10/21/24 13:26 TSH 4.452 uIu/ml (0.300-4.500) 10/21/24 13:26 Urine Color Yellow 10/21/24 18:24 Urine Appearance Turbid (Clear) A 10/21/24 18:24 Urine pH 5.5 (4.5-7.5) 10/21/24 18:24 Ur Specific Davidson 1.014 (1.000-1.030) 10/21/24 18:24 Urine Protein Negative (Negative) 10/21/24 18:24 Urine Glucose (UA) Negative (Negative) 10/21/24 18:24 Urine Ketones Trace (Negative) H 10/21/24 18:24 Urine Blood 2+ (Negative) H 10/21/24 18:24 Urine Nitrite Positive (Negative) A 10/21/24 18:24 Urine Bilirubin Negative (Negative) 10/21/24 18:24 Urine Urobilinogen Negative (Negative) 10/21/24 18:24 Ur Leukocyte Esterase 3+ (Negative) H 10/21/24 18:24 Urine WBC (Auto) >50 /hpf (0-5) H 10/21/24 18:24 Urine RBC (Auto) 3-5 /hpf (0-2) H 10/21/24 18:24 U Hyaline Cast (Auto) 6-10 /lpf (0-2) H 10/21/24 18:24 U Epithel Cells (Auto) 3-5 /hpf (0-2) H 10/21/24 18:24 Urine Bacteria (Auto) 4+ (None Seen) H 10/21/24 18:24 Calcium Oxalate Crystal Present (None Prsent) A 10/21/24 18:24 Urine Yeast Present (None Prsent) A 10/21/24 18:24 Urine Comment 10/21/24 18:24 Blood Type A Positive 10/23/24 13:51 Antibody Screen NEGATIVE 10/23/24 13:51 Impressions Pelvis X-Ray 10/21/24 13:53 Clinical History: Trauma One view of the pelvis is submitted for review. Comparison is made to the prior examination dated 09/20/2024 Findings: There is an unchanged right hip arthroplasty in expected position. There is no definite sign of infection or loosening. No clear fracture is seen. No other osseous abnormality is identified. There are no radiopaque foreign bodies. Impression: 1. No definite fracture 2. Unchanged right hip replacement Electronically signed by Manny Hartley 10-21-2024 3:[address] 10/21/24 15:50 CT LEFT ANKLE WITHOUT CONTRAST: HISTORY: Trauma TECHNIQUE: CT of the left ankle was obtained without intravenous contrast. Coronal and sagittal reformats were created. COMPARISON: Left ankle radiographs from earlier in the same day. FINDINGS: Acute traumatic comminuted fractures of the distal fibular shaft (Jackson type C) with anterior and medial angulation about the fracture. Moderately displaced acute traumatic fractures of the medial malleolus with inferolaterally and posteriorly displaced fragment impacting against the talus. Acute traumatic comminuted fractures of the posterior malleolus. The tibia is medially and anterirorly translated over the talus with widening of the medial clear space of the ankle mortise. Diffuse osteopenia limits evaluation for more subtle fractures. IMPRESSION: Acute traumatic fractures of the distal fibula (Jackson type C), the medial and the posterior malleoli. These fractures result in disruption of the syndesmosis with medial and anterior translation of the tibia with respect to the talus, widening of the distal tibiofibular interval and widening of the medial clear space of the ankle mortise. Electronically signed by Sam Edward 10-21-2024 7:[address] 10/23/24 14:59 CT head/brain wo con CLINICAL HISTORY: 89 years-old Female with eval for stroke or sdh/sah with fall. Acute head trauma TECHNIQUE: Multiple axial CT images of the head were obtained without contrast. A dose lowering technique was utilized adhering to the principles of ALARA. CT DOSE: 703.85 mGy.cm COMPARISON: Brain MRI 09/22/2023 FINDINGS: No acute intracranial hemorrhage, midline shift, intracranial mass, hydrocephalus, territorial ischemia or abnormal extra-axial collection. Involutional changes with chronic microvascular ischemic disease. The study is motion degraded. Cerebral vascular calcifications. The calvarium is intact. Prior bilateral lens repair. The paranasal sinuses, mastoid air cells, and middle ear cavities are clear. IMPRESSION: No acute intracranial abnormality or calvarial fracture. ACT 112: Negative or not required by law. The above report was generated using voice recognition software. It may contain grammatical, syntax or spelling errors. Electronically signed by: Hector Ken M.D. 10/23/2024 4:04 PM Ankle X-Ray 10/24/24 16:19 3 views of the left ankle are submitted for review. Comparison is made to the prior examination dated 10/21/2024 Findings: Cast material is in place, and obscured fine bony detail. There is new internal fixation of the medial malleolus with fixation screws. There is new internal fixation of the distal fibular shaft with a fixation plate and screws. The fracture fragments are now in near anatomic alignment. No significant arthritic changes are noted. No other osseous abnormality is identified. There are no radiopaque foreign bodies. Impression: New internal fixation of the previously seen fractures of the distal left tibia and fibula Electronically signed by Manny Hartley 10-24-2024 5:27 PM Chest X-Ray 10/26/24 20:55 Exam(s): XR CXR 1 VIEW EXAM: XR Chest, 1 View CLINICAL HISTORY: Reason for exam: hypoxia. TECHNIQUE: Frontal view of the chest. COMPARISON: 10/21/2024 FINDINGS: Lungs: Mild right basilar opacities, similar to prior, favored atelectasis. Pleural space: No pneumothorax. Heart: Stable cardiomegaly. Bones/joints: No acute fracture. No dislocation. Upper abdomen: Silhouetting of the left hemidiaphragm as on prior exam. IMPRESSION: 1. Mild right basilar opacities, similar to prior, favored atelectasis. 2. Stable cardiomegaly. 3. Silhouetting of the left hemidiaphragm as on prior exam. Airspace disease or pleural effusion can not be excluded. Electronically signed by: Queta Toro M.D. 10/26/24 21:39 PM
[2024-10-27 11:17] VITALS: BP 137/85; TEMP 98.2
[2024-10-27 14:51] VITALS: PULSE 105
--- NOTE | 2024-10-27 15:02 | Discharge Summary ---
"Discharge Summary Date of Service October 27, 2024 Principal Dx & Hospital Course #1 = Principal Diagnosis (1) Fracture dislocation of left ankle: (2) Chronic diastolic (congestive) heart failure: (3) Permanent atrial fibrillation: (4) Fall: (5) Dizziness: Plan Patient is an 89-year-old female with past medical history of A-fib no anticoagulation given history of GI bleed and significant anemia when on anticoagulation, diastolic CHF, GERD, hypertension, type II DM, hypothyroidism, breast cancer. Presents after a fall at home resulting in left ankle Fracture and dislocation. Reduced in the emergency department. Found to have Pseudomonas UTI present on admission. Has metabolic encephalopathy and delerium at times. Patient's cardiopulmonary status has been risk optimized and it was communicated to orthopedics that she will likely be able to safely have surgery on 10/24/24, family feels she has not improved after september admission for tia #Left ankle fracture/dislocation/Age-related osteoporosis with current pathologic fracture, left ankle Closed reduction of the the dislocation was performed in the ER Orthopedics consulted, surgical correction of fracture dislocation left ankle, corrective surgery 10/24/2024 Sutton continues, snf wishes for sutton removal prior to transition Pain control: tylenol prn, prn oxycodone, prn diluadid IV #acute on chronic HFpEF/diastolic heart failure - Follows with [facility] Cardiology, stable on reduced medicines at this time Chest x-ray with cardiomegaly and mild pulmonary edema, BNP was elevated, . Lasix 40 mg IV x 1. replete hypokalemia and augment magnesium Entresto held - per prior cardiology note (11/2022), entresto started bc it was on formulary and cheaper than arb. No hx of depressed EF Echo 10/22/24 shows normal EF no RWMA Severe pulmonary htn, small pericardial effusion without physiologic affect #Fall/near syncope | HTN | Afib Recently had her diltiazem increased to 180 mg twice daily and labetalol 100 mg twice daily added at last dischargesuspect a component of orthostatic hypotension improved with reduction of diltiazem to once a day and dc labetalol and entresto repeat Ct head 10/23 without stroke or sdh sah #Frequent UTI/metabolic encephalopathy Patient found of Pseudomonas UTI initiating cefepime therapy holding methenamine Greatly improved delirium with thiamine #Hyperthyroidism - continue methimazole, TSH WNL. #hx of possible TIA - although felt more likely from a UTI. repeat CT Continue statin hold Eliquis. resume 10/25 if no bleeding DVT proh: SCDs, surgery is chosen aspirin twice daily for DVT prevention if approved and appropriate maybe snf on 10/27/24 Admission HPI Per Admitting Provider Patient is an 89-year-old female with past medical history of A-fib no anticoagulation given history of GI bleed and significant anemia when on anticoagulation, diastolic CHF, GERD, hypertension, type II DM, hypothyroidism, breast cancer. presents today after a fall at home resulting in left ankle pain. Was just discharged from [facility] rehab 2 days ago. States since discharge from this facility and at [facility] she has been increasingly dizzy, especially position changes. Has had multiple near syncopal episodes. When she fell today she was also near syncopal, she denies loss of consciousness. She did not hit her head. She is currently on her last day of Macrobid for a UTI. She reports normal appetite, denies fevers chills cough or cold and congestion symptoms. patient reports that her left leg was having issues with swelling even prior to her fall today. reports that the long term was feeding her a lot more salt than what she normally eats Does have a history of A-fib, she is not on anticoagulation, history of GI bleed. Recently has had her Lasix increased from 20 mg 3 times a week to 40 mg daily, also had her diltiazem doubled to 180 mg twice a day and her labetalol was added last admission 100 mg twice daily. Uses a walker at baseline. No oxygen requirement. Wishes to be a full code. Discharge Plan Discharge Items Patient Disposition: Transfer [facility] Reason For Visit: ANKLE FRACTURE, CHF Discharge Diagnosis: ankle fracture Condition on Discharge: Fair Activity: Per Instructions section Weightbearing: Left non-weightbearing Non-emergency contact: Surgeon Call non-emergency contact if: you have any medication questions, your symptoms worsen, your pain is not controlled, your temperature is above 101, your wound has increased redness and your wound has increased drainage Follow-up/Referrals: Jackelyn Enriquez DO [Primary Care Provider] - Bryan Cr PA-C [Physician Capsule Inspector] - 11/07/24 3:00 pm Diet: Regular Addtl Attending Provider Instructions: Sutton in place, would recommended removing as soon as she is able as this could lead to an infection. Follow up as scheduled at approximately 2 weeks after surgery. Addtl Accuracy Expert Provider Instructions: Orthopedic instructions: - Nonweightbearing left lower extremity at all times. - Ice to left ankle as needed for pain or swelling. - Aspirin 81mg twice a day with food for 4 weeks - Elevate left lower extremity above heart frequently to reduce pain and swelling. - Keep heels off of bed at all times. - Use walker to assist with ambulation at all times. May also use wheelchair. - Keep splint on at all times. Keep it clean and dry. - May do range of motion of your knee and hip as tolerated. May wiggle toes as comfortable. - Call [phone] with any increased pain, swelling, questions or concerns or need to reschedule or confirm your appointment. - Follow-up with [facility] orthopedics as scheduled. Pending Studies at Discharge: No Stand-Alone Forms: My [facility] Skilled Items Patient informed of condition?: Yes DNR: No Discharge Level of Care: Skilled Communicable Disease: No Discharge Prognosis: Stable Lines: None Urinary Catheter: Yes Medications and DC Order Prescriptions: New diltiazem HCl 240 mg Capsule,Extended Release 24hr 240 mg PO QAM Qty: 30 2RF polyethylene glycol 3350 [Miralax] 17 gram Powder In Packet 17 g PO DAILY PRN (Reason: constipation) Qty: 14 0RF Continued methimazole 5 mg tablet 5 mg PO QAM Qty: 90 1RF pantoprazole 40 mg tablet,delayed release (DR/EC) 40 mg PO QAM Qty: 90 1RF cyanocobalamin (vitamin B-12) 1,000 mcg capsule 1,000 mcg PO DAILY Qty: 30 5RF furosemide [Lasix] 40 mg tablet 40 mg PO DAILY potassium chloride 20 mEq tablet extended release 20 meq PO DAILY atorvastatin 40 mg tablet 40 mg PO DAILY methenamine hippurate 1 gram tablet 1 g PO HS Qty: 90 3RF Hold Instructions: Resume on 10/10/24. Rx Instructions: Take one tablet at bedtime. Start after Macrobid. (DME) Wheeled Walker Misc See Rx Instructions .Route Qty: 1 0RF Rx Instructions: As directed cholecalciferol (vitamin D3) 50 mcg (2,000 unit) tablet 50 mcg PO QAM acetaminophen 500 mg Tablet 1,000 mg PO BID PRN (Reason: Pain) aspirin 81 mg Tablet,Delayed Release (Dr/Ec) 81 mg PO QPM 30 Days Qty: 30 0RF Discontinued labetalol 100 mg tablet 100 mg PO BID Entresto 24-26 mg tablet 1 tab PO BID diltiazem HCl 180 mg capsule,extended release 24hr 180 mg PO BID Discharge Orders: Discharge Order (Routine); Ordered 10/27/24 Ordered By: Celso Miller Admission Data Admit Date/Time: 10/21/24 17:24 Attending Provider: Celso Miller Admit Provider: Melquiades Machado Primary Care Provider: Jackelyn Enriquez Other Providers: [place]; Melquiades Machado Other Interventions: Discharge Summary Assessment (RN) Last Done: 10/27/24 14:47 Hospital Stay Data Consultations 10/21/24 16:27 ED Decision to Admit Stat Procedures Performed Operation Date: 10/24/24 12:30 Actual Procedures p Open Reduction Internal Fixation left ankle trimalleolar fracture, syndismosis stabilization(Left) - Konrad Miramontes MD Diagnostic Imagining Performed 10/21/24 15:50 CT ankle LT wo con Stat 10/23/24 14:59 CT head/brain wo con Routine 10/24/24 FL ankle LT min 3V RTN Routine 10/24/24 08:14 US - OR guided needle placemen Routine Pending Results Patient Have Any Pending Studies at Discharge: No Discharge Instructions Given to Patient (Per Discharging Provider) Sutton in place, would recommended removing as soon as she is able as this could lead to an infection. Follow up as scheduled at approximately 2 weeks after surgery. Coding Diagnoses Fracture dislocation of left ankle S82.892A Chronic diastolic (congestive) heart failure I50.32 Permanent atrial fibrillation I48.21 Fall W19.XXXA Dizziness R42"
== END 2024-10-27 15:18 | DRG 492 ==
LOC: ED 13:04 → EDINP 17:24 → SUATTDRO 17:24 → 2E 19:26 → 3E 10-26 03:43 → 2N 10-26 22:50

== ENCOUNTER 2025-01-12 17:19 | Inpatient (IN) ==
--- NOTE | 2025-01-12 19:55 | Emergency Department Note ---
Impression & Plan FOFANA (dyspnea on exertion), Urinary tract infection, Acute encephalopathy due to infection, Pericardial effusion ED Provider Note CHIEF COMPLAINT: UTI, short of breath HISTORY OF PRESENTING ILLNESS: This 89-year-old female patient presents to the emergency department with her daughter for evaluation of shortness of breath as well as UTI symptoms. The patient states that she has been having increased shortness of breath associated with exertion as well. She always has some underlying SOB, but much worse over the past 2 days. She is also complaining of pain with urination. The patient has been on multiple antibiotics for UTIs recently. The patient also seems more confused per her daughter who has been taking care of her recently. The patient recently had an open reduction with internal fixation for a left ankle trimalleolar fracture dislocation. Her last orthopedics visit was on 12/05/2024. She is on aspirin for DVT prophylaxis, but not on any other blood thinners. The patient has been more immobile since the injury and her daughter has had to take care of her. She denies any personal or family history of blood clots. She denies any fevers, cough, or URI symptoms. REVIEW OF SYSTEMS: See HPI for pertinent positives and pertinent negatives. ALLERGIES: Lisinopril, Morphine MEDICATIONS: See below PAST MEDICAL HISTORY: See below PHYSICAL EXAM: VITALS: Vitals are noted on the nurse's note and reviewed by myself. GENERAL: Non toxic, in no acute distress, non-diaphoretic. SKIN: Capillary refill <2 sec. EYES: PERRLA. EOMI. Conjunctivae without injection, sclerae without icterus. NOSE: Patent without discharge. MOUTH: Mucous membranes were dry. Uvula midline. Airway patent. NECK: Supple without nuchal rigidity. HEART: Tachycardic with occasional irregularly irregular rhythm without murmurs gallops or rubs. LUNGS: Clear to auscultation bilaterally without wheezes, rales or rhonchi. No retractions or accessory muscle use. ABDOMEN: Positive bowel sounds x 4. Normal tympanic percussion. Soft, nontender to palpation. No masses or hepatosplenomegaly. Langston sign negative. No CVA tenderness. No guarding, rigidity, or rebound tenderness. No focal RLQ or LLQ tenderness. MUSCULOSKELETAL: The patient has a boot on her left lower extremity from her recent orthopedic injury. The boot was not removed. No significant edema of the right lower extremity. NEURO: Patient was alert and oriented. No focal neurological deficits. DIFFERENTIAL DIAGNOSIS: Differential diagnosis includes URI, bronchitis, pneumonia, pneumothorax, hemothorax, PE, CA, pericarditis, myocarditis, airway obstruction, aspiration, pulmonary edema, asthma, COPD, CHF, pleurisy, metabolic acidosis, anemia, neoplasm, Influenza, RSV, COVID, viral syndrome, otitis media, otitis externa, pharyngitis, strep throat, pneumonia, meningitis, urinary tract infection, cellulitis, abscess, sepsis, bacteremia, as well as other pathologies. ED COURSE AND MEDICAL DECISION MAKING: HISTORY FROM INDEPENDENT HISTORIAN: Additional history was obtained from the patient's daughter MEDICATIONS GIVEN: 500 mL liter normal saline solution bolus followed by 1 L normal saline solution bolus. Rocephin 2 g IV. MONITOR: Continuous satellite project site monitor: Order was placed for continuous satellite project site monitor. Patient was placed on the satellite project site monitor and continuous pulse ox. Patient was noted to be in sinus tachycardia with occasional A-fib at an initial rate of 110 bpm per my interpretation. EKG: EKG was interpreted by myself as atrial fibrillation with rapid ventricular response at 109 bpm with no acute ST or T wave changes. INTERPRETATION OF LABS: I interpreted the labs with full lab results as below in the lab section of this note. Laboratory results pertinent to the emergent complaint are discussed in the MDM section below. The patient was advised to follow up with their PCP and/or specialist(s) for further outpatient monitoring and management of any abnormal results. INTERPRETATION OF IMAGING: Imaging studies were interpreted by myself and read by radiology as per the imaging section of this note. The patient was advised to follow up with their PCP and/or specialist(s) for further outpatient management of any non-emergent abnormal findings. CT scan of the head without contrast shows no definite acute intracranial process or appreciable alteration from prior exam accounting for motion artifact. CTA of the chest with IV contrast was somewhat limited due to motion artifact, extensive respiratory artifact, and the patient's IV contrast extravasated into her arm during the IV contrast administration. There is no definite evidence for large or central saddle pulmonary embolism. Nearly all segmental and all the subsegmental pulmonary artery segments are of nondiagnostic quality. Mild to moderate left and moderate right pleural effusions layering posteriorly with a right pleural effusion measuring 4.5 cm. Subsegmental changes noted involving the posterior lower lobes adjacent to the pleural effusions. Favor compressive atelectasis over infection. Global cardiomegaly. Moderate pericardial effusion. Mild coronary artery calcification. There is reflux of contrast into the intrahepatic IVC and hepatic veins which may be seen with rate of contrast administration, but could be seen with right heart dysfunction. The abnormal enlarged heterogeneous thyroid gland is not appreciably altered from the previous CTA examination of the neck. EXTERNAL RECORDS REVIEWED: I reviewed the patient's most recent orthopedic note as summarized above. CONSULTATIONS: On-call hospitalist MDM SUMMARY: The patient was seen during a time of extreme volume and extreme acuity. Nursing triage protocols were initiated with IV lock, labs, and/or imaging studies conducted by protocol in the triage area. The patient was initially evaluated in a protocol room and then re-evaluated once they were taken back to an exam room. The patient always has underlying shortness of breath, but seems to be much more significant over the past 2 days. She has also been having urinary symptoms and mental status changes concerning for a possible UTI. The patient recently had surgery on her left ankle due to a fracture as above. The patient is on a baby aspirin, but no other blood thinners. The patient initially appeared dry on exam and was given 500 mL liter normal saline solution bolus. The patient's heart rate became elevated throughout her stay and her urine was concerning for UTI. Based on her tachycardia, change in mental status, shortness of breath, and UTI, there was concern for possible sepsis. The patient was ordered an additional 1 L normal saline solution bolus. However, she was not given her full sepsis fluid bolus due to concerns for fluid overload. The patient's lactate and procalcitonin did come back normal and her white blood cell count came back normal. The patient declined any medication for pain or other symptoms in the emergency department. White blood cell count normal at 6.94. Hemoglobin normal at 13.1. Platelet count normal at 258. Glucose 120, but CMP otherwise without concerning abnormalities. Magnesium normal. Lactate and procalcitonin were normal. High- sensitivity troponin slightly elevated at 14.3 with repeat improved to 12.6. Urinalysis concerning for UTI with urine culture pending. Blood cultures pending. The patient was given Rocephin [address] scan of the head without contrast shows no definite acute intracranial process or appreciable alteration from prior exam accounting for motion artifact. CTA of the chest with IV contrast was somewhat limited due to motion artifact, extensive respiratory artifact, and the patient's IV contrast extravasated into her arm during the IV contrast administration. There is no definite evidence for large or central saddle pulmonary embolism. Nearly all segmental and all the subsegmental pulmonary artery segments are of nondiagnostic quality. Mild to moderate left and moderate right pleural effusions layering posteriorly with a right pleural effusion measuring 4.5 cm. Subsegmental changes noted involving the posterior lower lobes adjacent to the pleural effusions. Favor compressive atelectasis over infection. Global cardiomegaly. Moderate pericardial effusion. Mild coronary artery calcification. There is reflux of contrast into the intrahepatic IVC and hepatic veins which may be seen with rate of contrast administration, but could be seen with right heart dysfunction. The abnormal enlarged heterogeneous thyroid gland is not appreciably altered from the previous CTA examination of the neck. I had a meaningful discussion about this patient with Dr. White who agrees with my assessment and the treatment plan. We feel the patient requires admission for further evaluation and treatment given her multiple exam findings as well as workup findings. I spoke with the on-call hospitalist who agreed to admit the patient for further evaluation and treatment. Please refer to their dictation for further details. The patient's care was transferred in stable condition. DIAGNOSIS: Shortness of breath UTI Change in mental status Pericardial effusion Past Med/Surg History Problem List (Updated 01/13/25 @ 05:09 by Stephanie Dyson PA-C) Pericardial effusion (Acute) Moderate sized pleural effusion FOFANA (dyspnea on exertion) (Acute) Acute encephalopathy due to infection (Acute) Urinary tract infection (Acute) Hypertension Chronic heart failure with preserved ejection fraction Elevated brain natriuretic peptide (BNP) level (Acute) Osteoporosis Fracture dislocation of left ankle Near syncope (Acute) Multiple thyroid nodules T2DM (type 2 diabetes mellitus) Well controlled with diet Permanent atrial fibrillation On ASA only > no pacer > follows with Dr. Proctor Hyperthyroidism On Methimazole No symptoms currently B12 deficiency Anemia (Acute) Hypomagnesemia (Acute) Vitamin D deficiency History of malignant neoplasm of breast Frequent urinary tract infections Arthritis Erythematous bladder mucosa Cystitis Goiter Kidney stone (Acute) Peripheral neuropathy Interstitial cystitis Bilateral renal cysts Dyslipidemia Osteoarthritis Pulmonary hypertension Mild - per 2013 cath per cardio records Per 07/2022 ECHO -RVSP is elevated at 40-50mmHg Medical History Dizziness Fall Closed left fibular fracture Closed dislocation of left ankle Fall FOFANA (dyspnea on exertion) Closed dislocation of left ankle (~10/22/24) Stroke-like symptoms TIA (transient ischemic attack) Hearing deficit Hx of breast cancer History of COVID-19 Bilateral ureteral obstruction Ambulatory dysfunction Kidney stones Retinal detachment Gastroesophageal reflux disease Surgical History History of cystoscopy Nausea and vomiting after administration of anesthetic agent Slow to wake up after anesthesia History of cardiac cath History of esophagogastroduodenoscopy (EGD) History of colonoscopy History of cataract surgery S/P lumpectomy, right breast S/P tonsillectomy S/P hysterectomy Status post hip surgery S/P cholecystectomy Family History Mother , age 92 Hypertension Heart failure Father , age 37 accident in coal mine No problems noted. Denies family history of Ovarian cancer Prostate cancer Myocardial infarction Breast cancer Colorectal cancer Social History Smoking Status: Never smoker Second Hand Exposure: No; Do You Dip or Chew Tobacco: No; Hx Alcohol Use: No Hx Substance Use: No Preferred Language: [place] Leone[place] Communication Ability: Impaired Communication Ability Comment: tangirnaq>reads lips per daughter Visual Impairment: No Limitations Hearing Ability: Use of Hearing Aid Internal Corrosion Specialist Required: No Beliefs That Will Affect Care: None marital status: Current Living Situation: Spouse Current Living Situation Comment: with marti current occupational status: retired current occupation: former cook at [employer] Feels Safe at Home: Yes Childhood Exposure to Second-Hand Smoke: No Diet: regular Diet Comment: regular caffeine: Yes (soda and tea) during the past year weight has: remained stable Dental Care, Regularly: Yes Physical Activity Frequency: Does not Exercise Seatbelt Use: always Sunscreen Use: No Assistive Devices: Cane and Walker Allergies Allergies Allergy/AdvReac Type Severity Reaction Status Date / Time lisinopril AdvReac Intermediate cough Verified 11/23/24 09:20 morphine AdvReac Mild N/V Verified 11/23/24 09:20 Home Meds Home Medications Medication Instructions Recorded Confirmed acetaminophen 500 mg tablet 1,000 mg PO BID PRN Pain 04/09/21 11/23/24 cholecalciferol (vitamin D3) 50 50 mcg PO QAM 05/02/21 11/23/24 mcg (2,000 unit) tablet atorvastatin 40 mg tablet 40 mg PO DAILY 10/19/24 11/23/24 furosemide 20 mg tablet 20 mg PO DAILY 11/16/24 11/23/24 aspirin 81 mg tablet 81 mg PO DAILY 11/23/24 11/23/24 Previous Rx's Medication Instructions Recorded cyanocobalamin (vitamin B-12) 1,000 mcg PO DAILY #30 caps 12/01/22 1,000 mcg capsule methenamine hippurate 1 gram tablet 1 g PO HS #90 tabs 05/02/24 Wheeled Walker #1 ea 07/07/24 methimazole 5 mg tablet 5 mg PO QAM #90 tabs 07/31/24 pantoprazole 40 mg tablet,delayed 40 mg PO QAM #90 tabs 08/02/24 release polyethylene glycol 3350 17 gram 17 g PO DAILY PRN constipation #14 10/27/24 oral powder packet (Miralax) ea diltiazem HCl 180 mg 180 mg PO QAM #90 caps 11/23/24 capsule,extended release 24 hr potassium chloride 20 mEq 20 meq PO DAILY #30 tabs 11/23/24 tablet,extended release Results & Data (ED) Vital Signs Vital Signs - 24 hr 01/12/25 17:38 01/12/25 21:23 01/12/25 21:47 Temperature 36.9 C Temperature Source Temporal Artery Scan Pulse Rate 84 120 H Pulse Rate [Apical] 106 H Respiratory Rate 16 13 Respiratory Effort / Characteristics Non-Labored Spontaneous Respiratory Depth Normal Blood Pressure 170/85 H Blood Pressure [Left Arm] 183/121 H Blood Pressure Mean 113 Blood Pressure Mean [Left Arm] 141 Pulse Oximetry 96 94 Oxygen Delivery Method Room Air Room Air Sepsis Recent Fever Within 48 Hours No Sepsis New/Unexplained Change in Mental Status Yes Sepsis Action Taken by Nursing No Action Required 01/13/25 01:35 Temperature Temperature Source Pulse Rate 117 H Pulse Rate [Apical] Respiratory Rate Respiratory Effort / Characteristics Respiratory Depth Blood Pressure Blood Pressure [Left Arm] Blood Pressure Mean Blood Pressure Mean [Left Arm] Pulse Oximetry Oxygen Delivery Method Sepsis Recent Fever Within 48 Hours Sepsis New/Unexplained Change in Mental Status Sepsis Action Taken by Nursing Laboratory Data 01/12/25 20:15 01/12/25 20:15 Lab Results 01/12/25 01/12/25 01/12/25 Range/Units 20:15 21:27 22:02 WBC 6.94 (4.8-10.8) K/ul RBC 4.74 (4.20-5.40) M/uL Hgb 13.1 (12.0-16.0) g/dl Hct 41.8 (37.0-47.0) % MCV 88.2 (80.0-100.0) fL MCH 27.6 (25.0-34.0) pg MCHC 31.3 L (32.0-36.0) g/dL RDW Std Deviation 47.8 H (36.4-46.3) fL RDW Coeff of Jeanna 14.8 H (11.5-14.5) % Plt Count 258 (130-400) K/uL MPV 10.2 (9.4-12.4) fL Immature Gran % (Auto) 0.3 % Neut % (Auto) 75.7 % Lymph % (Auto) 14.7 % [place] % (Auto) 6.6 % Eos % (Auto) 2.0 % Baso % (Auto) 0.7 % Neut # (Auto) 5.25 (1.40-6.50) K/uL Lymph # (Auto) 1.02 L (1.20-3.40) K/uL [place] # (Auto) 0.46 (0.11-0.59) K/uL Eos # (Auto) 0.14 (0.00-0.50) K/uL Baso # (Auto) 0.05 (0.00-0.20) K/uL Immature Gran # (Auto) 0.02 (0.01-0.20) K/uL PT 11.5 (9.0-12.0) Seconds INR 1.1 (0.9-1.1) APTT 25 (21-31) Seconds PTT Ratio 0.9 Sodium 140 (136-145) mmol/L Potassium 4.1 (3.5-5.1) mmol/L Chloride 105 (98-107) mmol/L Carbon Dioxide 26 (21-32) mmol/L Anion Gap 9 (3-11) BUN 16 (6-23) mg/dl Creatinine 0.82 (0.6-1.2) mg/dl Est Cr Clr Drug Dosing Not Reportable eGFR 68.33 BUN/Creatinine Ratio 19.5 (10-20) Glucose 120 H (70-99(Fasting)) mg/dl Lactate (0.4-2.0) mmol/L Calcium 10.2 (8.6-10.3) mg/dl Magnesium 1.9 (1.7-2.4) mg/dl Total Bilirubin 0.8 (0.2-1.0) mg/dl AST 16 (13-39) U/L ALT 11 (7-52) U/L Alkaline Phosphatase 73 (34-104) U/L Troponin I High Sens 14.3 H 12.6 (0-14) pg/ml Total Protein 7.5 (6.0-8.3) gm/dl Albumin 4.3 (3.4-5.0) gm/dl Globulin 3.2 (2.5-4.0) gm/dl Albumin/Globulin Ratio 1.3 (0.9-2) Procalcitonin < 0.02 (0-0.5) ng/ml Urine Color Yellow Urine Appearance Cloudy A (Clear) Urine pH 5.5 (4.5-7.5) Ur Specific [place] 1.019 (1.000-1.030) Urine Protein 2+ H (Negative) Urine Glucose (UA) Negative (Negative) Urine Ketones Negative (Negative) Urine Blood 3+ H (Negative) Urine Nitrite Negative (Negative) Urine Bilirubin Negative (Negative) Urine Urobilinogen Negative (Negative) Ur Leukocyte Esterase 1+ H (Negative) Urine WBC (Auto) 21-50 H (0-5) /hpf Urine RBC (Auto) >20 H (0-2) /hpf U Hyaline Cast (Auto) 0-2 (0-2) /lpf U Epithel Cells (Auto) 11-20 H (0-2) /hpf Urine Bacteria (Auto) 3+ H (None Seen) Urine Comment Nasal Screen MRSA (PCR) (Negative) 01/13/25 01/13/25 Range/Units 00:35 02:26 WBC (4.8-10.8) K/ul RBC (4.20-5.40) M/uL Hgb (12.0-16.0) g/dl Hct (37.0-47.0) % MCV (80.0-100.0) fL MCH (25.0-34.0) pg MCHC (32.0-36.0) g/dL RDW Std Deviation (36.4-46.3) fL RDW Coeff of Jeanna (11.5-14.5) % Plt Count (130-400) K/uL MPV (9.4-12.4) fL Immature Gran % (Auto) % Neut % (Auto) % Lymph % (Auto) % [place] % (Auto) % Eos % (Auto) % Baso % (Auto) % Neut # (Auto) (1.40-6.50) K/uL Lymph # (Auto) (1.20-3.40) K/uL [place] # (Auto) (0.11-0.59) K/uL Eos # (Auto) (0.00-0.50) K/uL Baso # (Auto) (0.00-0.20) K/uL Immature Gran # (Auto) (0.01-0.20) K/uL PT (9.0-12.0) Seconds INR (0.9-1.1) APTT (21-31) Seconds PTT Ratio Sodium (136-145) mmol/L Potassium (3.5-5.1) mmol/L Chloride (98-107) mmol/L Carbon Dioxide (21-32) mmol/L Anion Gap (3-11) BUN (6-23) mg/dl Creatinine (0.6-1.2) mg/dl Est Cr Clr Drug Dosing eGFR BUN/Creatinine Ratio (10-20) Glucose (70-99(Fasting)) mg/dl Lactate 1.5 (0.4-2.0) mmol/L Calcium (8.6-10.3) mg/dl Magnesium (1.7-2.4) mg/dl Total Bilirubin (0.2-1.0) mg/dl AST (13-39) U/L ALT (7-52) U/L Alkaline Phosphatase (34-104) U/L Troponin I High Sens (0-14) pg/ml Total Protein (6.0-8.3) gm/dl Albumin (3.4-5.0) gm/dl Globulin (2.5-4.0) gm/dl Albumin/Globulin Ratio (0.9-2) Procalcitonin (0-0.5) ng/ml Urine Color Urine Appearance (Clear) Urine pH (4.5-7.5) Ur Specific [place] (1.000-1.030) Urine Protein (Negative) Urine Glucose (UA) (Negative) Urine Ketones (Negative) Urine Blood (Negative) Urine Nitrite (Negative) Urine Bilirubin (Negative) Urine Urobilinogen (Negative) Ur Leukocyte Esterase (Negative) Urine WBC (Auto) (0-5) /hpf Urine RBC (Auto) (0-2) /hpf U Hyaline Cast (Auto) (0-2) /lpf U Epithel Cells (Auto) (0-2) /hpf Urine Bacteria (Auto) (None Seen) Urine Comment Nasal Screen MRSA (PCR) Negative (Negative) Administered Medications Discontinued Medications Furosemide (Furosemide 40 Mg/4 Ml Vial) 40 mg IV ONE ONE Stop: 01/13/25 01:53 Last Admin: 01/13/25 02:55 Dose: Not Given Documented By: JAVAD Sodium Chloride (Nss) 500 mls @ 999 mls/hr IV .Q31M ONE Stop: 01/12/25 20:33 Last Infusion: 01/13/25 02:54 Dose: Infused Documented By: Admin: 01/12/25 20:57 Dose: 999 mls/hr Documented By: LESLEY Ceftriaxone Sodium (Rocephin) 2,000 mg in 50 mls @ 100 mls/hr IV NOW STA Stop: 01/12/25 23:04 Last Admin: 01/13/25 01:36 Dose: Not Given Documented By: JAVAD Sodium Chloride (Nss) 1,000 mls @ 999 mls/hr IV .Q1H1M ONE Stop: 01/12/25 23:38 Last Infusion: 01/13/25 02:53 Dose: Infused Documented By: Admin: 01/13/25 00:14 Dose: 999 mls/hr Documented By: LESLEY Cefepime HCl (Maxipime 2000mg) 1,000 mg in 10 mls @ 5 mls/min IV NOW STA; Protocol Stop: 01/13/25 01:55 Last Admin: 01/13/25 02:19 Dose: 5 mls/min Documented By: JAVAD Ioversol (Optiray 320 125ml) 118 ml IV ONCE ONE Stop: 01/12/25 22:23 Last Admin: 01/12/25 22:23 Dose: 118 ml Documented By: BABATUNDE Imaging Data Radiologist's Impression: Chest CTA 01/12/25 20:03 Exam(s): CTA CHEST IV Amt: 118ml optiray 320 EXAM: CT Angiography Chest With Intravenous Contrast CLINICAL HISTORY: Evaluate for potential PE. TECHNIQUE: Axial computed tomographic angiography images of the chest with intravenous contrast. CTDI is 36.9 mGy and DLP is 851.23 mGy-cm. Automated exposure control was utilized for the study. A dose lowering technique was utilized adhering to the principles of ALARA. MIP reconstructed images were created and reviewed. COMPARISON: CTA neck 09/20/2024 FINDINGS: Limitations: There is diffuse respiratory artifact, which degrades image quality throughout the examination. Pulmonary arteries: Accounting for limitations with diffuse extensive respiratory artifact, there is no do definite evidence for large/central saddle pulmonary embolism. Nearly all segmental and all of the subsegmental pulmonary artery segments are of nondiagnostic quality. Aorta: Atherosclerotic disease. The thoracic aorta is elongated but is normal in caliber. No thoracic aortic aneurysm. Lungs: Unremarkable. No mass. No consolidation. Pleural space: [id number] left and moderate right pleural effusions layering posteriorly with a right pleural effusion measuring approximately 4.5 cm. No loculation. Subsegmental changes noted involving the posterior lower lobes adjacent to the pleural effusions. No pneumothorax. Heart: Global cardiomegaly. Moderate pericardial effusion. Mild coronary artery calcification. There is reflux of contrast into the intrahepatic IVC and hepatic veins. Thyroid: The abnormal enlarged heterogeneous thyroid gland is not appreciably altered from the previous CTA examination of the neck. Bones/joints: No acute fracture. No dislocation. Soft tissues: Unremarkable. Lymph nodes: Multiple paratracheal lymph nodes noted at the level of the aortic arch are borderline in size measuring up to 10 mm. These are similar to the previous examination. No precarinal hilar adenopathy. IMPRESSION: 1. Accounting for limitations with diffuse extensive respiratory artifact, there is no do definite evidence for large/central saddle pulmonary embolism. Nearly all segmental and all of the subsegmental pulmonary artery segments are of nondiagnostic quality. 2. Kbry-ct-milhctzi left and moderate right pleural effusions layering posteriorly with a right pleural effusion measuring approximately 4.5 cm. No loculation. 3. Subsegmental changes noted involving the posterior lower lobes adjacent to the pleural effusions. Favor compressive atelectasis over infection. 4. Global cardiomegaly. Moderate pericardial effusion. Mild coronary artery calcification. There is reflux of contrast into the intrahepatic IVC and hepatic veins. This is a nonspecific finding and may be seen with rate of contrast administration; however, this finding is often seen with right heart dysfunction. 5. The abnormal enlarged heterogeneous thyroid gland is not appreciably altered from the previous CTA examination of the neck. Previous differential considerations remain. Electronically signed by: Deondre Tierney MD 01/13/25 00:[address] 01/12/25 20:06 Exam(s): CT HEAD Without Contrast EXAM: CT Head Without Intravenous Contrast CLINICAL HISTORY: Change in mental status. TECHNIQUE: Axial computed tomography images of the head/brain without intravenous contrast. CTDI is 36.9 mGy and DLP is 624.41 mGy-cm. Automated exposure control was utilized for the study. A dose lowering technique was utilized adhering to the principles of ALARA. COMPARISON: CT head without contrast dated 10/23/2024 FINDINGS: Limitations: There is motion artifact through the mid to inferior calvarium, which degrades image quality on multiple image slices. Brain: There are a few areas of decreased attenuation in the deep cerebral white matter consistent with mild small vessel ischemic/degenerative changes. The cerebral and cerebellar sulci are mildly prominent consistent with mild brain atrophy. No definite intracranial hemorrhage; evaluation for subtle extra-axial pathology along the margins of the parenchyma is limited in regions of streak motion artifact. No significant mass effect identified. There are a few areas of decreased attenuation in the deep cerebral white matter consistent with mild small vessel ischemic/degenerative changes. The cerebral and cerebellar sulci are mildly prominent consistent with mild brain atrophy. Ventricles: No midline shift or significant effacement of the ventricles. Bones/joints: No definite skull fracture. Soft tissues: Unremarkable. Vasculature: Atherosclerotic disease. Atherosclerotic disease. Sinuses: Unremarkable as visualized. No acute sinusitis. Mastoid air cells: Unremarkable as visualized. No mastoid effusion. IMPRESSION: Accounting for motion artifact, no definite acute intracranial process or appreciable alteration from the prior examination. Electronically signed by: Deondre Tierney MD 01/13/25 00:17 AM Discharge Plan Visit Data Chief Complaint: Urinary Symptoms Stated Complaint: UTI SOB ED Provider: Zhen White ED Midlevel Provider: Stephanie Dyson Discharge Problem: FOFANA (dyspnea on exertion), Urinary tract infection, Acute encephalopathy due to infection, Pericardial effusion Patient Disposition: Admitted As Inpatient Condition: Fair Forms Stand Alone Forms: My [facility] Prescriptions Prescriptions: No Action methimazole 5 mg tablet 5 mg PO QAM Qty: 90 1RF pantoprazole 40 mg tablet,delayed release (DR/EC) 40 mg PO QAM Qty: 90 1RF cyanocobalamin (vitamin B-12) 1,000 mcg capsule 1,000 mcg PO DAILY Qty: 30 5RF atorvastatin 40 mg tablet 40 mg PO DAILY methenamine hippurate 1 gram tablet 1 g PO HS Qty: 90 3RF Hold Instructions: Resume on 10/10/24. Rx Instructions: Take one tablet at bedtime. Start after Macrobid. (DME) Wheeled Walker Misc See Rx Instructions .Route Qty: 1 0RF Rx Instructions: As directed aspirin 81 mg tablet 81 mg PO DAILY diltiazem HCl 180 mg capsule,extended release 24hr 180 mg PO QAM Qty: 90 2RF potassium chloride 20 mEq tablet extended release 20 meq PO DAILY Qty: 30 5RF furosemide 20 mg tablet 20 mg PO DAILY cholecalciferol (vitamin D3) 50 mcg (2,000 unit) tablet 50 mcg PO QAM acetaminophen 500 mg Tablet 1,000 mg PO BID PRN (Reason: Pain) polyethylene glycol 3350 [Miralax] 17 gram Powder In Packet 17 g PO DAILY PRN (Reason: constipation) Qty: 14 0RF Referrals Referrals: Jackelyn Enriquez DO [Primary Care Provider] - Discharge Problem: Urinary tract infection Qualifiers: Urinary tract infection type: acute cystitis Hematuria presence: without hematuria Qualified Code(s): N30.00 - Acute cystitis without hematuria
[2025-01-12 20:34] LABS: Hematocrit (blood only) 41.8 % (37.0-47.0); Hemoglobin 13.1 g/dl (12.0-16.0); Immature Granulocytes # (auto) 0.02 K/uL (0.01-0.20); Immature Granulocytes % (auto) 0.3 %; Mean Corpuscular Hemoglobin 27.6 pg (25.0-34.0); Mean Corpuscular Volume 88.2 fL (80.0-100.0); Platelet Count 258 K/uL (130-400); RDW Standard Deviation 47.8 fL (36.4-46.3); Red Blood Count 4.74 M/uL (4.20-5.40); White Blood Count 6.94 K/ul (4.8-10.8)
[2025-01-12 20:50] LABS: Alanine Aminotransferase 11 U/L (7-52); Albumin Globulin Ratio 1.3 (0.9-2); Albumin Level 4.3 gm/dl (3.4-5.0); Alkaline Phosphatase 73 U/L (34-104); Anion Gap 9 (3-11); Bilirubin,Total 0.8 mg/dl (0.2-1.0); Blood Urea Nitrogen 16 mg/dl (6-23); Calcium 10.2 mg/dl (8.6-10.3); Carbon Dioxide 26 mmol/L (21-32); Chloride 105 mmol/L (98-107); Globulin 3.2 gm/dl (2.5-4.0); Glucose 120 mg/dl (70-99(Fasting)); Magnesium 1.9 mg/dl (1.7-2.4); Potassium 4.1 mmol/L (3.5-5.1); Sodium 140 mmol/L (136-145); Total Protein 7.5 gm/dl (6.0-8.3)
[2025-01-12] MEDS: SODIUM CHLORIDE 0.9% 500 ML IV ONE (20:57)
[2025-01-12 21:12] LABS: INR 1.1 (0.9-1.1); Partial Thromboplastin Time 25 Seconds (21-31); Prothrombin Time 11.5 Seconds (9.0-12.0)
[2025-01-12 21:49] LABS: Appearance Urine Cloudy (Clear); Bacteria Urine Automated 3+ (None Seen); Cast Urine Automated 0-2 /lpf (0-2); Glucose Urine UA Negative (Negative); RBC Urine Automated >20 /hpf (0-2); WBC Urine Automated 21-50 /hpf (0-5)
[2025-01-12] MEDS: OPTIRAY 320 125ml IV ONE (22:23)
[2025-01-13] MEDS: SODIUM CHLORIDE 0.9% 1,000 ML IV ONE (00:14)
--- NOTE | 2025-01-13 00:18 | CT Scan Report ---
Exam(s): CT HEAD Without Contrast EXAM: CT Head Without Intravenous Contrast CLINICAL HISTORY: Change in mental status. TECHNIQUE: Axial computed tomography images of the head/brain without intravenous contrast. CTDI is 36.9 mGy and DLP is 624.41 mGy-cm. Automated exposure control was utilized for the study. A dose lowering technique was utilized adhering to the principles of ALARA. COMPARISON: CT head without contrast dated 10/23/2024 FINDINGS: Limitations: There is motion artifact through the mid to inferior calvarium, which degrades image quality on multiple image slices. Brain: There are a few areas of decreased attenuation in the deep cerebral white matter consistent with mild small vessel ischemic/degenerative changes. The cerebral and cerebellar sulci are mildly prominent consistent with mild brain atrophy. No definite intracranial hemorrhage; evaluation for subtle extra-axial pathology along the margins of the parenchyma is limited in regions of streak motion artifact. No significant mass effect identified. There are a few areas of decreased attenuation in the deep cerebral white matter consistent with mild small vessel ischemic/degenerative changes. The cerebral and cerebellar sulci are mildly prominent consistent with mild brain atrophy. Ventricles: No midline shift or significant effacement of the ventricles. Bones/joints: No definite skull fracture. Soft tissues: Unremarkable. Vasculature: Atherosclerotic disease. Atherosclerotic disease. Sinuses: Unremarkable as visualized. No acute sinusitis. Mastoid air cells: Unremarkable as visualized. No mastoid effusion. IMPRESSION: Accounting for motion artifact, no definite acute intracranial process or appreciable alteration from the prior examination. Electronically signed by: Deondre Tierney MD 01/13/25 00:17 AM
--- NOTE | 2025-01-13 00:23 | CT Scan Report ---
Exam(s): CTA CHEST IV Amt: 118ml optiray 320 EXAM: CT Angiography Chest With Intravenous Contrast CLINICAL HISTORY: Evaluate for potential PE. TECHNIQUE: Axial computed tomographic angiography images of the chest with intravenous contrast. CTDI is 36.9 mGy and DLP is 851.23 mGy-cm. Automated exposure control was utilized for the study. A dose lowering technique was utilized adhering to the principles of ALARA. MIP reconstructed images were created and reviewed. COMPARISON: CTA neck 09/20/2024 FINDINGS: Limitations: There is diffuse respiratory artifact, which degrades image quality throughout the examination. Pulmonary arteries: Accounting for limitations with diffuse extensive respiratory artifact, there is no do definite evidence for large/central saddle pulmonary embolism. Nearly all segmental and all of the subsegmental pulmonary artery segments are of nondiagnostic quality. Aorta: Atherosclerotic disease. The thoracic aorta is elongated but is normal in caliber. No thoracic aortic aneurysm. Lungs: Unremarkable. No mass. No consolidation. Pleural space: [id number]-aa-wirikthk left and moderate right pleural effusions layering posteriorly with a right pleural effusion measuring approximately 4.5 cm. No loculation. Subsegmental changes noted involving the posterior lower lobes adjacent to the pleural effusions. No pneumothorax. Heart: Global cardiomegaly. Moderate pericardial effusion. Mild coronary artery calcification. There is reflux of contrast into the intrahepatic IVC and hepatic veins. Thyroid: The abnormal enlarged heterogeneous thyroid gland is not appreciably altered from the previous CTA examination of the neck. Bones/joints: No acute fracture. No dislocation. Soft tissues: Unremarkable. Lymph nodes: Multiple paratracheal lymph nodes noted at the level of the aortic arch are borderline in size measuring up to 10 mm. These are similar to the previous examination. No precarinal hilar adenopathy. IMPRESSION: 1. Accounting for limitations with diffuse extensive respiratory artifact, there is no do definite evidence for large/central saddle pulmonary embolism. Nearly all segmental and all of the subsegmental pulmonary artery segments are of nondiagnostic quality. 2. Ukmp-fe-hxgzprmg left and moderate right pleural effusions layering posteriorly with a right pleural effusion measuring approximately 4.5 cm. No loculation. 3. Subsegmental changes noted involving the posterior lower lobes adjacent to the pleural effusions. Favor compressive atelectasis over infection. 4. Global cardiomegaly. Moderate pericardial effusion. Mild coronary artery calcification. There is reflux of contrast into the intrahepatic IVC and hepatic veins. This is a nonspecific finding and may be seen with rate of contrast administration; however, this finding is often seen with right heart dysfunction. 5. The abnormal enlarged heterogeneous thyroid gland is not appreciably altered from the previous CTA examination of the neck. Previous differential considerations remain. Electronically signed by: Deondre Tierney MD 01/13/25 00:22 AM
--- NOTE | 2025-01-13 01:12 | History & Physical Report ---
Date of Service January 13, 2025 Assessment & Plan (1) Urinary tract infection: (2) Acute encephalopathy due to infection: (3) FOFANA (dyspnea on exertion): (4) Moderate sized pleural effusion: (5) Chronic heart failure with preserved ejection fraction: (6) Pericardial effusion: Plan Patient is an 89-year-old female with past medical history of recurrent UTIs, breast cancer, GERD, type II DM, pulmonary hypertension, HFpEF. Patient presented due to several days of dysuria, dyspnea on exertion, and confusion. She was found to have a UTI as well as bilateral moderate pleural effusions and a moderate pericardial effusion. She is being admitted for IV antibiotics and IV diuretics. #UTI/Acute encephalopathy - Encephalopathy in the setting of a UTI. UA suspicious for infection. Nonseptic at time of admissionno leukocytosis, afebrile, VSS, lactate and procalcitonin negative. History of frequent UTIs growing pansensitive Pseudomonas and pansensitive E. coli. Discontinued Rocephin started by the ED, transition to cefepime 1G IV every 12 hours - hold methenamine Follow-up blood and urine cultures Promote good sleep-wake cycles and frequent orientation Melatonin as needed - continue methimazole #Dyspnea/BL moderate pleural effusions/HFpEF/severe pulmonary HTN - dyspnea on exertion likely secondary to moderate bilateral pleural effusions noted on chest CTA; increased from recent CXR 10/26/2024. Troponin 14.3 -> 12.6. Non-hypoxic at time of admission. Most recent echocardiogram 10/22/2024 revealed EF 55 to 60%, RV with mildly reduced function, severe biatrial dilation, mild MR, severe pulmonary h ypertension, small pericardial effusion with no signs of tamponade. Did receive 1.5 L NSS this in the ED; defer further IV fluid use - on Lasix 20 mg po daily - transition to Lasix 40 mg IV now and QAM - continue home potassium supplement Cardiology consulted Repeat echocardiogram ordered With layering of pericardial effusion as there is concern for infection, covered with cefepime as above MRSA swab ordered - negative Oxygen as needed for O2 less than 92% - trend BMP and Mg with IV diuretic use #pericardial effusion - Small pericardial effusion on echo 10/22/2024. Repeating echo in a.m. as above. #HTN - BP elevated on admission, unclear as to when patient last had home medications. - anticipate to improve with IV diuresis above - continue diltiazem #HLD - continue asa and statin VTE ppx: SCDs, low risk Dispo: PCU Admission and Anticipated Discharge Date Admission Date: 01/13/25 History of Present Illness Chief Complaint: Urinary symptoms Primary Care Provider: Jackelyn Enriquez DO Patient is an 89-year-old female with past medical history of recurrent UTIs, breast cancer, GERD, type II DM, pulmonary hypertension, HFpEF. Patient presented due to several days of dysuria, dyspnea on exertion, and confusion. She was found to have a UTI as well as bilateral moderate pleural effusions and a moderate pericardial effusion. She is being admitted for IV antibiotics and IV diuretics. Patient seen at bedside. There is no family present. She was extremely hard of hearing and oriented x 0. Unable to obtain any ROS or history. Patient was recently here from 10/21 to 10/27 after a fall resulting in a left ankle fracture. Allergies Allergy/AdvReac Type Severity Reaction Status Date / Time lisinopril AdvReac Intermediate cough Verified 11/23/24 09:20 morphine AdvReac Mild N/V Verified 11/23/24 09:20 Home Medications Medication Instructions Recorded Confirmed Type acetaminophen 500 mg tablet 1,000 mg PO BID PRN Pain 04/09/21 11/23/24 History cholecalciferol (vitamin D3) 50 50 mcg PO QAM 05/02/21 11/23/24 History mcg (2,000 unit) tablet cyanocobalamin (vitamin B-12) 1,000 mcg PO DAILY #30 caps 12/01/22 11/23/24 Rx 1,000 mcg capsule methenamine hippurate 1 gram tablet 1 g PO HS #90 tabs 05/02/24 11/23/24 Rx Wheeled Walker #1 ea 07/07/24 10/19/24 Rx methimazole 5 mg tablet 5 mg PO QAM #90 tabs 07/31/24 11/23/24 Rx pantoprazole 40 mg tablet,delayed 40 mg PO QAM #90 tabs 08/02/24 11/23/24 Rx release atorvastatin 40 mg tablet 40 mg PO DAILY 10/19/24 11/23/24 History polyethylene glycol 3350 17 gram 17 g PO DAILY PRN constipation #14 10/27/24 11/23/24 Rx oral powder packet (Miralax) ea furosemide 20 mg tablet 20 mg PO DAILY 11/16/24 11/23/24 History aspirin 81 mg tablet 81 mg PO DAILY 11/23/24 11/23/24 History diltiazem HCl 180 mg 180 mg PO QAM #90 caps 11/23/24 11/23/24 Rx capsule,extended release 24 hr potassium chloride 20 mEq 20 meq PO DAILY #30 tabs 11/23/24 11/23/24 Rx tablet,extended release Past Med/Surg History Problem List (Updated 01/13/25 @ 05:09 by Stephanie Dyson PA-C) Pericardial effusion (Acute) Moderate sized pleural effusion FOFANA (dyspnea on exertion) (Acute) Acute encephalopathy due to infection (Acute) Urinary tract infection (Acute) Hypertension Chronic heart failure with preserved ejection fraction Elevated brain natriuretic peptide (BNP) level (Acute) Osteoporosis Fracture dislocation of left ankle Near syncope (Acute) Multiple thyroid nodules T2DM (type 2 diabetes mellitus) Well controlled with diet Permanent atrial fibrillation On ASA only > no pacer > follows with Dr. Proctor Hyperthyroidism On Methimazole No symptoms currently B12 deficiency Anemia (Acute) Hypomagnesemia (Acute) Vitamin D deficiency History of malignant neoplasm of breast Frequent urinary tract infections Arthritis Erythematous bladder mucosa Cystitis Goiter Kidney stone (Acute) Peripheral neuropathy Interstitial cystitis Bilateral renal cysts Dyslipidemia Osteoarthritis Pulmonary hypertension Mild - per 2013 cath per cardio records Per 07/2022 ECHO -RVSP is elevated at 40-50mmHg Medical History Dizziness Fall Closed left fibular fracture Closed dislocation of left ankle Fall FOFANA (dyspnea on exertion) Closed dislocation of left ankle (~10/22/24) Stroke-like symptoms TIA (transient ischemic attack) Hearing deficit Hx of breast cancer History of COVID-19 Bilateral ureteral obstruction Ambulatory dysfunction Kidney stones Retinal detachment Gastroesophageal reflux disease Surgical History History of cystoscopy Nausea and vomiting after administration of anesthetic agent Slow to wake up after anesthesia History of cardiac cath History of esophagogastroduodenoscopy (EGD) History of colonoscopy History of cataract surgery S/P lumpectomy, right breast S/P tonsillectomy S/P hysterectomy Status post hip surgery S/P cholecystectomy Family History Mother , age 92 Hypertension Heart failure Father , age 37 accident in coal mine No problems noted. Denies family history of Ovarian cancer Prostate cancer Myocardial infarction Breast cancer Colorectal cancer Social History Smoking Status: Never smoker Second Hand Exposure: No; Do You Dip or Chew Tobacco: No; Hx Alcohol Use: No Hx Substance Use: No Preferred Language: Setswana Communication Ability: Effective Communication Ability Comment: [place]>reads lips per daughter Visual Impairment: No Limitations Hearing Ability: Use of Hearing Aid Payroll Accounting Clerk Required: No Beliefs That Will Affect Care: None marital status: Current Living Situation: Spouse Current Living Situation Comment: with marti current occupational status: retired current occupation: former cook at [employer] Feels Safe at Home: Yes Safety Concerns: Feels Safe At This Time Childhood Exposure to Second-Hand Smoke: No Diet: regular Diet Comment: regular caffeine: Yes (soda and tea) during the past year weight has: remained stable Dental Care, Regularly: Yes Physical Activity Frequency: Does not Exercise Seatbelt Use: always Sunscreen Use: No Assistive Devices: Glasses, Hearing Aid - Bilateral and Walker Review of Systems Review of Systems: Unable to obtain given hard of hearing and acute confusion Physical Exam Physical Exam: The patient is awake, confused, normocephalic and atraumatic, in no acute distress. Non-toxic appearing. HEENT- EOMI, mucous membranes dry. Hard of hearing. Heart-normal S1 and S2. No murmurs, rubs or gallops. Lungs-decreased bilaterally, no respiratory distress, no accessory muscle use. Abdomen-normal bowel sounds and soft. No ascites noted. Non-tender. Extremities- no clubbing, cyanosis, or edema. Results & Data Results & Data Vital Signs (Past 12 Hours) Vital Signs Temp Pulse Pulse Resp BP BP Pulse Ox 01/12/25 21:47 120 H 01/12/25 21:23 106 H 13 183/121 H 94 01/12/25 17:38 36.9 C 84 16 170/85 H 96 O2 Del Method 01/12/25 21:47 01/12/25 21:23 Room Air 01/12/25 17:38 Room Air Laboratory Results Abnormal lab results 01/12/25 01/12/25 Range/Units 20:15 21:27 MCHC 31.3 L (32.0-36.0) g/dL RDW Std Deviation 47.8 H (36.4-46.3) fL RDW Coeff of Jeanna 14.8 H (11.5-14.5) % Lymph # (Auto) 1.02 L (1.20-3.40) K/uL Glucose 120 H (70-99(Fasting)) mg/dl Troponin I High Sens 14.3 H (0-14) pg/ml Urine Appearance Cloudy A (Clear) Urine Protein 2+ H (Negative) Urine Blood 3+ H (Negative) Ur Leukocyte Esterase 1+ H (Negative) Urine WBC (Auto) 21-50 H (0-5) /hpf Urine RBC (Auto) >20 H (0-2) /hpf U Epithel Cells (Auto) 11-20 H (0-2) /hpf Urine Bacteria (Auto) 3+ H (None Seen) Diagnostic Findings reviewed head CT and chest CTA Medications Administered ED1.5 L NSS bolus, ordered Rocephin 2G IV however discontinued prior to nursing staff giving the patient Admissioncefepime 1G IV ECG Additional Comments: ordered Code Status & VTE Plan Code Status Will make patient full code given has been full code with all previous admissions. Unable to assess CODE STATUS given hard of hearing and disoriented at time of admission. VTE Prophylaxis Plan VTE Prophylaxis will be ordered: Yes Supervising Physician Co-Signing Physician Notes Attending addendum: I have physically seen this patient, have supervised the HUI's activities, and agree with the H&P unless as otherwise noted. Assessment and Plan: The patient is an 89-year-old female past medical history including cardiac tract infections, breast cancer, GERD, diabetes mellitus type 2, pulmonary hypertension, and HFpEF. She presented to the emergency department several days of dysuria, dyspnea on exertion, and confusion. Workup in the emergency department included urinalysis suggestive of urinary tract infection, bilateral moderate pleural effusions, and moderate pericardial effusion. She is being admitted to the [facility] service for further evaluation and treatment UTI/acute encephalopathy- Follow urine culture and sensitivity Previous urinary tract infections with history of pansensitive Pseudomonas and pansensitive E. coli Received a dose of ceftriaxone from the ED Admitted on cefepime 1 g IV every 12 hours Hold methenamine Follow-up blood cultures and urine cultures Dyspnea/bilateral moderate pleural effusions/HFpEF/pulmonary hypertension/pericardial effusion- The patient will be admitted to telemetry for serial cardiac enzymes, serial EKG's, cardiac rhythm monitoring and a 2-D echocardiogram with Dopplers. Most recent echocardiogram on 10/22/2024 revealed EF 55 to 60%, RV with mildly reduced function, severe biatrial dilatation, mild MR, severe pulm hypertension, small pericardial effusion with no signs of tamponade. Status post 1.5 L normal saline bolus in the ED; defer further IV fluids at this time Hold oral Lasix 20 mg daily Placed on Lasix 40 mg IV now and every morning Continue potassium supplement MRSA swab ordered Cefepime as noted above, will also cover potential infection with layering pleural effusions Follow serial BMP and magnesium levels Remaining orders and notations as noted PG Care Time/CCT Total # of Minutes Spent Total Time Spent with Patient: Total time spent is greater than 50% in coordination of care (as documented) at patient's floor/unit and/or counseling patient: Coding Level of Care Code 99210 INT INP/OBS CARE 3/75MIN Diagnoses Urinary tract infection N39.0 Acute encephalopathy due to infection G93.49; B99.9 FOFANA (dyspnea on exertion) R06.09 Moderate sized pleural effusion J90 Chronic heart failure with preserved ejection fraction I50.32 Pericardial effusion I31.39
[2025-01-13] MEDS: cefTRIAXone SODIUM 2,000 MG/50 ML BAG IV STA (01:36)
[2025-01-13] MEDS: CEFEPIME 1000MG 1,000 MG/10 ML SYR IV STA (02:19)
[2025-01-13] MEDS: FUROSEMIDE 40 MG/4 ML VIAL IV ONE ×2 (02:55→06:39)
[2025-01-13] MEDS ORDERED: MELATONIN 3 MG TAB PO PRN (05:26)
[2025-01-13] MEDS ORDERED: ONDANSETRON INJ 2 MG/ML 2 ML VIAL IV PRN (05:26)
[2025-01-13] MEDS ORDERED: POLYETHYLENE (MIRALAX) 17 GM PACK PO PRN (05:26)
[2025-01-13] MEDS ORDERED: INFLUENZA VACC TS2025-26(65y+)/PF (IIV3) 0.5mL Syr IM ONE (06:17)
[2025-01-13] MEDS: POTASSIUM CHLORIDE CRTAB 20 MEQ TABCR PO SCH (10:30)
[2025-01-13] MEDS: ATORVASTATIN 40 MG TAB PO SCH (10:30)
[2025-01-13] MEDS: ASPIRIN 81 MG ECTAB PO SCH (10:30)
[2025-01-13] MEDS: FUROSEMIDE 40 MG/4 ML VIAL IV SCH (10:30)
--- NOTE | 2025-01-13 11:00 | XCELERA ---
[id number]
--- NOTE | 2025-01-13 11:14 | Hospitalist Progress Note ---
Date of Service January 13, 2025 Assessment & Plan (1) Urinary tract infection: (2) Acute encephalopathy due to infection: (3) FOFANA (dyspnea on exertion): (4) Moderate sized pleural effusion: (5) Chronic heart failure with preserved ejection fraction: (6) Pericardial effusion: Plan Patient is an 89-year-old female with past medical history of recurrent UTIs, breast cancer, GERD, type II DM, pulmonary hypertension, HFpEF. Patient presented due to several days of dysuria, dyspnea on exertion, and confusion. She was found to have a UTI as well as bilateral moderate pleural effusions and a moderate pericardial effusion. She is being admitted for IV antibiotics and I V diuretics. #UTI/Acute encephalopathy - Encephalopathy in the setting of a UTI. UA suspicious for infection. Nonseptic at time of admissionno leukocytosis, afebrile, VSS, lactate and procalcitonin negative. History of frequent UTIs growing pansensitive Pseudomonas and pansensitive E. coli. Discontinued Rocephin started by the ED, transitioned to cefepime 1G IV every 12 hours - hold methenamine Follow-up blood and urine cultures Promote good sleep-wake cycles and frequent orientation Melatonin as needed - continue methimazole - Narrowed down cefepime to ceftriaxone for empiric treatment. Will trend urine cultures. #Dyspnea/BL moderate pleural effusions/HFpEF/severe pulmonary HTN - dyspnea on exertion likely secondary to moderate bilateral pleural effusions noted on chest CTA; increased from recent CXR 10/26/2024. Troponin 14.3 -> 12.6. Non-hypoxic at time of admission. Most recent echocardiogram 10/22/2024 revealed EF 55 to 60%, RV with mildly reduced function. - Echo from 01/13/2025 shows EF 60-65%. Mild left ventricular hypertrophy, severe biatrial dilation, mild MR, small pericardial effusion, Did receive 1.5 L NSS this in the ED; defer further IV fluid use - continue home potassium supplement With layering of pericardial effusion as there is concern for infection, covered with cefepime as above MRSA swab ordered - negative Oxygen as needed for O2 less than 92% - trend BMP and Mg with IV diuretic use - - Hold Lasix as she doesn't have volume overload on echo findings. #Chronic Afib: -Chronic Afib with previous H/o Cardioversion and mormonism of sinus rhythm but was not placed on any anticoagulants by the cardio team, maybe because of fall risk. -Prescribed Apixaban 5mg PO BID. #pericardial effusion - Small pericardial effusion on echo 10/22/2024. #HTN - BP elevated on admission, unclear as to when patient last had home medications. - anticipate to improve with IV diuresis above - continue diltiazem #HLD - continue asa and statin VTE ppx: Apixaban 5mg Dispo: PCU Admission and Anticipated Discharge Date Admission Date: January 13, 2025 Supervising Physician Co-Signing Physician Notes I personally examined the patient and verified all cunningham points of history and exam, discussed case, and agree with decision making with Dr Epps Breathing better. No complaints. Does not think that she has any more dysuria, but notes that it is hard to tell. Vitals noted, in general she is awake pleasant seems easily confused no distress. Cardio is regular rate, lungs sound clear although somewhat difficult examno rales rhonchi or wheezes. skin shows no rashes no pallor or icterus. Neuro without focal deficits or lateralizing signs. Urinary tract infection precipitating reflex tachycardia that became A-fib with RVR with acute on chronic diastolic CHF (acute on chronic HFpEF) with secondary pleural effusionsstabilizing. Continue antibiotics (with no severe sepsis or septic shock, narrow back to ceftriaxone) control rate, follow breathing. PT/OT eval and treat. Hopefully home soon. Risk/benefits seems to favor anticoagulation for stroke prophylaxis and close monitoring. Subjective Patient presented due to several days of dysuria, dyspnea on exertion, and confusion. Reports improved shortness of breath, No dysuria. Swelling of left hand with blister, she reported nurse she burned her hand. Had one stool incontinence today morning. On NC 2L. No H/o fever, abdominal pain, N/V, diarrhea. Patient was recently here from 10/21 to 10/27 after a fall resulting in a left ankle fracture. Physical Exam Physical Exam: The patient is AAX O3, normocephalic and atraumatic, in no acute distress. Non-toxic appearing. HEENT- EOMI, mucous membranes dry. Hard of hearing. Heart-normal S1 and S2. No murmurs, rubs or gallops. Lungs-decreased bilaterally, no respiratory distress, no accessory muscle use. Abdomen-normal bowel sounds and soft. No ascites noted. Non-tender. Extremities- no clubbing, cyanosis, or edema. Results & Data Results & Data Vital Signs (Past 12 Hours) Vital Signs Temp Pulse Pulse Resp BP BP Pulse Ox 01/13/25 10:49 01/13/25 08:02 36.3 C L 120 H 18 151/80 H 94 01/13/25 06:09 01/13/25 05:58 36.6 C 110 H 18 176/100 H 93 01/13/25 05:00 107 H 19 90 01/13/25 04:10 36.6 C 104 H 18 151/119 H 92 01/13/25 03:03 121 H 21 92 01/13/25 01:35 117 H 01/13/25 01:00 106 H 17 94 01/13/25 00:01 103 H 18 163/131 H 94 O2 Del Method O2 Flow Rate 01/13/25 10:49 Nasal Cannula 2 01/13/25 08:02 Room Air 01/13/25 06:09 Nasal Cannula 2 01/13/25 05:58 Nasal Cannula 2 01/13/25 05:00 Room Air 01/13/25 04:10 Room Air 01/13/25 03:03 Room Air 01/13/25 01:35 01/13/25 01:00 Room Air 01/13/25 00:01 Room Air Resident Activity Tracking Resident Involvement: Resident Care Provided Care Provided: Adult Hospital Medicine (1) Urinary tract infection Hematuria presence: without hematuria Urinary tract infection type: acute cystitis Qualified Code(s): N30.00 - Acute cystitis without hematuria
[2025-01-13] MEDS: NYSTATIN POWDER 15GM BTL EXT PRN (12:22)
[2025-01-13] MEDS: CEFEPIME 1000MG 1,000 MG/10 ML SYR IV SCH (14:22)
[2025-01-13] MEDS: cefTRIAXone SODIUM 2,000 MG/50 ML BAG IV SCH (14:50)
--- NOTE | 2025-01-13 15:36 | Billing Data ---
Date of Service January 13, 2025 Coding Level of Care Code 09370 SUB INP/OBS CARE
[2025-01-13] MEDS: APIXABAN 5 MG TABLET PO SCH (20:30)
[2025-01-13] MEDS: AMOXICILLIN 875 MG TAB PO SCH (20:30)
--- NOTE | 2025-01-13 22:08 | Electrocardiogram Report ---
Test Reason : Blood Pressure : */* mmHG Vent. Rate : 109 BPM Atrial Rate : * BPM P-R Int : * ms QRS Dur : 90 ms QT Int : 328 ms P-R-T Axes : * -13 -13 degrees QTcB Int : 441 ms Atrial fibrillation with rapid ventricular response Nonspecific ST and T wave abnormality Abnormal ECG When compared with ECG of 26-Oct-2024 21:12, No significant change was found Confirmed by Tha Caldwell ([id number]) on 01/13/2025 10:08:02 PM Referred By: REFERRED SELF Confirmed By: Tha Caldwell
[2025-01-14 06:14] LABS: Hematocrit (blood only) 35.9 % (37.0-47.0); Hemoglobin 11.3 g/dl (12.0-16.0); Immature Granulocytes # (auto) 0.01 K/uL (0.01-0.20); Immature Granulocytes % (auto) 0.1 %; Mean Corpuscular Hemoglobin 27.9 pg (25.0-34.0); Mean Corpuscular Volume 88.6 fL (80.0-100.0); Platelet Count 210 K/uL (130-400); RDW Standard Deviation 46.9 fL (36.4-46.3); Red Blood Count 4.05 M/uL (4.20-5.40); White Blood Count 7.11 K/ul (4.8-10.8)
[2025-01-14 06:29] LABS: Anion Gap 5.0 (3-11); Blood Urea Nitrogen 16.0 mg/dl (6-23); Calcium 9.2 mg/dl (8.6-10.3); Carbon Dioxide 31.0 mmol/L (21-32); Chloride 103.0 mmol/L (98-107); Creatinine Clr Calc Pharmacy 57.4 ml/min; Glucose 100.0 mg/dl (70-99(Fasting)); Magnesium 1.7 mg/dl (1.7-2.4); Potassium 3.3 mmol/L (3.5-5.1); Sodium 139.0 mmol/L (136-145)
[2025-01-14] MEDS: ACETAMINOPHEN 325 MG TAB PO PRN (08:42)
--- NOTE | 2025-01-14 10:15 | Hospitalist Progress Note ---
Date of Service January 14, 2025 Assessment & Plan (1) Urinary tract infection: (2) Acute encephalopathy due to infection: (3) FOFANA (dyspnea on exertion): (4) Moderate sized pleural effusion: (5) Chronic heart failure with preserved ejection fraction: (6) Pericardial effusion: Plan Patient is an 89-year-old female with past medical history of recurrent UTIs, breast cancer, GERD, type II DM, pulmonary hypertension, HFpEF. Patient presented due to several days of dysuria, dyspnea on exertion, and confusion. She was found to have a UTI as well as bilateral moderate pleural effusions and a moderate pericardial effusion. She is being admitted for IV antibiotics and I V diuretics. #UTI/Acute encephalopathy - Encephalopathy in the setting of a UTI. UA suspicious for infection. Nonseptic at time of admissionno leukocytosis, afebrile, VSS, lactate and procalcitonin negative. History of frequent UTIs growing pansensitive Pseudomonas and pansensitive E. coli. Discontinued Rocephin started by the ED, transitioned to cefepime 1G IV every 12 hours - hold methenamine Follow-up blood and urine cultures Promote good sleep-wake cycles and frequent orientation Melatonin as needed - continue methimazole - Urine culture grew Enterococcus, treating with amoxicillin.Will follow sensitivity results. #Dyspnea/BL moderate pleural effusions/HFpEF/severe pulmonary HTN - dyspnea on exertion likely secondary to moderate bilateral pleural effusions noted on chest CTA; increased from recent CXR 10/26/2024. Troponin 14.3 -> 12.6. Non-hypoxic at time of admission. Most recent echocardiogram 10/22/2024 revealed EF 55 to 60%, RV with mildly reduced function. - Echo from 01/13/2025 shows EF 60-65%. Mild left ventricular hypertrophy, severe biatrial dilation, mild MR, small pericardial effusion, Did receive 1.5 L NSS this in the ED; defer further IV fluid use - continue home potassium supplement With layering of pericardial effusion as there is concern for infection, covered with cefepime as above MRSA swab ordered - negative Oxygen as needed for O2 less than 92% - trend BMP and Mg with IV diuretic use - Consider holding Lasix evaluating the volume condition as she doesn't have volume overload on echo findings. #Chronic Afib: -Chronic Afib with previous H/o Cardioversion and zoroastrian of sinus rhythm but was not placed on any anticoagulants by the cardio team, maybe because of fall risk. -Prescribed Apixaban 5mg PO BID. -HR of 70-100 on Telemetry. #pericardial effusion - Small pericardial effusion on echo 10/22/2024. #HTN - BP elevated on admission, unclear as to when patient last had home medications. - anticipate to improve with IV diuresis above - continue diltiazem #HLD - continue asa and statin VTE ppx: Apixaban 5mg Dispo: PCU Admission and Anticipated Discharge Date Admission Date: January 13, 2025 Supervising Physician Co-Signing Physician Notes I personally examined the patient and verified all cunningham points of history and exam, discussed case, and agree with decision making with Dr Epps Breathing is better today than yesterday. No other new complaints. Feels weak. Vitals noted, in general she is awake pleasant seems easily confused no distress. Cardio is regular rate no rubs murmurs or gallops, lungs sound clear although somewhat difficult examno rales rhonchi or wheezes. skin shows no rashes no pallor or icterus. Neuro without focal deficits or lateralizing signs. Urinary tract infection precipitating reflex tachycardia that became A-fib with RVR with acute on chronic diastolic CHF (acute on chronic HFpEF) with secondary pleural effusionsstabilizing/improving. Continue antibiotics ( Enterococcussensitivities pending, but currently on amoxicillin and doing better) control rate, follow breathing. PT/OT eval and treat-may need rehab again. Risk/benefits seems to favor anticoagulation chronically for stroke pr ophylaxis and close monitoring. Subjective Patient presented due to several days of dysuria, dyspnea on exertion, and confusion. Reports improved shortness of breath, dysuria, slight confusion but alot better. Swelling of left hand with blister, she reported nurse she burned her hand. On NC 2L. No H/o fever, abdominal pain, N/V, diarrhea. Patient was recently here from 10/21 to 10/27 after a fall resulting in a left ankle fracture. Review of Systems Review of Systems: As per HPI. Physical Exam Physical Exam: The patient is AAX O3, normocephalic and atraumatic, in no acute distress. Non- toxic appearing. HEENT- EOMI, mucous membranes dry. Hard of hearing. Heart-normal S1 and S2. No murmurs, rubs or gallops. Lungs-decreased bilaterally, no respiratory distress, no accessory muscle use. Abdomen-normal bowel sounds and soft. No ascites noted. Non-tender. Extremities- no clubbing, cyanosis, or edema. Results & Data Results & Data Vital Signs (Past 12 Hours) Vital Signs Temp Pulse Pulse Resp BP Pulse Ox O2 Del Method 01/14/25 08:02 36.8 C 92 H 18 154/96 H 93 Nasal Cannula 01/14/25 03:29 36.6 C 104 H 20 137/78 94 Nasal Cannula 01/13/25 23:56 36.3 C L 71 20 153/86 H 94 Nasal Cannula 01/13/25 23:55 89 O2 Flow Rate 01/14/25 08:02 1 01/14/25 03:29 2 01/13/25 23:56 2 01/13/25 23:55 Resident Activity Tracking Resident Involvement: Resident Care Provided Care Provided: Adult Hospital Medicine (1) Urinary tract infection Hematuria presence: without hematuria Urinary tract infection type: acute cystitis Qualified Code(s): N30.00 - Acute cystitis without hematuria
--- NOTE | 2025-01-14 10:49 | Billing Data ---
Date of Service January 14, 2025 Coding Level of Care Code 71421 SUB INP/OBS CARE MIN
--- NOTE | 2025-01-14 10:51 | Billing Data ---
Date of Service January 14, 2025 Coding Level of Care Code 60832 SUB INP/OBS CARE MIN
[2025-01-15 06:35] LABS: Hematocrit (blood only) 34.7 % (37.0-47.0); Hemoglobin 11.3 g/dl (12.0-16.0); Immature Granulocytes # (auto) 0.01 K/uL (0.01-0.20); Immature Granulocytes % (auto) 0.2 %; Mean Corpuscular Hemoglobin 29.0 pg (25.0-34.0); Mean Corpuscular Volume 89.2 fL (80.0-100.0); Platelet Count 215 K/uL (130-400); RDW Standard Deviation 47.2 fL (36.4-46.3); Red Blood Count 3.89 M/uL (4.20-5.40); White Blood Count 6.29 K/ul (4.8-10.8)
--- NOTE | 2025-01-15 09:53 | Hospitalist Progress Note ---
Date of Service January 15, 2025 Assessment & Plan (1) Urinary tract infection: (2) Acute encephalopathy due to infection: (3) FOFANA (dyspnea on exertion): (4) Moderate sized pleural effusion: (5) Chronic heart failure with preserved ejection fraction: (6) Pericardial effusion: Plan Patient is an 89-year-old female with past medical history of recurrent UTIs, breast cancer, GERD, type II DM, pulmonary hypertension, HFpEF. Patient presented due to several days of dysuria, dyspnea on exertion, and confusion. She was found to have a UTI as well as bilateral moderate pleural effusions and a moderate pericardial effusion. She is being admitted for IV antibiotics and I V diuretics. #UTI/Acute encephalopathy - Encephalopathy in the setting of a UTI. UA suspicious for infection. Nonseptic at time of admissionno leukocytosis, afebrile, VSS, lactate and procalcitonin negative. History of frequent UTIs growing pansensitive Pseudomonas and pansensitive E. coli. Now on amoxicillin - hold methenamine UCX with E. faecalis, Aerococcus Promote good sleep-wake cycles and frequent orientation Melatonin as needed - continue methimazole - Urine culture grew Enterococcus, treating with amoxicillin.Will follow sensitivity results. #Dyspnea/BL moderate pleural effusions/HFpEF/severe pulmonary HTN - dyspnea on exertion likely secondary to moderate bilateral pleural effusions noted on chest CTA; increased from recent CXR 10/26/2024. Troponin 14.3 -> 12.6. Non-hypoxic at time of admission. Most recent echocardiogram 10/22/2024 revealed EF 55 to 60%, RV with mildly reduced function. - Echo from 01/13/2025 shows EF 60-65%. Mild left ventricular hypertrophy, severe biatrial dilation, mild MR, small pericardial effusion, Did receive 1.5 L NSS this in the ED; defer further IV fluid use - continue home potassium supplement MRSA swab ordered - negative Oxygen as needed for O2 less than 92% - trend BMP and Mg with IV diuretic use - Consider holding Lasix evaluating the volume condition as she doesn't have volume overload on echo findings. #Chronic Afib: -Chronic Afib with previous H/o Cardioversion and mormon of sinus rhythm but was not placed on any anticoagulants by the cardio team, maybe because of fall risk. -Prescribed Apixaban 5mg PO BID. -HR of 70-100 on Telemetry. #pericardial effusion - Small pericardial effusion on echo 10/22/2024. #HTN - BP elevated on admission, unclear as to when patient last had home medications. - anticipate to improve with IV diuresis above - continue diltiazem #HLD - continue asa and statin VTE ppx: Apixaban 5mg Dispo: PCU Admission and Anticipated Discharge Date Admission Date: January 13, 2025 Supervising Physician Co-Signing Physician Notes Attending attestation Pt seen and examined in concert with Dr. Seo. In agreement with the documented findings as noted in the resident documentation with any exceptions or additions as noted here. Resting comfortably in bed without acute complaint at time of examination, daughter and spouse at bedside with additional history re: desire for dispo to [place] if possible. VS as noted. On examination, S1/S2 nl RRR no MCG. CTAB. Abd NT/ND BS+ve Acute encephalopathy in the setting of UTI - transitioned to PO amoxicillin with good tolerance. Frequent reorientation and delirium precautions. Moderate bilateral pleural effusion with resolved O2 requirement - O2 per protocol, monitor and temper IV fluid where able Atrial fibrillation, chronic, rate controlled - continue apixaban 5mg BID Else see resident documentation as noted. Subjective Patient seen and evaluated at bedside this morning. No acute events overnight. Significantly improved since admission. PT/OT recommending rehab. Pt agreeable but would like swing bed in [place]. No acute complaints. VSS. Review of Systems Review of Systems: reviewed, per HPI Physical Exam Physical Exam: Constitutional: age appropriate no acute distress HEENT: NCAT, no conjunctival injection CV: extremities well-perfused, no LE edema Resp: no increased work of breathing GI: nondistended MSK: no gross deformities appreciated Skin: warm, dry, no rash appreciated Neuro: alert, oriented, no focal neurologic deficit appreciated Results & Data Results & Data Vital Signs (Past 12 Hours) Vital Signs Temp Pulse Pulse Resp BP Pulse Ox O2 Del Method 01/15/25 07:25 36.2 C L 82 18 169/99 H 93 Room Air 01/15/25 04:28 36.4 C L 81 18 142/87 H 93 Room Air 01/15/25 01:02 78 01/15/25 00:00 36.6 C 96 H 17 157/82 H 93 Room Air Resident Activity Tracking Resident Involvement: Resident Care Provided Care Provided: Adult Hospital Medicine (1) Urinary tract infection Hematuria presence: without hematuria Urinary tract infection type: acute cystitis Qualified Code(s): N30.00 - Acute cystitis without hematuria
[2025-01-16 07:17] VITALS: RESP 18; O2SAT 95
[2025-01-16 07:26] LABS: Hematocrit (blood only) 35.7 % (37.0-47.0); Hemoglobin 11.4 g/dl (12.0-16.0); Immature Granulocytes # (auto) 0.00 K/uL (0.01-0.20); Immature Granulocytes % (auto) 0.0 %; Mean Corpuscular Hemoglobin 27.9 pg (25.0-34.0); Mean Corpuscular Volume 87.5 fL (80.0-100.0); Platelet Count 212 K/uL (130-400); RDW Standard Deviation 46.6 fL (36.4-46.3); Red Blood Count 4.08 M/uL (4.20-5.40); White Blood Count 6.88 K/ul (4.8-10.8)
[2025-01-16 07:46] LABS: Alanine Aminotransferase 6.0 U/L (7-52); Albumin Globulin Ratio 1.7 (0.9-2); Albumin Level 3.6 gm/dl (3.4-5.0); Alkaline Phosphatase 53.0 U/L (34-104); Anion Gap 4.0 (3-11); Bilirubin,Total 0.7 mg/dl (0.2-1.0); Blood Urea Nitrogen 24.0 mg/dl (6-23); Calcium 9.2 mg/dl (8.6-10.3); Carbon Dioxide 31.0 mmol/L (21-32); Chloride 103.0 mmol/L (98-107); Creatinine Clr Calc Pharmacy 60.4 ml/min; Globulin 2.1 gm/dl (2.5-4.0); Glucose 104.0 mg/dl (70-99(Fasting)); Potassium 3.5 mmol/L (3.5-5.1); Sodium 138.0 mmol/L (136-145); Total Protein 5.7 gm/dl (6.0-8.3)
--- NOTE | 2025-01-16 08:34 | Hospitalist Progress Note ---
Date of Service January 16, 2025 Assessment & Plan (1) Urinary tract infection: (2) Acute encephalopathy due to infection: (3) FOFANA (dyspnea on exertion): (4) Moderate sized pleural effusion: (5) Chronic heart failure with preserved ejection fraction: (6) Pericardial effusion: Plan Patient is an 89-year-old female with past medical history of recurrent UTIs, breast cancer, GERD, type II DM, pulmonary hypertension, HFpEF. Patient presented due to several days of dysuria, dyspnea on exertion, and confusion. She was found to have a UTI as well as bilateral moderate pleural effusions and a moderate pericardial effusion. She is being admitted for IV antibiotics and I V diuretics. #UTI/Acute encephalopathy - Encephalopathy in the setting of a UTI. UA suspicious for infection. Nonseptic at time of admissionno leukocytosis, afebrile, VSS, lactate and procalcitonin negative. History of frequent UTIs growing pansensitive Pseudomonas and pansensitive E. coli. Now on amoxicillin to finish on 01/19 - hold methenamine UCX with E. faecalis, Aerococcus Promote good sleep-wake cycles and frequent orientation Melatonin as needed - continue methimazole #Dyspnea/BL moderate pleural effusions/HFpEF/severe pulmonary HTN - dyspnea on exertion likely secondary to moderate bilateral pleural effusions noted on chest CTA; increased from recent CXR 10/26/2024. Troponin 14.3 -> 12.6. Non-hypoxic at time of admission. Most recent echocardiogram 10/22/2024 revealed EF 55 to 60%, RV with mildly reduced function. - Echo from 01/13/2025 shows EF 60-65%. Mild left ventricular hypertrophy, severe biatrial dilation, mild MR, small pericardial effusion, Avoid IVF use - continue home potassium supplement MRSA swab ordered - negative Saturating well on room air - Lasix converted back to home PO dose #Chronic Afib: -Chronic Afib with previous H/o Cardioversion and mu-ism of sinus rhythm but was not placed on any anticoagulants by the cardio team, maybe because of fall risk. -Prescribed Apixaban 5mg PO BID. -HR of 70-100 on Telemetry. #pericardial effusion - Small pericardial effusion on echo 10/22/2024. #HTN - BP elevated on admission, unclear as to when patient last had home medications. - anticipate to improve with IV diuresis above - continue diltiazem #HLD - continue asa and statin VTE ppx: Apixaban 5mg Dispo: PCU Admission and Anticipated Discharge Date Admission Date: January 13, 2025 Subjective Patient seen and evaluated at bedside this morning. No acute events overnight. Without acute complaints. Plan is for discharge to rehab - awaiting re-eval from PT. VSS. Labs stable and largely WNL. Review of Systems Review of Systems: reviewed, per HPI Physical Exam Physical Exam: Constitutional: age appropriate no acute distress HEENT: NCAT, no conjunctival injection CV: extremities well-perfused, no LE edema Resp: no increased work of breathing GI: nondistended MSK: no gross deformities appreciated Skin: warm, dry, no rash appreciated Neuro: alert, oriented, no focal neurologic deficit appreciated Results & Data Results & Data Vital Signs (Past 12 Hours) Vital Signs Temp Pulse Resp BP Pulse Ox O2 Del Method 01/16/25 07:13 36.3 C L 84 18 155/90 H 95 Room Air 01/16/25 02:40 36.4 C L 76 16 145/75 H 92 Room Air 01/15/25 22:54 36.5 C 97 H 20 147/87 H 94 Room Air Resident Activity Tracking Resident Involvement: Resident Care Provided Care Provided: Adult Hospital Medicine (1) Urinary tract infection Hematuria presence: without hematuria Urinary tract infection type: acute cystitis Qualified Code(s): N30.00 - Acute cystitis without hematuria
[2025-01-16 11:10] VITALS: BP 107/67; TEMP 97
--- NOTE | 2025-01-16 12:58 | Discharge Summary ---
Date of Service January 16, 2025 Admission HPI Per Admitting Provider Patient is an 89-year-old female with past medical history of recurrent UTIs, breast cancer, GERD, type II DM, pulmonary hypertension, HFpEF. Patient presented due to several days of dysuria, dyspnea on exertion, and confusion. She was found to have a UTI as well as bilateral moderate pleural effusions and a moderate pericardial effusion. She is being admitted for IV antibiotics and IV diuretics. Patient seen at bedside. There is no family present. She was extremely hard of hearing and oriented x 0. Unable to obtain any ROS or history. Patient was recently here from 10/21 to 10/27 after a fall resulting in a left ankle fracture. Admission Exam Per Admitting Provider The patient is awake, confused, normocephalic and atraumatic, in no acute distress. Non-toxic appearing. HEENT- EOMI, mucous membranes dry. Hard of hearing. Heart-normal S1 and S2. No murmurs, rubs or gallops. Lungs-decreased bilaterally, no respiratory distress, no accessory muscle use. Abdomen-normal bowel sounds and soft. No ascites noted. Non-tender. Extremities- no clubbing, cyanosis, or edema. Principal Diagnosis UTI/Encephalopathy Discharge Exam Constitutional: age appropriate no acute distress HEENT: NCAT, no conjunctival injection CV: extremities well-perfused, no LE edema Resp: no increased work of breathing GI: nondistended MSK: no gross deformities appreciated Skin: warm, dry, no rash appreciated Neuro: alert, oriented, no focal neurologic deficit appreciated Discharge Data Allergies Allergy/AdvReac Type Severity Reaction Status Date / Time lisinopril AdvReac Intermediate cough Verified 11/23/24 09:20 morphine AdvReac Mild N/V Verified 11/23/24 09:20 Consultations 01/13/25 01:26 ED Decision to Admit Stat Ordered Studies 01/12/25 20:03 CT angio chest PE protocol Stat 01/12/25 20:06 CT head/brain wo con Stat Hospital Course (1) Urinary tract infection: (2) Acute encephalopathy due to infection: (3) FOFANA (dyspnea on exertion): (4) Moderate sized pleural effusion: (5) Chronic heart failure with preserved ejection fraction: (6) Pericardial effusion: Plan Patient is an 89-year-old female with past medical history of recurrent UTIs, breast cancer, GERD, type II DM, pulmonary hypertension, HFpEF. Patient presented due to several days of dysuria, dyspnea on exertion, and confusion. She was found to have a UTI as well as bilateral moderate pleural effusions and a moderate pericardial effusion. She is being admitted for IV antibiotics and IV diuretics. During the process of referral/approval for rehab, family decided that they would rather take the patient home with home health/PT. While this is a suboptimal choice the patient does have additional family support in the form of her daughter who is visiting from out of town and staying with the patient and her the next 2-3weeks. She has previous RN/OT/PT/COMPUTER SYSTEM TECHNICIAN that visit the home. Family assists with cooking/cleaning. #UTI/Acute encephalopathy - Encephalopathy in the setting of a UTI. UA suspicious for infection. Nonseptic at time of admissionno leukocytosis, afebrile, VSS, lactate and procalcitonin negative. History of frequent UTIs growing pansensitive Pseudomonas and pansensitive E. coli. Now on amoxicillin to finish on 01/19 - hold methenamine UCX with E. faecalis, Aerococcus Promote good sleep-wake cycles and frequent orientation Melatonin as needed - continue methimazole #Dyspnea/BL moderate pleural effusions/HFpEF/severe pulmonary HTN - dyspnea on exertion likely secondary to moderate bilateral pleural effusions noted on chest CTA; increased from recent CXR 10/26/2024. Troponin 14.3 -> 12.6. Non-hypoxic at time of admission. Most recent echocardiogram 10/22/2024 revealed EF 55 to 60%, RV with mildly reduced function. - Echo from 01/13/2025 shows EF 60-65%. Mild left ventricular hypertrophy, severe biatrial dilation, mild MR, small pericardial effusion, Avoid IVF use - continue home potassium supplement MRSA swab ordered - negative Saturating well on room air - Lasix converted back to home PO dose #Chronic Afib: -Chronic Afib with previous H/o Cardioversion and jehovah's witness of sinus rhythm but was not placed on any anticoagulants by the cardio team, maybe because of fall risk. -Prescribed Apixaban 5mg PO BID. -HR of 70-100 on Telemetry. #pericardial effusion - Small pericardial effusion on echo 10/22/2024. #HTN - BP elevated on admission, unclear as to when patient last had home medications. - anticipate to improve with IV diuresis above - continue diltiazem #HLD - continue asa and statin VTE ppx: Apixaban 5mg Dispo: PCU Total Time Total Time Spent Total Time Spent (In Minutes): see attending documentation Discharge Plan Discharge Items Patient Disposition: Home - Home Health Services Reason For Visit: UTI, AMS, BILATERAL PLEURAL EFFUSIONS, PERICARDIAL Discharge Diagnosis: UTI Condition on Discharge: Fair Activity: Resume your previous activity Activity Comment: as tolerated Non-emergency contact: Primary Care Provider Call non-emergency contact if: you have any medication questions, your symptoms worsen and you have a fever Follow-up/Referrals: Jackelyn Enriquez DO [Primary Care Provider] - 01/23/25 10:20 am Diet: Heart Healthy Addtl Attending Provider Instructions: You were admitted to the hospital for UTI and confusion. You were treated with antibiotics. You will need to continue antibiotics until 01/19/2025. We will send a prescription to your pharmacy for you. You may continue to take all of your usual home medications. A discharge summary will be sent to your primary care physician to ensure continuity of care. Please bring this discharge summary with you to your next office appointment so that your provider can review it at that time. Follow-up appointments: Make a follow-up appointment with your PCP within the next week. It is very important that you follow up with them shortly after discharge from the hospital. Keep all your follow-up appointments as already scheduled. If you cannot make an appointment, notify your provider. Medications: Your medication list has been reviewed and reconciled upon discharge to ensure accuracy and continuity of care. An updated list of all your medications is included with your hospital discharge paperwork. Please review this list closely, and make note of any changes. We sent a new medication called amoxicilln to your pharmacy. Take a moxicillin (875mg) one tablet twice daily until finished. If you have any issues filling these prescriptions, please call [phone] and ask to leave a message for Dr. Han Seo. Take your medications as instructed; do not skip a dose of your medicines. Make sure all of your doctors know every medicine you are taking (including fwva-zot-swmsiso medicines, vitamins, and supplements). Call your primary care provider before taking any new medicines (including suvk-fcp-hwajgys medicines, vitamins, and supplements), because some of these may interact with your current medications, or may make your symptoms worse. Tell your primary care provider if you cannot afford your medications. CONTACT YOUR PRIMARY CARE PROVIDER if you experience any of the following: Changes in urination Increased shortness of breath Difficulty following your treatment plan, or difficulty taking medications CALL 911 OR GO TO THE EMERGENCY DEPARTMENT if you experience any of the following: Sudden, severe abdominal pain or nausea/vomiting Severe chest pain, or chest pain that radiates (moves) to your jaw or arm Sudden, severe shortness of breath or difficulty breathing Thank you for allowing us to participate in your care. Pending Studies at Discharge: No Stand-Alone Forms: My [facility] Medications and DC Order Prescriptions: New amoxicillin 875 mg Tablet 875 mg PO BID 7 Days Qty: 14 0RF Continued methimazole 5 mg tablet 5 mg PO QAM Qty: 90 1RF pantoprazole 40 mg tablet,delayed release (DR/EC) 40 mg PO QAM Qty: 90 1RF cyanocobalamin (vitamin B-12) 1,000 mcg capsule 1,000 mcg PO DAILY Qty: 30 5RF atorvastatin 40 mg tablet 40 mg PO DAILY methenamine hippurate 1 gram tablet 1 g PO HS Qty: 90 3RF Hold Instructions: Resume on 10/10/24. Rx Instructions: Take one tablet at bedtime. Start after Macrobid. (DME) [facility] [place] See Rx Instructions .Route Qty: 1 0RF Rx Instructions: As directed aspirin 81 mg tablet 81 mg PO DAILY diltiazem HCl 180 mg capsule,extended release 24hr 180 mg PO QAM Qty: 90 2RF potassium chloride 20 mEq tablet extended release 20 meq PO DAILY Qty: 30 5RF furosemide 20 mg tablet 20 mg PO DAILY cholecalciferol (vitamin D3) 50 mcg (2,000 unit) tablet 50 mcg PO QAM acetaminophen 500 mg Tablet 1,000 mg PO BID PRN (Reason: Pain) polyethylene glycol 3350 [Miralax] 17 gram Powder In Packet 17 g PO DAILY PRN (Reason: constipation) Qty: 14 0RF Discharge Orders: Discharge Order (Routine); Ordered 01/16/25 Ordered By: Han Seo Admission Data Admit Date/Time: 01/13/25 01:29 Attending Provider: Santy Mitchell Admit Provider: Jericho Dutta Primary Care Provider: Jackelyn Enriquez Other Providers: Jericho Dutta Other Interventions: Discharge Summary Assessment (RN) Last Done: 01/16/25 13:12 Supervising Physician Co-Signing Physician Notes Attending attestation Pt seen and examined in concert with Dr. Seo. In agreement with the documented findings as noted in the resident documentation with any exceptions or additions as noted here. Resting comfortably in bed, tolerating POI without acute complaint at time of examination, daughter and spouse at bedside with additional history re: desire for dispo to [employer] if possible. VS as noted. On examination, S1/S2 nl RRR no MCG. CTAB. Abd NT/ND BS+ve Acute encephalopathy in the setting of UTI - tolerating PO amoxicillin with good tolerance. Frequent reorientation and delirium precautions. Moderate bilateral pleural effusion with resolved O2 requirement - doing well with activity, monitor for changes and shortness of breath with activity Atrial fibrillation, chronic, rate controlled - continue apixaban 5mg BID Else see resident documentation as noted. Total attending physician time spent with this patient's care on the day of discharge: 35 minutes. Resident Activity Tracking Resident Involvement: Resident Care Provided Care Provided: Adult Hospital Medicine
[2025-01-16 13:26] VITALS: PULSE 78
[2025-01-17] MEDS ORDERED: FUROSEMIDE 20 MG TAB PO SCH (09:00)
== END 2025-01-16 13:39 | disposition home health service (06) | DRG 689 ==
LOC: SUATTDRO → ED 17:19 → SUATTDRO 01-13 01:29 → 2S 01-13 01:29

== ENCOUNTER 2025-04-05 19:08 | Inpatient (IN) ==
--- NOTE | 2025-04-05 19:44 | Emergency Department Note ---
Impression & Plan Acute UTI (urinary tract infection), SOB (shortness of breath), CAP (community acquired pneumonia) ED Provider Note ED Provider Note NAME: SAUL WATTS AGE:89 SEX: Female : 1935 ARRIVES VIA: POV INFORMANT: Patient ED PROVIDER(s): Kirill Rider CHIEF COMPLAINT: SOB HPI: 89-year-old female presents emergency room with complaints of shortness of breath. Patient states she was sitting around at home not doing much of anything when she began feeling a coughing fit. States that she had some nausea and vomiting, was not sure if she aspirated made the chest pain occur. States that she now has pleuritic chest pain and shortness of breath. PAST MEDICAL HISTORY:See Below PAST SURGICAL HISTORY:See Below FAMILY HISTORY:See Below SOCIAL HISTORY:See Below HOME MEDICATIONS:See Below ALLERGIES:See Below VITALS:See Below PHYSICAL EXAMINATION: GENERAL: alert, well appearing, well nourished, no distress, non-toxic EYE EXAM: normal conjunctiva, PERRL and EOM's grossly intact OROPHARYNX: no exudate, no erythema, lips, buccal mucosa, and tongue normal and mucous membranes are moist NECK: supple, no nuchal rigidity, no adenopathy, non-tender LUNGS: Clear to auscultation. Normal chest wall mechanics, no w/r/r HEART: no murmurs, S1 normal and S2 normal ABDOMEN: abdomen soft, non-tender, normo-active bowel sounds, no masses, no rebound or guarding. BACK: Back is symmetrical on inspection and there is no deformity, no midline tenderness, no CVA tenderness. SKIN: no rashes, petechiae, orbruising UPPER EXTREMITIES: upper extremities are grossly normal. FROM, nml pulses b/l. LOWER EXTREMITIES: No pitting edema. FROM, nml pulses b/l. NEURO EXAM: Normal sensorium, cranial nerves II-XII grossly intact, normal speech, no facial droop,nogross weakness of arms, no gross weakness of legs. Gross sensation intact. No ataxia. Vital Signs: reviewed and remarkable Differential Diagnosis: Reactive airway disease, pneumonia, pneumothorax, COPD, CHF, infections, cardiac ischemia, pulmonary embolism, musculoskeletal, gastrointestinal, as well as other pathologies. MEDICAL DECISION MAKIN-year-old female presents emergency room with complaints of shortness of breath. Patient with pneumonia, UTI. I spoke with her about results and plan for admission, she is agreeable. I spoke with her family as well, they are agreeable with plan. Spoke with hospitalist, they will admit. Consultation(s): Hospitalist ER Treatment Provided: See below Diagnostics Interpreted By Me: -ECG: EKG shows A-fib at a rate of [address] changes, some ST flattening. T wave inversion in lead III. -Cardiac Monitoring: An order was placed for continuous cardiac monitoring. The monitor shows a rate of 88 with NS rhythm. -Laboratory studies: As stated above and show below. -Imaging studies:CXR - pleural effusion, poss pneumonia Triage Nursing Note Reviewed Prior/Outside Records Reviewed Past Med/Surg History Problem List (Updated 04/05/25 @ 22:46 by Daniela Rider DO) CAP (community acquired pneumonia) (Acute) SOB (shortness of breath) (Acute) Acute UTI (urinary tract infection) (Acute) Iron deficiency anemia Pericardial effusion (Acute) Moderate sized pleural effusion Hypertension Chronic heart failure with preserved ejection fraction Elevated brain natriuretic peptide (BNP) level (Acute) Osteoporosis Multiple thyroid nodules T2DM (type 2 diabetes mellitus) Well controlled with diet Permanent atrial fibrillation On ASA only > no pacer > follows with Dr. Proctor Hyperthyroidism On Methimazole No symptoms currently B12 deficiency Anemia (Acute) Hypomagnesemia (Acute) Vitamin D deficiency History of malignant neoplasm of breast Frequent urinary tract infections Arthritis Erythematous bladder mucosa Cystitis Goiter Kidney stone (Acute) Peripheral neuropathy Interstitial cystitis Bilateral renal cysts Dyslipidemia Osteoarthritis Pulmonary hypertension Mild - per 2013 cath per cardio records Per 07/2022 ECHO -RVSP is elevated at 40-50mmHg Medical History (Updated 04/05/25 @ 22:46 by Daniela Rider DO) Near syncope Fracture dislocation of left ankle Acute encephalopathy due to infection Urinary tract infection FOFANA (dyspnea on exertion) Dizziness Fall Closed left fibular fracture (10/21/24) Comminuted fracture of the distal left fibular shaft Closed dislocation of left ankle Ankle joint dislocation Fall Closed dislocation of left ankle (10/21/24) Stroke-like symptoms TIA (transient ischemic attack) Hearing deficit reads lips Hx of breast cancer S/p right lumpectomy and SN biopsy - 2007 No chemo/radiation just oral treatment No current issues History of COVID-04 Sep 2020 > not hospitalized Bilateral ureteral obstruction Ambulatory dysfunction using walker or cane Kidney stones Retinal detachment Left- Apr or May 2020- treated with drops and injection - no current issues Gastroesophageal reflux disease Well controlled and stable Surgical History Status post ORIF of fracture of ankle History of cystoscopy with stent (last procedure August 2022>Cystoscopy, Ureteronephroscopy, Retrograde Pyelogram, Laser Lithotripsy, Insertion of Stent Catheter - Right) Nausea and vomiting after administration of anesthetic agent Slow to wake up after anesthesia History of cardiac cath Negative for CAD in 2013 History of esophagogastroduodenoscopy (EGD) History of colonoscopy History of cataract surgery rt/left S/P lumpectomy, right breast S/P tonsillectomy S/P hysterectomy with oopherectomy Status post hip surgery RTHA S/P cholecystectomy Family History Mother , age 92 Hypertension Heart failure Father , age 37 accident in coal mine No problems noted. Denies family history of Ovarian cancer Prostate cancer Myocardial infarction Breast cancer Colorectal cancer Social History Smoking Status: Never smoker Second Hand Exposure: No; Do You Dip or Chew Tobacco: No; Hx Alcohol Use: No Hx Substance Use: No Preferred Language: Latvian Communication Ability: Effective Communication Ability Comment: curyung>reads lips per daughter Visual Impairment: No Limitations Hearing Ability: Use of Hearing Aid Scissors Grinder Required: No Beliefs That Will Affect Care: None marital status: Current Living Situation: Spouse Current Living Situation Comment: with marti current occupational status: retired current occupation: former cook at [employer] Feels Safe at Home: Yes Childhood Exposure to Second-Hand Smoke: No Diet: regular Diet Comment: regular caffeine: Yes (soda and tea) during the past year weight has: remained stable Dental Care, Regularly: Yes Physical Activity Frequency: Does not Exercise Seatbelt Use: always Sunscreen Use: No Assistive Devices: Stair Lift, Walker and Wheelchair Allergies Allergies Allergy/AdvReac Type Severity Reaction Status Date / Time lisinopril AdvReac Intermediate cough Verified 04/05/25 21:20 morphine AdvReac Intermediate N/V Verified 04/05/25 21:20 Home Meds Home Medications Medication Instructions Recorded Confirmed acetaminophen 500 mg tablet 1,000 mg PO BID PRN Pain 04/09/21 04/05/25 cholecalciferol (vitamin D3) 50 50 mcg PO QAM 05/02/21 04/05/25 mcg (2,000 unit) tablet atorvastatin 40 mg tablet 40 mg PO QPM 10/19/24 04/05/25 aspirin 81 mg tablet 81 mg PO DAILY 11/23/24 04/05/25 cyanocobalamin (vitamin B-12) 1,000 mcg PO QAM 01/24/25 04/05/25 1,000 mcg capsule calcium carbonate (Calcium 600) 1,200 mg PO DAILY 04/05/25 04/05/25 methenamine hippurate 1 gram tablet 1 g PO BID 04/05/25 04/05/25 polyethylene glycol 3350 17 gram 17 g PO QAM constipation 04/05/25 04/05/25 oral powder packet (Miralax) vit C 250 mg-vit E 90 mg-zinc 40 2 tab PO QAM 04/05/25 04/05/25 mg-copper 1 [id number] capsule (PreserVision AREDS-2) Previous Rx's Medication Instructions Recorded Tiara Walker #1 ea 07/07/24 methimazole 5 mg tablet 5 mg PO QAM #90 tabs 07/31/24 pantoprazole 40 mg tablet,delayed 40 mg PO QAM #90 tabs 08/02/24 release diltiazem HCl 180 mg 180 mg PO QAM #90 caps 11/23/24 capsule,extended release 24 hr furosemide 20 mg tablet 20 mg PO DAILY #90 tabs 01/19/25 potassium chloride 20 mEq 20 meq PO DAILY #90 tabs 01/19/25 tablet,extended release Results & Data (ED) Vital Signs Vital Signs - 24 hr 04/05/25 19:17 04/05/25 20:05 04/05/25 20:28 Temperature 36.7 C Temperature Source Temporal Artery Scan Pulse Rate 83 85 Pulse Rate [Apical] Pulse Rate [Finger] Respiratory Rate 18 Respiratory Effort / Characteristics Non-Labored Spontaneous Respiratory Depth Normal Respiratory Pattern Regular Blood Pressure 149/90 H Blood Pressure [Left Arm] Blood Pressure Mean 109 Blood Pressure Mean [Left Arm] Pulse Oximetry 95 Oxygen Delivery Method Room Air Room Air Oxygen Flow Rate 0 Sepsis Recent Fever Within 48 Hours No Sepsis New/Unexplained Change in Mental Status No Sepsis Action Taken by Nursing No Action Required Oxygen Flow Rate - Titration Pulse Oximetry Post Tiitration 04/05/25 20:30 04/05/25 20:34 04/05/25 21:32 Temperature Temperature Source Pulse Rate Pulse Rate [Apical] 86 109 H Pulse Rate [Finger] 86 Respiratory Rate 20 Respiratory Effort / Characteristics Non-Labored Respiratory Depth Normal Respiratory Pattern Blood Pressure Blood Pressure [Left Arm] 181/122 H 166/115 H Blood Pressure Mean Blood Pressure Mean [Left Arm] 141 132 Pulse Oximetry 94 92 Oxygen Delivery Method Room Air Room Air Oxygen Flow Rate Sepsis Recent Fever Within 48 Hours Sepsis New/Unexplained Change in Mental Status Sepsis Action Taken by Nursing Oxygen Flow Rate - Titration Pulse Oximetry Post Tiitration 04/05/25 22:04 04/05/25 22:56 04/06/25 00:00 Temperature Temperature Source Pulse Rate Pulse Rate [Apical] 91 H 81 Pulse Rate [Finger] Respiratory Rate 22 16 Respiratory Effort / Characteristics Short of Breath Respiratory Depth Respiratory Pattern Blood Pressure Blood Pressure [Left Arm] 196/136 H 154/115 H Blood Pressure Mean Blood Pressure Mean [Left Arm] 156 128 Pulse Oximetry 92 90 99 Oxygen Delivery Method Room Air Room Air Nasal Cannula Nasal Cannula Oxygen Flow Rate 0 2 Sepsis Recent Fever Within 48 Hours Sepsis New/Unexplained Change in Mental Status Sepsis Action Taken by Nursing Oxygen Flow Rate - Titration 2 Pulse Oximetry Post Tiitration 96 04/06/25 00:17 Temperature Temperature Source Pulse Rate 94 H Pulse Rate [Apical] Pulse Rate [Finger] Respiratory Rate Respiratory Effort / Characteristics Respiratory Depth Respiratory Pattern Blood Pressure Blood Pressure [Left Arm] Blood Pressure Mean Blood Pressure Mean [Left Arm] Pulse Oximetry Oxygen Delivery Method Oxygen Flow Rate Sepsis Recent Fever Within 48 Hours Sepsis New/Unexplained Change in Mental Status Sepsis Action Taken by Nursing Oxygen Flow Rate - Titration Pulse Oximetry Post Tiitration Laboratory Data 04/05/25 19:38 04/05/25 19:38 Lab Results 04/05/25 04/05/25 04/05/25 Range/Units 19:38 20:00 20:11 WBC 6.50 (4.8-10.8) K/ul RBC 4.89 (4.20-5.40) M/uL Hgb 14.8 (12.0-16.0) g/dL Hct 44.7 (37.0-47.0) % MCV 91.4 (80.0-100.0) fL MCH 30.3 (25.0-34.0) pg MCHC 33.1 (32.0-36.0) g/dL RDW Std Deviation 51.5 H (36.4-46.3) fL RDW Coeff of Jeanna 15.5 H (11.5-14.5) % Plt Count 213 (130-400) K/uL MPV 10.0 (9.4-12.4) fL Immature Gran % (Auto) 0.2 % Neut % (Auto) 77.1 % Lymph % (Auto) 13.8 % [place] % (Auto) 6.6 % Eos % (Auto) 1.5 % Baso % (Auto) 0.8 % Neut # (Auto) 5.01 (1.40-6.50) K/uL Lymph # (Auto) 0.90 L (1.20-3.40) K/uL [place] # (Auto) 0.43 (0.11-0.59) K/uL Eos # (Auto) 0.10 (0.00-0.50) K/uL Baso # (Auto) 0.05 (0.00-0.20) K/uL Immature Gran # (Auto) 0.01 (0.01-0.20) K/uL Sodium 139 (136-145) mmol/L Potassium 4.1 (3.5-5.1) mmol/L Chloride 104 (98-107) mmol/L Carbon Dioxide 31 (21-32) mmol/L Anion Gap 4 (3-11) BUN 15 (6-23) mg/dl Creatinine 0.70 (0.6-1.2) mg/dl Est Cr Clr Drug Dosing Not Reportable eGFR 82.62 BUN/Creatinine Ratio 21.4 H (10-20) Glucose 124 H (70-99(Fasting)) mg/dl Calcium 10.4 H (8.6-10.3) mg/dl Total Bilirubin 0.6 (0.2-1.0) mg/dl AST 20 (13-39) U/L ALT 17 (7-52) U/L Alkaline Phosphatase 77 (34-104) U/L Troponin I High Sens 12.1 (0-14) pg/ml Total Protein 7.2 (6.0-8.3) gm/dl Albumin 4.3 (3.4-5.0) gm/dl Globulin 2.9 (2.5-4.0) gm/dl Albumin/Globulin Ratio 1.5 (0.9-2) Procalcitonin < 0.02 (0-0.5) ng/ml Urine Color Yellow Urine Appearance Clear (Clear) Urine pH 5.5 (4.5-7.5) Ur Specific [place] 1.012 (1.000-1.030) Urine Protein Negative (Negative) Urine Glucose (UA) Negative (Negative) Urine Ketones Negative (Negative) Urine Blood 2+ H (Negative) Urine Nitrite Positive A (Negative) Urine Bilirubin Negative (Negative) Urine Urobilinogen Negative (Negative) Ur Leukocyte Esterase 2+ H (Negative) Urine WBC (Auto) >50 H (0-5) /hpf Urine RBC (Auto) 11-20 H (0-2) /hpf U Hyaline Cast (Auto) 0-2 (0-2) /lpf U Epithel Cells (Auto) 6-10 H (0-2) /hpf Urine Bacteria (Auto) 1+ H (None Seen) Urine Comment Adenovirus (PCR) Not Detected (NotDetected) B. pertussis DNA (PCR) Not Detected (NotDetected) B.parapertussis DNA PCR Not Detected (NotDetected) C. pneumoniae DNA (PCR) Not Detected (NotDetected) Coronavirus OC43 (PCR) Not Detected (NotDetected) Coronavirus HKU1 (PCR) Not Detected (NotDetected) Coronavirus 229E (PCR) Not Detected (NotDetected) SARS-CoV-2 (PCR) Not Detected (NotDetected) Coronavirus NL63 (PCR) Not Detected (NotDetected) Human Metapneumovir PCR Not Detected (NotDetected) Influenza Type A (PCR) Not Detected (NotDetected) Influenza Type B (PCR) Not Detected (NotDetected) M. pneumoniae (PCR) Not Detected (NotDetected) Parainfluenza 1 (PCR) Not Detected (NotDetected) Parainfluenza 2 (PCR) Not Detected (NotDetected) Parainfluenza 3 (PCR) Not Detected (NotDetected) Parainfluenza 4 (PCR) Not Detected (NotDetected) RSV (PCR) Not Detected (NotDetected) Entero/Rhino (PCR) Not Detected (NotDetected) Administered Medications Discontinued Medications Acetaminophen (Acetaminophen 325 Mg Tab) 650 mg PO NOW STA Stop: 04/05/25 23:41 Last Admin: 04/05/25 23:57 Dose: 650 mg Documented By: GABEF Atorvastatin Calcium (Atorvastatin 40 Mg Tab) 40 mg PO NOW STA Stop: 04/05/25 23:30 Last Admin: 04/05/25 23:57 Dose: 40 mg Documented By: GABEF Azithromycin (Azithromycin 250 Mg Tab) 500 mg PO NOW ONE Stop: 04/05/25 22:46 Last Admin: 04/05/25 23:16 Dose: 500 mg Documented By: abl Ceftriaxone Sodium (Rocephin) 2,000 mg in 50 mls @ 100 mls/hr IV NOW STA Stop: 04/05/25 23:14 Last Infusion: 04/05/25 23:55 Dose: Infused Documented By: Admin: 04/05/25 23:18 Dose: 100 mls/hr Documented By: abl Imaging Data Radiologist's Impression: Chest X-Ray 04/05/25 19:24 Exam(s): XR CXR 1 VIEW EXAM: XR Chest, 1 View CLINICAL HISTORY: Dyspnea. TECHNIQUE: Frontal view of the chest. COMPARISON: XR Chest dated 11/01/2024 FINDINGS: Lungs: The pulmonary vasculature is prominent and equalized, similar to slightly more conspicuous from the previous examination. Subtle subsegmental changes of the right lung base. Pleural space: [id number] left pleural effusion. No pneumothorax. Heart: Prominent cardiomegaly, stable. Mediastinum: The mediastinal contours are stable. No tracheal deviation. Bones/joints: No significant abnormality. No acute fracture. IMPRESSION: 1. Prominent cardiomegaly, stable. 2. Rrja-[id number] left pleural effusion. 3. The pulmonary vasculature is prominent and equalized, similar to slightly more conspicuous from the previous examination. Subtle subsegmental changes of the right lung base. Electronically signed by: Deondre Tierney MD 04/05/25 22:14 PM Discharge Plan Visit Data Chief Complaint: Shortness of Breath/Dyspnea Stated Complaint: TROUBLE BREATHING ED Provider: Daniela Rider Discharge Problem: Acute UTI (urinary tract infection), SOB (shortness of breath), CAP (community acquired pneumonia) Patient Disposition: Admitted As Inpatient Condition: Good Forms Stand Alone Forms: My [facility] Prescriptions Prescriptions: No Action methimazole 5 mg tablet 5 mg PO QAM Qty: 90 1RF pantoprazole 40 mg tablet,delayed release (DR/EC) 40 mg PO QAM Qty: 90 1RF cyanocobalamin (vitamin B-12) 1,000 mcg capsule 1,000 mcg PO QAM atorvastatin 40 mg tablet 40 mg PO QPM (DME) Wheeled Walker Misc See Rx Instructions .Route Qty: 1 0RF Rx Instructions: As directed aspirin 81 mg tablet 81 mg PO DAILY diltiazem HCl 180 mg capsule,extended release 24hr 180 mg PO QAM Qty: 90 2RF furosemide 20 mg tablet 20 mg PO DAILY Qty: 90 3RF potassium chloride 20 mEq tablet extended release 20 meq PO DAILY Qty: 90 3RF cholecalciferol (vitamin D3) 50 mcg (2,000 unit) tablet 50 mcg PO QAM acetaminophen 500 mg Tablet 1,000 mg PO BID PRN (Reason: Pain) calcium carbonate [Calcium 600] 600 mg calcium (1,500 mg) Tablet 1,200 mg PO DAILY PreserVision AREDS-2 250-90-40-1 mg Capsule 2 tab PO QAM polyethylene glycol 3350 [Miralax] 17 gram powder in packet 17 g PO QAM methenamine hippurate 1 gram tablet 1 g PO BID Referrals Referrals: Jackelyn Enriquez DO [Primary Care Provider] -
[2025-04-05 19:48] LABS: Hematocrit (blood only) 44.7 % (37.0-47.0); Hemoglobin 14.8 g/dL (12.0-16.0); Immature Granulocytes # (auto) 0.01 K/uL (0.01-0.20); Immature Granulocytes % (auto) 0.2 %; Mean Corpuscular Hemoglobin 30.3 pg (25.0-34.0); Mean Corpuscular Volume 91.4 fL (80.0-100.0); Platelet Count 213 K/uL (130-400); RDW Standard Deviation 51.5 fL (36.4-46.3); Red Blood Count 4.89 M/uL (4.20-5.40); White Blood Count 6.50 K/ul (4.8-10.8)
[2025-04-05 20:05] LABS: Alanine Aminotransferase 17 U/L (7-52); Albumin Globulin Ratio 1.5 (0.9-2); Albumin Level 4.3 gm/dl (3.4-5.0); Alkaline Phosphatase 77 U/L (34-104); Anion Gap 4 (3-11); Bilirubin,Total 0.6 mg/dl (0.2-1.0); Blood Urea Nitrogen 15 mg/dl (6-23); Calcium 10.4 mg/dl (8.6-10.3); Carbon Dioxide 31 mmol/L (21-32); Chloride 104 mmol/L (98-107); Globulin 2.9 gm/dl (2.5-4.0); Glucose 124 mg/dl (70-99(Fasting)); Potassium 4.1 mmol/L (3.5-5.1); Sodium 139 mmol/L (136-145); Total Protein 7.2 gm/dl (6.0-8.3)
[2025-04-05 20:13] LABS: Appearance Urine Clear (Clear); Bacteria Urine Automated 1+ (None Seen); Cast Urine Automated 0-2 /lpf (0-2); Glucose Urine UA Negative (Negative); WBC Urine Automated >50 /hpf (0-5)
[2025-04-05 21:04] LABS: Chlamydia pneumoniae PCR Not Detected (NotDetected); Coronavirus 229E PCR Not Detected (NotDetected); Coronavirus CoV-2 (COVID19)PCR Not Detected (NotDetected); Coronavirus HKU1 PCR Not Detected (NotDetected); Coronavirus NL63 PCR Not Detected (NotDetected); Coronavirus OC43PCR Not Detected (NotDetected); Human Metapneumovirus PCR Not Detected (NotDetected); Parainfluenza Virus 1 PCR Not Detected (NotDetected); Parainfluenza Virus 2 PCR Not Detected (NotDetected); Parainfluenza Virus 3 PCR Not Detected (NotDetected); Parainfluenza Virus 4 PCR Not Detected (NotDetected); Respiratory Syncytial VirusPCR Not Detected (NotDetected); Rhinovirus/Enterovirus PCR Not Detected (NotDetected)
--- NOTE | 2025-04-05 22:15 | XRay Report ---
Exam(s): XR CXR 1 VIEW EXAM: XR Chest, 1 View CLINICAL HISTORY: Dyspnea. TECHNIQUE: Frontal view of the chest. COMPARISON: XR Chest dated 11/01/2024 FINDINGS: Lungs: The pulmonary vasculature is prominent and equalized, similar to slightly more conspicuous from the previous examination. Subtle subsegmental changes of the right lung base. Pleural space: [id number] left pleural effusion. No pneumothorax. Heart: Prominent cardiomegaly, stable. Mediastinum: The mediastinal contours are stable. No tracheal deviation. Bones/joints: No significant abnormality. No acute fracture. IMPRESSION: 1. Prominent cardiomegaly, stable. 2. [id number] left pleural effusion. 3. The pulmonary vasculature is prominent and equalized, similar to slightly more conspicuous from the previous examination. Subtle subsegmental changes of the right lung base. Electronically signed by: Deondre Tierney MD 04/05/25 22:14 PM
[2025-04-05] MEDS: AZITHROMYCIN 250 MG TAB PO ONE (23:16)
[2025-04-05] MEDS: cefTRIAXone SODIUM 2,000 MG/50 ML BAG IV STA (23:18)
--- NOTE | 2025-04-05 23:19 | History & Physical Report ---
Date of Service April 05, 2025 Assessment & Plan (1) Aspiration pneumonia due to vomit: (2) Acute hypoxic respiratory failure: (3) Acute UTI (urinary tract infection): Plan Patient is an 89-year-old female with past medical history of permanent A-fib, TIA, breast cancer, GERD, type II DM, hypothyroidism, HFpEF, HLD, recurrent UTIs. Patient presented with her daughter after an episode after dinner in which she started coughing, vomited, and then choked on her vomit. Patient then developed shortness of breath and cough after the episode. Patient was noted to be 87% on room air in the ED and is being treated for mild aspiration pneumonia. Patient also found to have UTI. Nonseptic presentation at time of admission. #aspiration pneumonia/hypoxia - questionable mild aspiration pneumonia on CXR after reported aspiration event at home. Hypoxic 87% on room air -> 2L NC. Nonseptic presentation - no leukocytosis, VSS. Biofire negative. - procal ordered - speech consulted given aspiration event - soft, bite sized diet - aspiration precautions - given Rocephin and azithromycin in the ED; will transition to Zosyn with history of Pseudomonas and to provide anaerobic coverage - MRSA swab ordered, will add MRSA coverage if positive - no acute need for atypical coverage - incentive spirometry - Tessalon Perles and Tylenol as needed - oxygen prn for O2 <94%, wean as tolerated - monitor on tele Trend CBC #UTI - history of recurrent UTIs. UA concerning for infection with nitrite, 2+ LE, > 50 WBC, 1+ bacteria; note 6-10 epithelial cells. Nonseptic presentation. History of Enterococcus faecalis resistant to tetracyclines, pansensitive Pseudomonas aeruginosa, pansensitive E. coli, pansensitive Klebsiella pneumonia Coverage with Zosyn as above - hold methenamine Follow urine cultures #permanent A-fibcontinue diltiazem, no anticoagulation use #HLDcontinue the aspirin and statin #HFpEFcontinue Lasix 20 mg daily with potassium supplement #hypothyroidismcontinue methimazole #gerd - continue ppi VTE ppx: SCDs, low risk Dispo: med/tele Admission and Anticipated Discharge Date Admission Date: 04/05/25 History of Present Illness Chief Complaint: dyspnea Primary Care Provider: Jackelyn Enriquez DO Patient is an 89-year-old female with past medical history of permanent A-fib, TIA, breast cancer, GERD, type II DM, hypothyroidism, HFpEF, HLD, recurrent UTIs. Patient presented with her daughter after an episode after dinner in which she started coughing, vomited, and then choked on her vomit. Patient then developed shortness of breath and cough after the episode. Patient was noted to be 87% on room air in the ED and is being treated for mild aspiration pneumonia. Patient also found to have UTI. Nonseptic presentation at time of admission. Patient seen at bedside with her daughter present. She is extremely hard of hearing. She stated after dinner she started coughing and then vomited and felt as though she choked on her vomit which is not typical for her. She endorses cough and shortness of breath since the episode however her daughter stated that the shortness of breath has been ongoing for many years. Patient denies any chest pain or fevers since the episode. She denies any urinary symptoms such as dysuria or increase in urinary frequency, she does have some incontinence at baseline. She has a history of recurrent UTIs on methenamine. She denies any current abdominal pain, nausea, or diarrhea. She does endorse left lower extremity edema which is baseline for her after her ankle fracture. She does not use oxygen at baseline. She is due for her evening medications. She wishes to be full code. Allergies Allergy/AdvReac Type Severity Reaction Status Date / Time lisinopril AdvReac Intermediate cough Verified 04/05/25 21:20 morphine AdvReac Intermediate N/V Verified 04/05/25 21:20 Home Medications Medication Instructions Recorded Confirmed Type acetaminophen 500 mg tablet 1,000 mg PO BID PRN Pain 04/09/21 04/05/25 History cholecalciferol (vitamin D3) 50 50 mcg PO QAM 05/02/21 04/05/25 History mcg (2,000 unit) tablet Wheeled Walker #1 ea 07/07/24 02/27/25 Rx methimazole 5 mg tablet 5 mg PO QAM #90 tabs 07/31/24 04/05/25 Rx pantoprazole 40 mg tablet,delayed 40 mg PO QAM #90 tabs 08/02/24 04/05/25 Rx release atorvastatin 40 mg tablet 40 mg PO QPM 10/19/24 04/05/25 History aspirin 81 mg tablet 81 mg PO DAILY 11/23/24 04/05/25 History diltiazem HCl 180 mg 180 mg PO QAM #90 caps 11/23/24 04/05/25 Rx capsule,extended release 24 hr furosemide 20 mg tablet 20 mg PO DAILY #90 tabs 01/19/25 04/05/25 Rx potassium chloride 20 mEq 20 meq PO DAILY #90 tabs 01/19/25 04/05/25 Rx tablet,extended release cyanocobalamin (vitamin B-12) 1,000 mcg PO QAM 01/24/25 04/05/25 History 1,000 mcg capsule calcium carbonate (Calcium 600) 1,200 mg PO DAILY 04/05/25 04/05/25 History methenamine hippurate 1 gram tablet 1 g PO BID 04/05/25 04/05/25 History polyethylene glycol 3350 17 gram 17 g PO QAM constipation 04/05/25 04/05/25 History oral powder packet (Miralax) vit C 250 mg-vit E 90 mg-zinc 40 2 tab PO QAM 04/05/25 04/05/25 History mg-copper 1 [id number] capsule (PreserVision AREDS-2) Past Med/Surg History Problem List (Updated 04/06/25 @ 13:35 by Jefry Bonilla PA-C) Dysphagia Acute hypoxic respiratory failure Aspiration pneumonia due to vomit CAP (community acquired pneumonia) (Acute) SOB (shortness of breath) (Acute) Acute UTI (urinary tract infection) (Acute) Iron deficiency anemia Pericardial effusion (Acute) Moderate sized pleural effusion Hypertension Chronic heart failure with preserved ejection fraction Elevated brain natriuretic peptide (BNP) level (Acute) Osteoporosis Multiple thyroid nodules T2DM (type 2 diabetes mellitus) Well controlled with diet Permanent atrial fibrillation On ASA only > no pacer > follows with Dr. Proctor Hyperthyroidism On Methimazole No symptoms currently B12 deficiency Anemia (Acute) Hypomagnesemia (Acute) Vitamin D deficiency History of malignant neoplasm of breast Frequent urinary tract infections Arthritis Erythematous bladder mucosa Cystitis Goiter Kidney stone (Acute) Peripheral neuropathy Interstitial cystitis Bilateral renal cysts Dyslipidemia Osteoarthritis Pulmonary hypertension Mild - per 2013 cath per cardio records Per 07/2022 ECHO -RVSP is elevated at 40-50mmHg Medical History (Updated 04/06/25 @ 13:35 by Jefry Bonilla PA-C) Near syncope Fracture dislocation of left ankle Acute encephalopathy due to infection Urinary tract infection FOFANA (dyspnea on exertion) Dizziness Fall Closed left fibular fracture (10/21/24) Comminuted fracture of the distal left fibular shaft Closed dislocation of left ankle Ankle joint dislocation Fall Closed dislocation of left ankle (10/21/24) Stroke-like symptoms TIA (transient ischemic attack) Hearing deficit reads lips Hx of breast cancer S/p right lumpectomy and SN biopsy - 2007 No chemo/radiation just oral treatment No current issues History of COVID-04 Sep 2020 > not hospitalized Bilateral ureteral obstruction Ambulatory dysfunction using walker or cane Kidney stones Retinal detachment Left- Apr or May 2020- treated with drops and injection - no current issues Gastroesophageal reflux disease Well controlled and stable Surgical History Status post ORIF of fracture of ankle History of cystoscopy with stent (last procedure August 2022>Cystoscopy, Ureteronephroscopy, Retrograde Pyelogram, Laser Lithotripsy, Insertion of Stent Catheter - Right) Nausea and vomiting after administration of anesthetic agent Slow to wake up after anesthesia History of cardiac cath Negative for CAD in 2013 History of esophagogastroduodenoscopy (EGD) History of colonoscopy History of cataract surgery rt/left S/P lumpectomy, right breast S/P tonsillectomy S/P hysterectomy with oopherectomy Status post hip surgery RTHA S/P cholecystectomy Family History Mother , age 92 Hypertension Heart failure Father , age 37 accident in coal mine No problems noted. Denies family history of Ovarian cancer Prostate cancer Myocardial infarction Breast cancer Colorectal cancer Social History Smoking Status: Never smoker Second Hand Exposure: No; Do You Dip or Chew Tobacco: No; Hx Alcohol Use: No Hx Substance Use: No Preferred Language: [place] Communication Ability: Effective Communication Ability Comment: [place]>reads lips per daughter Visual Impairment: No Limitations Hearing Ability: Use of Hearing Aid Assembly Leader Required: No Beliefs That Will Affect Care: None marital status: Current Living Situation: Spouse Current Living Situation Comment: [facility] current occupational status: retired current occupation: former cook at [employer] Other Information That Helps Us Care for You: No Feels Safe at Home: Yes Safety Concerns: Feels Safe At This Time Childhood Exposure to Second-Hand Smoke: No Diet: regular Diet Comment: regular caffeine: Yes (soda and tea) during the past year weight has: remained stable Dental Care, Regularly: Yes Physical Activity Frequency: Does not Exercise Seatbelt Use: always Sunscreen Use: No Assistive Devices: Cane, Stair Lift, Walker and Wheelchair Review of Systems Review of Systems: see HPI Physical Exam Physical Exam: The patient is awake, alert and oriented 3, well developed and well nourished, normocephalic and atraumatic, in no acute distress. Non-toxic appearing. HEENT- EOMI, mucous membranes moist. Hard of hearing. Heart-normal S1 and S2. No murmurs, rubs or gallops. Lungs-decreased bilaterally, no respiratory distress, no accessory muscle use. on 2L NC. Abdomen-normal bowel sounds and soft. No ascites noted. Non-tender. Extremities- no clubbing, cyanosis. Mild +1 pitting edema L LE,reportedly baseline. Rheumatologic-normal range of motion. Psychiatric-normal affect. Results & Data Results & Data Vital Signs (Past 12 Hours) Vital Signs Temp Pulse Pulse Pulse Resp BP BP 04/05/25 22:56 04/05/25 22:04 91 H 22 196/136 H 04/05/25 21:32 109 H 166/115 H 04/05/25 20:34 86 86 20 181/122 H 04/05/25 20:30 04/05/25 20:28 85 04/05/25 20:05 04/05/25 19:17 36.7 C 83 18 149/90 H Pulse Ox O2 Del Method O2 Flow Rate 04/05/25 22:56 90 Room Air, Nasal Cannula 0 04/05/25 22:04 92 Room Air 04/05/25 21:32 04/05/25 20:34 92 Room Air 04/05/25 20:30 94 Room Air 04/05/25 20:28 04/05/25 20:05 Room Air 0 04/05/25 19:17 95 Room Air Laboratory Results Reviewed CBC, CMP, bio fire, UA, troponin Diagnostic Findings CXR reviewed Medications Administered ED - Rocephin 2g IV, azithromycin 500 mg PO ECG Additional Comments: a fib, rate 88 qtc 442 Code Status & VTE Plan Code Status full code VTE Prophylaxis Plan VTE Prophylaxis will be ordered: Yes Supervising Physician Co-Signing Physician Notes Patient seen and examined, chart reviewed, case discussed with PRANAY Jorgensen and I agree with the assessment and plan as above. Aspiration with hypoxia UTI Resting comfortably in bed, NAD Skin - no rash HEENT - MMM Heart - +S1/S2, regular, tachy Lungs - coarse anteriorly Labs and images reviewed Assessment/Plan Zosyn Supportive care Remainder as above PG Care Time/CCT Total # of Minutes Spent Total Time Spent with Patient: Total time spent is greater than 50% in coordination of care (as documented) at patient's floor/unit and/or counseling patient: Coding Level of Care Code 47650 INT INP/OBS CARE 3/75MIN Diagnoses Aspiration pneumonia due to vomit J69.0 Acute hypoxic respiratory failure J96.01 Acute UTI (urinary tract infection) N39.0
[2025-04-05] MEDS: ACETAMINOPHEN 325 MG TAB PO STA (23:57)
[2025-04-05] MEDS: ATORVASTATIN 40 MG TAB PO STA (23:57)
[2025-04-06] MEDS ORDERED: ONDANSETRON INJ 2 MG/ML 2 ML VIAL IV PRN (00:56)
[2025-04-06] MEDS ORDERED: BENZONATATE 100 MG CAPSULE PO PRN (00:56)
[2025-04-06] MEDS ORDERED: POLYETHYLENE (MIRALAX) 17 GM PACK PO PRN (00:56)
[2025-04-06] MEDS: PIPERACILLIN/TAZOBACTAM 4.5 GM/100 ML BAG IV ONE (03:19)
[2025-04-06] MEDS: PIPERACILLIN/TAZOBACTAM 4.5 GM/100 ML BAG IV SCH (10:20)
[2025-04-06] MEDS: ASPIRIN 81 MG ECTAB PO SCH (10:20)
[2025-04-06] MEDS: POTASSIUM CHLORIDE CRTAB 20 MEQ TABCR PO SCH (10:21)
[2025-04-06] MEDS: FUROSEMIDE 20 MG TAB PO SCH (10:21)
[2025-04-06 10:30] LABS: Hematocrit (blood only) 41.4 % (37.0-47.0); Hemoglobin 13.5 g/dL (12.0-16.0); Immature Granulocytes # (auto) 0.02 K/uL (0.01-0.20); Immature Granulocytes % (auto) 0.4 %; Mean Corpuscular Hemoglobin 29.9 pg (25.0-34.0); Mean Corpuscular Volume 91.6 fL (80.0-100.0); Platelet Count 190 K/uL (130-400); RDW Standard Deviation 52.5 fL (36.4-46.3); Red Blood Count 4.52 M/uL (4.20-5.40); White Blood Count 5.11 K/ul (4.8-10.8)
[2025-04-06 10:46] LABS: Anion Gap 5.0 (3-11); Blood Urea Nitrogen 13.0 mg/dl (6-23); Calcium 9.8 mg/dl (8.6-10.3); Carbon Dioxide 30.0 mmol/L (21-32); Chloride 105.0 mmol/L (98-107); Creatinine Clr Calc Pharmacy 63.5 ml/min; Glucose 123.0 mg/dl (70-99(Fasting)); Magnesium 1.9 mg/dl (1.7-2.4); Potassium 3.9 mmol/L (3.5-5.1); Sodium 140.0 mmol/L (136-145)
--- NOTE | 2025-04-06 11:08 | Hospitalist Progress Note ---
Date of Service April 06, 2025 Assessment & Plan (1) Aspiration pneumonia due to vomit: (2) Acute hypoxic respiratory failure: (3) Acute UTI (urinary tract infection): (4) Dysphagia: Plan Patient is an 89-year-old female with past medical history of permanent A-fib, TIA, breast cancer, GERD, type II DM, hypothyroidism, HFpEF, HLD, recurrent UTIs. Patient presented with her daughter after an episode after dinner in which she started coughing, vomited, and then choked on her vomit. Patient then developed shortness of breath and cough after the episode. Patient was noted to be 87% on room air in the ED and is being treated for mild aspiration pneumonia. Patient also found to have UTI. Nonseptic presentation at time of admission. #Aspiration pneumonia | acute hypoxic respiratory failure Questionable mild aspiration pneumonia on CXR after reported aspiration event at home Hypoxic 87% on room air on arrival Nonseptic presentation - no leukocytosis, VSS Biofire negative MRSA swab negative Procalcitonin WNL Zosyn 4.5 g IV q8h No acute need for atypical coverage I-S, flutter valve Tessalon Perles and Tylenol as needed Titrate oxygen prn for O2 <94%, wean as tolerated Note: Improvement on 04/06, but still requiring 1L NC #Dysphagia Speech therapy consult appreciated Recommending easy to chew diet with thin liquids Aspiration precautions #UTI - history of recurrent UTIs. UA concerning for infection with nitrite, 2+ LE, > 50 WBC, 1+ bacteria; note 6-10 epithelial cells. Nonseptic presentation. History of Enterococcus faecalis resistant to tetracyclines, pansensitive Pseudomonas aeruginosa, pansensitive E. coli, pansensitive Klebsiella pneumonia Coverage with Zosyn as above Hold methenamine Follow current UCx -preliminarily growing Citrobacter #Permanent A-fibcontinue diltiazem, no anticoagulation use #HLDcontinue the aspirin and statin #HFpEFcontinue Lasix 20 mg daily with potassium supplement #Hypothyroidismcontinue methimazole #GERD - continue PPI Disposition: Continued stay on [facility] telemetry VTE PPx: SCDs Admission and Anticipated Discharge Date Admission Date: April 05, 2025 Subjective Mrs. Gramajo reports her breathing is "better than yesterday". She is still exhibiting a dry cough, but reports no SOB at rest. She has not been out of bed yet today. Patient's family is at bedside and provides additional history. Daughter reports that she has not had occasional episodes where she chokes on food. Yesterday, patient is unsure what she was eating for dinner, but reports she might of coughed up and choked on some soup or bread. She did feel something go down the wrong pipe. She denies any wheezing. Not on supplemental oxygen at baseline or CPAP at night. While she does have a history of UTIs, she denies any urinary symptoms at this time such as burning with urination. Patient did have a bowel movement yesterday. ROS: Patient endorses dry cough, dyspnea on exertion, loose stool (resolved), and some lightheadedness with standing. Patient denies fevers, chest pain, pleuritic CP, productive cough, abdominal pain, N/V/D, or numbness/tingling/swelling of the legs. Review of Systems Review of Systems: See HPI above Physical Exam Physical Exam: General: no acute distress; pleasant affect; daughter (aKlli) and (Telly) at bedside; non-toxic appearing; frail-appearing; cooperative; SpO2 97% on 1L NC HEENT: normocephalic, atraumatic; PERRLA; vision intact; hard of hearing Neck: supple; trachea midline Skin: warm, dry skin turgor, without signs of tenting; no cyanosis; no rashes, bruising, lesions, or erythema noted CV: chest wall NTP; irregularly irregular rhythm around 70 to 80 bpm; pulses intact and symmetric at radial, DP, and PT Lungs: Dry cough; no acute respiratory distress; symmetrical chest wall expansion; clear breath sounds across all lung ellington w/o adventitious sounds; no wheezing ABD: Soft, NTP; BS present; no rebound/guarding; no distention MSK: no tics or fasciculations; no edema noted in the LEs b/l, nonerythematous Neuro: A&Ox3; normal mood and affect; fluent speech; sensation intact and symmetric in the LEs b/l Results & Data Results & Data Vital Signs (Past 12 Hours) Vital Signs Temp Pulse Pulse Resp BP Pulse Ox O2 Del Method 04/06/25 08:02 36.4 C L 105 H 20 154/80 H 95 Nasal Cannula 04/06/25 01:49 Nasal Cannula 04/06/25 01:31 36.6 C 86 20 153/91 H 94 Nasal Cannula 04/06/25 00:56 36.6 C 86 20 153/91 H 94 Nasal Cannula 04/06/25 00:55 92 H 04/06/25 00:17 94 H 04/06/25 00:00 81 16 154/115 H 99 Nasal Cannula O2 Flow Rate 04/06/25 08:02 1 04/06/25 01:49 2 04/06/25 01:31 2 04/06/25 00:56 2 04/06/25 00:55 04/06/25 00:17 04/06/25 00:00 2 PG Care Time/CCT Total # of Minutes Spent Total Time Spent with Patient: Total time spent is greater than 50% in coordination of care (as documented) at patient's floor/unit and/or counseling patient: Coding [place] [address] SUB INP/OBS CARE 3/50MIN Patient Type Established Medical Decision Making High Complexity Diagnoses Aspiration pneumonia due to vomit J69.0 Acute hypoxic respiratory failure J96.01 Acute UTI (urinary tract infection) N39.0 Dysphagia R13.10
--- NOTE | 2025-04-06 19:34 | Electrocardiogram Report ---
Test Reason : Blood Pressure : */* mmHG Vent. Rate : 88 BPM Atrial Rate : * BPM P-R Int : * ms QRS Dur : 100 ms QT Int : 366 ms P-R-T Axes : * -16 2 degrees QTcB Int : 442 ms Atrial fibrillation Abnormal ECG When compared with ECG of 12-Jan-2025 20:06, No significant change was found Confirmed by Tha Caldwell ([id number]) on 04/06/2025 7:34:29 PM Referred By: REFERRED SELF Confirmed By: Tha Caldwell
[2025-04-06] MEDS: ACETAMINOPHEN 325 MG TAB PO SCH (20:38)
[2025-04-06] MEDS: ATORVASTATIN 40 MG TAB PO SCH (20:38)
--- NOTE | 2025-04-07 08:26 | Hospitalist Progress Note ---
Date of Service April 07, 2025 Assessment & Plan (1) Aspiration pneumonia due to vomit: (2) Acute hypoxic respiratory failure: (3) Acute UTI (urinary tract infection): Plan Patient is an 89-year-old female with past medical history of permanent A-fib, TIA, breast cancer, GERD, type II DM, hypothyroidism, HFpEF, HLD, recurrent UTIs. Patient presented with her daughter after an episode after dinner in which she started coughing, vomited, and then choked on her vomit. Patient then developed shortness of breath and cough after the episode. Patient was noted to be 87% on room air in the ED and is being treated for mild aspiration pneumonia. Patient also found to have UTI. Nonseptic presentation at time of admission. #Aspiration pneumonia Questionable mild aspiration pneumonia on CXR after reported aspiration event at home Non-septic presentation - no leukocytosis, VSS Biofire negative MRSA swab negative Procalcitonin WNL Zosyn 4.5 g IV q8h No acute need for atypical coverage IS, flutter valve Tessalon Perles and Tylenol PRN #Acute hypoxic respiratory failure Patient continues to exhibit hypoxia on 04/07; dropped to 87 to 88% when attempting to ambulate around the room without supplemental oxygen Also appeared to have more significant wheezing and chest tightness today Added on DuoNeb PRN Uptitrate supplemental oxygen for O2 <94%, wean as tolerated No history of COPD or asthma Repeat procalcitonin WNL; no leukocytosis If no improvement on DuoNeb, will obtain repeat CXR #Confusion Per daughter, patient thought she was at "[place]" earlier today Daughter reports recurrent episodes of hospital-acquired confusion during inpatient stays Encourage reorientation whenever possible Daughter requesting home health PT/OT if possible rather than rehab PT/OT evaluations still pending at this time #Dysphagia Speech therapy consult appreciated Recommending easy to chew diet with thin liquids Aspiration precautions #UTI - history of recurrent UTIs. UA concerning for infection with nitrite, 2+ LE, > 50 WBC, 1+ bacteria; note 6-10 epithelial cells. Nonseptic presentation. History of Enterococcus faecalis resistant to tetracyclines, pansensitive Pseudomonas aeruginosa, pansensitive E. coli, pansensitive Klebsiella pneumonia Coverage with Zosyn as above Hold methenamine Follow current UCx -preliminarily growing Citrobacter #Permanent A-fibcontinue diltiazem, no anticoagulation use #HLDcontinue the aspirin and statin #HFpEFcontinue Lasix 20 mg daily with potassium supplement #Hypothyroidismcontinue methimazole #GERD - continue PPI Disposition: Continued stay on [facility]Sur telemetry while still requiring supplemental oxygen; suspect patient will need acute rehab upon discharge VTE PPx: SCDs Updated patient's daughter (Kalli) at bedside on 04/06 and 04/07. Admission and Anticipated Discharge Date Admission Date: April 05, 2025 Subjective Mrs. Gramajo says she "feels good" this morning and her breathing is okay. She denies any chest tightness. While she has not had breakfast yet today, she reports she had dinner last night (stuffed peppers), and nothing "went down the wrong pipe". She reports she coughs "only if [she] swallows something wrong". She denies any urinary symptoms such as burning with urination. ROS: Patient denies additional aspiration events, fevers, chills, night sweats, chest pain, SOB at rest, FOFANA, chest tightness, cough (only when she swallows things wrong), wheeze, abdominal pain, N/V/D, burning with urination, or changes in urinary/bowel habits. Touched base with nursing staff, who report no overnight events, or additional episodes of aspiration. While patient is A&O x 3, it is unclear if she exhibits appropriate medical insight. For instance, she is conversationally dyspneic on exam, and denies wheezing/chest tightness despite having clear wheezing/chest tightness. Reassessed patient at bedside around 1300 with daughter present in the room. Patient reports she is been feeling better throughout the day. However, she has not been out of bed yet today. Assisted patient with ambulation out into the hallway and back using her walker. She is a max assist, and does a endorse dyspnea on exertion. SpO2 dropped to 8788% with exertion on RA. Supplemental oxygen restarted. Daughter at bedside reports that she does not have a history of COPD or asthma. However, she has a history of atrial fibrillation, which can sometimes contribute to shortness of breath. When discussing rehab options upon discharge, daughter explains that they have been to [facility] as well as the [facility] bed program in the past. They would strongly prefer to avoid rehab if possible (and elect PT/OT home health) as patient becomes increasingly confused during inpatient stays. If rehab were necessary upon PT/OT evaluation, they would prefer the [facility] bed program if possible. Review of Systems Review of Systems: See HPI above Physical Exam Physical Exam: General: no acute distress; pleasant affect; non-toxic appearing; frail- appearing; cooperative; SpO2 92% on 2L NC HEENT: normocephalic, atraumatic; PERRLA; vision intact; hard of hearing (hearing aids in place) Neck: supple; trachea midline Skin: warm, dry skin turgor, without signs of tenting; no cyanosis; no rashes, bruising, lesions, or erythema noted CV: chest wall NTP; irregularly irregular rhythm around 70 to 80 bpm; pulses intact and symmetric at radial, DP, and PT Lungs: Conversationally dyspneic; dry cough; symmetrical chest wall expansion; mild expiratory wheeze auscultated in the lower lung ellington bilaterally ABD: Soft, NTP; BS present; no rebound/guarding; no distention MSK: no tics or fasciculations; no edema noted in the LEs b/l, nonerythematous Neuro: A&Ox3; normal mood and affect; fluent speech; sensation intact and symmetric in the LEs b/l Gait: Max assist for sit to stand; assessed ambulation with nurse at bedside; patient reports dyspnea ambulating with her walker several steps towards the door of her room and back; SpO2 87 to 88% on RA following ambulation Results & Data Results & Data Vital Signs (Past 12 Hours) Vital Signs Temp Pulse Pulse Resp BP Pulse Ox Pulse Ox 04/07/25 07:32 84 04/07/25 03:36 36.4 C L 114 H 22 173/97 H 97 04/07/25 00:56 95 04/06/25 23:07 36.5 C 107 H 22 182/122 H 95 04/06/25 21:30 88 O2 Del Method O2 Del Method O2 Flow Rate O2 Flow Rate 04/07/25 07:32 04/07/25 03:36 Nasal Cannula 2 04/07/25 00:56 Nasal Cannula 2 04/06/25 23:07 Nasal Cannula 2 04/06/25 21:30 PG Care Time/CCT Total # of Minutes Spent Total Time Spent with Patient: Total time spent is greater than 50% in coordination of care (as documented) at patient's floor/unit and/or counseling patient: C[place] [address] SUB INP/OBS CARE 350MIN Patient Type Established History Comprehensive Exam Comprehensive Medical Decision Making High Complexity Diagnoses Aspiration pneumonia due to vomit J69.0 Acute hypoxic respiratory failure J96.01 Acute UTI (urinary tract infection) N39.0
[2025-04-07] MEDS: ALBUT/IPRATROP 3MG/0.5MG NEB 3 ML VIAL NEB STA (09:00)
[2025-04-07 11:55] LABS: Hematocrit (blood only) 41.6 % (37.0-47.0); Hemoglobin 13.5 g/dL (12.0-16.0); Immature Granulocytes # (auto) 0.01 K/uL (0.01-0.20); Immature Granulocytes % (auto) 0.2 %; Mean Corpuscular Hemoglobin 29.9 pg (25.0-34.0); Mean Corpuscular Volume 92.2 fL (80.0-100.0); Platelet Count 181 K/uL (130-400); RDW Standard Deviation 52.2 fL (36.4-46.3); Red Blood Count 4.51 M/uL (4.20-5.40); White Blood Count 5.96 K/ul (4.8-10.8)
[2025-04-07 12:00] LABS: Anion Gap 6.0 (3-11); Blood Urea Nitrogen 19.0 mg/dl (6-23); Calcium 9.3 mg/dl (8.6-10.3); Carbon Dioxide 30.0 mmol/L (21-32); Chloride 105.0 mmol/L (98-107); Creatinine Clr Calc Pharmacy 54.7 ml/min; Glucose 144.0 mg/dl (70-99(Fasting)); Potassium 3.7 mmol/L (3.5-5.1); Sodium 141.0 mmol/L (136-145)
[2025-04-08] MEDS: ALBUT/IPRATROP 3MG/0.5MG NEB 3 ML VIAL NEB PRN (00:39)
--- NOTE | 2025-04-08 09:48 | Hospitalist Progress Note ---
Date of Service April 08, 2025 Assessment & Plan (1) Aspiration pneumonia due to vomit: (2) Acute hypoxic respiratory failure: (3) Acute UTI (urinary tract infection): Plan Patient is an 89-year-old female with past medical history of permanent A-fib, TIA, breast cancer, GERD, type II DM, hypothyroidism, HFpEF, HLD, recurrent UTIs. Patient presented with her daughter after an episode after dinner in which she started coughing, vomited, and then choked on her vomit. Patient then developed shortness of breath and cough after the episode. Patient was noted to be 87% on room air in the ED and is being treated for mild aspiration pneumonia. Patient also found to have UTI. Nonseptic presentation at time of admission. #Aspiration pneumonia Questionable mild aspiration pneumonia on CXR after reported aspiration event at home Non-septic presentation - no leukocytosis, VSS Biofire negative MRSA swab negative Procalcitonin WNL x 2 Zosyn 4.5 g IV q8h No acute need for atypical coverage IS, flutter valve Tessalon Perles and Tylenol PRN #Acute HFpEF Repeat CXR on morning of 04/08 consistent with pulmonary edema and bilateral pleural effusions BNP ordered, pending Last echocardiogram on 01/13/2025 revealed LVEF at 60 to 65% Lasix 20 mg IV BID17 Potassium chloride 20mEq daily Daily Weights Strict I&O monitoring #Permanent A-fib Not on anticoagulation; on ASA, d/t h/o anemia and GIB while on warfarin Continue diltiazem Intermittent tachycardia in the hospital Clinically, patient denies pleuritic CP + hemoptysis; no prior history of DVT/PE However, if patient is refractory to Lasix/antibiotics, would recommend obtaining chest CTA (renal function okay in the hospital thus far) Continuous telemetry monitoring #Acute hypoxic respiratory failure Multifactorial; suspect combination of above Added on DuoNeb PRN Uptitrate supplemental oxygen for O2 <94%, wean as tolerated No history of COPD or asthma #Confusion Per daughter, patient thought she was at "[place]" earlier today Daughter reports recurrent episodes of hospital-acquired confusion during inpatient stays Encourage reorientation whenever possible PT/OT evaluations appreciated Recommending SNF Daughter requesting home health PT/OT if possible rather than rehab However, if needed, they did like to [facility] #Dysphagia Speech therapy consult appreciated Recommending easy to chew diet with thin liquids Aspiration precautions #UTI - history of recurrent UTIs. UA concerning for infection with nitrite, 2+ LE, > 50 WBC, 1+ bacteria; note 6-10 epithelial cells. Nonseptic presentation. History of Enterococcus faecalis resistant to tetracyclines, pansensitive Pseudomonas aeruginosa, pansensitive E. coli, pansensitive Klebsiella pneumonia Coverage with Zosyn (as above) Hold methenamine Urine culture on 04/05 finalized growing pansensitive Citrobacter #HLDcontinue the aspirin and statin #HFpEFcontinue Lasix 20 mg daily with potassium supplement #Hypothyroidismcontinue methimazole #GERD - continue PPI Disposition: Continued stay on MedSurg telemetry in setting of hypoxia VTE PPx: SCDs Updated patient's daughter (Kalli) at bedside on 04/06 and 04/07. Admission and Anticipated Discharge Date Admission Date: April 05, 2025 Subjective Mrs. Gramajo reports her breathing is better this morning after she received a nebulizer treatment. She denies SOB at rest, but still feels winded when she is exerting herself. (, She needed the help of 2 people to get her up from the bed to the chair, and she endorses lower extremity weakness bilaterally. Patient had difficulty sleeping last night due to the "beeping" from her IV machine. While she is occasionally coughing, she denies productive cough, hemoptysis, or pleuritic CP. While she does not have a personal history of DVT/PE, she reports her mother had a history of blood clots. Additionally, she reports that she has been having burning with urination, but is unsure when it started. ROS: Patient endorses generalized fatigue, lower extremity weakness, dry cough, FOFANA, and burning with urination. Patient denies fever, productive cough, hemoptysis, pleuritic CP, SOB at rest, chest pain, chest palpitations, abdominal pain, N/V/D, blood in the urine/stool, or changes in bowel habits. Review of Systems Review of Systems: See HPI above Physical Exam Physical Exam: General: no acute distress; pleasant affect; sitting upright in her chair watching TV; non-toxic appearing; frail-appearing; cooperative; SpO2 95% on 2L NC HEENT: normocephalic, atraumatic; PERRLA; vision intact; hard of hearing (hearing aids in place) Neck: supple; trachea midline Skin: warm, dry skin turgor, without signs of tenting; no cyanosis; no rashes, bruising, lesions, or erythema noted CV: chest wall NTP; irregularly irregular rhythm around 90 to 100 bpm; pulses intact and symmetric at radial, DP, and PT Lungs: Conversationally dyspneic; dry cough; symmetrical chest wall expansion; mild expiratory wheeze auscultated in the lower lung ellington bilaterally ABD: Soft, NTP; BS present; no rebound/guarding; no distention MSK: no tics or fasciculations; no edema noted in the LEs b/l, nonerythematous Neuro: A&Ox3; normal mood and affect; fluent speech; sensation intact and symmetric in the LEs b/l Results & Data Results & Data Vital Signs (Past 12 Hours) Vital Signs Temp Pulse Resp BP Pulse Ox O2 Del Method O2 Flow Rate 04/08/25 07:54 95 H 20 98 Nasal Cannula 3 04/08/25 07:51 Nasal Cannula 3 04/08/25 03:29 36.5 C 114 H 16 161/89 H 96 Nasal Cannula 3 04/08/25 00:39 75 20 92 Nasal Cannula 2 04/07/25 23:30 36.6 C 74 16 158/100 H 97 Nasal Cannula 2 PG Care Time/CCT Total # of Minutes Spent Total Time Spent with Patient: Total time spent is greater than 50% in coordination of care (as documented) at patient's floor/unit and/or counseling patient: Coding [place] [address] SUB INP/OBS CARE 3/50MIN Patient Type Established History Comprehensive Exam Comprehensive Medical Decision Making High Complexity Diagnoses Aspiration pneumonia due to vomit J69.0 Acute hypoxic respiratory failure J96.01 Acute UTI (urinary tract infection) N39.0
--- NOTE | 2025-04-08 14:27 | XRay Report ---
Technique: A frontal view of the chest was obtained Findings: There is diffuse interstitial prominence, likely due to pulmonary edema. The heart is enlarged. No pneumothorax is seen. There are bilateral small to moderate sized pleural effusions No fracture is noted. No foreign body is seen Impression: Suspected congestive heart failure with cardiomegaly, pulmonary edema, and bilateral pleural effusions Electronically signed by Manny Hartley 04-08-2025 2:26 PM
[2025-04-08 15:55] LABS: Anion Gap 5.0 (3-11); Blood Urea Nitrogen 22.0 mg/dl (6-23); Calcium 9.8 mg/dl (8.6-10.3); Carbon Dioxide 33.0 mmol/L (21-32); Chloride 103.0 mmol/L (98-107); Creatinine Clr Calc Pharmacy 40.4 ml/min; Glucose 143.0 mg/dl (70-99(Fasting)); Potassium 4.0 mmol/L (3.5-5.1); Sodium 141.0 mmol/L (136-145)
[2025-04-08] MEDS: POTASSIUM CHLORIDE 10 MEQ TABCR PO STA (17:02)
[2025-04-08] MEDS: FUROSEMIDE 40 MG/4 ML VIAL IV STA (17:38)
[2025-04-08] MEDS: MELATONIN 3 MG TAB PO PRN (20:45)
--- NOTE | 2025-04-09 08:02 | Hospitalist Progress Note ---
Date of Service April 09, 2025 Assessment & Plan (1) Aspiration pneumonia due to vomit: (2) Acute hypoxic respiratory failure: (3) Acute UTI (urinary tract infection): Plan Pt is an 89 y/o F w/ PMHx permanent A-fib, TIA, breast cancer, GERD, type II DM, hypothyroidism, HFpEF, HLD, recurrent UTIs. Pt presented with her daughter after an episode after dinner in which she started coughing, vomited, and then choked on her vomit. Patient then developed shortness of breath and cough after the episode. Patient was noted to be 87% on room air in the ED and was also found to have UTI. #Aspiration pneumonia - Non-septic on presentation, VSS + no leukocytosis; 04/05 CXR w/ questionable mild aspiration PNA; Biofire in ED neg; Procal WNL x2 -Discontinue Zosyn; pt completed 3 day course, is w/out leukocytosis, VSS -IS, flutter valve -PRN: Tessalon Pearls, Tylenol #Acute HFpEF - 04/08 Repeat CXR consistent w/ pulmonary edema and bilateral pleural effusions; 04/08 BMP 189; Last echocardiogram on 01/13/2025 revealed LVEF at 60 to 65% -Continue Lasix 20 mg IV BID17 -Continue Potassium chloride 20mEq daily -Daily Weights -Strict I&O monitoring #Permanent A-fib - Intermittent tachycardia present; Pt denies CP/Hemoptysis + w/out hx DVT/PE -Continue ASA; no anticoagulation d/t h/o anemia & GIB while on warfarin -Continue diltiazem -Continuous telemetry monitoring If pt refractory to Lasix + antibiotic therapy, consider chest CTA #Acute hypoxic respiratory failure - No hx COPD/Asthma -Multifactorial; suspect combination of above -DuoNeb PRN -supplemental oxygen for O2 <94%, wean as tolerated #Confusion - -Daughter reports recurrent episodes of hospital-acquired confusion during inpatient stays Daughter noted pt thought she was at [place] on 04/07 -Encourage reorientation -PT/OT recommending SNF; daughter requesting home health if possible otherwise [facility] #Dysphagia - -Speech therapy consult; Recommending easy to chew diet with thin liquids -Aspiration precautions #UTI - Hx of recurrent UTIs; UA concerning for infection with nitrite, 2+ LE, > 50 WBC, 1+ bacteria with 6-10 epithelial cells in ED; -Hx of Enterococcus faecalis resistant to tetracyclines, pansensitive Pseudomonas aeruginosa, pansensitive E. coli, pansensitive Klebsiella pneumonia -04/05 Urine Culture: Citrobactr -Discontinue Zosyn -Hold methenamine #HLDcontinue the aspirin and statin #HFpEFcontinue Lasix 20 mg daily with potassium supplement as above #Hypothyroidismcontinue methimazole #GERD - continue PPI Disposition: Continued stay on MedSurg telemetry in setting of hypoxia, awaiting PT/OT evaluation VTE PPx: SCDs Updated patient's daughter (Kalli) at bedside on 04/06 and 04/07. Admission and Anticipated Discharge Date Admission Date: April 05, 2025 Subjective Pt was sitting at bedside today in NAD. Pt notes that she overall feels much improved when compared to previous days. She notes that after getting the Lasix that she is going to the bathroom much more often. Overall pt notes that she is hopeful to leave the hospital as soon as she can. ROS: Pt Endorses: Cough, SOB, and feeling instable during ambulation Pt denies: sore throat, congestion, abd pain, N/V/D, dizziness/lightheadedness, chest pain, and palpitations. Telemetry: Atrial Fibrillation in the 90s overnight into AM Review of Systems Review of Systems: All systems reviewed & are unremarkable except as noted in Subjective Physical Exam Physical Exam: General: Pt is a 89 y/o overweight F in NAD sitting at bedside. VS: reviewed -[un]remarkable Skin: Warm and dry; no lesions or ulcerations Respiratory: Decreased breath sounds in lower lobes bilat, no adventitious sounds noted otherwise. Chest expansion is full and symmetrical Cardio: Irregularly irregular, no murmurs Abdomen: Round, normoactive BS x4, nontender to palpation MSK: FROM of extremities, no deformities Extremities: no edema Neuro: A&Ox4, cooperative Results & Data Results & Data Vital Signs (Past 12 Hours) Vital Signs Temp Pulse Pulse Resp BP BP Pulse Ox 04/09/25 07:52 97.5 F L 102 H 18 151/96 H 93 04/09/25 07:39 91 H 22 93 04/09/25 04:07 97.9 F 113 H 20 133/82 92 04/09/25 01:14 90 20 94 04/09/25 00:52 97.9 F 71 20 167/37 H 99 04/08/25 21:54 106 H O2 Del Method O2 Flow Rate 04/09/25 07:52 Room Air 04/09/25 07:39 Room Air 04/09/25 04:07 Nasal Cannula 2 04/09/25 01:14 Room Air 04/09/25 00:52 Nasal Cannula 2 04/08/25 21:54 Laboratory Results Reviewed: CBC, BMP PG Care Time/CCT Total # of Minutes Spent Total Time Spent with Patient: Total time spent is greater than 50% in coordination of care (as documented) at patient's floor/unit and/or counseling patient: A total of 65 minutes was spent on pt care including direct patient interaction, review of chart, review + interpretation of labs, documentation, and coordination of care. Coding Level of Care Code 29345 SUB INP/OBS CARE 3/50MIN Diagnoses Aspiration pneumonia due to vomit J69.0 Acute hypoxic respiratory failure J96.01 Acute UTI (urinary tract infection) N39.0
[2025-04-09] MEDS: DOCUSATE SODIUM 100 MG CAP PO PRN (08:17)
[2025-04-09] MEDS: FUROSEMIDE INJ 20 MG/2 ML VIAL IV SCH (08:18)
--- NOTE | 2025-04-09 09:01 | XCELERA ---
[id number]
[2025-04-09 09:15] LABS: Anion Gap 7.0 (3-11); Blood Urea Nitrogen 20.0 mg/dl (6-23); Calcium 9.6 mg/dl (8.6-10.3); Carbon Dioxide 31.0 mmol/L (21-32); Chloride 104.0 mmol/L (98-107); Creatinine Clr Calc Pharmacy 55.7 ml/min; Glucose 103.0 mg/dl (70-99(Fasting)); Potassium 3.5 mmol/L (3.5-5.1); Sodium 142.0 mmol/L (136-145)
[2025-04-09 10:14] LABS: Hematocrit (blood only) 41.0 % (37.0-47.0); Hemoglobin 13.2 g/dL (12.0-16.0); Immature Granulocytes # (auto) 0.02 K/uL (0.01-0.20); Immature Granulocytes % (auto) 0.4 %; Mean Corpuscular Hemoglobin 29.7 pg (25.0-34.0); Mean Corpuscular Volume 92.3 fL (80.0-100.0); Platelet Count 191 K/uL (130-400); RDW Standard Deviation 51.8 fL (36.4-46.3); Red Blood Count 4.44 M/uL (4.20-5.40); White Blood Count 5.33 K/ul (4.8-10.8)
[2025-04-10 06:42] LABS: Hematocrit (blood only) 38.7 % (37.0-47.0); Hemoglobin 12.6 g/dL (12.0-16.0); Immature Granulocytes # (auto) 0.02 K/uL (0.01-0.20); Immature Granulocytes % (auto) 0.3 %; Mean Corpuscular Hemoglobin 29.6 pg (25.0-34.0); Mean Corpuscular Volume 91.1 fL (80.0-100.0); Platelet Count 190 K/uL (130-400); RDW Standard Deviation 51.0 fL (36.4-46.3); Red Blood Count 4.25 M/uL (4.20-5.40); White Blood Count 5.72 K/ul (4.8-10.8)
--- NOTE | 2025-04-10 08:07 | Hospitalist Progress Note ---
Date of Service April 10, 2025 Assessment & Plan (1) Aspiration pneumonia due to vomit: (2) Acute hypoxic respiratory failure: (3) Acute UTI (urinary tract infection): Plan Pt is an 89 y/o F w/ PMHx permanent A-fib, TIA, breast cancer, GERD, type II DM, hypothyroidism, HFpEF, HLD, recurrent UTIs. Pt presented with her daughter after an episode after dinner in which she started coughing, vomited, and then choked on her vomit. Patient then developed shortness of breath and cough after the episode. Patient was noted to be 87% on room air in the ED and was also found to have UTI. #Aspiration pneumonia - Non-septic on presentation, VSS + no leukocytosis; 04/05 CXR w/ questionable mild aspiration PNA; Biofire in ED neg; Procal WNL x2 -Discontinued Zosyn 04/09; pt completed 3 day course, is w/out leukocytosis, VSS -IS, flutter valve -PRN: Tessalon Pearls, Tylenol #Acute HFpEF - 04/08 Repeat CXR consistent w/ pulmonary edema and bilateral pleural effusions; 04/08 BMP 189; Last echocardiogram on 01/13/2025 revealed LVEF at 60 to 65% -Continue Lasix 20 mg IV BID17 -Continue Potassium chloride 20mEq daily -Daily Weights -Strict I&O monitoring #Permanent A-fib - Intermittent tachycardia present; Pt denies CP/Hemoptysis + w/out hx DVT/PE -Continue ASA; no anticoagulation d/t h/o anemia & GIB while on warfarin -Continue diltiazem -Continuous telemetry monitoring If pt refractory to Lasix + antibiotic therapy, consider chest CTA #Acute hypoxic respiratory failure - No hx COPD/Asthma -Multifactorial; suspect combination of above -DuoNeb PRN -supplemental oxygen for O2 <94%, wean as tolerated -Currently needing occasional 1-2L O2 #Confusion - -Daughter reports recurrent episodes of hospital-acquired confusion during inpatient stays Daughter noted pt thought she was at [place] on 04/07 -Encourage reorientation -PT/OT recommending SNF; daughter requesting home health if possible otherwise [facility] #Dysphagia - -Speech therapy consult; Recommending easy to chew diet with thin liquids -Aspiration precautions #UTI - Hx of recurrent UTIs; UA concerning for infection with nitrite, 2+ LE, > 50 WBC, 1+ bacteria with 6-10 epithelial cells in ED; -Hx of Enterococcus faecalis resistant to tetracyclines, pansensitive Pseudomonas aeruginosa, pansensitive E. coli, pansensitive Klebsiella pneumonia -04/05 Urine Culture: Citrobactr -Discontinued Zosyn 04/09 -Hold methenamine #HLDcontinue the aspirin and statin #HFpEFcontinue Lasix 20 mg daily with potassium supplement as above #Hypothyroidismcontinue methimazole #GERD - continue PPI Disposition: Continued stay on MedSurg telemetry in setting of hypoxia; PT/OT recommending SNF VTE PPx: SCDs Pt's and Daughter updated 04/10, both continue to express strong interest in Home Health services. Admission and Anticipated Discharge Date Admission Date: April 05, 2025 Subjective Pt is sitting at bedside in NAD currently without oxygen. Pt is mildly confused this AM and states that she thought she was in the hospital for a broken bone. Discussed with patient that she was in the hospital for aspiration PNA. Despite confusion pt notes that she feels better than she has in previous days. ROS: Pt endorses occasional SOB and notes that she still feels a bit weak physically Pt denies cough, sore throat, CP, palpitations, abd pain/discomfort, N/V/D, dizziness, and lightheadedness. Telemetry: A-fib 80s-90s overnight into AM Review of Systems 2 Review of Systems: All systems reviewed & are unremarkable except as noted in Subjective Physical Exam Physical Exam: General: Pt is a 89 y/o overweight F in NAD sitting at bedside. VS: reviewed, remarkable - BP 146/85, pt needs O2 1-2L intermittentally Skin: Warm and dry; no lesions or ulcerations Respiratory: Decreased breath LLL, otherwise CTA w/ no adventitious sounds. Chest expansion is full and symmetrical Cardio: Irregularly irregular, no murmurs Abdomen: Round, normoactive BS x4, nontender to palpation MSK: FROM of extremities, no deformities Extremities: no edema Neuro: A&Ox4, cooperative Results & Data Results & Data Vital Signs (Past 12 Hours) Vital Signs Temp Pulse Pulse Resp BP Pulse Ox O2 Del Method 04/10/25 07:52 Nasal Cannula 04/10/25 03:07 97.5 F L 88 18 152/74 H 96 Nasal Cannula 04/09/25 22:48 97.9 F 99 H 18 151/76 H 94 Nasal Cannula 04/09/25 22:38 100 H 04/09/25 22:38 O2 Flow Rate 04/10/25 07:52 1 04/10/25 03:07 1 04/09/25 22:48 1 04/09/25 22:38 04/09/25 22:38 1 Laboratory Results Reviewed: CBC, BMP, BNP PG Care Time/CCT Total # of Minutes Spent Total Time Spent with Patient: Total time spent is greater than 50% in coordination of care (as documented) at patient's floor/unit and/or counseling patient: Coding Level of Care Code 78887 SUB INP/OBS CARE 2/35MIN Diagnoses Aspiration pneumonia due to vomit J69.0 Acute hypoxic respiratory failure J96.01 Acute UTI (urinary tract infection) N39.0
[2025-04-10 09:35] LABS: Anion Gap 8.0 (3-11); Blood Urea Nitrogen 26.0 mg/dl (6-23); Calcium 9.8 mg/dl (8.6-10.3); Carbon Dioxide 30.0 mmol/L (21-32); Chloride 103.0 mmol/L (98-107); Creatinine Clr Calc Pharmacy 56.5 ml/min; Glucose 107.0 mg/dl (70-99(Fasting)); Potassium 3.4 mmol/L (3.5-5.1); Sodium 141.0 mmol/L (136-145)
[2025-04-11 03:13] VITALS: TEMP 97.5
[2025-04-11] MEDS: ACETAMINOPHEN 325 MG TAB PO PRN (06:34)
[2025-04-11 06:52] LABS: Hematocrit (blood only) 39.2 % (37.0-47.0); Hemoglobin 13.1 g/dL (12.0-16.0); Immature Granulocytes # (auto) 0.02 K/uL (0.01-0.20); Immature Granulocytes % (auto) 0.3 %; Mean Corpuscular Hemoglobin 30.2 pg (25.0-34.0); Mean Corpuscular Volume 90.3 fL (80.0-100.0); Platelet Count 199 K/uL (130-400); RDW Standard Deviation 50.1 fL (36.4-46.3); Red Blood Count 4.34 M/uL (4.20-5.40); White Blood Count 6.17 K/ul (4.8-10.8)
[2025-04-11 07:50] LABS: Anion Gap 7.0 (3-11); Blood Urea Nitrogen 26.0 mg/dl (6-23); Calcium 9.9 mg/dl (8.6-10.3); Carbon Dioxide 31.0 mmol/L (21-32); Chloride 102.0 mmol/L (98-107); Creatinine Clr Calc Pharmacy 61.6 ml/min; Glucose 116.0 mg/dl (70-99(Fasting)); Potassium 3.5 mmol/L (3.5-5.1); Sodium 140.0 mmol/L (136-145)
--- NOTE | 2025-04-11 08:03 | Hospitalist Progress Note ---
Date of Service April 11, 2025 Assessment & Plan (1) Aspiration pneumonia due to vomit: (2) Acute hypoxic respiratory failure: (3) Acute UTI (urinary tract infection): Plan Pt is an 89 y/o F w/ PMHx permanent A-fib, TIA, breast cancer, GERD, type II DM, hypothyroidism, HFpEF, HLD, recurrent UTIs. Pt presented with her daughter after an episode after dinner in which she started coughing, vomited, and then choked on her vomit. Patient then developed shortness of breath and cough after the episode. Patient was noted to be 87% on room air in the ED and was also found to have UTI. #Aspiration pneumonia - Non-septic on presentation, VSS + no leukocytosis; 04/05 CXR w/ questionable mild aspiration PNA; Biofire in ED neg; Procal WNL x2 -Discontinued Zosyn 04/09; pt completed 3 day course, is w/out leukocytosis, VSS -IS, flutter valve -PRN: Tessalon Pearls, Tylenol #Acute HFpEF - 04/08 Repeat CXR consistent w/ pulmonary edema and bilateral pleural effusions; 04/08 BMP 189; Last echocardiogram on 01/13/2025 revealed LVEF at 60 to 65% -Continue Lasix 20 mg IV BID17 -Continue Potassium chloride 20mEq daily -Daily Weights -Strict I&O monitoring #Permanent A-fib - Intermittent tachycardia present; Pt denies CP/Hemoptysis + w/out hx DVT/PE -Continue ASA; no anticoagulation d/t h/o anemia & GIB while on warfarin -Continue diltiazem -Continuous telemetry monitoring If pt refractory to Lasix + antibiotic therapy, consider chest CTA #Acute hypoxic respiratory failure - No hx COPD/Asthma -Multifactorial; suspect combination of above -DuoNeb PRN -supplemental oxygen for O2 <94%, wean as tolerated -Currently needing occasional 1-2L O2 #Confusion - -Daughter reports recurrent episodes of hospital-acquired confusion during inpatient stays Daughter noted pt thought she was at [facility] on 04/07 -Encourage reorientation -PT/OT recommending SNF; daughter requesting home health if possible otherwise [facility] program #Dysphagia - -Speech therapy consult; Recommending easy to chew diet with thin liquids -Aspiration precautions #UTI - Hx of recurrent UTIs; UA concerning for infection with nitrite, 2+ LE, > 50 WBC, 1+ bacteria with 6-10 epithelial cells in ED; -Hx of Enterococcus faecalis resistant to tetracyclines, pansensitive Pseudomonas aeruginosa, pansensitive E. coli, pansensitive Klebsiella pneumonia -04/05 Urine Culture: Citrobactr -Discontinued Zosyn 04/09 -Hold methenamine #HLDcontinue the aspirin and statin #HFpEFcontinue Lasix 20 mg daily with potassium supplement as above #Hypothyroidismcontinue methimazole #GERD - continue PPI Disposition: Continued stay on MedSurg telemetry in setting of hypoxia; PT/OT recommending SNF VTE PPx: SCDs Pt's and Daughter updated 04/10, both continue to express strong interest in Home Health services. Admission and Anticipated Discharge Date Admission Date: April 05, 2025 Review of Systems Review of Systems: All systems reviewed & are unremarkable except as noted in Subjective Physical Exam Physical Exam: General: Pt is a 89 y/o overweight F in NAD sitting at bedside. VS: reviewed, remarkable - BP 146/85, pt needs O2 1-2L intermittentally Skin: Warm and dry; no lesions or ulcerations Respiratory: Decreased breath LLL, otherwise CTA w/ no adventitious sounds. Chest expansion is full and symmetrical Cardio: Irregularly irregular, no murmurs Abdomen: Round, normoactive BS x4, nontender to palpation MSK: FROM of extremities, no deformities Extremities: no edema Neuro: A&Ox4, cooperative Results & Data Results & Data Vital Signs (Past 12 Hours) Vital Signs Temp Pulse Pulse Resp BP Pulse Ox O2 Del Method 04/11/25 06:22 107 H 04/11/25 06:02 106 H 16 92 Room Air 04/11/25 03:03 97.5 F L 110 H 18 149/89 H 93 Room Air 04/10/25 23:17 94 H 04/10/25 22:36 97.7 F 113 H 18 131/75 91 Room Air 04/10/25 22:00 Room Air 04/10/25 21:56 108 H 04/10/25 20:26 108 H 18 93 Room Air Laboratory Results Reviewed: CBC, BMP, BNP PG Care Time/CCT Total # of Minutes Spent Total Time Spent with Patient: Total time spent is greater than 50% in coordination of care (as documented) at patient's floor/unit and/or counseling patient: Coding Diagnoses Aspiration pneumonia due to vomit J69.0 Acute hypoxic respiratory failure J96.01 Acute UTI (urinary tract infection) N39.0
--- NOTE | 2025-04-11 08:19 | XRay Report ---
XR chest 1V portable CLINICAL HISTORY: Congestive heart failure. COMPARISON STUDY: Chest radiograph April 08, 2025. Chest CT January 12, 2025. FINDINGS: There is no pneumothorax. Interstitial pulmonary edema has moderately improved. Bilateral p leural effusions, left larger than right, have improved. Associated bibasilar opacities are noted. Ca rdiomegaly is again noted. IMPRESSION: 1. Persistent but improved pulmonary edema. 2. Interval decrease in bilateral pleural effusions, left larger than right. ACT 112: Negative or not required by law. Electronically signed by: Edy Almazan M.D. 04/11/2025 8:18 AM
[2025-04-11] MEDS: FUROSEMIDE INJ 20 MG/2 ML VIAL IV SCH (08:29)
[2025-04-11 12:16] VITALS: RESP 19; O2SAT 94
[2025-04-11 13:36] VITALS: BP 149/89
[2025-04-11 14:02] VITALS: PULSE 62
--- NOTE | 2025-04-11 14:10 | Discharge Summary ---
Discharge Summary Date of Service April 11, 2025 Principal Dx & Hospital Course #1 = Principal Diagnosis (1) Aspiration pneumonia due to vomit: (2) Acute hypoxic respiratory failure: (3) Acute UTI (urinary tract infection): Plan #Aspiration pneumonia - Pt is an 89 y/o F w/ PMHx permanent A-fib, TIA, breast cancer, GERD, type II DM, hypothyroidism, HFpEF, HLD, recurrent UTIs wo presented to the ED after a coughing episode that resulted in a bout of emesis that the patient then choked upon, pt pts daughter. Pt then developed SOB sortly after the episode of choking and was brought to the ED where her O2 sat was noted to be 87%. A CXR on 04/05 was w/ questionable mild aspiration PNA, a Biofire was additionally performed at that time and was negative. Pt was then admitted to the hospital for further evaluation and care. While in the hospital, pt received supplemental O2, which was weaned down and discontinued on 04/10. Pt additionally received IV Zosyn x3 days, completing necessary course of abx. Pt should monitor for new signs of infection and report to her PCP should any issues arise. Pt to follow-up with PCP within one week of discharge. #Acute HFpEF - 04/08 Repeat CXR consistent w/ pulmonary edema and bilateral pleural effusions; 04/11 CXR w/ Persistent but improving pulmonary edema; 04/08 BMP 189; Last echocardiogram on 01/13/2025 revealed LVEF at 60 to 65%; Pt should continue Lasix 40mg daily and Potassium Chloride 20 mEq daily. Pt should monitor her weight closely in the outpatient setting. It is recommended that the pt receive repeat CXR in outpt setting with close f/u by PCP. #Permanent A-fib - Intermittent tachycardia present; Pt denies CP/Hemoptysis + w/out hx DVT/PE; Continue ASA; Continue diltiazem #Acute hypoxic respiratory failure - RESOLVED; No hx COPD/Asthma; Pt no longer requiring supplemental O2 #Confusion - Daughter reports recurrent episodes of hospital-acquired confusion during inpatient stays; encourage reorientation -PT/OT recommending SNF; family requested HH services which will be set up through case management -Daughter notes that someone is home with patient daily and able to provide her with care #Dysphagia - Speech therapy consult; Recommending easy to chew diet with thin liquids #UTI - Hx of Enterococcus faecalis resistant to tetracyclines, pansensitive Pseudomonas aeruginosa, pansensitive E. coli, pansensitive Klebsiella pneumonia; UA concerning for infection with nitrite, 2+ LE, > 50 WBC, 1+ bacteria with 6-10 epithelial cells in ED; 04/05 Urine Culture: Citrobactr; Discontinued Zosyn 04/09; Continue methenamine at home as rx #HLDcontinue the aspirin and statin #HFpEF continue Lasix 40 mg daily with potassium supplement as above #Hypothyroidismcontinue methimazole #GERD - continue PPI Disposition: Home with Home Health services and 24hr supervision which will be set up with through Case Management Admission HPI Per Admitting Provider Patient is an 89-year-old female with past medical history of permanent A-fib, TIA, breast cancer, GERD, type II DM, hypothyroidism, HFpEF, HLD, recurrent UTIs. Patient presented with her daughter after an episode after dinner in which she started coughing, vomited, and then choked on her vomit. Patient then developed shortness of breath and cough after the episode. Patient was noted to be 87% on room air in the ED and is being treated for mild aspiration pneumonia. Patient also found to have UTI. Nonseptic presentation at time of admission. Patient seen at bedside with her daughter present. She is extremely hard of hearing. She stated after dinner she started coughing and then vomited and felt as though she choked on her vomit which is not typical for her. She endorses cough and shortness of breath since the episode however her daughter stated that the shortness of breath has been ongoing for many years. Patient denies any chest pain or fevers since the episode. She denies any urinary symptoms such as dysuria or increase in urinary frequency, she does have some incontinence at baseline. She has a history of recurrent UTIs on methenamine. She denies any current abdominal pain, nausea, or diarrhea. She does endorse left lower extremity edema which is baseline for her after her ankle fracture. She does not use oxygen at baseline. She is due for her evening medications. She wishes to be full code. Discharge Exam General: Pt is a 89 y/o overweight F in NAD sitting at bedside. VS: reviewed, remarkable - BP 149/85, pt no longer requiring O2 Respiratory: Decreased breath LLL, otherwise CTA w/ no adventitious sounds. Chest expansion is full and symmetrical Cardio: Irregularly irregular, no murmurs Abdomen: Round, normoactive BS x4, nontender to palpation Discharge Plan Discharge Items Patient Disposition: Home - Home Health Services Reason For Visit: Hypoxia, aspiration, pneumonia, UTI Discharge Diagnosis: Hypoxia, aspiration PNA, UTI Condition on Discharge: Good Activity: Resume your previous activity Non-emergency contact: Primary Care Provider Call non-emergency contact if: you have any medication questions, your symptoms worsen and you have a fever Follow-up/Referrals: Jackelyn Enriquez DO [Primary Care Provider] - (Follow-up within one week of d/c) Diet: Heart Healthy and Low Sodium (2gm) Addtl Attending Provider Instructions: Hospital Course: You were admitted to the hospital for aspiration pneumonia and a UTI. While you were in the ED you received a chest x-ray on 04/05 that revealed questionable mild aspiration pneumonia. You additionally received a BioFire in the ED that was negative. You were then admitted to the hospital for further evaluation and care for you received supplemental oxygen which was weaned down and eventually discontinued on 04/10. While you are in the hospital you also received an antibiotic via the IV for 3 days called Lupe. A repeat chest x-ray was performed on 04/08 which was consistent with pulmonary edema and bilateral pleural effusions, you were then provided with doses of Lasix to help remove the fluid from your lungs. Another chest x-ray was done on the day of discharge 04/11 that showed persistent but improving pulmonary edema. As a result your Lasix dose will be increased to 40 mg daily at home. in relation to your dysphagia which resulted in an episode of coughing vomiting and then aspiration you were seen by speech therapy, they recommend that you continue an easy to chew diet with thin Liquids. Urinalysis was also performed while you were in the hospital which was positive for the presence of bacteria, a follow-up urine culture revealed the presence of Citrobacter. This UTI was covered by Zosyn provided to you while you are in the hospital. Plan: - monitor for signs of infection such as: Cough, congestion, fever, chills, sputum production - monitor weight: a sudden increase in weight can be indicative of fluid overload - follow-up with PCP within 1 week of discharge, it is recommended a repeat chest x-ray to be done - easy to chew diet with thin liquids, at the recommendation of speech therapy - your dose of potassium will be increased to 40 mg daily, please take around lunchtime - please continue other home medications as prescribed - you will be discharged home with home health services which will be set up through case management - if you have any questions problems or concerns you are encouraged to call your primary care provider Medications: Your medication list has been reviewed and reconciled upon discharge to ensure accuracy and continuity of care. An updated list of all your medications is included with your hospital discharge paperwork. Please review this list closely, and make note of any changes. We sent a new medication called Lasmaggy to your pharmacy. Take daily. Start this tomorrow to help with the fluid in your lungs. Take your medications as instructed; do not skip a dose of your medicines. Make sure all of your doctors know every medicine you are taking (including nreb-tfx-jmfdbja medicines, vitamins, and supplements). Call your primary care provider before taking any new medicines (including over- the-counter medicines, vitamins, and supplements), because some of these may interact with your current medications, or may make your symptoms worse. Tell your primary care provider if you cannot afford your medications. Activity: You can do normal everyday activities as your body allows. Take rest breaks if you feel tired. Do not overexert. Stop activity if you have pain, shortness of breath or feel dizzy. Follow-up appointments: Make an appointment with your primary care physician within one week of discharge. A copy of this summary will be sent to them. Every time you see your primary care physician, or any other doctor, bring your medication list, and a list of questions. CONTACT YOUR PRIMARY CARE PROVIDER if you experience any of the following: Shortness of breath or difficulty breathing Fevers or chills Feeling tired with normal activity or experiencing dizziness or fainting Difficulty following your treatment plan, or difficulty taking medications CALL 911 OR GO TO THE EMERGENCY DEPARTMENT if you experience any of the following: Severe abdominal pain or nausea/vomiting Severe chest pain, or chest pain that radiates (moves) to your jaw or arm Sudden, severe shortness of breath or difficulty breathing Thank you for allowing us to participate in your care. Pending Studies at Discharge: No Stand-Alone Forms: [employer] Smoking Cessation Medications and DC Order Prescriptions: New furosemide 40 mg tablet 40 mg PO DAILY Qty: 30 0RF Continued methimazole 5 mg tablet 5 mg PO QAM Qty: 90 1RF pantoprazole 40 mg tablet,delayed release (DR/EC) 40 mg PO QAM Qty: 90 1RF cyanocobalamin (vitamin B-12) 1,000 mcg capsule 1,000 mcg PO QAM atorvastatin 40 mg tablet 40 mg PO QPM (DME) Wheeled Walker Misc See Rx Instructions .Route Qty: 1 0RF Rx Instructions: As directed aspirin 81 mg tablet 81 mg PO DAILY diltiazem HCl 180 mg capsule,extended release 24hr 180 mg PO QAM Qty: 90 2RF potassium chloride 20 mEq tablet extended release 20 meq PO DAILY Qty: 90 3RF cholecalciferol (vitamin D3) 50 mcg (2,000 unit) tablet 50 mcg PO QAM acetaminophen 500 mg Tablet 1,000 mg PO BID PRN (Reason: Pain) calcium carbonate [Calcium 600] 600 mg calcium (1,500 mg) Tablet 1,200 mg PO DAILY PreserVision AREDS-2 250-90-40-1 mg Capsule 2 tab PO QAM polyethylene glycol 3350 [Miralax] 17 gram powder in packet 17 g PO QAM methenamine hippurate 1 gram tablet 1 g PO BID Discontinued furosemide 20 mg tablet 20 mg PO DAILY Qty: 90 3RF Discharge Orders: Discharge Order (Routine); Ordered 04/11/25 Ordered By: Leydi French Admission Data Admit Date/Time: 04/05/25 23:36 Attending Provider: Enrico Barros Admit Provider: Alyiah Lares Primary Care Provider: Jackelyn Enriquez Other Providers: Aliyah Lares Other Interventions: Discharge Summary Assessment (RN) Last Done: 04/11/25 13:35 Hospital Stay Data Consultations 04/05/25 23:04 ED Decision to Admit Stat Diagnostic Imagining Performed Chest X-Ray 04/05/25 19:24 Exam(s): XR CXR 1 VIEW EXAM: XR Chest, 1 View CLINICAL HISTORY: Dyspnea. TECHNIQUE: Frontal view of the chest. COMPARISON: XR Chest dated 11/01/2024 FINDINGS: Lungs: The pulmonary vasculature is prominent and equalized, similar to slightly more conspicuous from the previous examination. Subtle subsegmental changes of the right lung base. Pleural space: [id number]-pb-kpaxvmep left pleural effusion. No pneumothorax. Heart: Prominent cardiomegaly, stable. Mediastinum: The mediastinal contours are stable. No tracheal deviation. Bones/joints: No significant abnormality. No acute fracture. IMPRESSION: 1. Prominent cardiomegaly, stable. 2. Kwuw-qt-vpyrjyzu left pleural effusion. 3. The pulmonary vasculature is prominent and equalized, similar to slightly more conspicuous from the previous examination. Subtle subsegmental changes of the right lung base. Electronically signed by: Deondre Tierney MD 04/05/25 22:14 PM Chest X-Ray 04/08/25 12:53 Technique: A frontal view of the chest was obtained Findings: There is diffuse interstitial prominence, likely due to pulmonary edema. The heart is enlarged. No pneumothorax is seen. There are bilateral small to moderate sized pleural effusions No fracture is noted. No foreign body is seen Impression: Suspected congestive heart failure with cardiomegaly, pulmonary edema, and bilateral pleural effusions Electronically signed by Manny Hartley 04-08-2025 2:26 PM Chest X-Ray 04/11/25 07:38 XR chest 1V portable CLINICAL HISTORY: Congestive heart failure. COMPARISON STUDY: Chest radiograph April 08, 2025. Chest CT January 12, 2025. FINDINGS: There is no pneumothorax. Interstitial pulmonary edema has moderately improved. Bilateral pleural effusions, left larger than right, have improved. Associated bibasilar opacities are noted. Cardiomegaly is again noted. IMPRESSION: 1. Persistent but improved pulmonary edema. 2. Interval decrease in bilateral pleural effusions, left larger than right. ACT 112: Negative or not required by law. Electronically signed by: Edy Almazan M.D. 04/11/2025 8:18 AM Discharge Instructions Given to Patient (Per Discharging Provider) Hospital Course: You were admitted to the hospital for aspiration pneumonia and a UTI. While you were in the ED you received a chest x-ray on 04/05 that revealed questionable mild aspiration pneumonia. You additionally received a BioFire in the ED that was negative. You were then admitted to the hospital for further evaluation and care for you received supplemental oxygen which was weaned down and eventually discontinued on 04/10. While you are in the hospital you also received an antibiotic via the IV for 3 days called Zosyn. A repeat chest x-ray was performed on 04/08 which was consistent with pulmonary edema and bilateral pleural effusions, you were then provided with doses of Lasix to help remove the fluid from your lungs. Another chest x-ray was done on the day of discharge 04/11 that showed persistent but improving pulmonary edema. As a result your Lasix dose will be increased to 40 mg daily at home. in relation to your dysphagia which resulted in an episode of coughing vomiting and then aspiration you were seen by speech therapy, they recommend that you continue an easy to chew diet with thin Liquids. Urinalysis was also performed while you were in the hospital which was positive for the presence of bacteria, a follow-up urine culture revealed the presence of Citrobacter. This UTI was covered by Zosyn provided to you while you are in the hospital. Plan: - monitor for signs of infection such as: Cough, congestion, fever, chills, sputum production - monitor weight: a sudden increase in weight can be indicative of fluid overload - follow-up with PCP within 1 week of discharge, it is recommended a repeat chest x-ray to be done - easy to chew diet with thin liquids, at the recommendation of speech therapy - your dose of potassium will be increased to 40 mg daily, please take around lunchtime - please continue other home medications as prescribed - you will be discharged home with home health services which will be set up through case management - if you have any questions problems or concerns you are encouraged to call your primary care provider Medications: Your medication list has been reviewed and reconciled upon discharge to ensure accuracy and continuity of care. An updated list of all your medications is included with your hospital discharge paperwork. Please review this list closely, and make note of any changes. We sent a new medication called Lasix to your pharmacy. Take daily. Start this tomorrow to help with the fluid in your lungs. Take your medications as instructed; do not skip a dose of your medicines. Make sure all of your doctors know every medicine you are taking (including bwvo-mli-zgbuiuz medicines, vitamins, and supplements). Call your primary care provider before taking any new medicines (including over- the-counter medicines, vitamins, and supplements), because some of these may interact with your current medications, or may make your symptoms worse. Tell your primary care provider if you cannot afford your medications. Activity: You can do normal everyday activities as your body allows. Take rest breaks if you feel tired. Do not overexert. Stop activity if you have pain, shortness of breath or feel dizzy. Follow-up appointments: Make an appointment with your primary care physician within one week of discharge. A copy of this summary will be sent to them. Every time you see your primary care physician, or any other doctor, bring your medication list, and a list of questions. CONTACT YOUR PRIMARY CARE PROVIDER if you experience any of the following: Shortness of breath or difficulty breathing Fevers or chills Feeling tired with normal activity or experiencing dizziness or fainting Difficulty following your treatment plan, or difficulty taking medications CALL 911 OR GO TO THE EMERGENCY DEPARTMENT if you experience any of the following: Severe abdominal pain or nausea/vomiting Severe chest pain, or chest pain that radiates (moves) to your jaw or arm Sudden, severe shortness of breath or difficulty breathing Thank you for allowing us to participate in your care. Supervising Physician Co-Signing Physician Notes The patient was not seen by me. Chart reviewed. Case discussed with ERIKA Delong. Agree with assessment and plan. Total Time Total Time Spent Total Time Spent (In Minutes): Time spent day of discharge 42 minutes including direct patient care, medication reconciliation, documentation, review of labs and images, and coordination of care. Coding Level of Care Code 96180 INP/OBS DISCH >30 MIN Diagnoses Aspiration pneumonia due to vomit J69.0 Acute hypoxic respiratory failure J96.01 Acute UTI (urinary tract infection) N39.0
== END 2025-04-11 15:55 | disposition home health service (06) | DRG 177 ==
LOC: ED 19:08 → SUATTDRO 23:36 → 2N 23:36